=== PATIENT | female | born 1940 | race Caucasian/White ===

== ENCOUNTER → 2017-04-28 14:58 | Outpatient (CLI) | payer MEDICARE, BC, SELFPAY ==
[2017-04-28 16:25] LABS: Absolute Lymphocyte Count 2.05 X10^3/ul (0.83-4.51); Absolute Neutrophil Count 6.3 X10^3/uL (2.0-7.7); Basophil# 0.02 X10^3/uL; Basophil% 0.2 % (0-1); Eosinophil# 0.11 X10^3/uL; Eosinophils% 1.2 % (0-5); Hematocrit 40.2 % (37-47); Hemoglobin 12.9 g/dl (12.0-15.0); Lymphocyte # 2.05 X10^3/ul (4.0); Lymphocyte % 22.9 % (19-41); Mean Corp Hgb Conc 32.1 g/gl (32-36); Mean Corpuscular Hgb 29.9 pg (27.0-32.0); Mean Corpuscular Volume 93.3 fL (81-99); Mean Platelet Vol. 10.6 fl (6.2-12.0); Monocyte# 0.52 X10^3/uL; Monocyte% 5.8 % (0-10); Neutrophil # 6.25 X10^3/uL (2.7-7.7); Neutrophil % 69.8 % (47-70); Platelet Count 230 K/mm3 (150-450); RBC Distribution Width CV 14.7 % (11.6-14.6); RBC Distribution Width SD 48.3 fl (35.1-43.9); Red Blood Count 4.31 M/mm3 (4.2-5.4)
[2017-04-28 16:28] LABS: POSITIVE COUNT NO; POSITIVE DIFFERENTIAL NO; POSITIVE MORPHOLOGY NO
[2017-04-28 16:50] LABS: ALB/GLOB Ratio 0.7 RATIO (0.9-2.4); AST(SGOT) 27 U/L (15-37); Alanine Aminotransfer ALT/SGPT 31 U/L (13-56); Albumin, Serum 3.1 g/dL (3.2-5.0); Alkaline Phosphatase 78 U/L (45-117); Anion Gap 7 (5-15); BUN 12 mg/dL (7-18); BUN/Creat Ratio 12.9 RATIO (10-20); Calcium,Total 8.7 mg/dL (8.5-10.1); Chloride 102 mmol/L (98-107); Creatinine, Serum 0.93 mg/dL (0.55-1.02); EST Glomerular Filtration Rate 63 mL/min (>60); Est Glom Filt Rate - Afr Amer 76 mL/min (>60); Globulin 4.5 g/dL (2.2-4.2); Glucose 114 mg/dL (74-106); Potassium 3.7 mmol/L (3.5-5.1); Protein, Total 7.6 g/dL (6.4-8.2); Sodium Level 139 mmol/L (136-145); Thyroid Stim Hormone (TSH) 1.63 uIU/mL (0.358-3.74)
== END ==
PROVIDERS: Family Provider Family Medicine Geriatric Medicine; PCP Family Medicine Geriatric Medicine; Visit Provider Family Medicine Geriatric Medicine
DX: E11.9 Type 2 diabetes mellitus without complications (principal); I10 Essential (primary) hypertension; E55.9 Vitamin D deficiency, unspecified
CPT/HCPCS: 36415; 80053; 82306; 84443; 85025

== ENCOUNTER 2017-05-14 23:53 | Emergency (ER) | payer MEDICARE, BC, SELFPAY ==
[2017-05-14 23:54] VITALS: BP 152/117; PULSE 120; RESP 20; TEMP 36.6; O2SAT 98; BMI 26.5
--- NOTE | 2017-05-15 00:50 | ED.DEP ---
ED Disposition - Plan for ED Patient: Chief Complaint: Wound Check Instructions: ED Avulsion Dermal Referrals: Robert New Chi, MD [Primary Care Provider] -
[2017-05-15 00:52] VITALS: BP 127/72; PULSE 99; RESP 18; O2SAT 97
[2017-05-15 01:07] VITALS: BP 127/79; PULSE 94; RESP 16; O2SAT 97
--- NOTE | 2017-05-15 01:14 | ED.VISSUMM ---
- ER Visit Summary Date of Service: 05/15/17 Chief Complaint: Right arm injury History of Present Illness: The patient is a 76 F presenting with right arm injury. Patient states that she scraped her right arm on a wood cabinet on Friday. She states it has intermittently been bleeding. She is not on blood thinners. Denies pain with movement. Denies other complaints. Physical Examination: Vitals are stable. Patient is afebrile. Alert no acute distress. HEENT exam is unremarkable. Lungs are clear and equal bilaterally. Heart is regular rate and rhythm. Extremities right upper extremity skin avulsion, no active bleeding. No bony tenderness. Active full range of motion. Neurovascularly intact distally. Skin is warm and dry. Remainder of exam is unremarkable. Emergency Department Course and Treatment: Wound was cleaned and dressed. Advised wound care instructions. Advised to follow-up with her primary care physician. Advised return to ED for worsening complaints. Disposition: Discharge home Impression: Skin tear right upper extremity This note was generated with [employer] dictation software. It may contain incorrect words, spelling, and punctuation that were not noted in review of the chart prior to signing ED Disposition - Plan for ED Patient: Disposition: Home or Assisted Living Chief Complaint: Wound Check Instructions: ED Avulsion Dermal Referrals: Robert New Chi, MD [Primary Care Provider] -
== END 2017-05-15 01:08 | disposition home or self-care (01) ==
LOC: ED 05-15 00:46
PROVIDERS: Emergency Provider Emergency Medicine; Family Provider Family Medicine Geriatric Medicine; PCP Family Medicine Geriatric Medicine
DX: S41.111A Laceration without foreign body of right upper arm, initial encounter (principal); W22.8XXA Striking against or struck by other objects, initial encounter; Y93.9 Activity, unspecified; Y92.9 Unspecified place or not applicable; Y99.9 Unspecified external cause status; Z79.82 Long term (current) use of aspirin; Z79.899 Other long term (current) drug therapy
CPT/HCPCS: 99282

== ENCOUNTER 2017-05-16 20:20 | Emergency (ER) | payer MEDICARE, BC, SELFPAY ==
[2017-05-16 20:21] VITALS: BP 142/100; PULSE 108; RESP 17; TEMP 36.4; O2SAT 97; BMI 23.3
[2017-05-16 22:39] VITALS: BP 154/67; PULSE 96; RESP 16; O2SAT 100
--- NOTE | 2017-05-16 22:40 | ED.VISSUMM ---
- ER Visit Summary Date of Service: 05/16/17 Chief Complaint: [Back pain] History of Present Illness: The patient is a 76 F [presents to the emergency department with back pain that started yesterday. Patient states the pain is gradually worsened. She describes an as in her right buttock/posterior pelvic area. Patient states she has had pain like this multiple times in the past year. Patient is seen Dr. Ludwig for this in the past and has had injections. She does not take anything for pain at home. Patient denies any recent falls or trauma. She denies any pain rating down her legs. She denies weakness in the extremities. She denies change in bowel or bladder function. Patient denies urinary symptoms. Patient has not had this area imaged in the past.] Physical Examination: [HEENT-PERRLA, EOMI. Cranial nerves II through XII grossly intact. TMs clear. Mucous membranes moist. No adenopathy. Cardiovascular-regular rate and rhythm without murmur or ectopy Lungs-clear to auscultation, chest wall stable without crepitus or subcu emphysema Abdomen-normoactive bowel sounds, soft, nontender, no rebound or rigidity, no peritoneal signs. Back exam-patient has tenderness palpation over the right piriformis muscle and the right SI joint. She has negative straight leg raises. Deep tendon reflexes are plus 2 out of 4 bilaterally at the patella and Achilles. Patient has normal L5 extension bilaterally. Patient has normal sensation to light touch. Patient has no tenderness over the thoracic or lumbar spine. Extremities-intact ?4, normal range of motion, normal pulses, atraumatic] Test Results: [Patient refused imaging.] Emergency Department Course and Treatment: [Patient was given a milligram of Dilaudid IM as well as Zofran 4 mg IM.] Treatment Plan: [Patient will be given a prescription for [place].] Disposition: [Discharged to home in stable condition. Patient advised to follow-up with Dr. valente solidly within the next 3-5 days.] Impression: [Acute exacerbation of chronic back pain.] This note was generated with [employer] dictation software. It may contain incorrect words, spelling, and punctuation that were not noted in review of the chart prior to signing ED Disposition - Plan for ED Patient: Chief Complaint: Back Referrals: Robert New Chi, MD [Primary Care Provider] -
--- NOTE | 2017-05-16 22:43 | ED.DCSUM_ITS ---
- ER Visit Summary Date of Service: 05/16/17 Chief Complaint: [Back pain] History of Present Illness: The patient is a 76 F [presents to the emergency department with back pain that started yesterday. Patient states the pain is gradually worsened. She describes an as in her right buttock/posterior pelvic area. Patient states she has had pain like this multiple times in the past year. Patient is seen Dr. Ludwig for this in the past and has had injections. She does not take anything for pain at home. Patient denies any recent falls or trauma. She denies any pain rating down her legs. She denies weakness in the extremities. She denies change in bowel or bladder function. Patient denies urinary symptoms. Patient has not had this area imaged in the past.] Physical Examination: [HEENT-PERRLA, EOMI. Cranial nerves II through XII grossly intact. TMs clear. Mucous membranes moist. No adenopathy. Cardiovascular-regular rate and rhythm without murmur or ectopy Lungs-clear to auscultation, chest wall stable without crepitus or subcu emphysema Abdomen-normoactive bowel sounds, soft, nontender, no rebound or rigidity, no peritoneal signs. Back exam-patient has tenderness palpation over the right piriformis muscle and the right SI joint. She has negative straight leg raises. Deep tendon reflexes are plus 2 out of 4 bilaterally at the patella and Achilles. Patient has normal L5 extension bilaterally. Patient has normal sensation to light touch. Patient has no tenderness over the thoracic or lumbar spine. Extremities-intact ?4, normal range of motion, normal pulses, atraumatic] Test Results: [Patient refused imaging.] Emergency Department Course and Treatment: [Patient was given a milligram of Dilaudid IM as well as Zofran 4 mg IM.] Treatment Plan: [Patient will be given a prescription for [place].] Disposition: [Discharged to home in stable condition. Patient advised to follow -up with Dr. valente solidly within the next 3-5 days.] Impression: [Acute exacerbation of chronic back pain.] This note was generated with [employer] dictation software. It may contain incorrect words, spelling, and punctuation that were not noted in review of the chart prior to signing ED Disposition - Plan for ED Patient: Chief Complaint: Back Referrals: Robert New Chi, MD [Primary Care Provider] -
--- NOTE | 2017-05-16 22:45 | DCINST.ED_ITS ---
ED Disposition - Plan for ED Patient: Chief Complaint: Back Instructions: ED Sciatica Prescriptions: Hydrocodone Bitart/Apap 5-325 [[place] 5/325] 1 - 2 tab PO Q4H PRN PRN 3 Days #12 tab PRN Reason: Pain Referrals: Robert New Chi, MD [Primary Care Provider] - 3-5 Days Syed Ludwig MD [STAFF PHYSICIAN] - 3-5 Days
[2017-05-16] MEDS: HYDROmorphone 1 MG/ML Syringe IM (22:49)
[2017-05-16] MEDS: Ondansetron 4 MG/2 ML Vial IM (22:49)
[2017-05-16] MEDS: HYDROcodone Bitartrate/Apap 5/325 Tablet PO (22:56)
== END 2017-05-16 23:09 | disposition home or self-care (01) ==
LOC: ED 23:04
PROVIDERS: Emergency Provider Emergency Medicine; Family Provider Family Medicine Geriatric Medicine; PCP Family Medicine Geriatric Medicine
DX: M54.9 Dorsalgia, unspecified (principal); G89.29 Other chronic pain; E03.9 Hypothyroidism, unspecified; Z79.82 Long term (current) use of aspirin; Z79.899 Other long term (current) drug therapy
CPT/HCPCS: 96372; 99282; J2405

== ENCOUNTER 2017-05-18 15:58 | Inpatient (IN) | payer MEDICARE, BC, SELFPAY ==
[2017-05-18] VITALS (8 sets, daily range): BP systolic 158–192; BP diastolic 58–113; PULSE 90–99; RESP 16–18; TEMP 36.6–36.8; O2SAT 95–99; BMI 26.5; BMI 26.1
--- NOTE | 2017-05-18 16:15 | RAD_ITS ---
STUDY: X-RAY - PELVIS AND RIGHT HIP REASON FOR EXAM: Female, 76 years old. Patient fell today. Pain in right hip. TECHNIQUE: Radiological exam, hip, unilateral, with pelvis when performed; 2 or 3 views. COMPARISON: None. FINDINGS: There is a non-specific bowel gas pattern. Normal visualized soft tissue structures. There is narrowing with cortical sclerosis and osteophyte formation of the sacroiliac joint consistent with degenerative osteoarthritic changes. Normal bilateral superior and inferior pubic rami. There are degenerative changes of the pubic symphysis with articular narrowing and sclerosis. Normal bilateral ischial tuberosities. There are mild degenerative changes of the right hip. RAD/Hip 2-3 Views with Pelvis IMPRESSION: Degenerative changes. Electronically Signed: Tatiana Oh MD at 16:51 EDT Tel , Service support ,
--- NOTE | 2017-05-18 16:15 | RAD_ITS ---
STUDY: X-RAY - UNILATERAL RIBS ( RIGHT ) WITH CHEST REASON FOR EXAM: Female, 76 years old. Fell. Pain in right ribs anteriorly. TECHNIQUE - RIBS: 3 view(s) of the ribs. TECHNIQUE - CHEST: AP COMPARISON: November 19, 2016 FINDINGS - RIBS: Normal visualized ribs without a demonstrated fracture. FINDINGS - CHEST: The lungs are clear and expanded. There is no demonstrated pleural abnormality. Normal size heart. Normal mediastinum and elaine. Normal visualized pulmonary arteries. There is atherosclerotic calcification of the aortic arch . There is demineralization of the osseous structures. There is a stable superior endplate deformity of T8. Normal visualized ribs, clavicles, and shoulders. There is no demonstrated abnormality of the visualized soft tissue structures of the upper abdomen. RAD/Ribs Uni Min 3V w/PA Chest IMPRESSION: RIBS: Normal x-ray examination of the ribs. CHEST: No acute cardiopulmonary process. Electronically Signed: Tatiana Oh MD at 16:55 EDT Tel , Service support ,
--- NOTE | 2017-05-18 16:18 | ED.VISSUMM ---
- ER Visit Summary Date of Service: 05/18/17 Chief Complaint: Fall History of Present Illness: The patient is a 76 F presenting after fall. Patient states she fell in the parking lot of her [employer]. States she tripped over a speed bump. She did not hit her head or lose consciousness. She complains of right chest wall pain and right hip pain, she has been able to ambulate with pain. She was seen in the ED 3 days ago for a skin tear to her right arm. This resulted from scraping it on a dresser. She has only changed the dressing one time since being seen. She is not on anticoagulants. Physical Examination: Vitals are stable. Patient is afebrile. Alert no acute distress. HEENT exam is unremarkable. Neck is nontender Lungs are clear and equal bilaterally. Right lower chest wall tenderness with no crepitus Heart is regular rate and rhythm. Abdomen is soft nontender nondistended. No rebound or guarding Extremities mild anterior right hip tenderness, right forearm skin tear healing with mild surrounding erythema, no drainage. Skin is warm and dry. No focal neurologic deficit. Remainder of exam is unremarkable. Emergency Department Course and Treatment: Right rib x-ray and right hip x-rays show no acute process. She is given [place] ?1. She is given an incentive spirometer. Her right arm was dressed. She is given Keflex. She is unable to ambulate in the emergency department secondary to right hip pain. Discussed with the hospitalist for admission. Disposition: Observation Impression: Right rib contusion, right hip injury, right forearm skin tear, s/p fall This note was generated with [employer] dictation software. It may contain incorrect words, spelling, and punctuation that were not noted in review of the chart prior to signing ED Disposition - Plan for ED Patient: Chief Complaint: Fall Referrals: Robert New Chi, MD [Primary Care Provider] -
[2017-05-18] MEDS: Cephalexin 250 MG Capsule 500 MG PO (18:04)
[2017-05-18] MEDS: HYDROcodone Bitartrate/Apap 5/325 Tablet PO (18:04)
[2017-05-18 18:44] LABS: Absolute Lymphocyte Count 1.85 X10^3/ul (0.83-4.51); Absolute Neutrophil Count 9.9 X10^3/uL (2.0-7.7); Basophil# 0.01 X10^3/uL; Basophil% 0.1 % (0-1); Eosinophil# 0.02 X10^3/uL; Eosinophils% 0.2 % (0-5); Hematocrit 38.1 % (37-47); Hemoglobin 12.1 g/dl (12.0-15.0); Lymphocyte # 1.85 X10^3/ul (4.0); Lymphocyte % 14.8 % (19-41); Mean Corp Hgb Conc 31.8 g/gl (32-36); Mean Corpuscular Hgb 29.2 pg (27.0-32.0); Mean Platelet Vol. 10.2 fl (6.2-12.0); Monocyte# 0.68 X10^3/uL; Monocyte% 5.4 % (0-10); Neutrophil # 9.94 X10^3/uL (2.7-7.7); Neutrophil % 79.2 % (47-70); POSITIVE COUNT NO; POSITIVE DIFFERENTIAL NO; POSITIVE MORPHOLOGY NO; Platelet Count 220 K/mm3 (150-450); RBC Distribution Width CV 14.6 % (11.6-14.6); RBC Distribution Width SD 49.1 fl (35.1-43.9); Red Blood Count 4.14 M/mm3 (4.2-5.4); White Blood Count 12.5 K/mm3 (4.4-11.0)
--- NOTE | 2017-05-18 19:01 | PCM.HP.STD ---
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 The patient is a 76 y/o F w/ PMHx: Hypothyroidism, HTN, HLD, GERD, History of GBS Dx 2003 following URI, Frequent Falls, Chronic back pain, Former Tobacco use who presents to the [facility] ED on 05/18/17 with history of 3 repeat ED visits over the last 3 days, (1) ? Fall/instability w/ laceration to the RUE forearm, dressed with patient failure to even change her dressing since ED discharge to home, (2) acute on chronic back pain w/ sciatic complaint and return this evening (3) secondary to fall while in her [employer] parking lot onto her right side with following debility, pain to the right hip and right chest region. Per discussion with family patient was dx August this past year with Shingles and had markedly prolonged course secondary to inability to stop itching the region w/ dermatology follow-up, now healed. In the ED work-up included T 97.8, HR 90s, BP 192/72, RR 16, 99% on RA, CBC w/ WBC 12.5, Hgb 12.1, Plts 220 with L shift, BMP unremarkable, plain film hip/ribs/chest without acute findings. In the ED patient administered keflex and norco but no marked improvement and upon attempts to ambulate patient nearly fell and was noted to be severely debilitated. RUE dressing changed in the ED. 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 Hyperlipidemia (Chronic) Allergies morphine Allergy (Verified 05/16/17 20:20) Other FLU SHOT Allergy (Uncoded 05/18/17 16:02) Other Home Medications: Ambulatory Orders Medication Instructions Recorded Aspirin [Aspirin, Baby] 81 mg PO DAILY 05/28/14 Calcium (Elemental) [Os-Maximino 500] 2 tab PO DAILY 05/28/14 Lisinopril 5 mg PO DAILY 05/28/14 Levothyroxine [Synthroid] 75 mcg PO DAILY 11/19/16 Hydrocodone Bitart/Apap 5-325 1 - 2 tab PO Q4H PRN PRN 3 Days 05/16/17 [[place] 5/325] #12 tab Psychiatric History: No pertinent psych hx SAFETY SITTER History: No pertinent SAFETY SITTER history, - - T+A, BLTL, Cataract surgery. Lives: Spouse/ Significant Other Smoking Status: Former smoker Tobacco Use: Non-smoker Alcohol: None Drugs: None - *Family History Maternal History Items: No pertinent history Paternal History Items: No pertinent history Review of Systems Constitutional: Reports: Malaise, Weakness, Fatigue. Denies: Chills, Fever, Weight Change HEENT: Denies: Head Aches, Sinus Congestion, Sinus Drainage Cardiovascular: Reports: Chest Pain. Denies: Palpitations Respiratory: Denies: Cough, Shortness of breath at rest, Sputum production Gastrointestinal: Denies: Abdominal Pain, Nausea, Vomiting Genitourinary: Denies: Dysuria Musculoskeletal: Reports: Arm Pain, Joint Pain, Joint Tenderness, Leg Pain, Muscle pain Skin: Reports: Skin Changes, Wounds. Denies: Rash Neurological: Denies: Numbness, Tingling, Focal weakness Psychiatric: Denies: Anxiety, Depression, Homicidal Ideations, Suicidal Ideations Hematologic/ Lymphatic: Denies: Easy Bruising, Easy Bleeding VTE Information - Inpt Only VTE Present on Admission: No VTE Mechan Device Prophylaxis: SCD's VTE Pharm Prophylaxis ordered?: Yes Subjective: Seated upright in the ED bed, notable discomfort w/ attempts to move, primarily to the Right medial chest region beneath breast laterally. Objective: Physical Examination: General: awake, alert, oriented x 3 and cooperative, seated upright in the ED bed, pain with movement attempts. Skin: normal color, turgor, no icterus, cyanosis, healed right upper back, right lateral upper chest and RUE shingles, scarring noted from scratching, RUE w/ forearm skin tear healing with mild-moderate surrounding erythema, no drainage. HEENT: AT/NC, EOMI, PERRLA, mildly dry MM, no carotid bruits or JVD noted. Lungs: CTA bilaterally, decreased effort secondary to R rib chest discomfort elicited, mild decrease BL bases, no rales, ronchi or wheezing. Heart: Regular rate and rhythm; no gallop, rub audible. Abdomen: soft, NTTP, ND, normal BS, no HSM. Extremities: no cyanosis, clubbing, see skin. Hip region without marked TTP, rock, some discomfort to palpation of upper proximal thigh. Neurological: patient awake, alert, oriented x 3; cognitive function intact; pupils equally reactive to light and accomodation; cranial nerves II-XII grossly normal, moving all 4 extremities but limited secondary to recent fall and acute pain elicited primarily R upper chest, no focal deficits, strength moderately to severely globally decreased. Psychiatric: affect appears normal, no acute evidence of depressive or anxiety feelings. - Physical Exam Vital Signs Temp Pulse Resp BP Pulse Ox 97.8 F 90 16 187/68 H 99 05/18/17 15:59 05/18/17 18:18 05/18/17 18:18 05/18/17 18:18 05/18/17 18:18 Oxygen Delivery Method Room Air Weight: 150 lb Body Mass Index (BMI) 26.5 Finger Stick Blood Glucose 150 Laboratory Tests Past 24 Hrs 05/18/17 05/18/17 18:30 18:30 WBC 12.5 H RBC 4.14 L Hgb 12.1 Hct 38.1 MCV 92.0 MCH 29.2 MCHC 31.8 L RDW 14.6 RDW Differential 49.1 H Plt Count 220 MPV 10.2 Immature Gran % (Auto) 0.300 Neut % (Auto) 79.2 H Lymph % (Auto) 14.8 L [place] % (Auto) 5.4 Eos % (Auto) 0.2 Baso % (Auto) 0.1 Absolute Neuts (auto) 9.9 H Absolute Lymphs (auto) 1.85 Total Counted Not Reportable Sodium Pending Potassium Pending Chloride Pending Carbon Dioxide Pending Anion Gap Pending BUN Pending Creatinine Pending Est GFR (MDRD) Af Amer Pending Est GFR (MDRD) Non-Af Pending BUN/Creatinine Ratio Pending Glucose Pending Calcium Pending Assessment/Plan The patient is a 76 y/o F w/ PMHx: Hypothyroidism, HTN, HLD, GERD, History of GBS Dx 2003 following URI, Frequent Falls, Chronic back pain, Former Tobacco use who presents to the [facility] ED on 05/18/17 with history of 3 repeat ED visits over the last 3 days, (1) ? Fall/instability w/ laceration to the RUE forearm, dressed with patient failure to even change her dressing since ED discharge to home, (2) acute on chronic back pain w/ sciatic complaint and return this evening (3) secondary to fall while in her [employer] parking lot onto her right side with following debility, pain to the right hip and right chest region. (1) RUE Extremity Cellulitis: Admission CBC w/ 12.5 with L shift, no caring for her laceration, dressing was left in place since ED evaluation 3 days prior. Will admit to [facility], maintain on IV ancef, if discharge will obtain Wound Cx and Wound MRSA PCR, plan repeat CBC in AM, continue affected extremity elevation above heart when seated and in bed, monitor erythema outline with VS checks. Fall precautions. (2) Debility, Frequent Falls, Acute on Chronic Back Pain, R Rib Pain s/p Fall with history of Prior GBS Chronic Syndrome, Dx 2003 following URI: Plain films chest/rib and pelvis/hip unremarkable, maintain on fall precautions, position changes, PRN pain regimen, mag, TSH, T4 and UA/UCx requested. PT, OT, given frequency of falls and injuries occurring unsafe for return to home, likely will need SNF otherwise injury/fall risk HIGH. Orthostatic VS requested upon admission, gentle IVFs. (3) Hypertension: Continue home lisinopril, PRN hydralazine. Orthostatic VS pending. (4) Hypothyroidism: Continue home synthroid regimen, TSH and FT4 pending. (5) HLD: Not on agent, defer. (6) GERD: Famotidine. (7) DVT Prophylaxis: SCDs, heparin given pending BMP upon admission. Code Visit Inpatient E&M: [id number] Init Hosp L3
[2017-05-18 19:05] LABS: Anion Gap 11 (5-15); BUN 16 mg/dL (7-18); BUN/Creat Ratio 18.9 RATIO (10-20); Calcium,Total 9.1 mg/dL (8.5-10.1); Chloride 104 mmol/L (98-107); Creatinine, Serum 0.85 mg/dL (0.55-1.02); EST Glomerular Filtration Rate 70 mL/min (>60); Est Glom Filt Rate - Afr Amer 84 mL/min (>60); Estimated Creatinine Clearance 47.31 ml/min; Glucose 88 mg/dL (74-106); Potassium 3.9 mmol/L (3.5-5.1); Sodium Level 140 mmol/L (136-145)
--- NOTE | 2017-05-18 19:15 | HP.PCM_ITS ---
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 The patient is a 76 y/o F w/ PMHx: Hypothyroidism, HTN, HLD, GERD, History of GBS Dx 2003 following URI, Frequent Falls, Chronic back pain, Former Tobacco use who presents to the [facility] ED on 05/18/17 with history of 3 repeat ED visits over the last 3 days, (1) ? Fall/instability w/ laceration to the RUE forearm, dressed with patient failure to even change her dressing since ED discharge to home, (2) acute on chronic back pain w/ sciatic complaint and return this evening (3) secondary to fall while in her [employer] parking lot onto her right side with following debility, pain to the right hip and right chest region. Per discussion with family patient was dx August this past year with Shingles and had markedly prolonged course secondary to inability to stop itching the region w/ dermatology follow-up, now healed. In the ED work-up included T 97.8, HR 90s, BP 192/72, RR 16, 99% on RA, CBC w/ WBC 12.5, Hgb 12.1, Plts 220 with L shift, BMP unremarkable, plain film hip/ribs/chest without acute findings. In the ED patient administered keflex and norco but no marked improvement and upon attempts to ambulate patient nearly fell and was noted to be severely debilitated. RUE dressing changed in the ED. 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 Lives: Spouse/ Significant Other Smoking Status: Former smoker Tobacco Use: Non-smoker Alcohol: None Drugs: None - *Family History Maternal History Items: No pertinent history Paternal History Items: No pertinent history Review of Systems Constitutional: Reports: Malaise, Weakness, Fatigue. Denies: Chills, Fever, Weight Change HEENT: Denies: Head Aches, Sinus Congestion, Sinus Drainage Cardiovascular: Reports: Chest Pain. Denies: Palpitations Respiratory: Denies: Cough, Shortness of breath at rest, Sputum production Gastrointestinal: Denies: Abdominal Pain, Nausea, Vomiting Genitourinary: Denies: Dysuria Musculoskeletal: Reports: Arm Pain, Joint Pain, Joint Tenderness, Leg Pain, Muscle pain Skin: Reports: Skin Changes, Wounds. Denies: Rash Neurological: Denies: Numbness, Tingling, Focal weakness Psychiatric: Denies: Anxiety, Depression, Homicidal Ideations, Suicidal Ideations Hematologic/ Lymphatic: Denies: Easy Bruising, Easy Bleeding VTE Information - Inpt Only VTE Present on Admission: No VTE Mechan Device Prophylaxis: SCD's VTE Pharm Prophylaxis ordered?: Yes Subjective: Seated upright in the ED bed, notable discomfort w/ attempts to move, primarily to the Right medial chest region beneath breast laterally. Objective: Physical Examination: General: awake, alert, oriented x 3 and cooperative, seated upright in the ED bed, pain with movement attempts. Skin: normal color, turgor, no icterus, cyanosis, healed right upper back, right lateral upper chest and RUE shingles, scarring noted from scratching, RUE w/ forearm skin tear healing with mild-moderate surrounding erythema, no drainage. HEENT: AT/NC, EOMI, PERRLA, mildly dry MM, no carotid bruits or JVD noted. Lungs: CTA bilaterally, decreased effort secondary to R rib chest discomfort elicited, mild decrease BL bases, no rales, ronchi or wheezing. Heart: Regular rate and rhythm; no gallop, rub audible. Abdomen: soft, NTTP, ND, normal BS, no HSM. Extremities: no cyanosis, clubbing, see skin. Hip region without marked TTP, rock, some discomfort to palpation of upper proximal thigh. Neurological: patient awake, alert, oriented x 3; cognitive function intact; pupils equally reactive to light and accomodation; cranial nerves II-XII grossly normal, moving all 4 extremities but limited secondary to recent fall and acute pain elicited primarily R upper chest, no focal deficits, strength moderately to severely globally decreased. Psychiatric: affect appears normal, no acute evidence of depressive or anxiety feelings. - Physical Exam Vital Signs Temp Pulse Resp BP Pulse Ox 97.8 F 90 16 187/68 H 99 05/18/17 15:59 05/18/17 18:18 05/18/17 18:18 05/18/17 18:18 05/18/17 18:18 Oxygen Delivery Method Room Air Weight: 150 lb Body Mass Index (BMI) 26.5 Finger Stick Blood Glucose 150 Laboratory Tests Past 24 Hrs 05/18/17 05/18/17 18:30 18:30 WBC 12.5 H RBC 4.14 L Hgb 12.1 Hct 38.1 MCV 92.0 MCH 29.2 MCHC 31.8 L RDW 14.6 RDW Differential 49.1 H Plt Count 220 MPV 10.2 Immature Gran % (Auto) 0.300 Neut % (Auto) 79.2 H Lymph % (Auto) 14.8 L [place] % (Auto) 5.4 Eos % (Auto) 0.2 Baso % (Auto) 0.1 Absolute Neuts (auto) 9.9 H Absolute Lymphs (auto) 1.85 Total Counted Not Reportable Sodium Pending Potassium Pending Chloride Pending Carbon Dioxide Pending Anion Gap Pending BUN Pending Creatinine Pending Est GFR (MDRD) Af Amer Pending Est GFR (MDRD) Non-Af Pending BUN/Creatinine Ratio Pending Glucose Pending Calcium Pending Assessment/Plan The patient is a 76 y/o F w/ PMHx: Hypothyroidism, HTN, HLD, GERD, History of GBS Dx 2003 following URI, Frequent Falls, Chronic back pain, Former Tobacco use who presents to the [facility] ED on 05/18/17 with history of 3 repeat ED visits over the last 3 days, (1) ? Fall/instability w/ laceration to the RUE forearm, dressed with patient failure to even change her dressing since ED discharge to home, (2) acute on chronic back pain w/ sciatic complaint and return this evening (3) secondary to fall while in her [employer] parking lot onto her right side with following debility, pain to the right hip and right chest region. (1) RUE Extremity Cellulitis: Admission CBC w/ 12.5 with L shift, no caring for her laceration, dressing was left in place since ED evaluation 3 days prior. Will admit to [facility], maintain on IV ancef, if discharge will obtain Wound Cx and Wound MRSA PCR, plan repeat CBC in AM, continue affected extremity elevation above heart when seated and in bed, monitor erythema outline with VS checks. Fall precautions. (2) Debility, Frequent Falls, Acute on Chronic Back Pain, R Rib Pain s/p Fall with history of Prior GBS Chronic Syndrome, Dx 2003 following URI: Plain films chest/rib and pelvis/hip unremarkable, maintain on fall precautions, position changes, PRN pain regimen, mag, TSH, T4 and UA/UCx requested. PT, OT, given frequency of falls and injuries occurring unsafe for return to home, likely will need SNF otherwise injury/fall risk HIGH. Orthostatic VS requested upon admission, gentle IVFs. (3) Hypertension: Continue home lisinopril, PRN hydralazine. Orthostatic VS pending. (4) Hypothyroidism: Continue home synthroid regimen, TSH and FT4 pending. (5) HLD: Not on agent, defer. (6) GERD: Famotidine. (7) DVT Prophylaxis: SCDs, heparin given pending BMP upon admission. Code Visit Inpatient E&M: 45208 Init Hosp L3
[2017-05-18 20:56] LABS: Bacteria 0 SEEN /hpf (None Seen); Mucous, Urine 0 SEEN /hpf (<or=2+); Red Blood Cells-Urine 0 SEEN /hpf (0-5)
[2017-05-18 20:58] LABS: Color, Urine Straw (Yellow); Glucose, Dipstick Normal (Normal); Ketone-Dipstick Negative (Negative); Leukocyte Esterase-Dipstick 25 /ul (Negative); Nitrite-Dipstick Negative (Negative); Occult Blood-Urine Negative /ul (Negative); Protein-Dipstick Negative (Negative); Specific Gravity, Urine 1.005 (1.002-1.030); Urine Bilirubin Dipstick Negative (Negative); Urine Clarity Clear (Clear); Urine Urobilinogen Normal (Normal)
[2017-05-18 21:00] LABS: Magnesium 2.1 mg/dL (1.6-2.6); T4 Free Direct 1.53 ng/dL (0.76-1.46); Thyroid Stim Hormone (TSH) 1.08 uIU/mL (0.358-3.74)
[2017-05-18 21:03] LABS: Squamous Epithelial Cells - UA 0-5 SEEN /hpf (5-10)
[2017-05-18 21:04] LABS: White Blood Cells 0-5 SEEN /hpf (0-5)
[2017-05-18] MEDS: Cefazolin 1 GM/50 ML BAG IV (21:18)
[2017-05-18] MEDS: 0.9% Normal Saline 1,000 ML 100 ML IV (21:18)
[2017-05-18] MEDS: Ketorolac 15 MG/ML Vial IV (21:18)
[2017-05-19] VITALS (7 sets, daily range): BP systolic 154–168; BP diastolic 68–76; PULSE 79–95; RESP 16–18; TEMP 36.4–36.7; O2SAT 93–98
[2017-05-19] MEDS: Ketorolac 15 MG/ML Vial IV ×2 (05:27→14:25)
[2017-05-19] MEDS: Levothyroxine 75 MCG Tablet PO (05:27)
[2017-05-19] MEDS: Cefazolin 1 GM/50 ML BAG IV ×3 (05:27→21:51)
[2017-05-19 06:19] LABS: Absolute Lymphocyte Count 1.94 X10^3/ul (0.83-4.51); Absolute Neutrophil Count 4.9 X10^3/uL (2.0-7.7); Basophil# 0.01 X10^3/uL; Basophil% 0.1 % (0-1); Eosinophil# 0.04 X10^3/uL; Eosinophils% 0.5 % (0-5); Hematocrit 35.6 % (37-47); Hemoglobin 11.2 g/dl (12.0-15.0); Lymphocyte # 1.94 X10^3/ul (4.0); Lymphocyte % 26.3 % (19-41); Mean Corp Hgb Conc 31.5 g/gl (32-36); Mean Corpuscular Hgb 29.2 pg (27.0-32.0); Mean Platelet Vol. 10.1 fl (6.2-12.0); Monocyte# 0.54 X10^3/uL; Monocyte% 7.3 % (0-10); Neutrophil # 4.85 X10^3/uL (2.7-7.7); Neutrophil % 65.7 % (47-70); Platelet Count 205 K/mm3 (150-450); RBC Distribution Width CV 14.7 % (11.6-14.6); RBC Distribution Width SD 49.5 fl (35.1-43.9); Red Blood Count 3.83 M/mm3 (4.2-5.4); White Blood Count 7.4 K/mm3 (4.4-11.0)
[2017-05-19 06:32] LABS: Anion Gap 8 (5-15); BUN 16 mg/dL (7-18); BUN/Creat Ratio 23.6 RATIO (10-20); Calcium,Total 8.2 mg/dL (8.5-10.1); Chloride 108 mmol/L (98-107); Creatinine, Serum 0.68 mg/dL (0.55-1.02); EST Glomerular Filtration Rate 90 mL/min (>60); Est Glom Filt Rate - Afr Amer 108 mL/min (>60); Estimated Creatinine Clearance 40.21 ml/min; Glucose 107 mg/dL (74-106); Potassium 3.7 mmol/L (3.5-5.1); Sodium Level 142 mmol/L (136-145)
[2017-05-19 06:39] LABS: POSITIVE COUNT NO; POSITIVE DIFFERENTIAL NO; POSITIVE MORPHOLOGY NO
[2017-05-19] MEDS: 0.9% NaCl Peripheral Flush Adult/Peds IV ×2 (08:02→14:25)
[2017-05-19] MEDS: Calcium (Elemental) 500 MG Tablet 1000 MG PO (08:34)
[2017-05-19] MEDS: Aspirin 81 MG TAB.CHEW PO (08:35)
--- NOTE | 2017-05-19 08:59 | NURSING ---
wound photo: right elbow
--- NOTE | 2017-05-19 09:16 | PN_ITS ---
<Jewell Gilliland - Last Filed: 05/19/17 09:17> Subjective: Patient seen and examined. Complains of right rib pain, worse with movement. She denies shortness of breath. Denies pain with deep breathing. Denies fever , chills. Denies other complaints. - Physical Exam General: Alert, Oriented x3, Cooperative HEENT: Atraumatic, PERRLA, EOMI, Normocephalic Neck: Supple, No JVD, Negative Carotid Bruits Lungs: Clear to auscultation, Diminished Cardiovascular: Regular rate, Regular Rhythm, Normal S1, Normal S2, No murmurs Abdomen: Bowel Sounds Present, Soft, Non Tender, Non-Distended Extremities: No clubbing, No cyanosis, No edema, Capillary Refill Less than 3 Seconds Skin: No rashes, No breakdown Musculoskeletal: No Tenderness to Palpation of Joints or Extremities Neurological: Cranial nerves II-XII grossly intact, Neuro grossly intact Psych/Mental Status: Normal Affect, Appropriate Vital Signs Temp Pulse Resp BP Pulse Ox 97.7 F L 79 18 162/76 H 97 05/19/17 08:27 05/19/17 08:27 05/19/17 08:27 05/19/17 08:27 05/19/17 08:27 Oxygen Delivery Method Room Air Weight: 66.8 kg Body Mass Index (BMI) 26.1 Intake and Output for Last 24 Hours 05/17/17 05/18/17 05/19/17 23:59 23:59 23:59 Intake Total 828 / 828 Balance 828 / 828 Laboratory Tests Past 24 Hrs 05/18/17 05/19/17 05/19/17 20:47 05:35 05:35 WBC 7.4 RBC 3.83 L Hgb 11.2 L Hct 35.6 L MCV 93.0 MCH 29.2 MCHC 31.5 L RDW 14.7 H RDW Differential 49.5 H Plt Count 205 MPV 10.1 Immature Gran % (Auto) 0.100 Neut % (Auto) 65.7 Lymph % (Auto) 26.3 [place] % (Auto) 7.3 Eos % (Auto) 0.5 Baso % (Auto) 0.1 Absolute Neuts (auto) 4.9 Absolute Lymphs (auto) 1.94 Total Counted Not Reportable Sodium 142 Potassium 3.7 Chloride 108 H Carbon Dioxide 26.0 Anion Gap 8 BUN 16 Creatinine 0.68 Estim Creat Clear Calc 40.21 Est GFR (MDRD) Af Amer 108 Est GFR (MDRD) Non-Af 90 BUN/Creatinine Ratio 23.6 H Glucose 107 H Calcium 8.2 L Urine Color Straw Urine Clarity Clear Urine pH 7.0 Ur Specific [place] 1.005 Urine Protein Negative Urine Glucose (UA) Normal Urine Ketones Negative Urine Occult Blood Negative Urine Nitrite Negative Urine Bilirubin Negative Urine Urobilinogen Normal Ur Leukocyte Esterase 25 H Urine RBC 0 SEEN Urine WBC 0-5 SEEN Ur Squamous Epith Cells 0-5 SEEN Urine Bacteria 0 SEEN Urine Mucus 0 SEEN Medical Necessity - Tobacco Use Smoking Status: Former smoker Tobacco Use: Non-smoker Assessment/Plan Patient is a 76-year-old female admitted 05/18/2017 due to mechanical fall with right rib, hip and leg pain, right upper extremity pain, redness. She has a past medical history of hypothyroidism, hypertension, hyperlipidemia, GERD, history of [place] Reynolds? syndrome, frequent falls, chronic back pain, former tobacco use. 1. Right upper extremity cellulitis-patient states she hit her right arm on dresser which caused a skin tear. Patient initially presented to ED 05/16/2017 where she was given instructions to do dressing changes. She did not complete these. Wound nurse consulted. Dressing changed prior to assessment. Nursing reports no drainage from wound. There is marked erythema surrounding skin tear as noted in documented photo of wound from wound nurse. Continue IV Ancef. Culture if wound begins to have drainage. Continue daily dressing changes. 2. Debility, frequent falls, chronic back pain-patient complains of right rib pain status post mechanical fall. X-rays of ribs, hip and pelvis all unremarkable. Continue as needed pain regimen. Fall precaution. PT/OT. UA unremarkable. TSH, mg within normal limits. Physical therapy evaluation pending. Patient may possibly require SNF due to frequent falls. 3. Hypertension-blood pressure mildly elevated. Continue home lisinopril regimen. Continue to monitor, will add additional agent if necessary. Continue hydralazine as needed for systolic greater than 160. 4. Hyperlipidemia-not on statin. 5. Hypothyroidism-continue home Synthroid regimen. TSH within normal limits. 6. GERD-continue famotidine. 7. History of [place] Reynolds? syndrome DVT prophylaxis-SCDs, heparin This patient was seen by MICHAEL Fuentes under the supervision of Dr. Everett. <Everardo Everett E - Last Filed: 05/19/17 12:26> - Physical Exam Vital Signs Temp Pulse Resp BP Pulse Ox 97.7 F L 88 18 162/76 H 97 05/19/17 08:27 05/19/17 09:40 05/19/17 08:27 05/19/17 08:27 05/19/17 08:27 Oxygen Delivery Method Room Air Weight: 147 lb 4.301 oz Body Mass Index (BMI) 26.1 Intake and Output for Last 24 Hours 05/17/17 05/18/17 05/19/17 23:59 23:59 23:59 Intake Total 828 / 828 Balance 828 / 828 Laboratory Tests Past 24 Hrs 05/18/17 05/19/17 05/19/17 20:47 05:35 05:35 WBC 7.4 RBC 3.83 L Hgb 11.2 L Hct 35.6 L MCV 93.0 MCH 29.2 MCHC 31.5 L RDW 14.7 H RDW Differential 49.5 H Plt Count 205 MPV 10.1 Immature Gran % (Auto) 0.100 Neut % (Auto) 65.7 Lymph % (Auto) 26.3 [place] % (Auto) 7.3 Eos % (Auto) 0.5 Baso % (Auto) 0.1 Absolute Neuts (auto) 4.9 Absolute Lymphs (auto) 1.94 Total Counted Not Reportable Sodium 142 Potassium 3.7 Chloride 108 H Carbon Dioxide 26.0 Anion Gap 8 BUN 16 Creatinine 0.68 Estim Creat Clear Calc 40.21 Est GFR (MDRD) Af Amer 108 Est GFR (MDRD) Non-Af 90 BUN/Creatinine Ratio 23.6 H Glucose 107 H Calcium 8.2 L Urine Color Straw Urine Clarity Clear Urine pH 7.0 Ur Specific [place] 1.005 Urine Protein Negative Urine Glucose (UA) Normal Urine Ketones Negative Urine Occult Blood Negative Urine Nitrite Negative Urine Bilirubin Negative Urine Urobilinogen Normal Ur Leukocyte Esterase 25 H Urine RBC 0 SEEN Urine WBC 0-5 SEEN Ur Squamous Epith Cells 0-5 SEEN Urine Bacteria 0 SEEN Urine Mucus 0 SEEN Assessment/Plan Hospitalist note: I am seeing this patient in conjunction with Jewell Gilliland. I independently seen and examined the patient. Progress note above, laboratory data and imaging studies reviewed. I agree with the above treatment plan. Patient was admitted because of mechanical fall with right rib pain, hip pain and leg pain as well as right upper arm pain and redness. She still complaining of right rib pain, worsened with movement or taking the respiration. Vital signs are stable, afebrile. - Physical Exam General: Alert, Oriented x3, Cooperative, No apparent distress. HEENT: Atraumatic, PERRLA, EOMI. Neck: Supple, No JVD, Negative Carotid Bruits, Trachea Midline, Thyroid Normal. Lungs: Diminished breath sounds bilateral, otherwise clear, No rhonchi, No wheeze, No rales. Cardiovascular: Regular rate, Regular Rhythm, Normal S1, Normal S2, PMI Normal. Abdomen: Bowel Sounds Present, Soft, Non Tender, Non-Distended, No Hepato- splenomegaly. Extremities: No clubbing, No cyanosis, No edema Skin: No rashes, No breakdown Neurological: Neuro grossly intact Vital Signs are stable. Assessment and plan: #1 right upper extremity cellulitis: On IV cefazolin. Vital signs are stable, afebrile. White blood cell count is back to normal. Wound care nurse on the case for dressing. #2 mechanical fall/right rib pain/right leg pain: Without evidence of fractures. X-ray of the pelvis and right hip as well as rib x-ray showed no acute fractures. Plan for pain control. She is on IV morphine and [place] as needed. #3 other chronic medical problems: Hypertension, hypothyroidism, GERD, history of Guillain-Reynolds? syndrome: Plan to continue current treatment as above. This note was generated with [employer] dictation software. It may contain incorrect words, spelling, and punctuation that were not noted in checking the note before signing. Code Visit Inpatient E&M: 00912 Subs Hosp L2
[2017-05-19] MEDS: Lisinopril 5 MG Tablet PO (10:17)
[2017-05-19] MEDS: Docusate Sodium 100 MG Capsule PO ×2 (10:17→21:51)
--- NOTE | 2017-05-19 11:00 | CASEMGMT ---
GAY SINCLAIR Face to Face with patient for initial transition planning/care coordination assessment. GAY SINCLAIR introduced self and role at [facility]. Patient sitting in chair, alert and oriented. Patient willing to participate in assessment and is able to answer all questions appropriately. Care providers, pharmacy, and demographics verified. See link attached. Patient wishes to discharge home, denies need for home health at this time. Therapy requestion FWW for patient. Patient agreeable for [employer] for DME setup for FWW. GAY SINCLAIR will obtain script for FWW and assist with setup. Patient states she has no further needs or concerns at this time. CM to follow for discharge planning needs that may arise. Disposition Plan: Patient to discharge home with family support and follow-up plans in place.
[2017-05-19] MEDS: Atorvastatin Calcium 40 MG Tablet PO (21:52)
[2017-05-20 02:30] VITALS: BP 129/104; PULSE 97; RESP 16; TEMP 36.8; O2SAT 97
[2017-05-20] MEDS: Cefazolin 1 GM/50 ML BAG IV (06:39)
[2017-05-20] MEDS: Levothyroxine 75 MCG Tablet PO (06:41)
--- NOTE | 2017-05-20 08:54 | PCM.DC ---
- Discharge Diagnoses Current Active Problems: Current Active and Chronic Problems Hypothyroidism (Chronic) You will use the following diet at home:: No restrictions Discharge Activity: Return to Normal Activity Call your doctor if you observe: Dizziness, Fainting spells, Chest pain Allergies/Adverse Reactions: Allergies morphine Allergy (Verified 05/16/17 20:20) Other FLU SHOT Allergy (Uncoded 05/18/17 16:02) Other Medications to take at Discharge Aspirin [Aspirin, Baby] 81 mg PO DAILY 05/28/14 Calcium (Elemental) [Os-Maximino 500] 2 tab PO DINNER 05/28/14 Lisinopril 5 mg PO DAILY 05/28/14 Levothyroxine [Synthroid] 75 mcg PO DAILY 11/19/16 Atorvastatin Calcium 40 mg PO QHS 05/19/17 Paroxetine [Paxil] 40 mg PO QHS 05/19/17 Cephalexin [Keflex] 500 mg PO Q12 #10 cap 05/20/17 The following prescriptions were given: Cephalexin [Keflex] 500 mg PO Q12 #10 cap Primary Care Physician: Robert New Chi, MD [Primary Care Provider] - Please follow up with your Primary Care Physician in: 1 Week Proposed Discharge Date: 05/20/17
--- NOTE | 2017-05-20 08:55 | PCM.DC.SUM ---
<Jewell Gilliland - Last Filed: 05/20/17 09:02> Discharge Date and Diagnosis Date of Admission: 05/18/17 Date of Discharge: 05/20/17 - Primary Discharge Diagnosis 1. Right upper extremity cellulitis 2. 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 Electronically Signed: Tatiana Oh MD at 16:51 EDT Tel , Service support , Ribs w/Chest X-Ray 05/18/17 16:15 IMPRESSION: RIBS: Normal x-ray examination of the ribs. CHEST: No acute cardiopulmonary process. Electronically Signed: Tatiana Oh MD at 16:55 EDT Tel , Service support , Operations: None Procedures: None Summary of Care Provided: Patient is a 76-year-old female admitted 05/18/2017 due to mechanical fall with right rib, hip and leg pain, right upper extremity pain, redness. She has a past medical history of hypothyroidism, hypertension, hyperlipidemia, GERD, history of [place] Reynolds? syndrome, frequent falls, chronic back pain, former tobacco use. 1. Right upper extremity cellulitis-patient states she hit her right arm on dresser which caused a skin tear. Patient initially presented to ED 05/16/2017 where she was given instructions to do dressing changes. She did not complete these. Wound nurse consulted. Skin tear with mild surrounding erythema. No drainage noted. Patient will continue daily dressing changes with dry sterile dressing. She received IV Ancef during admission. Leukocytosis resolved. She will be discharged on Keflex 500 mg twice daily for 5 days. 2. Debility, frequent falls, chronic back pain-patient complains of right rib pain status post mechanical fall. X-rays of ribs, hip and pelvis all unremarkable. Right rib pain improved. Patient denies need for pain medication. SNF recommended to patient's, she declined. 3. Hypertension-continue home lisinopril regimen. Blood pressure elevated intermittently. Patient will need further follow-up with primary care physician. 4. Hyperlipidemia-not on statin. 5. Hypothyroidism-continue home Synthroid regimen. TSH within normal limits. 6. GERD-continue famotidine. 7. History of [place] Reynolds? syndrome General: Alert, Oriented x3, Cooperative HEENT: Atraumatic, PERRLA, EOMI, Normocephalic Neck: Supple, No JVD, Negative Carotid Bruits Lungs: Clear to auscultation, Diminished Cardiovascular: Regular rate, Regular Rhythm, Normal S1, Normal S2, No murmurs Abdomen: Bowel Sounds Present, Soft, Non Tender, Non-Distended Extremities: No clubbing, No cyanosis, No edema, Capillary Refill Less than 3 Seconds Skin: No rashes, No breakdown Musculoskeletal: No Tenderness to Palpation of Joints or Extremities Neurological: Cranial nerves II-XII grossly intact, Neuro grossly intact Psych/Mental Status: Normal Affect, Appropriate Patient seen and examined prior to discharge. Physical assessment as noted above. Right rib pain improved. She declined SNF placement and states she has support from family. Stable for discharge home. This patient was seen by MICHAEL Fuentes under the supervision of Dr. Everett. Discharge Diet: No Restrictions Discharge Activity: Return to Normal Activity Call your doctor if you observe: Dizziness, Fainting spells, Chest pain Home Medications: Medications to take at Discharge Aspirin [Aspirin, Baby] 81 mg PO DAILY 05/28/14 Calcium (Elemental) [Os-Maximino 500] 2 tab PO DINNER 05/28/14 Lisinopril 5 mg PO DAILY 05/28/14 Levothyroxine [Synthroid] 75 mcg PO DAILY 11/19/16 Atorvastatin Calcium 40 mg PO QHS 05/19/17 Paroxetine [Paxil] 40 mg PO QHS 05/19/17 Cephalexin [Keflex] 500 mg PO Q12 #10 cap 05/20/17 Following Prescrptions Were Given to Patient: Cephalexin [Keflex] 500 mg PO Q12 #10 cap Primary Care Physician: Robert New Chi, MD [Primary Care Provider] - Please follow up with your Primary Care Physician in: 1 Week Disposition: Home Minutes spent on discharge:: 35 Patient Condition:: Stable Medical Necessity - Tobacco Use Smoking Status: Former smoker Tobacco Use: Non-smoker Meaningful Use Info Meaningful Use Diagnoses (Choose all that apply): None applicable <Everardo Everett E - Last Filed: 05/20/17 15:34> Discharge Date and Diagnosis - Secondary Discharge Diagnosis Chronic Problems Hypothyroidism (Chronic) 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 Patient was admitted because of right upper extremity cellulitis that developed after she had mechanical fall with laceration of the right upper extremity. Also, she complained of multiple pains including her right upper extremity, right ribs and right leg. Her imaging studies revealed no evidence of acute fractures or dislocations. She was treated with IV cefazolin for right upper extremity cellulitis. Her vital signs remained stable throughout admission and she remained afebrile. Routine blood work revealed mild leukocytosis and her white blood cell count returned back to normal on repeat CBC. Seen and evaluated by PT OT because of frequent falls and she refused residential facility placement. Patient discharged home in a stable medical condition, discharged on Keflex 500 mg p.o. twice daily, continued on her chronic home medication without any changes, recommended follow-up with PCP in 1 week. . Minutes spent on discharge:: 26 Code Visit Inpatient E&M: 51809 Disch Hosp
--- NOTE | 2017-05-20 09:01 | DS.PCM_ITS ---
<Jewell Gilliland - Last Filed: 05/20/17 09:02> Discharge Date and Diagnosis Date of Admission: 05/18/17 Date of Discharge: 05/20/17 - Primary Discharge Diagnosis 1. Right upper extremity cellulitis 2. 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 Electronically Signed: Tatiana Oh MD at 16:51 EDT Tel , Service support , Ribs w/Chest X-Ray 05/18/17 16:15 IMPRESSION: RIBS: Normal x-ray examination of the ribs. CHEST: No acute cardiopulmonary process. Electronically Signed: Tatiana Oh MD at 16:55 EDT Tel , Service support , Operations: None Procedures: None Summary of Care Provided: Patient is a 76-year-old female admitted 05/18/2017 due to mechanical fall with right rib, hip and leg pain, right upper extremity pain, redness. She has a past medical history of hypothyroidism, hypertension, hyperlipidemia, GERD, history of [place] Reynolds? syndrome, frequent falls, chronic back pain, former tobacco use. 1. Right upper extremity cellulitis-patient states she hit her right arm on dresser which caused a skin tear. Patient initially presented to ED 05/16/2017 where she was given instructions to do dressing changes. She did not complete these. Wound nurse consulted. Skin tear with mild surrounding erythema. No drainage noted. Patient will continue daily dressing changes with dry sterile dressing. She received IV Ancef during admission. Leukocytosis resolved. She will be discharged on Keflex 500 mg twice daily for 5 days. 2. Debility, frequent falls, chronic back pain-patient complains of right rib pain status post mechanical fall. X-rays of ribs, hip and pelvis all unremarkable. Right rib pain improved. Patient denies need for pain medication. SNF recommended to patient's, she declined. 3. Hypertension-continue home lisinopril regimen. Blood pressure elevated intermittently. Patient will need further follow-up with primary care physician. 4. Hyperlipidemia-not on statin. 5. Hypothyroidism-continue home Synthroid regimen. TSH within normal limits. 6. GERD-continue famotidine. 7. History of [place] Reynolds? syndrome General: Alert, Oriented x3, Cooperative HEENT: Atraumatic, PERRLA, EOMI, Normocephalic Neck: Supple, No JVD, Negative Carotid Bruits Lungs: Clear to auscultation, Diminished Cardiovascular: Regular rate, Regular Rhythm, Normal S1, Normal S2, No murmurs Abdomen: Bowel Sounds Present, Soft, Non Tender, Non-Distended Extremities: No clubbing, No cyanosis, No edema, Capillary Refill Less than 3 Seconds Skin: No rashes, No breakdown Musculoskeletal: No Tenderness to Palpation of Joints or Extremities Neurological: Cranial nerves II-XII grossly intact, Neuro grossly intact Psych/Mental Status: Normal Affect, Appropriate Patient seen and examined prior to discharge. Physical assessment as noted above. Right rib pain improved. She declined SNF placement and states she has support from family. Stable for discharge home. This patient was seen by MICHAEL Fuentes under the supervision of Dr. Everett. Discharge Diet: No Restrictions Discharge Activity: Return to Normal Activity Call your doctor if you observe: Dizziness, Fainting spells, Chest pain Home Medications: Medications to take at Discharge Aspirin [Aspirin, Baby] 81 mg PO DAILY 05/28/14 Calcium (Elemental) [Os-Maximino 500] 2 tab PO DINNER 05/28/14 Lisinopril 5 mg PO DAILY 05/28/14 Levothyroxine [Synthroid] 75 mcg PO DAILY 11/19/16 Atorvastatin Calcium 40 mg PO QHS 05/19/17 Paroxetine [Paxil] 40 mg PO QHS 05/19/17 Cephalexin [Keflex] 500 mg PO Q12 #10 cap 05/20/17 Following Prescrptions Were Given to Patient: Cephalexin [Keflex] 500 mg PO Q12 #10 cap Primary Care Physician: Robert New Chi, MD [Primary Care Provider] - Please follow up with your Primary Care Physician in: 1 Week Disposition: Home Minutes spent on discharge:: 35 Patient Condition:: Stable Medical Necessity - Tobacco Use Smoking Status: Former smoker Tobacco Use: Non-smoker Meaningful Use Info Meaningful Use Diagnoses (Choose all that apply): None applicable <Everardo Everett E - Last Filed: 05/20/17 15:34> Discharge Date and Diagnosis - Secondary Discharge Diagnosis Chronic Problems Hypothyroidism (Chronic) 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 Patient was admitted because of right upper extremity cellulitis that developed after she had mechanical fall with laceration of the right upper extremity. Also, she complained of multiple pains including her right upper extremity, right ribs and right leg. Her imaging studies revealed no evidence of acute fractures or dislocations. She was treated with IV cefazolin for right upper extremity cellulitis. Her vital signs remained stable throughout admission and she remained afebrile. Routine blood work revealed mild leukocytosis and her white blood cell count returned back to normal on repeat CBC. Seen and evaluated by PT OT because of frequent falls and she refused [facility] facility placement. Patient discharged home in a stable medical condition, discharged on Keflex 500 mg p.o. twice daily , continued on her chronic home medication without any changes, recommended follow-up with PCP in 1 week. . Minutes spent on discharge:: 26 Code Visit Inpatient E&M: 26703 Disch Hosp
[2017-05-20 10:30] VITALS: BP 147/62; PULSE 82; RESP 16; TEMP 36.4; O2SAT 100
[2017-05-20] MEDS: Docusate Sodium 100 MG Capsule PO (10:35)
[2017-05-20] MEDS: Aspirin 81 MG TAB.CHEW PO (10:35)
[2017-05-20] MEDS: Calcium (Elemental) 500 MG Tablet 1000 MG PO (10:35)
[2017-05-20] MEDS: Lisinopril 5 MG Tablet PO (10:35)
[2017-05-20] MEDS: Acetaminophen 325 MG Tablet 650 MG PO (10:37)
[2017-05-20 12:40] VITALS: BP 165/56; PULSE 78; RESP 16; TEMP 36.4; O2SAT 100
[2017-05-20 12:48] VITALS: O2SAT 100
== END 2017-05-20 13:00 | disposition home or self-care (01) | DRG 603 ==
LOC: ED 19:18 → MS3 19:21
PROVIDERS: Admitting Provider Family Medicine; Emergency Provider Emergency Medicine; Family Provider Family Medicine Geriatric Medicine; PCP Family Medicine Geriatric Medicine; Visit Provider Hospitalist
DX: L03.113 Cellulitis of right upper limb (principal); G65.0 Sequelae of Guillain-Barre syndrome; W01.0XXA Fall on same level from slipping, tripping and stumbling without subsequent striking against object, initial encounter; E03.9 Hypothyroidism, unspecified; G89.29 Other chronic pain; M54.9 Dorsalgia, unspecified; I10 Essential (primary) hypertension; S20.211A Contusion of right front wall of thorax, initial encounter; Y92.481 Parking lot as the place of occurrence of the external cause; Z87.891 Personal history of nicotine dependence; R53.81 Other malaise; R29.6 Repeated falls; Z91.81 History of falling; K21.9 Gastro-esophageal reflux disease without esophagitis; E78.5 Hyperlipidemia, unspecified; S51.811A Laceration without foreign body of right forearm, initial encounter; W22.03XA Walked into furniture, initial encounter; Z79.82 Long term (current) use of aspirin; Z79.899 Other long term (current) drug therapy
CPT/HCPCS: 36415; 71101; 73502; 80048; 81001; 83735; 84439; 84443; 85025; 87086; 96372; 97162; 97165; 97530; 99282; J7030; A4216; J2405

== ENCOUNTER → 2017-06-03 13:40 | Outpatient (CLI) | payer MEDICARE, BC, SELFPAY ==
--- NOTE | 2017-06-03 13:45 | BI_ITS ---
MAMMOGRAPHY - BILATERAL SCREENING REASON FOR EXAM: Female, 77 years old. Routine annual screening examination. PERTINENT HISTORY: Non-contributory. TECHNIQUE: Digital bilateral breast evangelist (3D mammographic acquisition) in the CC and MLO projections. 2-D mediolateral oblique (MLO) and craniocaudad (CC) views of both breasts were obtained. CAD: Full Field Digital Mammography with Computer Added Detection was performed. COMPARISON: Comparison is made with prior study dated April 28, 2014 and April 27, 2013. FINDINGS: Breast Composition: The breasts are heterogeneously dense, which may obscure small masses. There are no dominant masses or suspicious calcifications. There is a 7.6 mm x 7.9 mm well-defined nodule in the inferior retroareolar region of the right breast. Correlation with ultrasound is recommended. No other significant abnormalities are identified. BI/SCREENING MAMM (CAD), BILAT IMPRESSION: Subcentimeters nodule is seen in the right breast as described. Correlation with ultrasound is recommended. ASSESSMENT CATEGORY: BIRADS Category 0: Incomplete. Need additional imaging evaluation. A letter regarding these results will be sent to the patient by the facility within 30 days. Approximately 10% of breast cancers are not detected by mammography. A normal mammogram should not delay biopsy of a clinically suspicious abnormality. [id number] Electronically Signed: Rayray Graves MD at 15:06 EDT Tel [phone], Service support ,
== END ==
PROVIDERS: Family Provider Family Medicine Geriatric Medicine; PCP Family Medicine Geriatric Medicine; Visit Provider Family Medicine Geriatric Medicine
DX: Z12.31 Encounter for screening mammogram for malignant neoplasm of breast (principal); Z78.0 Asymptomatic menopausal state
CPT/HCPCS: 77063; 77067

== ENCOUNTER → 2017-06-10 13:36 | Outpatient (CLI) | payer MEDICARE, BC, SELFPAY ==
--- NOTE | 2017-06-10 13:37 | BD_ITS ---
STUDY: DUAL ENERGY X-RAY ABSORPTIOMETRY / DXA REASON FOR EXAM: Female, 77 years old. The patient is postmenopausal. Loss of height of 1.5 inches. TECHNIQUE: Bone Mineral Density (BMD) measurements of lumbar spine and bilateral hips were obtained. COMPARISON: Comparison is made with prior study dated April 09, 2011. FINDINGS: Lumbar Spine (L1-L4): g/cm2 (1.046) / T-score (-1.1) / Z-score (0.7) Findings are suggestive of osteopenia with a moderate fracture risk. 50% loss of height of a mid dorsal vertebrae. Left Femur Total: g/cm2 (0.861) / T-score (-1.2) / Z-score (0.6) Left Femoral Neck: g/cm2 (0.809) / T-score (-1.6) / Z-score (0.3) Right Femur Total: g/cm2 (0.890) / T-score (-0.9) / Z-score (0.8) Right Femoral Neck: g/cm2 (0.776) / T-score (-1.9) / Z-score (0.1) The T-Scores on the most recent prior examination were: Lumbar Spine (L1-L4): There has been worsening of bone density since the previous examination. Left Femur Total: which represents a worsening of 9.8%. Right Femur Total: which represents a worsening of 4.8%. BD/Dexa Bone Density Study IMPRESSION: The patient is considered osteopenic as outlined below according to World [place] Organization (WHO) criteria with a moderate fracture risk. There has been worsening of bone density since the previous examination. Reference Information: The T-score is the number of standard deviations above or below the standard which is normal for young adults at their peak bone mineral density. The World Health Organization (WHO) interprets the T-scores as follows: Above -1 Normal bone density Between -1 and -2.5 Osteopenia Equal to / or below -2.5 Osteoporosis As a practical clinical guideline, osteopenia may be graded as follows: Mild -1 through -1.5 Moderate -1.6 through -2.0 Severe -2.1 through -2.4 The Z-score is the number of standard deviations above or below age-matched controls. A Z-score of less than -1.5 would be considered abnormal. References: 1. NIH Osteoporosis and Related Bone Diseases http://www.osteo.org 2. International Society for Clinical Densitometry http://www.iscd.org 3. National Osteoporosis Foundation http://www.nof.org Electronically Signed: Rayray Graves MD at 15:12 EDT Tel [phone], Service support ,
== END ==
PROVIDERS: Family Provider Family Medicine Geriatric Medicine; PCP Family Medicine Geriatric Medicine; Visit Provider Family Medicine Geriatric Medicine
DX: Z78.0 Asymptomatic menopausal state (principal); M85.80 Other specified disorders of bone density and structure, unspecified site
CPT/HCPCS: 77080

== ENCOUNTER → 2017-06-25 12:23 | Outpatient (CLI) | payer MEDICARE, BC, SELFPAY ==
--- NOTE | 2017-06-25 12:28 | US_ITS ---
STUDY: ULTRASOUND BREAST - RIGHT REASON FOR EXAM: Female, 77 years old. Abnormal mammography. 7.9 mm nodule in the inferior retroareolar region of the right breast identified on screening mammography performed June 03, 2017. TECHNIQUE: Axial and longitudinal images of the RIGHT breast were performed with a high resolution ultrasound transducer. COMPARISON: None. FINDINGS: RIGHT Breast: There is a 0.8 x 0.6 x 0.5 cm, ovoid, anechoic focus with sharp, smooth and echogenic margins as well as enhanced through transmission in the inferior retroareolar region of the right breast corresponding to the mammographic finding. There is no posterior shadowing. US/Breast Limited Unilateral IMPRESSION: 8 mm simple cyst. ASSESSMENT CATEGORY: BIRADS Category 2: Benign. A letter regarding these results will be sent to the patient by the facility within 30 days. Electronically Signed: Don Dow MD at 13:21 EDT , Service support ,
== END ==
LOC: OPUS 12:25
PROVIDERS: Family Provider Family Medicine Geriatric Medicine; PCP Family Medicine Geriatric Medicine; Visit Provider Family Medicine Geriatric Medicine
DX: R92.0 Mammographic microcalcification found on diagnostic imaging of breast (principal); N64.89 Other specified disorders of breast
CPT/HCPCS: 76642

== ENCOUNTER → 2017-07-02 09:33 | Outpatient (CLI) | payer MEDICARE, BC, SELFPAY ==
--- NOTE | 2017-07-02 09:40 | RAD_ITS ---
STUDY: X-RAY - LUMBAR SPINE REASON FOR EXAM: Female, 77 years old. Low back pain TECHNIQUE: 3 view(s) of the lumbar spine were obtained. Lumbar spine and thoracic spine September 30, 2016 COMPARISON: March 24, 2016 FINDINGS: Normal lumbar lordosis. There is a dextroscoliosis of the lumbar spine. There is a normal alignment of the vertebrae. Normal vertebral bodies and endplates except for a compression fracture at T8.. Normal disc space heights. The soft tissue structures are unremarkable. RAD/Lumbar Spine 2 or 3 Views IMPRESSION: Compression fracture T8 probably old. Otherwise no acute disease. Electronically Signed: Benitez Hull MD at 23:56 EDT , Service support ,
== END ==
LOC: RAD 09:36
PROVIDERS: Family Provider Family Medicine Geriatric Medicine; PCP Family Medicine Geriatric Medicine; Visit Provider Family Medicine Geriatric Medicine
DX: M54.5 Low back pain (principal)
CPT/HCPCS: 72100

== ENCOUNTER 2017-08-13 13:00 | Outpatient (RCR) | payer MEDICARE, BC, SELFPAY ==
--- NOTE | 2017-07-16 15:26 | HP.PTEVAL_ITS ---
Patient's Visit Information MICHELE SOUZA is a 77 year old F referred to Physical Therapy by Robert New with a diagnosis of LOW BACK PAIN. Date of Evaluation: 07/16/17 Physical Therapist: Glory Syed Visit Plan Frequency: 2-3x /Week Duration: 4-6 Weeks Plan: AQUATIC THERAPY FOR PAIN RELEIF, POSTURE CORRECTION/STRENGTHENING, INSTRUCTION IN APPROPRIATE BODY MECHANICS AND ACTIVITY MODIFICATIONS. DLS STARTING WITH A NEUTRAL SPINE PROGRESSING ROM TOLERATED. CHRISTINA LE ROM, STRETCHING AND STRENGTHENING. GAIT TRAINING. HEP INSTRUCTION. RECOMMEND THERAPIST GET IN WITH PATIENT AT LEAST THE FIRST TIME. PATIENT REPORTS SHE LOVES THE WATER BUT PATIENT IS IN A LOT OF PAIN AND MOVING SLOWLY RIGHT NOW. - Subjective Subjective: Diagnosis: LOW BACK PAIN. Work/Leisure: RETIRED. Disability: NO. Present symptoms: CHRISTINA LOW BACK PAIN RIGHT > LEFT. PATIENT DENIES CHRISTINA LE SX'S. Present since: ABOUT 2 MONTHS. Pain Scale: Worst - 5/10 Least - 2/ 10. Currently: 10. Commenced as a result of: FELL IN [place] [employer] WHEN SHE TRIPPED OVER SPEED BUMP. Symptoms at onset: RIGHT BACK AND RIBS. Worse: RISING FROM SITTING, CAR TRANSFER, BED TRANSFERS, STANDING, WALKING, SITTING, BENDING, LIFTING. Better: WALKER HELPS. LYING DOWN IS BETTER. Disturbed sleep: YES. Previous history/Previous treatment: HISTORY OF SCIATICA LAST YEAR. PAIN MGMT BRITTNEY'S. SHOTS FROM DR. NEW TOO. NO BACK SURGERY. NO CHIRO TREATMENTS. DOES NOT RECALL HAVING PT FOR BACK. Coughing/ sneezing/straining: POSITIVE. Gait: UNABLE TO WALK WITHOUT WALKER NOW BUT WAS WALKING WITHOUT ANY ASSISITVE DEVICES BEFORE THE FALL. Difficulty initiating urinatin: NO. Accidents: NO. Unexplained weight loss: NO. Imaging: STUDY: X-RAY - LUMBAR SPINE REASON FOR EXAM: Female, 77 years old. Low back pain. TECHNIQUE: 3 view(s) of the lumbar spine were obtained. Lumbar spine and thoracic spine September 30, 2016. COMPARISON: March 24, 2016. FINDINGS: Normal lumbar lordosis. There is a dextroscoliosis of the lumbar spine. There is a normal alignment of the vertebrae. Normal vertebral bodies and endplates except for a compression fracture at T8.. Normal disc space heights. The soft tissue structures are unremarkable. RAD/ Lumbar Spine 2 or 3 Views. IMPRESSION: Compression fracture T8 probably old. Otherwise no acute disease. PMH/Recent major surgery: RECENT EPISODE OF SHINGLES ABOUT A YEAR AGO. - Objective Sitting/Standing Posture: POOR. SCOLIOSIS. Active Correction of posture: WORSE. PASSIVE SUPPORT IN LOW BACK - WORSE. Other Observations: INDEP SLOW ANTALGIC GAIT INTO PT WITH FWW LIMPING ON RIGHT LE AND WITH INCREASED TRUNK FLEXION. VERY GUARDED AND ANTALGIC TRANSFERS SIT TO STAND AND REVERSE. SHE IS HEAVILY DEPENDENT ON HER UE'S TO TRANSFER. Motor deficit: CHRISTINA HIP WEAKNESS GRADED 3+/5 RIGHT AND 4-/5 LIFT. TESTING IS PAIN LIMITED. CHRISTINA KNEE EXT 4/5, KNEE FLEX 4/5 AND ANKLE DORSIFLEX 5/5. Sensory deficit: CHRISTINA LE LIGHT TOUCH SENSATION IS INTACT AND SYMMETRICAL. ROM deficit: CHRISTINA HIP TIGHTNESS INTO ABD, IR AND EXTENSION. Dural Signs: POSITIVE CHRISTINA LE'S RIGHT > LEFT. Lumbar mvmt loss: flex - MIN. NEEDS TO HOLD TO WALKER DURING TESTING. ext - JAVED. R SG - JAVED. L SG - JAVED. Core strength: POOR. Palpation: TENDERNESS WITH LIGHT PALPATION OF THE ENTIRE LUMBAR SPINE, SACRUM, CHRISTINA SI REGIONS, RIGHT BUTTOCK AND RIGHT GREATER TROCH REGIONS. - Goals Goal 1:: DECREASE C/O BACK AND CHRISTINA HIP PAIN Goal Time Frame: 4-6 Weeks Goal 2:: IMPROVE SITTING, STANDING, WALKING, BENDING, LIFTING AND ADL FUNCTION Goal Time Frame: 4-6 Weeks Goal 3:: INSTRUCT IN PROPHYLAXIS Goal Time Frame: 4-6 Weeks - Rehabilitation Potential Rehabilitation Potential: Fair - Anticipated Interventions Patient/Client Instruction: Educate patient on: Condition, Plan of Care, Risk Factors, Benefits of Fitness Program For the Purpose of:: To improve self management Therapeutic Exercise to Include: Strength training, Body mechanics, Postural training, Flexibilty training, Gait and locomotor training, In an aquatic setting, Active ROM, Dynamic Lumbar Stabilization For the Purpose of:: To decrease pain, To decrease swelling/inflammation, To increase ROM, To improve ability of physical actions for home/community/work/ leisure, To improve gait and locomotor functions Thank you for the opportunity to evaluate your patient. For Medicare and Medicare HMO plans, please review the plan of care and approve it. It will need to be FAXED BACK to us at [phone] for Medicare purposes. Please let me know if there are questions or concerns regarding this plan of care. Physician Signature: Date:
--- NOTE | 2017-08-13 14:00 | HP.PTDCSUM_ITS ---
HP - PT D/C Summary It has been my pleasure to treat MICHELE SOUZA under orders from Robert New, for the diagnosis of LOW BACK PAIN for a total of 10 visit(s). Discharge Date: 08/13/17 Please see the following information for a summary of their discharge status. - Subjective Subjective: PATIENT STATES I HAVE BEEN WALKING TODAY BY MYSELF. REPORTS SHE IS TRYING TO WALK WTHOUT THE WALKER AND THE CANE DOESN'T HELP. PATIENT REPORTS SHE HAS A LITTLE BIT OF PAIN TODAY IN THE SAME SPOT. FOLLOW UP PLANNED WITH DR. NEW IN OCTOBER. PATIENT REPORTS SHE REALLY DOESN'T HURT MUCH NOW AND SHE CAN DO MORE NOW LIKE SWEEP THE FLOOR AND OTHER HOUSEWORK. SHE REPORTS SHE IS ALMOST BACK TO HOW SHE WAS BEFORE THE FALL. SHE STATES SHE WOULD LIKE TO CONTINUE WORKING ON HER POSTURE AND EX ON HER OWN NOW. STATES SHE CAN DO THE EX 'S SHE WAS DOING IN[place] NOW. - Pain R hip/LB Pain Intensity (Out of 10): 2 - Overall Improvement % Improvement: 90 - Objective Objective/Function: INDEP SLOW ANTALGIC GAIT INTO PT WITHOUT ANY AD'S. MUCH LESS GUARDED TRANSFERS SIT TO STAND AND REVERSE BUT IT IS DIFFICULT FOR PATIENT TO INITIATE GAIT ON HER RIGHT LE THE FIRST COUPLE OF STEPS THEN GAIT SMOOTHS OUT MORE BUT SHE STILL KEEPS A MILD LIMP ON THE RIGHT LE. Motor deficit: CHRISTINA LE STRENGTH IS NOW 5/5 WITH MMT'ING EXCEPT HIPS GRADED 4/5. PATIENT DENIES ANY INCREASED PAIN WITH LE MMT'ING CHRISTINA. Sensory deficit: CHRISTINA LE LIGHT TOUCH SENSATION IS INTACT AND SYMMETRICAL. ROM deficit: CHRISTINA HIP TIGHTNESS. PATIENT REPORTS MILD PAIN WITH HIP FLEXION ROM TESTING. Dural Signs: NEGATIVE CHRISTINA LE DURAL SIGNS. Lumbar mvmt loss: flex - NIL. ext - JAVED. R SG - JAVED. L SG - JAVED. PATIENT DENIES PAIN WITH LUMBAR ROM TESTING ALL PLANES TODAY AND IS ABLE TO TEST WITHOUT UE ASSIST. SLS TESTING: PATIENT IS NOW ABLE TO SLS X APPROX 5 SEC ON EACH LEG WITHOUT UE ASSIST BUT IT IS DIFFICULT. THIS PT RECOMMENDS WALKER FOR SAFETY. PATIENT VERBALIZES AGREEMENT. Core strength: POOR. Palpation: PATIENT NOW HAS MILD TENDERNESS LOCALIZED TO THE RIGHT LUMBOSACRAL REGION. LUMBAR OSWESTRY HAS IMPROVED FROM 26 TO 8. - Goals Goal 1:: DECREASE C/O BACK AND CHRISTINA HIP PAIN Goal Progress: Goal Met Goal 2:: IMPROVE SITTING, STANDING, WALKING, BENDING, LIFTING AND ADL FUNCTION Goal Progress: Goal Met Goal 3:: INSTRUCT IN PROPHYLAXIS Goal Progress: Progressing - Plan Plan: D/C AT PATIENTS REQUEST. WE WOULD BE HAPPY TO RESUME PT IN THE FUTURE NEEDED/INDICATED. ENCOURAGED PATIENT TO FOLLOW UP WITH DR. NEW NEEDED AND TO USE WALKER FOR SAFETY. - D/C Information If there are questions or concerns regarding this patient's physical therapy, please feel free to call me at [phone]. Thank you for the referral of this patient. Sincerely, Glory Aguilar
== END 2017-08-13 19:00 | disposition home or self-care (01) ==
LOC: PT 13:00
PROVIDERS: Family Provider Family Medicine Geriatric Medicine; PCP Family Medicine Geriatric Medicine; Visit Provider Family Medicine Geriatric Medicine
DX: M54.5 Low back pain (principal)
CPT/HCPCS: 97113; 97162; 97164; 97530

== ENCOUNTER → 2017-11-04 11:43 | Outpatient (CLI) | payer MEDICARE, BC, SELFPAY ==
[2017-11-04 12:33] LABS: Absolute Lymphocyte Count 2.05 X10^3/ul (0.83-4.51); Absolute Neutrophil Count 3.8 X10^3/uL (2.0-7.7); Basophil# 0.02 X10^3/uL; Basophil% 0.3 % (0-1); Eosinophil# 0.09 X10^3/uL; Eosinophils% 1.4 % (0-5); Hemoglobin 12.1 g/dl (12.0-15.0); Lymphocyte # 2.05 X10^3/ul (4.0); Lymphocyte % 31.7 % (19-41); Mean Corp Hgb Conc 31.8 g/gl (32-36); Mean Corpuscular Hgb 29.3 pg (27.0-32.0); Mean Platelet Vol. 10.4 fl (6.2-12.0); Monocyte# 0.46 X10^3/uL; Monocyte% 7.1 % (0-10); Neutrophil # 3.84 X10^3/uL (2.7-7.7); Neutrophil % 59.3 % (47-70); Platelet Count 207 K/mm3 (150-450); RBC Distribution Width CV 13.7 % (11.6-14.6); RBC Distribution Width SD 45.5 fl (35.1-43.9); Red Blood Count 4.13 M/mm3 (4.2-5.4); White Blood Count 6.5 K/mm3 (4.4-11.0)
[2017-11-04 12:44] LABS: POSITIVE COUNT NO; POSITIVE DIFFERENTIAL NO; POSITIVE MORPHOLOGY NO
[2017-11-04 13:09] LABS: ALB/GLOB Ratio 0.7 RATIO (0.9-2.4); AST(SGOT) 19 U/L (15-37); Alanine Aminotransfer ALT/SGPT 24 U/L (13-56); Albumin, Serum 2.9 g/dL (3.2-5.0); Alkaline Phosphatase 81 U/L (45-117); Anion Gap 10 (5-15); BUN 13 mg/dL (7-18); Calcium,Total 8.5 mg/dL (8.5-10.1); Chloride 108 mmol/L (98-107); Creatinine, Serum 0.72 mg/dL (0.55-1.02); EST Glomerular Filtration Rate 83 mL/min (>60); Est Glom Filt Rate - Afr Amer 101 mL/min (>60); Globulin 4.1 g/dL (2.2-4.2); Glucose 110 mg/dL (74-106); Potassium 3.7 mmol/L (3.5-5.1); Sodium Level 145 mmol/L (136-145); Thyroid Stim Hormone (TSH) 0.15 uIU/mL (0.358-3.74)
== END ==
PROVIDERS: Family Provider Family Medicine Geriatric Medicine; PCP Family Medicine Geriatric Medicine; Visit Provider Family Medicine Geriatric Medicine
DX: E11.9 Type 2 diabetes mellitus without complications (principal); I10 Essential (primary) hypertension; E55.9 Vitamin D deficiency, unspecified
CPT/HCPCS: 36415; 80053; 82306; 84443; 85025

== ENCOUNTER → 2018-01-23 13:38 | Outpatient (CLI) | payer MEDICARE, BC, SELFPAY ==
--- NOTE | 2018-01-23 13:43 | US_ITS ---
STUDY: THYROID ULTRASOUND REASON FOR EXAM: Female, 77 years old. Follow-up nodules. Patient on thyroid medication. TECHNIQUE: Ultrasound evaluation of the thyroid was performed with real-time and static nobles-scale imaging. COMPARISON: January 29, 2017. FINDINGS: RIGHT LOBE: The right lobe of the thyroid gland measures 2.6 x 1.1 x 1 point cm. There is a homogeneous echotexture. There is a 0.8 x 0.5 x 0.4 cm anechoic structure with through transmission in the mid thyroid thought to be a cyst. There is also a 3 mm anechoic structure with through-transmission lower pole. The represent a cyst. There is normal vascularity on Doppler imaging. LEFT LOBE: The left lobe of the thyroid gland measures 3.5 x 1.1 x 0.7 cm. There is a homogeneous echotexture. There are no demonstrated solid, cystic or complex lesions. There is normal vascularity on Doppler imaging. ISTHMUS: The isthmus measures 0.2 cm. The regional lymph nodes are normal. US/Thyroid IMPRESSION: Stable right thyroid cysts. Electronically Signed: Stefan Li DO at 16:07 EST Tel [phone], Service support ,
== END ==
PROVIDERS: Family Provider Family Medicine Geriatric Medicine; PCP Family Medicine Geriatric Medicine; Referring Provider Family Medicine Geriatric Medicine; Visit Provider Family Medicine Geriatric Medicine
DX: E04.1 Nontoxic single thyroid nodule (principal)
CPT/HCPCS: 76536

== ENCOUNTER → 2018-03-10 10:46 | Outpatient (CLI) | payer MEDICARE, BC, SELFPAY ==
--- NOTE | 2018-03-10 11:35 | RAD_ITS ---
STUDY: X-RAY - ABDOMEN/PELVIS REASON FOR EXAM: Female, 77 years old. Constipation one month TECHNIQUE: KUB COMPARISON: None. FINDINGS: Scoliosis, multilevel lumbar spondylosis. Lung bases clear with no cardiomegaly. Moderately large distributed stool burden from the cecum to the rectum, consistent with constipation. Small bowel pattern unremarkable. Grossly normal size and position of the solid organs of the abdomen. Prominent aortoiliac atherosclerotic calcifications. RAD/Abd Inc Decub and/or Erect IMPRESSION: Constipation. Electronically Signed: Aden Leblanc MD at 12:06 EST Tel , Service support ,
[2018-03-10 13:00] LABS: Thyroid Stim Hormone (TSH) 2.98 uIU/mL (0.358-3.74)
== END ==
LOC: POLAB3 10:47 → RAD 11:05
PROVIDERS: Family Provider Family Medicine Geriatric Medicine; PCP Family Medicine Geriatric Medicine; Referring Provider Family Medicine Geriatric Medicine; Visit Provider Family Medicine Geriatric Medicine
DX: N39.0 Urinary tract infection, site not specified (principal); E03.9 Hypothyroidism, unspecified; K59.00 Constipation, unspecified
CPT/HCPCS: 36415; 74019; 84443; 87086; 87088

== ENCOUNTER → 2018-04-29 13:47 | Outpatient (CLI) | payer MEDICARE, BC, SELFPAY ==
[2018-04-29 17:06] LABS: Absolute Lymphocyte Count 2.38 X10^3/ul (0.83-4.51); Absolute Neutrophil Count 5.1 X10^3/uL (2.0-7.7); Basophil# 0.02 X10^3/uL; Basophil% 0.2 % (0-1); Eosinophil# 0.13 X10^3/uL; Eosinophils% 1.6 % (0-5); Hematocrit 40.2 % (37-47); Hemoglobin 12.9 g/dl (12.0-15.0); Lymphocyte # 2.38 X10^3/ul (4.0); Lymphocyte % 28.8 % (19-41); Mean Corp Hgb Conc 32.1 g/gl (32-36); Mean Corpuscular Volume 90.3 fL (81-99); Mean Platelet Vol. 10.8 fl (6.2-12.0); Monocyte# 0.61 X10^3/uL; Monocyte% 7.4 % (0-10); Neutrophil % 61.8 % (47-70); Platelet Count 238 K/mm3 (150-450); RBC Distribution Width SD 49.4 fl (35.1-43.9); Red Blood Count 4.45 M/mm3 (4.2-5.4); White Blood Count 8.3 K/mm3 (4.4-11.0)
[2018-04-29 17:08] LABS: POSITIVE COUNT NO; POSITIVE DIFFERENTIAL NO; POSITIVE MORPHOLOGY NO
[2018-04-29 17:46] LABS: Vitamin D,25 Hydroxy 35.2 ng/mL (29.95-100.01)
[2018-04-29 17:49] LABS: ALB/GLOB Ratio 0.7 RATIO (0.9-2.4); AST(SGOT) 22 U/L (15-37); Alanine Aminotransfer ALT/SGPT 28 U/L (13-56); Albumin, Serum 3.3 g/dL (3.2-5.0); Alkaline Phosphatase 83 U/L (45-117); Anion Gap 9 (5-15); BUN 23 mg/dL (7-18); BUN/Creat Ratio 22.8 RATIO (10-20); Calcium,Total 9.1 mg/dL (8.5-10.1); Chloride 103 mmol/L (98-107); Creatinine, Serum 1.01 mg/dL (0.55-1.02); EST Glomerular Filtration Rate 57 mL/min (>60); Est Glom Filt Rate - Afr Amer 68 mL/min (>60); Globulin 4.7 g/dL (2.2-4.2); Glucose 122 mg/dL (74-106); Potassium 3.7 mmol/L (3.5-5.1); Sodium Level 138 mmol/L (136-145); Thyroid Stim Hormone (TSH) 5.92 uIU/mL (0.358-3.74)
== END ==
PROVIDERS: Family Provider Family Medicine Geriatric Medicine; PCP Family Medicine Geriatric Medicine; Visit Provider Family Medicine Geriatric Medicine
DX: E11.9 Type 2 diabetes mellitus without complications (principal); I10 Essential (primary) hypertension; E55.9 Vitamin D deficiency, unspecified
CPT/HCPCS: 36415; 80053; 82306; 84443; 85025

== ENCOUNTER 2018-07-18 18:36 | Emergency (ER) | payer MEDICARE, BC, SELFPAY ==
[2018-07-18 18:37] VITALS: BP 155/86; PULSE 108; RESP 18; TEMP 36.5; O2SAT 95; BMI 27.8
--- NOTE | 2018-07-18 18:45 | ED.VIS.UPPEX ---
History of Present Illness Chief Complaint: Upper Extremity Injury Informant: Patient Occurred: Weeks - 1 week ago Mechanism/Context: Injury - Blunt trauma Current Severity: 03/12 Maximum Severity: 09/09 Worsened by: Pushing on raised area Relieved by: Rest Associated Symptoms: Negative for: Parasthesia, Weakness, Loss of Funtion Narrative: Patient is a elderly [id number] woman who presents with injury to the volar surface of her left wrist. She dropped a phone on her wrist 1 week ago. Pain increased in intensity when sister poked on it the other day. She has no other complaints. She denies paresthesia, anesthesia motors. 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 (2) Hyperlipidemia Status: Chronic (3) Hypothyroidism Status: Chronic Past Medical History - Allergies and Home Meds Allergies/Adverse Reactions: Allergies morphine Allergy (Verified 07/18/18 18:37) Other FLU SHOT Allergy (Uncoded 07/18/18 18:37) Other Primary Care Physician: Robert New Chi, MD [Primary Care Provider] - Prior records reviewed: Yes Surgical History: noncontributory Lives: Spouse/ Significant Other Smoking Status: Former smoker Alcohol: None - Family History Paternal Family History: Reports: No pertinent history Maternal Family History: Reports: No pertinent history Review of Systems General: Denies: Chills, Fever, Malaise Skin: Reports: Wounds. Denies: Rash, Abscess Neurological: Denies: Weakness, Parasthesia, Numbness Hematologic: Denies: Easy bruising, Easy bleeding Physical Exam Vital Signs/Narrative: Vital Signs Temp Pulse Resp BP Pulse Ox 07/18/18 18:37 97.7 F L 108 H 18 155/86 H 95 Left Elbow: Negative for: Abrasion, Contusion, Deformity, Edema, Hematoma, Limited ROM, - Left Forearm: Hematoma - Hematoma distal left forearm/wrist. Negative for: Abrasion, Contusion, Deformity, Edema, Limited ROM, - Left Wrist: Hematoma. Negative for: Abrasion, Contusion, Deformity, Edema, Limited ROM, - - There is no pain the patient with distal radius or ulna. There is no pain the patient over the anatomical snuffbox. There is no pain with axial loading of the left thumb. There is no pain the patient on the dorsal surface. There is pain palpation over the volar surface where she has a hematoma. Left Hand: Negative for: Abrasion, Contusion, Deformity, Edema, Hematoma, Limited ROM, - Left Finger: Negative for: Abrasion, Contusion, Deformity, Edema, Hematoma, Limited ROM, - General: Well nourished, Well developed Head: Normocephalic, Atraumatic Eyes: Perrl, EOMI. Negative for: Pale conjunctiva, Scleral icterus, - Cardiovascular: Regular rate, Regular rhythm Respiratory: No distress Neurological: Alert, Oriented x3, Cranial nerves II-XII grossly intact, Normal Strength, Normal Sensation, - - Median, radial and ulnar nerve function are intact Psychological: Normal affect Diagnostic/Tx/Re-eval - Medical Decision Making Patient has a hematoma noted on exam. Since there is no point bone tenderness and there is only pain on the volar surface findings are consistent with a hematoma. No concern for fracture. Therefore imaging was not obtained. ED Disposition - Plan for ED Patient: Disposition: Home or Assisted Living Diagnosis: Traumatic hematoma of left wrist Instructions: ED Hematoma Referrals: Robert New Chi, MD [Primary Care Provider] - 1 Week if not improving
== END 2018-07-18 19:19 | disposition home or self-care (01) ==
LOC: ED 18:59
PROVIDERS: Emergency Provider Emergency Medicine; Family Provider Family Medicine Geriatric Medicine; PCP Family Medicine Geriatric Medicine
DX: S60.212A Contusion of left wrist, initial encounter (principal); W20.8XXA Other cause of strike by thrown, projected or falling object, initial encounter; Y93.9 Activity, unspecified; Y92.9 Unspecified place or not applicable; Y99.9 Unspecified external cause status; G61.0 Guillain-Barre syndrome; E03.9 Hypothyroidism, unspecified; E78.5 Hyperlipidemia, unspecified; Z79.82 Long term (current) use of aspirin; Z79.899 Other long term (current) drug therapy; Z88.5 Allergy status to narcotic agent; Z87.891 Personal history of nicotine dependence
CPT/HCPCS: 99282

== ENCOUNTER → 2018-10-12 13:50 | Outpatient (CLI) | payer MEDICARE, BC, SELFPAY ==
[2018-10-12 17:46] LABS: Thyroid Stim Hormone (TSH) 0.17 uIU/mL (0.358-3.74)
== END ==
PROVIDERS: Family Provider Family Medicine Geriatric Medicine; PCP Family Medicine Geriatric Medicine; Visit Provider Family Medicine Geriatric Medicine
DX: E03.9 Hypothyroidism, unspecified (principal)
CPT/HCPCS: 36415; 84443

== ENCOUNTER → 2018-10-28 14:00 | Outpatient (CLI) | payer MEDICARE, BC, SELFPAY ==
[2018-10-28 16:59] LABS: Absolute Lymphocyte Count 1.76 X10^3/uL (0.83-4.51); Basophil# 0.03 X10^3/uL; Basophil% 0.4 % (0-1); Eosinophil# 0.08 X10^3/uL; Eosinophils% 1.1 % (0-5); Hematocrit 38.9 % (37-47); Hemoglobin 12.4 g/dL (12.0-15.0); Lymphocyte # 1.76 X10^3/ul (4.0); Lymphocyte % 24.4 % (19-41); Mean Corp Hgb Conc 31.9 g/dL (32-36); Mean Corpuscular Hgb 28.3 pg (27.0-32.0); Mean Corpuscular Volume 88.8 fL (81-99); Mean Platelet Vol. 10.3 fl (6.2-12.0); Monocyte# 0.28 X10^3/uL; Monocyte% 3.9 % (0-10); NRBC Flagged by Analyzer 0 % (0-5); Neutrophil # 5.03 X10^3/uL (2.7-7.7); Neutrophil % 69.9 % (47-70); Platelet Count 208 K/mm3 (150-450); RBC Distribution Width CV 14.3 % (11.6-14.6); RBC Distribution Width SD 46.5 fl (35.1-43.9); Red Blood Count 4.38 M/mm3 (4.2-5.4); White Blood Count 7.2 K/mm3 (4.4-11.0)
[2018-10-28 17:13] LABS: Vitamin D,25 Hydroxy 28.8 ng/mL (29.95-100.01)
[2018-10-28 17:14] LABS: ALB/GLOB Ratio 0.7 RATIO (0.9-2.4); AST(SGOT) 21 U/L (15-37); Alanine Aminotransfer ALT/SGPT 30 U/L (13-56); Alkaline Phosphatase 86 U/L (45-117); Anion Gap 6 (5-15); BUN 16 mg/dL (7-18); BUN/Creat Ratio 16.2 RATIO (10-20); Calcium,Total 8.9 mg/dL (8.5-10.1); Chloride 107 mmol/L (98-107); Creatinine, Serum 0.99 mg/dL (0.55-1.02); EST Glomerular Filtration Rate 58 mL/min (>60); Est Glom Filt Rate - Afr Amer 70 mL/min (>60); Globulin 4.6 g/dL (2.2-4.2); Glucose 236 mg/dL (74-106); Potassium 3.9 mmol/L (3.5-5.1); Protein, Total 7.6 g/dL (6.4-8.2); Sodium Level 139 mmol/L (136-145); Thyroid Stim Hormone (TSH) 0.16 uIU/mL (0.358-3.74)
== END ==
PROVIDERS: Family Provider Family Medicine Geriatric Medicine; PCP Family Medicine Geriatric Medicine; Visit Provider Family Medicine Geriatric Medicine
DX: E11.9 Type 2 diabetes mellitus without complications (principal); I10 Essential (primary) hypertension; E55.9 Vitamin D deficiency, unspecified
CPT/HCPCS: 36415; 80053; 82306; 84443; 85025

== ENCOUNTER → 2018-12-30 13:27 | Outpatient (CLI) | payer MEDICARE, BC, SELFPAY ==
[2018-12-30 17:52] LABS: Thyroid Stim Hormone (TSH) 1.64 uIU/mL (0.358-3.74)
== END ==
PROVIDERS: Family Provider Family Medicine Geriatric Medicine; PCP Family Medicine Geriatric Medicine; Visit Provider Family Medicine Geriatric Medicine
DX: E03.9 Hypothyroidism, unspecified (principal)
CPT/HCPCS: 36415; 84443

== ENCOUNTER → 2019-01-14 11:17 | Outpatient (CLI) | payer MEDICARE, BC, SELFPAY ==
--- NOTE | 2019-01-14 11:22 | RAD_ITS ---
STUDY: X-RAY CHEST REASON FOR EXAM: Female, 78 years old. Hemoptysis. TECHNIQUE: PA and lateral views of the chest. COMPARISON: 11/19/2016. FINDINGS: Redemonstrated is left mid upper lung field cavitary lesion currently measuring 4.2 x 2.9 cm with questionable air-fluid level. Remainder of the lungs are normally expanded and clear. There is no demonstrated pleural abnormality. Normal size heart. Normal mediastinum and elaine. Normal visualized pulmonary arteries. There is atherosclerotic calcification of the aortic arch with tortuosity. There is demineralization of the osseous structures. There is severe compression fracture approximately T8 vertebral body, described on MRI 10/10/2016. There is scoliosis of the thoracolumbar spine, convexity to the left. There is no demonstrated abnormality of the visualized soft tissue structures of the upper abdomen. RAD/Chest PA and Lateral IMPRESSION: Cavitary lesion involving the left mid upper lung field with questionable air-fluid level. This is nonspecific and may represent sequela previous infectious process such as fungal infection, trauma or infectious process. Abscess or TB is less likely given morphology. Further characterization with CT chest recommended. Electronically Signed: Praveena Ruiz MD at 2:50 EST , Service support ,
== END ==
LOC: RAD 11:18
PROVIDERS: Family Provider Family Medicine Geriatric Medicine; PCP Family Medicine Geriatric Medicine; Referring Provider Family Medicine Geriatric Medicine; Visit Provider Family Medicine Geriatric Medicine
DX: R04.2 Hemoptysis (principal)
CPT/HCPCS: 71046

== ENCOUNTER → 2019-01-18 08:19 | Outpatient (CLI) | payer MEDICARE, BC, SELFPAY ==
--- NOTE | 2019-01-18 08:21 | RAD_ITS ---
STUDY: X-RAY - ESOPHAGUS (BARIUM SWALLOW) WITH FLUOROSCOPY REASON FOR EXAM: Female, 78 years old. Dysphagia for several months. TECHNIQUE: 24 view(s) of the esophagus were obtained following swallowing of barium. FLUOROSCOPY TIME (if supplied): (0:48) minutes/seconds COMPARISON: None. FINDINGS: There is no demonstrated esophageal foreign body. There is no demonstrated stricture or mucosal abnormality. There is a small hiatal hernia of the fundus of the stomach. The patient ingested a 12 mm tablet of barium without any difficulty. There is atherosclerotic calcification of the aortic arch with tortuosity of the descending aorta. Normal visualized pulmonary parenchyma. Normal visualized osseous structures of the thorax. RAD/Esophagus Only IMPRESSION: Small sliding hiatal hernia without gastroesophageal reflux. Electronically Signed: Rayray Graves, at 10:44 EST , Service support ,
== END ==
LOC: RAD 08:20
PROVIDERS: Family Provider Family Medicine Geriatric Medicine; PCP Family Medicine Geriatric Medicine; Referring Provider Family Medicine Geriatric Medicine; Visit Provider Family Medicine Geriatric Medicine
DX: R13.10 Dysphagia, unspecified (principal)
CPT/HCPCS: 74220

== ENCOUNTER → 2019-01-21 16:36 | Outpatient (CLI) | payer MEDICARE, BC, SELFPAY | PROVIDERS: Family Provider Family Medicine Geriatric Medicine; PCP Family Medicine Geriatric Medicine; Visit Provider Family Medicine Geriatric Medicine | DX: N39.0 Urinary tract infection, site not specified (principal) | CPT/HCPCS: 87086; 87088 ==

== ENCOUNTER → 2019-01-26 15:44 | Outpatient (CLI) | payer MEDICARE, BC, SELFPAY ==
--- NOTE | 2019-01-26 15:46 | CT_ITS ---
STUDY: CT CHEST WITH CONTRAST REASON FOR EXAM: Female 78 years old. Lung nodule, chronic cough, difficulty swallowing. Stopped smoking 33 years ago. Cavitary lesion left upper lobe on recent chest x-ray. RADIATION DOSAGE (If Supplied By Facility): CTDIvol = ( 9.78 ) mGy, DLP = ( 352.49 ) mGycm TECHNIQUE: Transaxial imaging was performed following intravenous administration of IV Isovue 370 100cc. Individualized dose optimization techniques were used for this CT. COMPARISON: Chest x-ray January 14, 2019 and November 19, 2016. MRI thoracic spine October 10, 2016. CT neck May 28, 2014. FINDINGS: Emphysematous changes. No focal infiltrates or effusions. No lung nodules. Well-defined thin-walled air-filled cystic space, compatible with a pneumatocele, lateral aspect left upper lobe measuring 3.7 x 2.5 x 2.3 cm, recently noted on the chest x-ray from January 2019. This probably represents the sequela of old infection. The pneumatocele is empty and does not contain fluid or soft tissue projections. It has remained stable since the CT of the neck May 28, 2014. The heart is not enlarged. Coronary artery calcifications. No pericardial effusion. Normal mediastinum. Normal hilar regions. Normal enhanced pulmonary arteries. Mild atherosclerotic calcification of the thoracic aorta. Old mild compression fracture T8 unchanged. There is no demonstrated abnormality of the visualized upper abdomen. CT/Chest WITH Contrast IMPRESSION: No acute findings in the chest. Emphysematous changes. 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 Coronary artery calcifications. Stable compression fracture T8. Electronically Signed: Jhon Garvey MD at 4:16 EST , Service support ,
[2019-01-26 15:56] LABS: CREATININE FINGERSTICK 1.1 mg/dL (0.55-1.02)
== END ==
LOC: CT 15:45
PROVIDERS: Family Provider Family Medicine Geriatric Medicine; PCP Family Medicine Geriatric Medicine; Referring Provider Family Medicine Geriatric Medicine; Visit Provider Family Medicine Geriatric Medicine
DX: R91.1 Solitary pulmonary nodule (principal)
CPT/HCPCS: 71260; Q9967

== ENCOUNTER 2019-05-25 15:43 | Emergency (ER) | payer MEDICARE, BC, SELFPAY ==
[2019-05-25 15:43] VITALS: BP 158/89; PULSE 97; RESP 16; TEMP 36.8; O2SAT 97; BMI 28.8
--- NOTE | 2019-05-25 16:02 | ED.VIS.GEN ---
History of Present Illness Chief Complaint: Complaint Detail of Chief Complaint: Dysuria, right-sided abdominal and flank pain Onset: Month(s) - Approximately for 1 month Context: Gradual Onset Timing: Intermittent Quality: Burning and pain Location: Urethra and right side of abdomen/flank Current Severity: - - Minimal Maximum Severity: Moderate Worsened by: Nothing Relieved by: Nothing Associated Symptoms: No constitutional symptoms or GI symptoms Narrative: Patient is a 78-year-old woman who presents with dysuria, right-sided pain flank pain that started 1 month ago. The pain is essentially been constant. She denies intolerance to greasy or fried foods. She denies anorexia. She denies pain with walking or car ride to the hospital. She denies history of renal or ureterolithiasis. She denies history of diverticulosis. She denies history of diverticulitis. She states she had biopsy soft bowel movements. Stool was not black or maroon. There is no history of inflammatory bowel disorder. She has not noted a rash or skin lesion. She did have shingles and her scars have healed over right scapular region. 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 (2) Hyperlipidemia Status: Chronic (3) Hypothyroidism Status: Chronic Past Medical History - Allergies and Home Meds Allergies/Adverse Reactions: Allergies morphine Allergy (Verified 05/25/19 15:45) Other FLU SHOT Allergy (Uncoded 05/25/19 15:45) Other Primary Care Physician: Robert New Chi, MD [Primary Care Provider] - Prior records reviewed: Yes Surgical History: noncontributory Lives: Alone Smoking Status: Former smoker Alcohol: None Drugs: None - Family History Paternal Family History: Reports: No pertinent history Maternal Family History: Reports: No pertinent history Review of Systems General: Denies: Chills, Fever, Malaise, Subjective, Sweats ENT: Denies: Bilateral ear pain, Rhinorrhea, Sore throat Cardiovascular: Denies: Chest pain, Palpitations Respiratory: Denies: Dyspnea, Cough, Dyspnea on exertion Gastrointestinal: Reports: Abdominal pain. Denies: Nausea, Vomiting, Diarrhea, Constipation, Melena, Hematochezia, -, - Genitourinary: Reports: Dysuria. Denies: Hematuria, Frequency Musculoskeletal: Reports: Back pain. Denies: Myalgias, Arthralgias, Neck pain, Swelling, Extremity Pain, -, - Skin: Denies: Rash, Wounds Neurological: Denies: Headache, Weakness, Numbness Endocrine: Denies: Polyuria, Polydipsia Physical Exam Vital Signs/Narrative: Vital Signs Temp Pulse Resp BP Pulse Ox 05/25/19 15:43 98.2 F 97 16 158/89 H 97 Inital Vital Signs reviewed: Yes General: Well nourished, Well developed, No Acute Distress Head: Normocephalic, Atraumatic Eyes: Perrl, EOMI. Negative for: Pale conjunctiva, Scleral icterus ENT: Moist mucous membranes, No rhinorrhea Neck: Supple, Nontender, No lymphadenopathy, No JVD Cardiovascular: Regular rate, Regular rhythm, No murmurs, Normal S1, Normal S2 Respiratory: No distress, CTA bilaterally, Chest nontender Abdomen: Soft, Nontender, Nondistended, Normal bowel sounds, No masses Rectal: Deferred Back: Nontender, Normal Inspection. Negative for: CVA tenderness Extremities: Nontender, No edema Skin: Normal color, No rash, No Trauma. Negative for: Cyanosis, Diaphoresis, Jaundice Neurological: Alert, Oriented x3, Cranial nerves II-XII grossly intact, Normal Strength, Normal Sensation, Normal Gait Psychological: Normal affect, Normal Mood Diagnostic/Tx/Re-eval Impressions Abdomen/Pelvis CT 05/25/19 17:00 IMPRESSION: Obstructing calculus of the distal right ureter at the level of the UVJ measuring 2 mm, with mild right hydronephrosis. Several additional nonobstructing right renal calculi in the 1 to 2 mm range are noted. Colonic diverticulosis with no evidence of associated diverticulitis. Densely calcified plaques of the abdominal aorta and common iliac arteries. Small fat-containing umbilical hernia. Electronically Signed: Kevin Benjamin MD at 17:24 EDT , Service support , 05/25/19 17:00 Abdomen/Pelvis without Cont [CT] Stat Laboratory Results 05/25/19 05/25/19 05/25/19 16:15 16:25 16:25 WBC 9.5 RBC 4.69 Hgb 13.5 Hct 41.7 MCV 88.9 MCH 28.8 MCHC 32.4 RDW Std Deviation 46.5 H RDW Coeff of Francisco 14.4 Plt Count 247 MPV 9.8 Immature Gran % (Auto) 0.300 Neut % (Auto) 74.0 H Lymph % (Auto) 18.5 L [place] % (Auto) 5.8 Eos % (Auto) 1.0 Baso % (Auto) 0.4 Absolute Neuts (auto) 7.0 Absolute Lymphs (auto) 1.75 Nucleated RBC % 0 Sodium 139 Potassium 3.7 Chloride 106 Carbon Dioxide 28.0 Anion Gap 5 BUN 13 Creatinine 0.94 Estim Creat Clear Calc 41.46 Est GFR (MDRD) Af Amer 74 Est GFR (MDRD) Non-Af 61 BUN/Creatinine Ratio 13.8 Glucose 149 H Calcium 9.5 Urine Color Yellow Urine Clarity Clear Urine pH 6.0 Ur Specific [place] 1.010 Urine Protein Negative Urine Glucose (UA) Normal Urine Ketones Negative Urine Occult Blood 250 H Urine Nitrite Negative Urine Bilirubin Negative Urine Urobilinogen Normal Ur Leukocyte Esterase 100 H Urine RBC 10-25 SEEN Urine WBC 0-5 SEEN Ur Squamous Epith Cells 0-5 SEEN Urine Bacteria 0 SEEN Urine Mucus 0 SEEN - Medical Decision Making With history of urinary tract symptoms for 1 month need to rule out possibility of diverticular disease. Also possibility of renal stone/ureteral stone. This may represent interstitial cystitis as well. Doubt atypical presentation for appendicitis. There is no history of patient passing gas when she urinates. Because patient has hematuria a CT was obtained to evaluate for obstructing stone. There is a obstructing 2 mm distal right UVJ stone as well as multiple renal calculi. In light of patient's past medical history allergies and renal disease she was treated with opiate analgesia and referred to urology. ED Disposition - Plan for ED Patient: Disposition: Home or Assisted Living Diagnosis: Hydronephrosis concurrent with and due to calculi of kidney and ureter Instructions: KIDNEY STONE w/ Colic Prescriptions: Hydrocodone Bitart/Apap 5-325 [Bolivar 5MG-325MG] 1 tablet PO Q6H PRN PRN 3 Days #10 tablet PRN Reason: Pain Transmission Status: Sent to [facility] Referrals: Robert New Chi, MD [Primary Care Provider] - Phuc Santos MD [STAFF PHYSICIAN] - 3-5 Days
[2019-05-25 16:37] LABS: Bacteria 0 SEEN /hpf (None Seen); Mucous, Urine 0 SEEN /hpf (<or=2+)
[2019-05-25 16:38] LABS: Color, Urine Yellow (Yellow); Glucose, Dipstick Normal (Normal); Ketone-Dipstick Negative (Negative); Leukocyte Esterase-Dipstick 100 /ul (Negative); Nitrite-Dipstick Negative (Negative); Occult Blood-Urine 250 /ul (Negative); Protein-Dipstick Negative (Negative); Urine Bilirubin Dipstick Negative (Negative); Urine Clarity Clear (Clear); Urine Urobilinogen Normal (Normal)
[2019-05-25 16:40] LABS: Absolute Lymphocyte Count 1.75 X10^3/uL (0.83-4.51); Basophil# 0.04 X10^3/uL; Basophil% 0.4 % (0-1); Eosinophil# 0.09 X10^3/uL; Hematocrit 41.7 % (37-47); Hemoglobin 13.5 g/dL (12.0-15.0); Lymphocyte # 1.75 X10^3/ul (4.0); Lymphocyte % 18.5 % (19-41); Mean Corp Hgb Conc 32.4 g/dL (32-36); Mean Corpuscular Hgb 28.8 pg (27.0-32.0); Mean Corpuscular Volume 88.9 fL (81-99); Mean Platelet Vol. 9.8 fl (6.2-12.0); Monocyte# 0.55 X10^3/uL; Monocyte% 5.8 % (0-10); NRBC Flagged by Analyzer 0 % (0-5); Platelet Count 247 K/mm3 (150-450); RBC Distribution Width CV 14.4 % (11.6-14.6); RBC Distribution Width SD 46.5 fl (35.1-43.9); Red Blood Count 4.69 M/mm3 (4.2-5.4); White Blood Count 9.5 K/mm3 (4.4-11.0)
[2019-05-25 16:50] LABS: Anion Gap 5 (5-15); BUN 13 mg/dL (7-18); BUN/Creat Ratio 13.8 RATIO (10-20); Calcium,Total 9.5 mg/dL (8.5-10.1); Chloride 106 mmol/L (98-107); Creatinine, Serum 0.94 mg/dL (0.55-1.02); EST Glomerular Filtration Rate 61 mL/min (>60); Est Glom Filt Rate - Afr Amer 74 mL/min (>60); Estimated Creatinine Clearance 41.46 ml/min; Glucose 149 mg/dL (74-106); Potassium 3.7 mmol/L (3.5-5.1); Sodium Level 139 mmol/L (136-145)
[2019-05-25 16:57] LABS: Red Blood Cells-Urine 10-25 SEEN /hpf (0-5); Squamous Epithelial Cells - UA 0-5 SEEN /hpf (5-10); White Blood Cells 0-5 SEEN /hpf (0-5)
--- NOTE | 2019-05-25 17:00 | CT_ITS ---
STUDY: CT ABDOMEN AND PELVIS WITHOUT CONTRAST REASON FOR EXAM: Female, 78 years old. RT FLANK PAIN RADIATION DOSAGE (If Supplied By Facility): CTDIvol = ( 11.6 ) mGy, DLP = ( 511.85 ) mGycm TECHNIQUE: Transaxial images were obtained from the dome of the diaphragm to the symphysis pubis without oral contrast, and without intravenous contrast. Sagittal and coronal images were reconstructed. Individualized dose optimization techniques were used for this CT. COMPARISON: None. FINDINGS: The visualized lung bases are unremarkable. The visualized portions of the heart are within normal limits. Normal liver. Normal gallbladder and extrahepatic biliary system. Normal spleen. Normal pancreas. Normal bilateral adrenal glands. There are several nonobstructing right renal calculi in the 1 to 2 mm range. There is a mild right hydronephrosis. There is an obstructing calculus in the distal right ureter at the level of the UVJ measuring 2 mm. Normal left kidney. Normal visualized stomach. Normal small intestine. There is colonic diverticulosis with no evidence of associated diverticulitis. The appendix is visualized and appears normal. There are densely calcified plaques of the abdominal aorta and common iliac arteries. Normal inferior vena cava. Normal retroperitoneum. Normal urinary bladder. Uterus and adnexal structures are unremarkable. There is a small umbilical hernia containing fat. Subcutaneous calcifications are seen in the gluteal regions bilaterally most likely associated with injection sites. There are degenerative changes of the lumbar spine. CT/Abdomen/Pelvis without Cont IMPRESSION: Obstructing calculus of the distal right ureter at the level of the UVJ measuring 2 mm, with mild right hydronephrosis. Several additional nonobstructing right renal calculi in the 1 to 2 mm range are noted. Colonic diverticulosis with no evidence of associated diverticulitis. Densely calcified plaques of the abdominal aorta and common iliac arteries. Small fat-containing umbilical hernia. Electronically Signed: Kevin Benjamin MD at 17:24 EDT , Service support ,
[2019-05-25 17:20] VITALS: PULSE 79; RESP 16; TEMP 36.9; O2SAT 98
== END 2019-05-25 17:43 | disposition home or self-care (01) ==
PROVIDERS: Emergency Provider Emergency Medicine; PCP Family Medicine Geriatric Medicine
DX: N13.2 Hydronephrosis with renal and ureteral calculous obstruction (principal); R31.9 Hematuria, unspecified; K57.30 Diverticulosis of large intestine without perforation or abscess without bleeding; K42.9 Umbilical hernia without obstruction or gangrene; E78.5 Hyperlipidemia, unspecified; E03.9 Hypothyroidism, unspecified; Z88.5 Allergy status to narcotic agent; Z87.891 Personal history of nicotine dependence
CPT/HCPCS: 74176; 80048; 81001; 85025; 99283; A4216

== ENCOUNTER → 2020-07-19 09:42 | Outpatient (CLI) | payer MEDICARE, BC, SELFPAY ==
[2020-07-19 08:50] VITALS: BMI 30.2
[2020-07-19 12:18] LABS: Absolute Lymphocyte Count 2.24 X10^3/uL (0.83-4.51); Absolute Neutrophil Count 4.1 X10^3/uL (2.0-7.7); Basophil# 0.04 X10^3/uL; Basophil% 0.6 % (0-1); Eosinophil# 0.13 X10^3/uL; Eosinophils% 1.8 % (0-5); Hematocrit 41.4 % (37-47); Hemoglobin 13.1 g/dL (12.0-15.0); Lymphocyte # 2.24 X10^3/ul (0.83-4.51); Lymphocyte % 31.5 % (19-41); Mean Corp Hgb Conc 31.6 g/dL (32-36); Mean Corpuscular Hgb 28.6 pg (27.0-32.0); Mean Corpuscular Volume 90.4 fL (81-99); Mean Platelet Vol. 10.8 fl (6.2-12.0); Monocyte# 0.52 X10^3/uL; Monocyte% 7.3 % (0-10); NRBC Flagged by Analyzer 0 % (0-5); Neutrophil # 4.14 X10^3/uL (2.7-7.7); Neutrophil % 58.4 % (47-70); Platelet Count 251 K/mm3 (150-450); RBC Distribution Width CV 14.1 % (11.6-14.6); RBC Distribution Width SD 46.5 fl (35.1-43.9); Red Blood Count 4.58 M/mm3 (4.2-5.4); White Blood Count 7.1 K/mm3 (4.4-11.0)
[2020-07-19 12:38] LABS: ALB/GLOB Ratio 0.7 RATIO (0.9-2.4); AST(SGOT) 17 U/L (15-37); Alanine Aminotransfer ALT/SGPT 28 U/L (13-56); Albumin, Serum 3.4 g/dL (3.2-5.0); Alkaline Phosphatase 81 U/L (45-117); Anion Gap 6 (5-15); BUN 18 mg/dL (7-18); BUN/Creat Ratio 18.9 RATIO (10-20); Calcium,Total 9.5 mg/dL (8.5-10.1); Chloride 107 mmol/L (98-107); Cholesterol 175 mg/dL (200); Creatinine, Serum 0.95 mg/dL (0.55-1.02); EST Glomerular Filtration Rate 60 mL/min (>60); Est Glom Filt Rate - Afr Amer 73 mL/min (>60); Free T3 2.4 pg/mL (2.18-3.98); Globulin 4.8 g/dL (2.2-4.2); Glucose 127 mg/dL (74-106); High Density Lipoprotein 40 mg/dL; Potassium 4.1 mmol/L (3.5-5.1); Protein, Total 8.2 g/dL (6.4-8.2); Sodium Level 140 mmol/L (136-145); Triglycerides 85 mg/dL; Very Low Density Lipoprotein 17 mg/dL (5-40)
[2020-07-19 14:08] LABS: Vitamin D,25 Hydroxy 34.1 ng/mL
== END ==
PROVIDERS: PCP Internal Medicine; Referring Provider Internal Medicine; Visit Provider Internal Medicine
DX: E03.9 Hypothyroidism, unspecified (principal); N81.9 Female genital prolapse, unspecified; R32 Unspecified urinary incontinence; E55.9 Vitamin D deficiency, unspecified
CPT/HCPCS: 36415; 80053; 80061; 82306; 84439; 84443; 84481; 85025

== ENCOUNTER → 2021-01-16 | Outpatient (CLI) | payer MEDICARE, BC, SELFPAY | END | disposition home or self-care (01) | LOC: LABSPEC 08:33 | PROVIDERS: PCP Internal Medicine; Referring Provider Internal Medicine; Visit Provider Internal Medicine | DX: U07.1 COVID-19 (principal) | CPT/HCPCS: 87635; U0005; U0003 ==

== ENCOUNTER 2021-01-22 19:35 | Emergency (ER) | payer MEDICARE, BC, SELFPAY ==
[2021-01-22] VITALS (8 sets, daily range): BP systolic 156–176; BP diastolic 62–78; PULSE 85–91; RESP 13–19; TEMP 37.1–37.3; O2SAT 95–98; BMI 28.9
--- NOTE | 2021-01-22 20:30 | EX.ED.DYSGE1 ---
HPI History of Present Illness Chief Complaint: General Illness Informant: patient and family Narrative Narrative: Patient comes in with decreased appetite and p.o. intake and Covid. Patient states she has had Covid for about 10 days. She was tested positive about a week ago but she is not certain of the date. She had a cough a little bit but that is gotten better. She had some mild diarrhea but that is gotten better. She also had myalgias and that has gotten better. However, the last 2 or 3 days she has had increasing nausea. She has not actually vomited. However she states her appetite is down so she is not eating or drinking anything. Her was also admitted a couple days ago. However she evidently was doing well without him until the nausea started. She does have a history of dementia but is actually pretty good informant for details. Almost all the history is obtained through her and her son supports it. Patient also did not get Covid vaccine but it was recommended she did not do this because of her history of Guillain-Reynolds?. [facility] Medical History Alzheimer disease Cataract COVID-19 Headache, chronic migraine without aura History of gallstones History of shingles Urinary incontinence concurrent with and due to female genital prolapse Vision problem Home Medications aspirin 81 mg PO DAILY 05/28/14 [History Last Taken 05/25/19] calcium carbonate 500 mg calcium (1,250 mg) tablet 500 mg PO DAILY 07/19/20 [History Last Taken Unknown] cholecalciferol (vitamin D3) 10 mcg (400 unit) capsule 10 mcg PO DAILY 07/19/20 [History Last Taken Unknown] levothyroxine 75 mcg tablet 75 mcg PO DAILY #90 tab 07/19/20 [Rx Last Taken Unknown] lisinopril 5 mg tablet 5 mg PO DAILY #90 tab 07/19/20 [Rx Last Taken Unknown] paroxetine HCl 40 mg tablet 40 mg PO QHS #90 tab 07/19/20 [Rx Last Taken Unknown] ondansetron 4 mg PO Q8H PRN #10 tab 01/22/21 [Rx Last Taken Unknown] Allergy/AdvReac Type Severity Reaction Status Date / Time morphine Allergy Other Verified 01/22/21 19:43 FLU SHOT Allergy Other Uncoded 01/22/21 19:43 Family History Daughter Anxiety Depression Lupus Sister Colon cancer Surgical History History of cataract removal with insertion of prosthetic lens Social History Smoking Status: Former smoker alcohol intake: never substance use type: does not use what type of physical activity do you participate in: none ROS ROS ED Constitutional Constitutional ED: Reports subjective Eyes Eyes: Denies blurry vision ENT ENT ED: Reports rhinorrhea; Denies sore throat Cardiovascular Cardiovascular: Denies chest pain or palpitations Respiratory/Chest Respiratory/Chest: Reports cough; Denies dyspnea or sputum Gastrointestinal Gastrointestinal: Reports nausea; Denies abdominal pain, diarrhea, melena or vomiting Genitourinary Genitourinary ED: Denies dysuria Musculoskeletal Musculoskeletal: Reports other Details: Myalgias are gone now. ; Denies myalgias Integumentary Denies rash Neurologic Neurologic: Denies headache(s) Endocrine Endocrinology: Denies polyuria Allergic/Immunologic Allergic/Immunologic ED: Denies urticaria EXAM Physical Exam Const Vital Signs: 01/22/21 19:36 01/22/21 19:40 01/22/21 19:41 Temperature 98.8 F 98.8 F 98.8 F Temperature Source Oral Oral Oral Pulse Rate 86 85 85 Respiratory Rate 19 H 14 14 Respiratory Effort Respiratory Pattern Blood Pressure 171/66 H 171/66 H 171/66 H Blood Pressure Mean 101 101 101 Pulse Ox 96 97 97 Oxygen Delivery Method Room Air Room Air Room Air 01/22/21 19:45 01/22/21 20:54 01/22/21 21:10 Temperature 99.1 F 99.0 F Temperature Source Temporal Temporal Pulse Rate 88 91 Respiratory Rate 17 13 Respiratory Effort Normal Respiratory Pattern Normal Blood Pressure 165/78 H 156/65 H Blood Pressure Mean 107 95 Pulse Ox 97 95 Oxygen Delivery Method Room Air Room Air 01/22/21 21:27 Temperature Temperature Source Pulse Rate 85 Respiratory Rate 16 Respiratory Effort Respiratory Pattern Blood Pressure 166/62 H Blood Pressure Mean 96 Pulse Ox 96 Oxygen Delivery Method Room Air Positive well nourished and well developed General Appearance ED: well developed and NAD HEENT Reports dry mucous membranes Mouth ED: Yes dry mucous membranes Mouth: dry mucous membranes Eyes General Eye ED: Negative for pale conjunctiva or scleral icterus Neck No no JVD Resp normal respiratory effort Resp Narrative: Very mild rhonchi. Effort and Inspection: Negative for pain with movement Auscultation: rhonchi; Negative for rales or wheezes Cardio regular rate, regular rhythm and no murmurs GI normal to inspection, nondistended, normoactive bowel sounds, non-tender and non-distended Auscultation: normoactive bowel sounds Palpation: soft Back/Spine no CVA tenderness Extremity normal to inspection General Extremety ED: Negative for edema or tenderness General Extremity: Negative for edema Neuro oriented x3 Sensorium / Orientation: alert Psych mental status grossly normal Skin no rashes or lesions noted and no wounds MDM MDM MDM Narrative Medical decision making narrative: Patient's blood work shows minimal anemia. White count is normal. Electrolytes show no marked abnormalities. There is minimal decrease of sodium and minimal elevation of glucose. Urine shows no sign of infection. Chest x-ray does show some very subtle changes consistent with her positive Covid status. Patient's recheck. She looks better. She feels better. She states the nausea is almost completely gone. She has just a tiny bit left. She has reported tolerated some fluids. I will still get her some Phenergan orally here. She and her son would like to try to go home. I think this is a reasonable option. She does have some mild dementia but is actually a good informant seems to be able to care for herself normally. This actually could worsen in the hospital than at home. I will write for some Zofran. If she is having continued nausea, weakness, trouble breathing or any other concerns she should return. If family has concerns of her being able to care for herself they should also bring her back. However it sounds like she has been doing generally well. Lab Data Attestation: I reviewed the patient's lab results. Labs: Laboratory Results - last 24 hr 01/22/21 01/22/21 01/22/21 19:52 19:52 21:13 WBC 5.2 RBC 4.12 L Hgb 11.8 L Hct 36.5 L MCV 88.6 MCH 28.6 MCHC 32.3 RDW Std Deviation 47.4 H RDW Coeff of Francisco 14.4 Plt Count 161 MPV 10.5 Immature Gran % (Auto) 0.400 Neut % (Auto) 76.3 H Lymph % (Auto) 18.6 L [place] % (Auto) 4.5 Eos % (Auto) 0.0 Baso % (Auto) 0.2 Absolute Neuts (auto) 3.9 Absolute Lymphs (auto) 0.96 Nucleated RBC % 0 Sodium 134 L Potassium 3.6 Chloride 102 Carbon Dioxide 25.0 Anion Gap 7 BUN 14 Creatinine 0.98 Estim Creat Clear Calc 38.51 Est GFR (MDRD) Af Amer 70 Est GFR (MDRD) Non-Af 58 L BUN/Creatinine Ratio 14.3 Glucose 123 H Calcium 8.1 L Total Bilirubin 0.40 AST 48 H ALT 38 Alkaline Phosphatase 44 L Total Protein 7.4 Albumin 2.6 L Globulin 4.8 H Albumin/Globulin Ratio 0.5 L Lipase 152 Urine Color Yellow Urine Clarity Clear Urine pH 6.0 Ur Specific [place] 1.015 Urine Protein 30 H Urine Glucose (UA) Normal Urine Ketones 15 H Urine Occult Blood 50 H Urine Nitrite Negative Urine Bilirubin Negative Urine Urobilinogen Normal Ur Leukocyte Esterase 100 H Urine RBC 0-5 SEEN Urine WBC 0-5 SEEN Ur Squamous Epith Cells 0-5 SEEN Urine Bacteria 0 SEEN Urine Mucus 0 SEEN Radiography Diagnostic Testing: Clinical Impression(s) from Imaging Studies Chest X-Ray 01/22/21 20:34 IMPRESSION: Mild right patchy infiltrates. Electronically Signed: Justin Garcia DO at 22:26 EST Tel [phone], Service support , Discharge Plan Triage Chief Complaint: General Illness ED Provider: Harley Cohen Dx/Rx/DC Orders Clinical Impression: COVID-19, Nausea Instructions: Nausea Vomit Control, Caring for Someone Who Has COVID-19 Prescriptions: New ondansetron 4 mg tablet,disintegrating 4 mg PO Q8H PRN (Reason: nausea and vomiting) Qty: 10 RF: 0 No Action cholecalciferol (vitamin D3) 10 mcg (400 unit) capsule 10 mcg PO DAILY RF: 0 calcium carbonate [Calcium 500] 500 mg calcium (1,250 mg) tablet 500 mg PO DAILY RF: 0 paroxetine HCl 40 mg tablet 40 mg PO QHS Qty: 90 RF: 1 lisinopril 5 mg tablet 5 mg PO DAILY Qty: 90 RF: 1 levothyroxine 75 mcg tablet 75 mcg PO DAILY Qty: 90 RF: 1 aspirin 81 MG tablet,chewable 81 mg PO DAILY RF: 0 Primary Care Provider: Susan Singer Referrals: Susan Singer MD [Primary Care Provider] - 3-5 Days if not improving Disposition Disposition: Home, Self Care
--- NOTE | 2021-01-22 20:34 | RAD_ITS ---
STUDY: X-RAY CHEST REASON FOR EXAM: Female, 80 years old. covid TECHNIQUE: Frontal view COMPARISON: 01/14/2019 FINDINGS: The lungs are expanded. Mild patchy right pulmonary infiltrates. Normal size heart. Normal mediastinum and elaine. Normal visualized pulmonary arteries. Calcified aortic arch and descending thoracic aorta. Normal visualized thoracic spine. Normal visualized ribs, clavicles, and shoulders. There is no demonstrated abnormality of the visualized soft tissue structures of the upper abdomen. RAD/Chest 1 View (Portable) IMPRESSION: Mild right patchy infiltrates. Electronically Signed: Justin Garcia DO at 22:26 EST Tel [phone], Service support ,
[2021-01-22] MEDS: Ondansetron 4 MG/2 ML Vial IV (20:59)
[2021-01-22 21:07] LABS: Absolute Lymphocyte Count 0.96 X10^3/uL (0.83-4.51); Absolute Neutrophil Count 3.9 X10^3/uL (2.0-7.7); Basophil# 0.01 X10^3/uL; Basophil% 0.2 % (0-1); Hematocrit 36.5 % (37-47); Hemoglobin 11.8 g/dL (12.0-15.0); Lymphocyte # 0.96 X10^3/ul (0.83-4.51); Lymphocyte % 18.6 % (19-41); Mean Corp Hgb Conc 32.3 g/dL (32-36); Mean Corpuscular Hgb 28.6 pg (27.0-32.0); Mean Corpuscular Volume 88.6 fL (81-99); Mean Platelet Vol. 10.5 fl (6.2-12.0); Monocyte# 0.23 X10^3/uL; Monocyte% 4.5 % (0-10); NRBC Flagged by Analyzer 0 % (0-5); Neutrophil # 3.94 X10^3/uL (2.7-7.7); Neutrophil % 76.3 % (47-70); Platelet Count 161 K/mm3 (150-450); RBC Distribution Width CV 14.4 % (11.6-14.6); RBC Distribution Width SD 47.4 fl (35.1-43.9); Red Blood Count 4.12 M/mm3 (4.2-5.4); White Blood Count 5.2 K/mm3 (4.4-11.0)
[2021-01-22 21:09] LABS: ALB/GLOB Ratio 0.5 RATIO (0.9-2.4); AST(SGOT) 48 U/L (15-37); Alanine Aminotransfer ALT/SGPT 38 U/L (13-56); Albumin, Serum 2.6 g/dL (3.2-5.0); Alkaline Phosphatase 44 U/L (45-117); Anion Gap 7 (5-15); BUN 14 mg/dL (7-18); BUN/Creat Ratio 14.3 RATIO (10-20); Calcium,Total 8.1 mg/dL (8.5-10.1); Chloride 102 mmol/L (98-107); Creatinine, Serum 0.98 mg/dL (0.55-1.02); EST Glomerular Filtration Rate 58 mL/min (>60); Est Glom Filt Rate - Afr Amer 70 mL/min (>60); Estimated Creatinine Clearance 38.51 ml/min; Globulin 4.8 g/dL (2.2-4.2); Glucose 123 mg/dL (74-106); Lipase 152 U/L (73-393); Potassium 3.6 mmol/L (3.5-5.1); Protein, Total 7.4 g/dL (6.4-8.2); Sodium Level 134 mmol/L (136-145)
[2021-01-22 21:18] LABS: Bacteria 0 SEEN /hpf (None Seen); Mucous, Urine 0 SEEN /hpf (<or=2+)
[2021-01-22 21:19] LABS: Color, Urine Yellow (Yellow); Glucose, Dipstick Normal (Normal); Ketone-Dipstick 15 mg/dl (Negative); Leukocyte Esterase-Dipstick 100 /ul (Negative); Nitrite-Dipstick Negative (Negative); Occult Blood-Urine 50 /ul (Negative); Protein-Dipstick 30 mg/dl (Negative); Specific Gravity, Urine 1.015 (1.002-1.030); Urine Bilirubin Dipstick Negative (Negative); Urine Clarity Clear (Clear); Urine Urobilinogen Normal (Normal)
[2021-01-22 21:38] LABS: Red Blood Cells-Urine 0-5 SEEN /hpf (0-5); Squamous Epithelial Cells - UA 0-5 SEEN /hpf (5-10)
[2021-01-22 21:39] LABS: White Blood Cells 0-5 SEEN /hpf (0-5)
[2021-01-22] MEDS: proMETHazine 25 MG Tablet 12.5 MG PO (23:07)
== END 2021-01-22 23:08 | disposition home or self-care (01) ==
PROVIDERS: Emergency Provider Emergency Medicine; PCP Internal Medicine
DX: U07.1 COVID-19 (principal); R11.0 Nausea; G30.9 Alzheimer's disease, unspecified; F02.80 Dementia in other diseases classified elsewhere, unspecified severity, without behavioral disturbance, psychotic disturbance, mood disturbance, and anxiety; Z79.82 Long term (current) use of aspirin; Z87.891 Personal history of nicotine dependence; Z79.899 Other long term (current) drug therapy
CPT/HCPCS: 71045; 80053; 81001; 83690; 85025; 96361; 96374; 99285; A4216; J2405

== ENCOUNTER → 2021-02-15 14:35 | Outpatient (CLI) | payer MEDICARE, BC, SELFPAY ==
[2021-02-15 15:08] LABS: Absolute Lymphocyte Count 2.86 X10^3/uL (0.83-4.51); Absolute Neutrophil Count 4.3 X10^3/uL (2.0-7.7); Basophil# 0.03 X10^3/uL; Basophil% 0.4 % (0-1); Eosinophil# 0.16 X10^3/uL; Hematocrit 33.4 % (37-47); Hemoglobin 10.8 g/dL (12.0-15.0); Lymphocyte # 2.86 X10^3/ul (0.83-4.51); Lymphocyte % 35.5 % (19-41); Mean Corp Hgb Conc 32.3 g/dL (32-36); Mean Corpuscular Hgb 29.2 pg (27.0-32.0); Mean Corpuscular Volume 90.3 fL (81-99); Mean Platelet Vol. 9.8 fl (6.2-12.0); Monocyte# 0.73 X10^3/uL; Monocyte% 9.1 % (0-10); NRBC Flagged by Analyzer 0 % (0-5); Neutrophil # 4.25 X10^3/uL (2.7-7.7); Neutrophil % 52.8 % (47-70); Platelet Count 276 K/mm3 (150-450); RBC Distribution Width CV 14.9 % (11.6-14.6); RBC Distribution Width SD 49.2 fl (35.1-43.9); White Blood Count 8.1 K/mm3 (4.4-11.0)
[2021-02-15 15:43] LABS: Vitamin D,25 Hydroxy 55.7 ng/mL
[2021-02-15 15:47] LABS: ALB/GLOB Ratio 0.5 RATIO (0.9-2.4); AST(SGOT) 20 U/L (15-37); Alanine Aminotransfer ALT/SGPT 32 U/L (13-56); Albumin, Serum 2.7 g/dL (3.2-5.0); Alkaline Phosphatase 67 U/L (45-117); Anion Gap 6 (5-15); BUN 26 mg/dL (7-18); BUN/Creat Ratio 28.8 RATIO (10-20); Calcium,Total 9.3 mg/dL (8.5-10.1); Chloride 110 mmol/L (98-107); Cholesterol 163 mg/dL (200); EST Glomerular Filtration Rate 64 mL/min (>60); Est Glom Filt Rate - Afr Amer 77 mL/min (>60); Globulin 5.3 g/dL (2.2-4.2); Glucose 125 mg/dL (74-106); High Density Lipoprotein 29 mg/dL; Potassium 3.8 mmol/L (3.5-5.1); Sodium Level 139 mmol/L (136-145); Thyroid Stim Hormone (TSH) 0.72 uIU/mL (0.358-3.74); Triglycerides 153 mg/dL; Very Low Density Lipoprotein 31 mg/dL (5-40)
== END ==
PROVIDERS: PCP Internal Medicine; Visit Provider Internal Medicine
DX: G61.0 Guillain-Barre syndrome (principal); E03.9 Hypothyroidism, unspecified; E55.9 Vitamin D deficiency, unspecified
CPT/HCPCS: 36415; 80053; 80061; 82306; 84439; 84443; 85025

== ENCOUNTER 2021-05-23 13:29 | Outpatient (CLI) | payer MEDICARE, BC, SELFPAY ==
[2021-05-23 15:11] LABS: Absolute Lymphocyte Count 2.34 X10^3/uL (0.83-4.51); Absolute Neutrophil Count 4.4 X10^3/uL (2.0-7.7); Basophil# 0.04 X10^3/uL; Basophil% 0.5 % (0-1); Eosinophil# 0.18 X10^3/uL; Eosinophils% 2.4 % (0-5); Hematocrit 39.6 % (37-47); Hemoglobin 12.7 g/dL (12.0-15.0); Lymphocyte # 2.34 X10^3/ul (0.83-4.51); Lymphocyte % 31.2 % (19-41); Mean Corp Hgb Conc 32.1 g/dL (32-36); Mean Corpuscular Hgb 29.1 pg (27.0-32.0); Mean Corpuscular Volume 90.6 fL (81-99); Mean Platelet Vol. 10.3 fl (6.2-12.0); Monocyte# 0.56 X10^3/uL; Monocyte% 7.5 % (0-10); NRBC Flagged by Analyzer 0 % (0-5); Neutrophil # 4.36 X10^3/uL (2.7-7.7); Platelet Count 239 K/mm3 (150-450); RBC Distribution Width CV 14.2 % (11.6-14.6); RBC Distribution Width SD 47.4 fl (35.1-43.9); Red Blood Count 4.37 M/mm3 (4.2-5.4); White Blood Count 7.5 K/mm3 (4.4-11.0)
[2021-05-23 15:37] LABS: ALB/GLOB Ratio 0.6 RATIO (0.9-2.4); AST(SGOT) 26 U/L (15-37); Alanine Aminotransfer ALT/SGPT 37 U/L (13-56); Albumin, Serum 3.2 g/dL (3.2-5.0); Alkaline Phosphatase 77 U/L (45-117); Anion Gap 7 (5-15); BUN 21 mg/dL (7-18); BUN/Creat Ratio 18.9 RATIO (10-20); Calcium,Total 9.3 mg/dL (8.5-10.1); Chloride 102 mmol/L (98-107); Creatinine, Serum 1.11 mg/dL (0.55-1.02); EST Glomerular Filtration Rate 50 mL/min (>60); Est Glom Filt Rate - Afr Amer 61 mL/min (>60); Free T3 2.3 pg/mL (2.18-3.98); Globulin 5.1 g/dL (2.2-4.2); Glucose 144 mg/dL (74-106); Potassium 4.5 mmol/L (3.5-5.1); Protein, Total 8.3 g/dL (6.4-8.2); Sodium Level 136 mmol/L (136-145); T4 Free Direct 1.31 ng/dL (0.76-1.46); Thyroid Stim Hormone (TSH) 4.49 uIU/mL (0.358-3.74)
== END 2021-05-23 23:59 | disposition home or self-care (01) ==
LOC: BIMLAB 13:30
PROVIDERS: PCP Internal Medicine; Referring Provider Internal Medicine; Visit Provider Internal Medicine
DX: G61.0 Guillain-Barre syndrome (principal); I10 Essential (primary) hypertension; E03.9 Hypothyroidism, unspecified; E78.5 Hyperlipidemia, unspecified
CPT/HCPCS: 36415; 80053; 84439; 84443; 84481; 85025

== ENCOUNTER → 2021-11-28 | Outpatient (CLI) | payer MEDICARE, BC, SELFPAY ==
[2021-11-28 16:15] LABS: Absolute Lymphocyte Count 2.16 X10^3/uL (0.83-4.51); Absolute Neutrophil Count 6.3 X10^3/uL (2.0-7.7); Basophil# 0.04 X10^3/uL; Basophil% 0.4 % (0-1); Eosinophil# 0.13 X10^3/uL; Eosinophils% 1.4 % (0-5); Hematocrit 39.5 % (37-47); Hemoglobin 12.7 g/dL (12.0-15.0); Lymphocyte # 2.16 X10^3/ul (0.83-4.51); Lymphocyte % 23.5 % (19-41); Mean Corp Hgb Conc 32.2 g/dL (32-36); Mean Corpuscular Hgb 29.3 pg (27.0-32.0); Mean Corpuscular Volume 91.2 fL (81-99); Mean Platelet Vol. 10.2 fl (6.2-12.0); Monocyte# 0.55 X10^3/uL; NRBC Flagged by Analyzer 0 % (0-5); Neutrophil # 6.27 X10^3/uL (2.7-7.7); Neutrophil % 68.4 % (47-70); Platelet Count 239 K/mm3 (150-450); RBC Distribution Width CV 14.6 % (11.6-14.6); RBC Distribution Width SD 49.2 fl (35.1-43.9); Red Blood Count 4.33 M/mm3 (4.2-5.4); White Blood Count 9.2 K/mm3 (4.4-11.0)
[2021-11-28 16:42] LABS: ALB/GLOB Ratio 0.7 RATIO (0.9-2.4); AST(SGOT) 20 U/L (15-37); Alanine Aminotransfer ALT/SGPT 28 U/L (13-56); Albumin, Serum 3.5 g/dL (3.2-5.0); Alkaline Phosphatase 77 U/L (45-117); Anion Gap 5 (5-15); BUN 19 mg/dL (7-18); BUN/Creat Ratio 16.1 RATIO (10-20); Calcium,Total 9.1 mg/dL (8.5-10.1); Chloride 105 mmol/L (98-107); Cholesterol 194 mg/dL (200); Creatinine, Serum 1.18 mg/dL (0.55-1.02); EST Glomerular Filtration Rate 47 mL/min (>60); Est Glom Filt Rate - Afr Amer 57 mL/min (>60); Globulin 5.1 g/dL (2.2-4.2); Glucose 138 mg/dL (74-106); High Density Lipoprotein 37 mg/dL; Protein, Total 8.6 g/dL (6.4-8.2); Sodium Level 139 mmol/L (136-145); T4 Free Direct 1.31 ng/dL (0.76-1.46); Thyroid Stim Hormone (TSH) 2.32 uIU/mL (0.358-3.74); Triglycerides 145 mg/dL; Very Low Density Lipoprotein 29 mg/dL (5-40)
== END | disposition home or self-care (01) ==
LOC: LAB 15:51
PROVIDERS: PCP Internal Medicine; Visit Provider Internal Medicine
DX: I10 Essential (primary) hypertension (principal); E03.9 Hypothyroidism, unspecified; R50.9 Fever, unspecified
CPT/HCPCS: 36415; 80053; 80061; 84439; 84443; 84481; 85025

== ENCOUNTER → 2022-03-01 | Outpatient (CLI) | payer MEDICARE, BC, SELFPAY ==
[2022-03-05 11:07] LABS: Albumin 3.3 g/dL (2.9-4.4); Alpha-1-Globulins 0.2 g/dL (0.0-0.4); Gamma Globulin 1.3 g/dL (0.4-1.8); Immunoglobulin G 1371 mg/dL (586-1602); Immunoglobulin M 100 mg/dL (26-217); PROEL- TOTAL PROTEIN 7.5 g/dL (6.0-8.5)
[2022-03-05 16:34] LABS: Immunoglobulin A 963 mg/dL (64-422)
== END | disposition home or self-care (01) ==
LOC: LAB 12:40
PROVIDERS: PCP Internal Medicine; Referring Provider Internal Medicine; Visit Provider Internal Medicine
DX: R77.1 Abnormality of globulin (principal)
CPT/HCPCS: 36415; 82784; 84165; 86334

== ENCOUNTER 2022-09-06 08:56 | Day surgery (SDC) | payer MEDICARE, BC, SELFPAY ==
[2022-08-09] MEDS: Lactated Ringers 1,000 ML 15 ML IV (10:15)
[2022-08-09 10:16] VITALS: BP 161/73; PULSE 99; RESP 18; TEMP 36.8; O2SAT 99; BMI 29.4
--- NOTE | 2022-08-09 10:53 | SUR.PREOP ---
Precedure cancelled, Dr Ibarra spoke with pt and Director spoke with pt and family in detail. Plan is to reschedule procedure as able. Pt agrees to plan.
[2022-09-06] VITALS (7 sets, daily range): BP systolic 108–160; BP diastolic 59–70; PULSE 72–96; RESP 16–18; TEMP 36.1–36.8; O2SAT 92–96; BMI 29.1
[2022-09-06] MEDS: Lactated Ringers 1,000 ML 15 ML IV (09:25)
--- NOTE | 2022-09-06 09:45 | HP.PCM_ITS ---
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 Is patient in pain?: No Allergies Influenza Virus Vaccines Allergy (Verified 07/16/22 15:17) Othermorphine Allergy (Verified 07/16/22 15:17) Other Medications aspirin 81 mg chewable tablet 81 mg PO DAILY heart health 05/28/14 [History Confirmed 07/16/22] calcium carbonate 500 mg calcium (1,250 mg) tablet (Calcium 500) 500 mg PO DAILY 07/19/20 [History Confirmed 07/16/22] cholecalciferol (vitamin D3) 10 mcg (400 unit) capsule 10 mcg PO DAILY 07/19/20 [History Confirmed 07/16/22] ascorbic acid (vitamin C) 500 mg capsule mg PO 02/15/21 [History Confirmed 07/16/22] zinc 50 mg tablet 50 mg PO DAILY 02/15/21 [History Confirmed 07/16/22] paroxetine HCl 40 mg tablet 40 mg PO QHS DEPRESSION #90 tabs 09/19/21 [Rx Confirmed 07/16/22] lisinopril 10 mg-hydrochlorothiazide 12.5 mg tablet 1 tab PO DAILY #90 tabs 04/17/22 [Rx Confirmed 07/16/22] levothyroxine 88 mcg tablet 88 mcg PO DAILY thyroid #90 tabs 07/01/22 [Rx Confirmed 07/16/22] PFSH Medical History Alzheimer disease Cataract COVID-19 Headache, chronic migraine without aura History of gallstones History of shingles Urinary incontinence concurrent with and due to female genital prolapse Vision problem Surgical History History of cataract removal with insertion of prosthetic lens Family History Daughter Anxiety Depression LupusSister Colon cancer Social History Smoking Status: Former smoker alcohol intake: never substance use type: does not use what type of physical activity do you participate in: none HPI HPI HPI: 82-year-old female with Alzheimer's disease and ongoing memory impairment. She has been having some difficulties with swallowing. This has been present in the past as well. By report she had a swallow study done in 2019 which apparently was okay. She describes food sticking in her throat and her needing to wash it down. 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 Is not painful. Consideration has been made for visualization with a esophagogastroduodenoscopy. 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 The patient presents with her son Jayme today. She claims that she has intermittent troubles feeling something is getting stuck in the back of her throat and that she has to wash it down with fluid. She has not lost any weight in fact she is gaining some weight. She used to be a cigarette smoker for 20 years but she claims she quit 25 years ago. Denies any abdominal pain. No bright red blood per rectum or melena. 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 She is able to eat those on a daily basis. ROS General General: No weight change, appetite, fatigue, colon cancer, breast cancer or weakness HEENT HEENT: Yes difficulty swallowing; No eye injury, eye surgery, swollen glands or hoarseness Endo Endocrine: Yes thyroid disease; No diabetes mellitus, thyroid cancer, Hair loss, heat intolerance or cold intolerance Skin Skin: No rash or changing moles Breast Breast: No left breast lump, right breast lump, nipple discharge, breast pain, abnormal mammogram, abnormal US or breast enlargement Musc Musculoskeletal: No back problems, arthritis, rheumatoid arthritis, gout or joint pain Cardio Cardiovascular: Yes high blood pressure; No murmur, pacemaker, heart disease, atrial fibrillation, heart attack, heart stent, palpitations, shortness of breat with exertion or chest pain Psych Psychiatric: Yes depression; No anxiety or hearing voices Resp Respiratory: No shortness of breath, No sleep apnea, No cough, No COPD, No asthma, No emphysema and No wheezing Gastro Gastrointestinal: No abdominal pain, No nausea or vomiting, No diarrhea, No constipation, No blood in stool, Yes acid reflux, No hemorrhoids, No ulcers, No gallbladder problem and No black,tarry stools Samuel Hematologic: Yes blood thinners, No blood disorders, No bleeding, No anemia and No blood clots Neuro Neurologic: No system reviewed and no additional complaints, except as d ocumented, No as per HPI, No abnormal gait, No abnormal hearing, No abnormal movements, No abnormal speech, No behavioral changes, No burning sensations, No confusion, No convulsions, No disequilibrium, No dizziness, No localized weakness, No frequent falls, No headache(s), No lack of coordination, No loss of vision, No memory loss, No numbness, No other visual disturbances, No radicular pain, No restless legs, No sensory deficit, No syncope, No tingling, No tremor(s), No weakness and No other Exam Const General: cooperative, comfortable and no acute distress Nutritional Appearance: overweight HENMT Head: normal to inspection Neck Neck: normal visual inspection Resp Effort & Inspection: normal respiratory effort Auscultation: clear to auscultation bilaterally Cardio Rate: regular rate Rhythm: regular rhythm GI Palpation: soft and no hepatosplenomegaly Musc Cervical Spine: normal cervical lordosis Skin General: no rashes or lesions noted Neuro General: patient alert Extrem General: no calf tenderness Psych Appearance: grossly normal Assessment and Plan Assessment and Plan (1) Dysphagia: Status: Acute Plan: I recommend to the patient esophagogastroduodenoscopy with possible biopsy or polypectomy or dilatation if indicated and I have described this technique, benefit, risk, alternatives. Careful inspection for possible esophageal diverticulum or areas of inflammation or stricturing will be pursued. Based upon the patient's discussion in particular because she is able to eat potato chips I am estimating at this point that I will not be finding a tight strictured area. She and her son Jayme have had an opportunity ask questions answered. We will schedule and proceed at her discretion. I appreciate the opportunity of assisting with her surgical care. Copy: Dr. Susan Ibarra M.D., F.A.C.S. I have examined the patient and the H&P has been reviewed. There are no clinical changes since date of exam. Chau Ibarra M.D., F.A.C.S.
--- NOTE | 2022-09-06 10:15 | IMM_PTH ---
PATIENT: MICHELE SOUZA LOC: EN U#:[id number] AGE/SX: 82/F ROOM: RE09/06/[address]: Dr. Chau Ibarra MD : 1940 BED: DIS: 09/06/2022 SPEC #: [id number] RECD: 09/06/22 14:15 STATUS: QUETA RERachel #: [id number] VINCE: 09/06/22 10:[address]: Chau Ibarra DEPT: IMMUNOHISTOCHEMISTRY RECD BY: Lucy Harry ENTERED: 09/06/22 14:16 SP TYPE: IMMUNO OTHR DR: Dr. Susan Singer MD Tissues: B - Stomach, NOS C - Esophagus, NOS Procedures: H Pylori (initial) CD138 (add) CD45 (add) CK8 (add) Pankeratin (add) PHYSICIAN & INSTITUTION [place] [phone] SPECIMEN INFORMATION: Tissue Source: B - Antrum C. Distal esophagus Clinical Info: Dysphagia Specimen Number: [id number] B, C CPT code: 54967s7, 71253h 3 METHODOLOGY: Deparaffinized sections of prefer/formalin-fixed tissue or PAP/DQ stained slides are incubated with monoclonal/polyclonal antibodies/oligonucleotide probes. Localization is made via biotin free immunoperoxidase method. Appropriate controls are performed and reacted as expected. Results on target cell population are indicated in the following table: RESULTS: ANTIBODY / CLONE RESULT Block B H Pylori (polyclonal) negative Block C AE1-3 (AE1/AE3/PCK26) positive in epithelial cells CK8 (30yrhzT3) positive in epithelial cells CD45 (RP2/18) positive in lymphocytes CD138 (B-A38) positive in plasma cells These tests were developed and their performance characteristics determined by [facility]. They may not have been cleared or approved by the U.S. Food and Drug Administration. The FDA has determined that such clearance or approval is not necessary. The above immunohistochemical/dualISH markers are ordered and reviewed by the Pathologist. INTERPRETATION: B. Antrum, biopsy: Negative for H. pylori organisms. C. Distal esophagus: Negative for malignancy. Case has been reviewed in consultation with Dr. Welch who concurs with the above diagnosis. IDC:[id number]
--- NOTE | 2022-09-06 10:15 | EGD_PTH ---
PATIENT: MICHELE SOUZA LOC: EN U#:[id number] AGE/SX: 82/F ROOM: RE09/06/[address]: Dr. Chau Ibarra MD : 1940 BED: DIS: 09/06/2022 SPEC #: [id number] RECD: 09/06/22 11:42 STATUS: QUETA KELLIE #: [id number] VINCE: 09/06/22 10:[address]: Chau Ibarra DEPT: SURGICAL PATHOLOGY RECD BY: Cayetano Bee ENTERED: 09/06/22 12:26 SP TYPE: EGD BIOPSY OT DR: Dr. Susan Singer MD Tissues: A - Duodenum, NOS B - Gastric mucous membrane C - Esophagus, NOS Procedures: Special Stain Group I Surgery Specimen Level IV GMS Stain (control) HEADER OPERATION: [place] [place] biopsies PRE-OP DIAGNOSIS: Dysphagia TISSUE SUBMITTED: A - Duodenum biopsy, B - Antrum biopsy for H. pylori and path, C - Distal esophagus biopsy MICROSCOPIC DIAGNOSIS A. Duodenum, biopsy: A fragment of duodenal mucosa, no pathologic diagnosis. B. Antrum, biopsy: Mild gastritis. See microscopic description and comment. C. Distal esophagus, biopsy: Fragments of squamous mucosa with moderate chronic inflammation and mild acute inflammation. See comment. COMMENT B. The results of immunohistochemistry for Helicobacter pylori will be reported separately ([id number]). C. Special stains for fungi is negative for organisms; matched control is appropriate. Immunohistochemistry ([id number]) supports the above diagnosis. Case has been reviewed in consultation with Dr. Welch who concurs with the above diagnosis. IDC:AM MICROSCOPIC DESCRIPTION Slides are reviewed. The specimen shows fragments of gastric mucosa with chronic inflammatory cell infiltrates in the lamina propria consisting of lymphocytes and plasma cells, consistent with mild chronic gastritis. GROSS DESCRIPTION A. Received in fixative is one container labeled with the patient's name and designated duodenum biopsy. The specimen consists of one irregular fragment of light huber soft tissue that measures 0.4 x 0.3 x 0.1 cm. The specimen is totally submitted in one cassette. B - Received in fixative is one container labeled with the patient's name and designated antrum biopsy. The specimen consists of one irregular fragment of light huber soft tissue that measures 0.3 x 0.3 x 0.1 cm. The specimen is totally submitted in one cassette. C - Received in fixative is one container labeled with the patient's name and designated distal esophagus biopsy. The specimen consists of two irregular fragments of light huber soft tissue that in aggregate measure 0.8 x 0.2 x 0.1 cm. The specimen is totally submitted in one cassette. / SJ:rg 09/06/2022 TC:3 CPT: 06390 x3 , 66068
--- NOTE | 2022-09-06 10:38 | OP.EGD_ITS ---
Patient Name: Magaly Pederson Procedure Date: 09/06/2022 10:19 AM Date of : 1940 Age: 82 Procedure: Upper GI endoscopy Indications: Dysphagia Providers: Chau Ibarra MD Referring MD: Susan Singer Medicines: See the Anesthesia note for documentation of the administered medications Complications: No immediate complications. Procedure: Pre-Anesthesia Assessment: - Prior to the procedure, a History and Physical was performed, and patient medications and allergies were reviewed. The patient's tolerance of previous anesthesia was also reviewed. The risks and benefits of the procedure and the sedation options and risks were discussed with the patient. All questions were answered, and informed consent was obtained. Prior Anticoagulants: The patient has taken no previous anticoagulant or antiplatelet agents. ASA Grade Assessment: II - A patient with mild systemic disease. After reviewing the risks and benefits, the patient was deemed in satisfactory condition to undergo the procedure. After obtaining informed consent, the endoscope was passed under direct vision. Throughout the procedure, the patient's blood pressure, pulse, and oxygen saturations were monitored continuously. The gastroscope was introduced through the mouth, and advanced to the second part of duodenum. The upper GI endoscopy was accomplished without difficulty. The patient tolerated the procedure well. Scope In: 10:26:14 AM Scope Out: 10:32:23 AM Total Procedure Duration Time 0 hours 6 minutes 9 seconds Findings: LA Grade B (one or more mucosal breaks greater than 5 mm, not extending between the tops of two mucosal folds) esophagitis with no bleeding was found 39 cm from the incisors. Biopsies were taken with a cold forceps for histology. The lower third of the esophagus was moderately tortuous. A 3 cm hiatal hernia was present. Diffuse moderately erythematous mucosa without bleeding was found in the gastric antrum. Biopsies were taken with a cold forceps for histology. Diffuse moderately erythematous mucosa without active bleeding and with no stigmata of bleeding was found in the duodenal bulb. Biopsies were taken with a cold forceps for histology. Impression: - LA Grade B reflux esophagitis. Biopsied. - Tortuous esophagus. - 3 cm hiatal hernia. - Erythematous mucosa in the antrum. Biopsied. - Erythematous duodenopathy. Biopsied. Recommendation: - Discharge patient to home. - Resume previous diet. - Continue present medications. - Use Prilosec (omeprazole) 20 mg PO daily. Tortuous distal esophagus with hiatal hernia likely causing some of the swallowing difficulties complicated by clinical findings of acute reflux esophagitis and antral gastritis and likely duodenitis. Patient will be notified of pathology results as they become available. We will initiate her as noted on proton pump inhibitor therapy and have her contact us with a progress report. Procedure Code(s): --- Professional --- 96413, Esophagogastroduodenoscopy, flexible, transoral; with biopsy, single or multiple Diagnosis Code(s): --- Professional --- K21.0, Gastro-esophageal reflux disease with esophagitis Q39.9, Congenital malformation of esophagus, unspecified K44.9, Diaphragmatic hernia without obstruction or gangrene K31.89, Other diseases of stomach and duodenum R13.10, Dysphagia, unspecified CPT copyright 2017 [employer]. All rights reserved. The codes documented in this report are preliminary and upon pediatric neurologist review may be revised to meet current compliance requirements. Chau Ibarra MD 09/06/2022 10:38:17 AM This report has been signed electronically. Number of Addenda: 0 Note Initiated On: 09/06/2022 10:19 AM
--- NOTE | 2022-09-06 10:39 | OP.CCLET_ITS ---
09/06/2022 Susan Singer [facility] [address] [place] [address] Re : Upper GI endoscopy procedure for Magaly Pederson Dear Dr. Singer This procedure was performed on Tuesday, September 06, 2022. My impressions and recommendations are as follows: Impressions : - LA Grade B reflux esophagitis. Biopsied. - Tortuous esophagus. - 3 cm hiatal hernia. - Erythematous mucosa in the antrum. Biopsied. - Erythematous duodenopathy. Biopsied. Recommendations : - Discharge patient to home. - Resume previous diet. - Continue present medications. - Use Prilosec (omeprazole) 20 mg PO daily. Tortuous distal esophagus with hiatal hernia likely causing some of the swallowing difficulties complicated by clinical findings of acute reflux esophagitis and antral gastritis and likely duodenitis. Patient will be notified of pathology results as they become available. We will initiate her as noted on proton pump inhibitor therapy and have her contact us with a progress report. My findings are described in the full procedure note, which is enclosed. If I can be of further assistance, please feel free to contact me at Doctor phone number(s): Work: . Sincerely, Chau Ibarra MD 09/06/2022 10:38:17 AM This report has been signed electronically.
== END 2022-09-06 11:30 | disposition home or self-care (01) ==
LOC: EN 08:57 → AC 08:59
PROVIDERS: PCP Internal Medicine; Referring Provider Internal Medicine; Visit Provider Surgery
PROC: 0DJ08ZZ Inspection of Upper Intestinal Tract, Via Natural or Artificial Opening Endoscopic (ICD-10-PCS; CPT 43235; principal; 2022-09-06 10:10)
DX: K21.00 Gastro-esophageal reflux disease with esophagitis, without bleeding (principal); G30.9 Alzheimer's disease, unspecified; Z87.891 Personal history of nicotine dependence; Z80.0 Family history of malignant neoplasm of digestive organs; K44.9 Diaphragmatic hernia without obstruction or gangrene; Z79.01 Long term (current) use of anticoagulants; Q39.9 Congenital malformation of esophagus, unspecified; Z79.899 Other long term (current) drug therapy; K29.70 Gastritis, unspecified, without bleeding; Z79.82 Long term (current) use of aspirin; Z79.890 Hormone replacement therapy; I10 Essential (primary) hypertension; E03.9 Hypothyroidism, unspecified; Z87.19 Personal history of other diseases of the digestive system
CPT/HCPCS: 43239; 88305; 88312; 88341; 88342; J7120; J2405

== ENCOUNTER → 2022-12-04 | Outpatient (CLI) | payer MEDICARE, BC, SELFPAY | END | disposition home or self-care (01) | LOC: LABSPEC 16:27 | PROVIDERS: PCP Internal Medicine; Referring Provider Internal Medicine; Visit Provider Internal Medicine | DX: R50.9 Fever, unspecified (principal); N39.0 Urinary tract infection, site not specified | CPT/HCPCS: 87086 ==

== ENCOUNTER → 2022-12-07 | Outpatient (CLI) | payer MEDICARE, BC, SELFPAY ==
[2022-12-07 11:09] LABS: Absolute Lymphocyte Count 2.03 X10^3/uL (0.83-4.51); Absolute Neutrophil Count 5.9 X10^3/uL (2.0-7.7); Basophil# 0.05 X10^3/uL; Basophil% 0.6 % (0-1); Eosinophil# 0.36 X10^3/uL; Hematocrit 41.4 % (37-47); Hemoglobin 13.1 g/dL (12.0-15.0); Lymphocyte # 2.03 X10^3/ul (0.83-4.51); Lymphocyte % 22.8 % (19-41); Mean Corp Hgb Conc 31.6 g/dL (32-36); Mean Corpuscular Volume 91.6 fL (81-99); Mean Platelet Vol. 10.6 fl (6.2-12.0); Monocyte# 0.54 X10^3/uL; Monocyte% 6.1 % (0-10); NRBC Flagged by Analyzer 0 % (0-5); Neutrophil # 5.88 X10^3/uL (2.7-7.7); Neutrophil % 66.1 % (47-70); Platelet Count 251 K/mm3 (150-450); RBC Distribution Width SD 47.7 fl (35.1-43.9); Red Blood Count 4.52 M/mm3 (4.2-5.4); White Blood Count 8.9 K/mm3 (4.4-11.0)
[2022-12-07 11:51] LABS: ALB/GLOB Ratio 0.6 RATIO (0.9-2.4); AST(SGOT) 23 U/L (15-37); Alanine Aminotransfer ALT/SGPT 38 U/L (13-56); Albumin, Serum 3.3 g/dL (3.2-5.0); Alkaline Phosphatase 78 U/L (45-117); Anion Gap 6 (5-15); BUN 22 mg/dL (7-18); BUN/Creat Ratio 15.9 RATIO (10-20); Calcium,Total 9.3 mg/dL (8.5-10.1); Chloride 104 mmol/L (98-107); Cholesterol 203 mg/dL (200); Creatinine, Serum 1.38 mg/dL (0.55-1.02); EST Glomerular Filtration Rate 39 mL/min (>60); Est Glom Filt Rate - Afr Amer 47 mL/min (>60); Free T3 2.2 pg/mL (2.18-3.98); Globulin 5.2 g/dL (2.2-4.2); Glucose 176 mg/dL (74-106); High Density Lipoprotein 33 mg/dL; Protein, Total 8.5 g/dL (6.4-8.2); Sodium Level 137 mmol/L (136-145); T4 Free Direct 1.23 ng/dL (0.76-1.46); Thyroid Stim Hormone (TSH) 0.91 uIU/mL (0.358-3.74); Triglycerides 140 mg/dL; Very Low Density Lipoprotein 28 mg/dL (5-40)
[2022-12-09 11:15] LABS: Vitamin D,25 Hydroxy 59.3 ng/mL
== END | disposition home or self-care (01) ==
LOC: LAB 10:20
PROVIDERS: PCP Internal Medicine; Visit Provider Internal Medicine
DX: Z01.818 Encounter for other preprocedural examination (principal); G61.0 Guillain-Barre syndrome; R50.9 Fever, unspecified; R41.3 Other amnesia; E03.9 Hypothyroidism, unspecified; I10 Essential (primary) hypertension; E55.9 Vitamin D deficiency, unspecified
CPT/HCPCS: 36415; 80053; 80061; 82306; 83735; 84439; 84443; 84481; 85025

== ENCOUNTER → 2023-01-18 | Outpatient (CLI) | payer MEDICARE, BC, SELFPAY ==
[2023-01-18 12:22] LABS: Anion Gap 5 (5-15); BUN 25 mg/dL (7-18); BUN/Creat Ratio 16.3 RATIO (10-20); Calcium,Total 9.1 mg/dL (8.5-10.1); Chloride 105 mmol/L (98-107); Creatinine, Serum 1.53 mg/dL (0.55-1.02); EST Glomerular Filtration Rate 35 mL/min (>60); Est Glom Filt Rate - Afr Amer 42 mL/min (>60); Glucose 223 mg/dL (74-106); Magnesium 2.1 mg/dL (1.6-2.6); Potassium 4.1 mmol/L (3.5-5.1); Sodium Level 137 mmol/L (136-145)
== END | disposition home or self-care (01) ==
LOC: LAB 11:25
PROVIDERS: PCP Internal Medicine; Visit Provider Internal Medicine
DX: R79.89 Other specified abnormal findings of blood chemistry (principal)
CPT/HCPCS: 36415; 80048; 83735

== ENCOUNTER → 2023-02-15 | Outpatient (CLI) | payer MEDICARE, BC, SELFPAY ==
[2023-02-15 12:05] LABS: Anion Gap 8 (5-15); BUN 20 mg/dL (7-18); Calcium,Total 8.7 mg/dL (8.5-10.1); Chloride 107 mmol/L (98-107); Creatinine, Serum 1.25 mg/dL (0.55-1.02); EST Glomerular Filtration Rate 44 mL/min (>60); Est Glom Filt Rate - Afr Amer 53 mL/min (>60); Glucose 252 mg/dL (74-106); Potassium 3.7 mmol/L (3.5-5.1); Sodium Level 139 mmol/L (136-145)
== END | disposition home or self-care (01) ==
LOC: LAB 11:06
PROVIDERS: PCP Internal Medicine; Referring Provider Internal Medicine; Visit Provider Internal Medicine
DX: R79.89 Other specified abnormal findings of blood chemistry (principal)
CPT/HCPCS: 36415; 80048

== ENCOUNTER → 2023-05-10 | Outpatient (CLI) | payer MEDICARE, BC, SELFPAY ==
--- OUTSIDE RECORDS SUMMARY | 2023-05-10 09:59 | XMS RPT_ITS | CCD ---
Author Name Unknown Address [facility] [address] [place] [id number] Organization [facility] Clinical Note 10-26-2020 Note Date & Type Note Facility 10-26-2020 Note Patient Outreach (NE TNAV) MICHELE SOUZA ([id number]) 1940 F Date Time Provider Department 10/26/20 SILVIA ALAMO During your visit today, we recorded the following information about you: Silvia Alamo Population Health Navigator 10/26/2020 10:54 AM Signed POPULATION HEALTH NAVIGATION OUTREACH Action/FYI I tried to call the patient re: pcp line is busy I called several times line busy No care everywhere Sending letter Contact made with patient or family member? NO Pt identified by name and : NO Outreach Outcome/Action Unable to reach patient: Phone number not valid / voicemail full Letter mailed Reason for Outreach Attribution: Provider Off-boarding Payer: Payor: MEDICARE / Plan: MEDICARE A AND B / Product Type: Medicare / Care Gap Reviewed:: Reminder: Reminder note to check Health Maintenance for items below Health Maintenance items due: DEPRESSION SCREENING Never done COVID-19 VACCINE(1) Never done DTAP,TDAP,TD(1 - Tdap) Never done DIABETES SCREEN Never done SHINGRIX VACCINE(1 of 2) Never done BONE DENSITY Never done ADVANCE DIRECTIVE DISCUSSION Never done PNEUMOVAX AGE 65 AND OVER WITH 5YR LOOKBACK(1) Never done COLORECTAL CANCER SCREENING due on 03/31/2007 Advanced Directives Completed: Have you ever planned for future healthcare decisions with a power of deputy county attorney, living will, or advance directives? No. Please bring a copy to your next appointment or email to [email or web address] Referrals: N/A Message Sent to Practice: NO Navigation Signature: Silvia Alamo Population Health Navigator October 26, 2020 10:53 AM Allergies As of Date: 10/26/2020 (No Known Allergies) Date Reviewed: 04/29/2016 Reviewed by: Jocelyn Samuels Ma - Fully Assessed Reason for Visit: Population Health Navigation Outreach [3910] Cmt: offboarding Prescriptions as of 10/26/2020 - atorvastatin (LIPITOR) 40 mg tablet Take 40 mg by mouth once daily. - levothyroxine (SYNTHROID) 75 mcg tablet Take 75 mcg by mouth once daily. - lisinopril (ZESTRIL, PRINIVIL) 5 mg tablet Take 5 mg by mouth once daily. - oxyCODONE-acetaminophen (PERCOCET) 5-325 mg tablet Take 1 tablet by mouth every 4 hours as needed for Pain (low back pain). - metFORMIN (GLUCOPHAGE) 500 mg tablet Take 1 tablet by mouth daily with breakfast. - FERROUS SULFATE 325 MG (65 MG IRON) TAB takes two tabs once daily - omeprazole(PRILOSEC 20 MG CAP) Take one(1) capsule twice daily. - MECLIZINE 25 MG TAB Take one(1) tablet three times daily.prn dizzy - tramadol hcl(ULTRAM 50 MG TAB) Take one(1) tablet every four(4) to six(6) hours as needed for pain. - CITALOPRAM 40 MG TAB Take one(1) tablet daily. 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 Author Type: ? Type: Progress Notes Filed: 10/26/2020 10:54 AM Note Text: POPULATION HEALTH NAVIGATION OUTREACH Action/FYI I tried to call the patient re: pcp line is busy I called several times line busy No care everywhere Sending letter Contact made with patient or family member? NO Pt identified by name and : NO Outreach Outcome/Action Unable to reach patient: Phone number not valid / voicemail full Letter mailed Reason for Outreach Attribution: Provider Off-boarding Payer: Payor: MEDICARE / Plan: MEDICARE A AND B / Product Type: Medicare / Care Gap Reviewed:: Reminder: Reminder note to check Health Maintenance for items below Health Maintenance items due: DEPRESSION SCREENING Never done COVID-19 VACCINE(1) Never done DTAP,TDAP,TD(1 - Tdap) Never done DIABETES SCREEN Never done SHINGRIX VACCINE(1 of 2) Never done BONE DENSITY Never done ADVANCE DIRECTIVE DISCUSSION Never done PNEUMOVAX AGE 65 AND OVER WITH 5YR LOOKBACK(1) Never done COLORECTAL CANCER SCREENING due on 03/31/2007 Advanced Directives Completed: Have you ever planned for future healthcare decisions with a power of deputy county attorney, living will, or advance directives? No. Please bring a copy to your next appointment or email to Referrals: N/A Message Sent to Practice: NO Navigation Signature: Silvia Alamo Population Health Navigator October 26, 2020 10:53 AM [facility] Summary Purpose Family History No Family History Records Found Advance Directives No Advanced Directives Records Found Additional Source Comments INFORMATION SOURCE (unrecogn ized section and content) FOR RECORDS PERTAINING TO PATIENTS WHO ARE OR HAVE BEEN ENROLLED IN A CHEMICAL DEPENDENCY/SUBSTANCEABUSE PROGRAM, SOME INFORMATION MAY BE OMITTED. This clinical summary was aggregated from multiple sources. Caution should be exercised in using it in the provision of clinical care. This summary normalizes information from multiple sources, and as a consequence, information in this document may materially change the coding, format and clinical context of patient data. In addition, data may be omitted in some cases. CLINICAL DECISIONS SHOULD BE BASED ON THE PRIMARY CLINICAL RECORDS. [employer] provides no warranty or guarantee of the accuracy or completeness of information in this document.
[2023-05-10 10:31] LABS: Anion Gap 7 (5-15); BUN 28 mg/dL (7-18); BUN/Creat Ratio 20.9 RATIO (10-20); Calcium,Total 9.1 mg/dL (8.5-10.1); Chloride 105 mmol/L (98-107); Creatinine, Serum 1.34 mg/dL (0.55-1.02); EST Glomerular Filtration Rate 40 mL/min (>60); Est Glom Filt Rate - Afr Amer 49 mL/min (>60); Glucose 162 mg/dL (74-106); Potassium 3.4 mmol/L (3.5-5.1); Sodium Level 137 mmol/L (136-145)
== END | disposition home or self-care (01) ==
LOC: LAB 09:57
PROVIDERS: PCP Internal Medicine; Referring Provider Internal Medicine; Visit Provider Internal Medicine
DX: I10 Essential (primary) hypertension (principal); R79.89 Other specified abnormal findings of blood chemistry
CPT/HCPCS: 36415; 80048; 83735

== ENCOUNTER 2023-12-21 18:45 | Emergency (ER) | payer MEDICARE, BC, SELFPAY ==
[2023-12-21] VITALS (7 sets, daily range): BP systolic 116–165; BP diastolic 49–93; PULSE 78–98; RESP 16–19; TEMP 36.6–37.1; O2SAT 97–99; BMI 31.6
--- NOTE | 2023-12-21 18:58 | RAD_ITS ---
STUDY: X-RAY CHEST REASON FOR EXAM: Female, 83 years old. Stroke TECHNIQUE: Single frontal view of the chest. COMPARISON: Chest x-ray January 22, 2021 FINDINGS: Mild residual scarring right upper lobe. Increasing opacity left upper lobe. There is no demonstrated pleural abnormality. Cardiomegaly. Normal mediastinum and elaine. Normal visualized pulmonary arteries. Normal visualized aortic arch and descending thoracic aorta. Normal visualized thoracic spine. Normal visualized ribs, clavicles, and shoulders. There is no demonstrated abnormality of the visualized soft tissue structures of the upper abdomen. RAD/Chest 1 View (Portable) IMPRESSION: Increasing opacity left upper lung. Recommend follow-up CT chest with IV contrast. Electronically Signed: Benitez Hull MD at 20:43 EDT ,
[2023-12-21 19:19] LABS: Absolute Lymphocyte Count 2.71 X10^3/uL (0.83-4.51); Absolute Neutrophil Count 11.1 X10^3/uL (2.0-7.7); Basophil# 0.03 X10^3/uL; Basophil% 0.2 % (0-1); Eosinophil# 0.01 X10^3/uL; Eosinophils% 0.1 % (0-5); Hematocrit 42.5 % (37-47); Hemoglobin 14.4 g/dL (12.0-15.0); Lymphocyte # 2.71 X10^3/ul (0.83-4.51); Lymphocyte % 18.4 % (19-41); Mean Corp Hgb Conc 33.9 g/dL (32-36); Mean Corpuscular Hgb 30.4 pg (27.0-32.0); Mean Corpuscular Volume 89.7 fL (81-99); Mean Platelet Vol. 11.5 fl (6.2-12.0); Monocyte% 5.4 % (0-10); NRBC Flagged by Analyzer 0 % (0-5); Neutrophil # 11.08 X10^3/uL (2.7-7.7); Neutrophil % 75.3 % (47-70); Platelet Count 239 K/mm3 (150-450); RBC Distribution Width CV 13.9 % (11.6-14.6); RBC Distribution Width SD 45.5 fl (35.1-43.9); Red Blood Count 4.74 M/mm3 (4.2-5.4); White Blood Count 14.7 K/mm3 (4.4-11.0)
[2023-12-21 19:22] LABS: POSITIVE COUNT NO; POSITIVE DIFFERENTIAL NO; POSITIVE MORPHOLOGY NO
[2023-12-21 19:26] LABS: Anion Gap 7 (5-15); BUN 16 mg/dL (7-18); BUN/Creat Ratio 14.4 RATIO (10-20); Calcium,Total 9.2 mg/dL (8.5-10.1); Chloride 105 mmol/L (98-107); Creatinine, Serum 1.11 mg/dL (0.55-1.02); EST Glomerular Filtration Rate 50 mL/min (>60); Est Glom Filt Rate - Afr Amer 60 mL/min (>60); Estimated Creatinine Clearance 39.36 ml/min; Glucose 138 mg/dL (74-106); Potassium 3.7 mmol/L (3.5-5.1); Sodium Level 136 mmol/L (136-145)
[2023-12-21 19:52] LABS: Bedside Glucose 127 mg/dL (74-106)
--- NOTE | 2023-12-21 20:24 | CT_ITS ---
STUDY: CT BRAIN WITHOUT CONTRAST REASON FOR EXAM: Female, 83 years old. confusion, mental status change RADIATION DOSAGE (If Supplied By Facility): CTDIvol = ( 44.99 ) mGy, DLP = ( 745.49 ) mGycm TECHNIQUE: Transaxial CT imaging of the brain was performed without administration of intravenous contrast material. Individualized dose optimization techniques were used for this CT. The protocol utilizes one or more of the following dose reduction techniques: automated exposure control, adjustment of mA and/or kV according to patient size,and/or use of iterative reconstruction technique. COMPARISON: No relevant priors. FINDINGS: Normal soft tissue structures. Normal calvarium. Normal size ventricles and extra-axial spaces for the patient''s age. Normal white matter tracts of the cerebral hemispheres. Normal basal ganglia and thalami. Normal brainstem. Normal cerebellum. There is no intracranial hemorrhage. There are no findings of an acute ischemic infarction. Normal visualized paranasal sinuses. CT/Brain/Head without Contrast IMPRESSION: Normal unenhanced CT scan of the brain. Electronically Signed: Benitez Hull MD at 22:21 EDT ,
--- NOTE | 2023-12-21 20:26 | EDS_ITS ---
HPI History of Present Illness Chief Complaint: Headache Narrative Narrative: History and physical mildly limited secondary to dementia. According to her family, she seems more confused today. This morning, she complained to her daughter that she had a headache. It is in the back of her head. She denies any recent trauma. No neck pain. No recent fevers or chills, no nausea or vomiting. Her 1 daughter states that she is more confused, calling them her sisters instead of daughters. Additionally, they state that she was diagnosed with a urinary tract infection at home, and her primary care provider called in antibiotics for her but they are unsure if she had taken them. She has not on any medications for her dementia because she declined taking them. When her 1 daughter went to check on her this evening at 6 PM, 2-1/2 hours ago to see if she was feeling better, that is when she thought she was more confused than normal. Her short-term memory is lacking as well. [facility] Medical History Ectopic heartbeats Wears glasses Thyroid disease Heartburn Gastric reflux Former smoker COVID-19 Alzheimer disease Urinary incontinence concurrent with and due to female genital prolapse History of shingles Vision problem Headache, chronic migraine without aura History of gallstones Cataract Home Medications ?Medication ?Instructions ?Recorded ?Last Taken ?Type aspirin 81 mg chewable tablet 81 mg PO DAILY [facility] 05/28/14 09/05/22 History calcium carbonate (Calcium 500) 1,000 mg PO DAILY 07/19/20 Unknown History ascorbic acid (vitamin C) 500 mg 500 mg PO DAILY 02/15/21 Unknown History capsule zinc 50 mg tablet 50 mg PO DAILY 02/15/21 Unknown History omeprazole 20 mg capsule,delayed 20 mg PO DAILY #90 caps 09/06/22 Unknown Rx release paroxetine HCl 40 mg tablet 40 mg PO QHS DEPRESSION #90 tabs 10/21/22 Unknown Rx cholecalciferol (vitamin D3) 25 25 mcg PO DAILY 06/05/23 Unknown History mcg (1,000 unit) tablet levothyroxine 88 mcg tablet 88 mcg PO DAILY thyroid #90 tabs 07/29/23 Unknown Rx lisinopril 10 mg tablet 10 mg PO DAILY #90 tabs 08/29/23 Unknown Rx Allergy/AdvReac Type Severity Reaction Status Date / Time Influenza Virus Vaccines Allergy Other Verified 12/15/23 11:18 morphine Allergy Other Verified 12/15/23 11:18 Family History Daughter Anxiety Depression Lupus Sister Colon cancer Surgical History History of colonoscopy History of esophagogastroduodenoscopy (EGD) History of cataract removal with insertion of prosthetic lens Social History Smoking Status: Former smoker alcohol intake: never substance use type: does not use what type of physical activity do you participate in: none ROS ROS ED ROS Narrative History and physical/review of systems limited secondary to dementia. Per daughter, more confused. Patient states that she has an occipital headache, described as dull and achy. Denies neck pain. No chest pain or shortness of breath, no fevers or chills, no nausea or vomiting. No exacerbating or alleviating factors to her reported headache. Review of Systems ROS Unobtainable: due to mental condition EXAM Physical Exam Narrative Exam Narrative: Afebrile. Vital signs noted. Nontoxic-appearing. Cardiovascular examination reveals a regular rate and rhythm. Lungs are clear to auscultation bilaterally. Abdomen is soft and nontender with normoactive bowel sounds. Neurological examination shows her to be awake, alert, and moving all extremities. She is oriented to person and states that her name is Magaly with a C. Const Vital Signs: 12/21/23 18:46 12/21/23 18:49 12/21/23 18:59 Temperature 98.8 F 98 F Temperature Source Oral Oral Pulse Rate 92 98 Respiratory Rate 18 16 Blood Pressure 143/77 H 116/93 H Blood Pressure Mean 99 100 Pulse Ox 97 98 98 Oxygen Delivery Method Room Air Room Air 12/21/23 19:49 12/21/23 20:00 12/21/23 22:00 Temperature 98 F 98.6 F Temperature Source Oral Oral Pulse Rate 93 98 Respiratory Rate 18 19 H Blood Pressure 165/89 H 162/49 H 162/89 H Blood Pressure Mean 114 86 113 Pulse Ox 98 98 Oxygen Delivery Method Room Air Room Air MDM MDM MDM Narrative Medical decision making narrative: Differential diagnosis includes but not limited to worsening Alzheimer's dementia regarding her confusion versus dehydration or other electrolyte imbalance versus UTI versus pneumonia. Regarding her headache. As she does not usually complain of a headache and she has had it all day, CT of the brain will be obtained to rule out mass or hemorrhage. EKG was obtained and interpreted by myself independently as normal sinus rhythm with frequent PVCs at [address] changes. No STEMI. I reviewed her laboratory work and she has a leukocytosis of 14.7 which I think is nonspecific, hemoglobin normal at 14.4 with hematocrit 42.5. Platelet count normal at 239. Review of her electrolyte panel shows BUN of 16 with creatinine 1.11, no profound dehydration, glucose appropriately elevated at 138 with a normal anion gap of 7, sodium normal at 136 with potassium 3.7. Urinalysis shows leukocyte esterase at 500 but only 5-10 WBCs and rare bacteria. I do not feel antibiotics are indicated. Through shared decision making, I will send the urine for culture and patient will be called with results and any need for antibiotics. Chest x-ray in 1 view interpreted by myself independently shows no evidence of pneumothorax or pneumonia, but there is an opacity in the left upper lobe. I reviewed the radiology report which states that the left upper lobe opacity is increasing, and recommend CT with IV contrast. I feel this can be done as an outpatient. I do not feel that this is a pneumonia and although she has a leukocytosis, she does not have a fever or productive cough. I do not feel she requires antibiotics for this either. I reviewed the radiology report of the CT of the brain and there is no acute process. I think her confusion may be more from her Alzheimer's type dementia. At this point in time, upon repeat examination after Tylenol she states that her headache is gone and improved. I informed her family of the need for outpatient follow-up and of the abnormal chest x-ray. Return instructions to the emergency department were reviewed. Disposition is discharged home in stable condition. History & Record Review Discussion w/independent historian: Patient and Family Lab Data Attestation: I reviewed the patient's lab results. Labs: Laboratory Results - last 24 hr 12/21/23 12/21/23 12/21/23 18:55 19:34 21:00 WBC 14.7 H RBC 4.74 Hgb 14.4 Hct 42.5 MCV 89.7 MCH 30.4 MCHC 33.9 RDW Std Deviation 45.5 H RDW Coeff of Francisco 13.9 Plt Count 239 MPV 11.5 Immature Gran % (Auto) 0.600 Neut % (Auto) 75.3 H Lymph % (Auto) 18.4 L [place] % (Auto) 5.4 Eos % (Auto) 0.1 Baso % (Auto) 0.2 Absolute Neuts (auto) 11.1 H Absolute Lymphs (auto) 2.71 Nucleated RBC % 0 Sodium 136 Potassium 3.7 Chloride 105 Carbon Dioxide 24.0 Anion Gap 7 BUN 16 Creatinine 1.11 H Estim Creat Clear Calc 39.36 Est GFR (MDRD) Af Amer 60 Est GFR (MDRD) Non-Af 50 L BUN/Creatinine Ratio 14.4 Glucose 138 H Calcium 9.2 Urine Color Yellow Urine Clarity Clear Urine pH 7.0 Ur Specific [place] 1.010 Urine Protein 30 H Urine Glucose (UA) Normal Urine Ketones Negative Urine Occult Blood 50 H Urine Nitrite Negative Urine Bilirubin Negative Urine Urobilinogen Normal Ur Leukocyte Esterase 500 H Urine RBC 0-5 SEEN Urine WBC 5-10 SEEN Ur Squamous Epith Cells 0-5 SEEN Urine Bacteria RARE Urine Mucus 0 SEEN POC Glucose 127 H Radiography Diagnostic Testing: Clinical Impression(s) from Imaging Studies Chest X-Ray 12/21/23 18:58 IMPRESSION: Increasing opacity left upper lung. Recommend follow-up CT chest with IV contrast. Electronically Signed: Benitez Hull MD at 20:43 EDT Reading Location ID and State: [address] [place] [address] Tel , Service support , Brain CT 12/21/23 20:24 IMPRESSION: Normal unenhanced CT scan of the brain. Electronically Signed: Benitez Hull MD at 22:21 EDT , Discharge Plan Triage Chief Complaint: Headache Other Complaint: Confusion ED Provider: Rolan Partida Dx/Rx/DC Orders Clinical Impression: Headache, Confusion, Abnormal chest x-ray, Alzheimer disease Instructions: ED DEMENTIA Alzheimer's, ED Confusion Prescriptions: No Action calcium carbonate [Calcium 500] 500 mg calcium (1,250 mg) tablet 1,000 mg PO DAILY ascorbic acid (vitamin C) 500 mg capsule 500 mg PO DAILY zinc 50 mg tablet 50 mg PO DAILY cholecalciferol (vitamin D3) 25 mcg (1,000 unit) tablet 25 mcg PO DAILY aspirin 81 MG tablet,chewable 81 mg PO DAILY Patient Comments: [facility] omeprazole 20 mg capsule,delayed release(DR/EC) 20 mg PO DAILY Qty: 90 2RF paroxetine HCl 40 mg tablet 40 mg PO QHS Qty: 90 3RF levothyroxine 88 mcg tablet 88 mcg PO DAILY Qty: 90 3RF lisinopril 10 mg tablet 10 mg PO DAILY Qty: 90 3RF Primary Care Provider: Susan Singer Referrals: Susan Singer MD [Primary Care Provider] - 3-5 Days Activity Restrictions/Additional Instructions: You had an abnormal chest x-ray. There was an opacity in the left upper lobe. Radiology is recommending CT of the chest with IV contrast as an outpatient. Return with fever, new or worsening symptoms. Print Language: Croatian Disposition Disposition: Home, Self Care
[2023-12-21] MEDS: Acetaminophen 325 MG Tablet 650 MG PO (20:43)
[2023-12-21 21:06] LABS: Mucous, Urine 0 SEEN /hpf (<or=2+)
[2023-12-21 21:10] LABS: Color, Urine Yellow (Yellow); Glucose, Dipstick Normal (Normal); Ketone-Dipstick Negative (Negative); Leukocyte Esterase-Dipstick 500 /ul (Negative); Nitrite-Dipstick Negative (Negative); Occult Blood-Urine 50 /ul (Negative); Protein-Dipstick 30 mg/dl (Negative); Urine Bilirubin Dipstick Negative (Negative); Urine Clarity Clear (Clear); Urine Urobilinogen Normal (Normal)
[2023-12-21 21:15] LABS: Squamous Epithelial Cells - UA 0-5 SEEN /hpf (5-10)
[2023-12-21 21:16] LABS: Red Blood Cells-Urine 0-5 SEEN /hpf (0-5); White Blood Cells 5-10 SEEN /hpf (0-5)
[2023-12-21 21:17] LABS: Bacteria RARE /hpf (None Seen)
== END 2023-12-21 23:46 | disposition home or self-care (01) ==
PROVIDERS: Emergency Provider Emergency Medicine; PCP Internal Medicine; Visit Provider Emergency Medicine
DX: R51.9 Headache, unspecified (principal); G30.9 Alzheimer's disease, unspecified; F02.80 Dementia in other diseases classified elsewhere, unspecified severity, without behavioral disturbance, psychotic disturbance, mood disturbance, and anxiety; R41.0 Disorientation, unspecified; R91.8 Other nonspecific abnormal finding of lung field; Z79.82 Long term (current) use of aspirin; Z79.899 Other long term (current) drug therapy; Z86.16 Personal history of COVID-19; Z87.891 Personal history of nicotine dependence
CPT/HCPCS: 70450; 71045; 80048; 81001; 82962; 85025; 87086; 87088; 93005; 99285

== ENCOUNTER → 2024-01-14 | Outpatient (CLI) | payer MEDICARE, BC, SELFPAY ==
--- NOTE | 2024-01-14 09:22 | CT_ITS ---
STUDY: CT CHEST WITHOUT CONTRAST REASON FOR EXAM: Female, 83 years old. Lung nodule left -- Compare recent x-ray chest RADIATION DOSAGE (If Supplied By Facility): CTDIvol = ( 15.62 ) mGy, DLP = ( 569.98 ) mGycm TECHNIQUE: Transaxial imaging was performed without the administration of intravenous contrast material. Multiplanar coronal and sagittal images were reformatted. Individualized dose optimization techniques were used for this CT. COMPARISON: Comparison is made with prior chest radiograph dated December 21, [address] scan of the chest dated January 26, 2019. FINDINGS: CHEST There is a 3.1 cm x 1.6 cm irregular nodular density in the peripheral aspect of the left upper lobe posteriorly with posterior calcification. On prior study, a cystic density was seen at that site. A neoplastic process should be ruled out. Correlation with the PET scan is recommended. There is no demonstrated pleural abnormality. There are calcifications of the coronary arteries. Normal mediastinum. Normal hilar regions. Normal unenhanced pulmonary arteries. There is atherosclerotic calcification of the aortic arch with tortuosity and elongation of the aortic arch and descending thoracic aorta. There are multi-level degenerative changes of the thoracic spine. There is no demonstrated abnormality of the visualized upper abdomen. CT/Chest without Contrast IMPRESSION: The radiographic opacity corresponds with 3.1 cm x 1.6 cm irregular nodular density in the peripheral aspect of the left upper lobe posteriorly with posterior calcification. Correlation with a PET scan is recommended. Electronically Signed: Rayray Graves MD at 10:50 EST ,
[2024-01-14 10:21] LABS: Absolute Lymphocyte Count 2.62 X10^3/uL (0.83-4.51); Absolute Neutrophil Count 4.7 X10^3/uL (2.0-7.7); Basophil# 0.05 X10^3/uL; Basophil% 0.6 % (0-1); Eosinophil# 0.14 X10^3/uL; Eosinophils% 1.7 % (0-5); Hematocrit 43.1 % (37-47); Hemoglobin 13.9 g/dL (12.0-15.0); Lymphocyte # 2.62 X10^3/ul (0.83-4.51); Lymphocyte % 32.2 % (19-41); Mean Corp Hgb Conc 32.3 g/dL (32-36); Mean Corpuscular Hgb 30.2 pg (27.0-32.0); Mean Corpuscular Volume 93.7 fL (81-99); Mean Platelet Vol. 11.5 fl (6.2-12.0); Monocyte# 0.64 X10^3/uL; Monocyte% 7.9 % (0-10); NRBC Flagged by Analyzer 0 % (0-5); Neutrophil # 4.67 X10^3/uL (2.7-7.7); Neutrophil % 57.4 % (47-70); Platelet Count 224 K/mm3 (150-450); RBC Distribution Width CV 14.2 % (11.6-14.6); RBC Distribution Width SD 48.4 fl (35.1-43.9); White Blood Count 8.1 K/mm3 (4.4-11.0)
[2024-01-14 10:42] LABS: Vitamin B12 402 pg/mL (211-911); Vitamin D,25 Hydroxy 38.9 ng/mL
[2024-01-14 10:49] LABS: ALB/GLOB Ratio 0.6 RATIO (0.9-2.4); AST(SGOT) 34 U/L (15-37); Alanine Aminotransfer ALT/SGPT 35 U/L (13-56); Albumin, Serum 3.2 g/dL (3.2-5.0); Alkaline Phosphatase 78 U/L (45-117); Anion Gap 5 (5-15); BUN 18 mg/dL (7-18); BUN/Creat Ratio 15.3 RATIO (10-20); Calcium,Total 9.4 mg/dL (8.5-10.1); Chloride 105 mmol/L (98-107); Creatinine, Serum 1.18 mg/dL (0.55-1.02); EST Glomerular Filtration Rate 47 mL/min (>60); Est Glom Filt Rate - Afr Amer 56 mL/min (>60); Free T3 1.9 pg/mL (2.18-3.98); Globulin 5.1 g/dL (2.2-4.2); Glucose 142 mg/dL (74-106); Magnesium 2.3 mg/dL (1.6-2.6); Potassium 3.5 mmol/L (3.5-5.1); Protein, Total 8.3 g/dL (6.4-8.2); Sodium Level 139 mmol/L (136-145); T4 Free Direct 0.98 ng/dL (0.76-1.46)
== END | disposition home or self-care (01) ==
LOC: CT 08:32
PROVIDERS: PCP Internal Medicine; Referring Provider Internal Medicine; Visit Provider Internal Medicine
DX: E03.9 Hypothyroidism, unspecified (principal); I10 Essential (primary) hypertension; R41.3 Other amnesia; R79.89 Other specified abnormal findings of blood chemistry; R93.89 Abnormal findings on diagnostic imaging of other specified body structures; R50.9 Fever, unspecified; E55.9 Vitamin D deficiency, unspecified; E53.8 Deficiency of other specified B group vitamins; R91.1 Solitary pulmonary nodule
CPT/HCPCS: 36415; 71250; 80053; 82306; 82607; 83735; 84439; 84443; 84481; 85025

== ENCOUNTER → 2024-03-31 | Outpatient (CLI) | payer MEDICARE, BC, SELFPAY ==
--- NOTE | 2024-03-31 15:00 | RAD_ITS ---
PROCEDURE: RIBS UNI MIN 3V W/PA CHEST REASON FOR EXAM: Fell, with left posterior rib pain. TECHNIQUE: Five view left rib series to include a PA chest. COMPARISON: Chest x-ray of 12/21/2019. RAD/Ribs Uni Min 3V w/PA Chest IMPRESSION: Stable left upper lobe nodule. Probable chronic lung changes, but no acute pneumonic process is appreciated. No pleural effusion or pneumothorax is noted. Generalized osteopenia is seen. [id number] degenerative changes of the spine seen, along with thoracic le voscoliosis. Evaluation for fractures is diminished due to the underlying osteopenia. Of the posterior left 6th rib, and probably of the adjacent posterior left 4th and 5th ribs, as well, a Fracture is seen. Reading Location: [id number]
== END | disposition home or self-care (01) ==
LOC: MTRAD 14:56
PROVIDERS: PCP Internal Medicine; Referring Provider Internal Medicine; Visit Provider Internal Medicine
DX: S20.212A Contusion of left front wall of thorax, initial encounter (principal); W19.XXXA Unspecified fall, initial encounter
CPT/HCPCS: 71101

== ENCOUNTER 2024-04-21 09:07 | Inpatient (IN) | payer MEDICARE, BC, SELFPAY ==
[2024-04-21] VITALS (12 sets, daily range): BP systolic 144–189; BP diastolic 50–105; PULSE 74–105; RESP 14–19; TEMP 36.3–36.8; O2SAT 94–98; BMI 31.2; BMI 29.8
--- NOTE | 2024-04-21 09:55 | EX.ED.DYSGE1 ---
HPI History of Present Illness Chief Complaint: Complaint Informant: patient and family Narrative Narrative: Patient is an 83-year-old female presenting with daughters (she lives with one of them) for multiple complaints. Patient was not able to walk or weight-bear today because of pain in her right foot. Family notes that the foot looks swollen. No trauma was reported. Patient does have a history of dementia. She had a fall a month ago with a rib fracture which has been using incentive spirometer 4. Family notes that she gets intermittent swelling of her legs but that was thought to be from one of her blood pressure medications and usually her left leg is worse than the right. Patient denies any falls or injuries. In addition for the past week patient has been having increased vaginal bleeding (does have a history of this associated with uterine prolapse) and has also gone on to develop urinary and stool incontinence. They were worried she had a urinary tract infection. She was supposed to have outpatient urinalysis but because of the foot pain they would not able to make the appointment. In addition family also voices concerned about her POA. Patient's son is her POA but he is limited in his involvement per the daughters and does not live in town. They are not able to make doctors appointments for her and the 2 daughters at the bedside are voiced frustration with the current situation. They would like to see what they could do about becoming her POA. At this time patient awake, answering questions appropriately and agreeable with workup. She states she took Tylenol for pain at 8 AM. [facility] Medical History Contusion of left chest wall Left upper lobe pulmonary nodule Ectopic heartbeats Wears glasses Thyroid disease Heartburn Gastric reflux Former smoker COVID-19 Alzheimer disease Urinary incontinence concurrent with and due to female genital prolapse History of shingles Vision problem Headache, chronic migraine without aura History of gallstones Cataract Home Medications ?Medication ?Instructions ?Recorded ?Last Taken ?Type aspirin 81 mg chewable tablet 81 mg PO DAILY [facility] 05/28/14 04/21/24 History calcium carbonate (Calcium 500) 1,000 mg PO DAILY 07/19/20 04/20/24 History ascorbic acid (vitamin C) 500 mg 500 mg PO DAILY 02/15/21 04/20/24 History capsule zinc 50 mg tablet 50 mg PO DAILY 02/15/21 04/20/24 History omeprazole 20 mg capsule,delayed 20 mg PO DAILY #90 caps 09/06/22 04/20/24 Rx release cholecalciferol (vitamin D3) 25 25 mcg PO DAILY 06/05/23 04/21/24 History mcg (1,000 unit) tablet levothyroxine 100 mcg tablet 100 mcg PO DAILY thyroid #90 tabs 01/14/24 04/21/24 Rx lisinopril 20 mg tablet 20 mg PO DAILY #90 tabs 01/21/24 04/21/24 Rx paroxetine HCl 40 mg tablet 40 mg PO QHS DEPRESSION #90 tabs 01/26/24 04/20/24 Rx spirometers and accessories #1 ea 04/01/24 Unknown Rx ciprofloxacin HCl 250 mg tablet 250 mg PO BID 5 days #10 tabs 04/19/24 04/20/24 Rx Allergy/AdvReac Type Severity Reaction Status Date / Time Influenza Virus Vaccines Allergy Other Verified 04/21/24 09:14 morphine Allergy Other Verified 04/21/24 09:14 Family History Daughter Anxiety Depression Lupus Sister Colon cancer Surgical History History of colonoscopy History of esophagogastroduodenoscopy (EGD) History of cataract removal with insertion of prosthetic lens Social History Smoking Status: Former smoker alcohol intake: never substance use type: does not use what type of physical activity do you participate in: none ROS ROS ED Constitutional Constitutional ED: Denies chills or fever(s) Cardiovascular Cardiovascular: Denies chest pain Respiratory/Chest Respiratory/Chest: Denies cough or dyspnea Gastrointestinal Gastrointestinal: Reports abdominal pain; Denies nausea or vomiting Genitourinary Genitourinary ED: Reports other Details: Vaginal bleeding, history of uterine prolapse, urinary incontinence Musculoskeletal Musculoskeletal: Reports other Details: Right foot and ankle pain. ; Denies myalgias Integumentary Denies rash Neurologic Neurologic: Reports weakness; Denies headache(s) Hematologic/Lymphatic Hematologic/Lymphatic: Denies easy bleeding or easy bruising EXAM Physical Exam Const Vital Signs: 04/21/24 09:08 04/21/24 09:11 04/21/24 11:24 Temperature 98.2 F 98.2 F 97.9 F Temperature Source Oral Oral Oral Pulse Rate 103 H 102 H 103 H Respiratory Rate 18 18 14 Blood Pressure 189/77 H 189/77 H 168/71 H Blood Pressure Mean 114 114 103 Pulse Ox 95 96 96 Oxygen Delivery Method Room Air Room Air Room Air 04/21/24 12:07 04/21/24 13:00 04/21/24 14:00 Temperature 97.7 F L 97.4 F L 97.6 F L Temperature Source Oral Oral Temporal Pulse Rate 98 98 93 Respiratory Rate 16 16 16 Blood Pressure 163/68 H 162/74 H 154/73 H Blood Pressure Mean 99 103 100 Pulse Ox 98 96 96 Oxygen Delivery Method Room Air Room Air Room Air 04/21/24 15:03 Temperature 97.4 F L Temperature Source Temporal Pulse Rate 74 Respiratory Rate 19 H Blood Pressure 154/71 H Blood Pressure Mean 98 Pulse Ox 94 Oxygen Delivery Method Positive well nourished and well developed General Appearance ED: well developed, NAD and pallor HEENT Reports moist mucous membranes Eyes PERRL General Eye ED: Negative for pale conjunctiva Neck supple and no JVD Chest Wall inspection of chest normal and palpation of chest normal Resp normal respiratory effort and clear to auscultation bilaterally Cardio regular rate, regular rhythm and no murmurs GI normal to inspection, nondistended, normoactive bowel sounds, non-tender and non-distended Narrative: Chaperoned exam performed with nurse. Patient does have approximately 4 inches of uterine prolapse present. Is reducible but comes right out. It is nontender. There is no active bleeding present. Extremity Extremity Narrative: Patient has nonpitting edema and warmth to the right foot. She has tenderness to palpation over the proximal fourth and fifth metatarsals. No pinpoint tenderness on the medial or lateral malleoli. No tenderness over the fibular head. Patient does have a slight bump/deformity of the distal right fibula however she does not have pain at this area. Family is not aware of this bump or prior injury being there. Normal Plata test. Neuro Neuro Narrative: Oriented at baseline. Sensorium / Orientation: alert Psych mental status grossly normal Skin no wounds Skin Narrative: Mild bilateral petechia to the bilateral feet. There is warmth to the right foot but no overlying erythema or cellulitic changes. No wounds appreciated. No ecchymosis appreciated General Skin Exam: pallor MDM MDM MDM Narrative Medical decision making narrative: Patient's evaluated for right foot pain has been hard to ambulate. In addition she has been having worsening urinary and stool incontinence and family is concerned about urinary tract infection. She has a history of prolapsed uterus that has been chronic over the past 5 years. In addition family notes that she has had vaginal bleeding over the past week. This happens intermittently. Patient is coming from home. Differential includes symptomatic anemia, urinary tract infection, encephalopathy, cellulitis, DVT, foot/ankle fracture, ankle sprain, pneumonia. Patient mildly hypertensive and tachycardic upon arrival. Blood pressure and heart rate do start to normalize while in the emergency room. X-rays of the right tibia, ankle and foot obtained. Did not show any acute fracture. This reviewed by myself as well as radiology. Venous duplex does not show any acute PE. Workup largely normal including CBC and CMP as well as urinalysis. Lab work at her baseline. Urinalysis not consistent with UTI. Attempted to ambulate patient and she had a very difficult time with this because of her foot pain. I do not think safe for her to go home. On repeat evaluation after ambulation she does have some increased erythema/plethora concerning for developing cellulitis. Patient given a dose of Unasyn in the emergency room. Social work consult obtained in the emergency room as well as family voiced a lot of concerns about who her medical POA should be. Lab Data Attestation: I reviewed the patient's lab results. Labs: Laboratory Results - last 24 hr 04/21/24 04/21/24 09:55 10:52 WBC 10.4 RBC 4.11 L Hgb 12.1 Hct 37.8 MCV 92.0 MCH 29.4 MCHC 32.0 RDW Std Deviation 47.2 H RDW Coeff of Francisco 14.0 Plt Count 258 MPV 10.5 Immature Gran % (Auto) 0.400 Neut % (Auto) 79.4 H Lymph % (Auto) 12.9 L [place] % (Auto) 6.4 Eos % (Auto) 0.5 Baso % (Auto) 0.4 Absolute Neuts (auto) 8.3 H Absolute Lymphs (auto) 1.34 Nucleated RBC % 0 Sodium 136 Potassium 3.4 L Chloride 103 Carbon Dioxide 25.0 Anion Gap 8 BUN 17 Creatinine 1.09 H Estim Creat Clear Calc 39.85 Est GFR (MDRD) Af Amer 62 Est GFR (MDRD) Non-Af 51 L BUN/Creatinine Ratio 15.6 Glucose 161 H Lactic Acid 1.2 Calcium 9.3 Magnesium 2.1 Total Bilirubin 0.60 AST 31 ALT 27 Alkaline Phosphatase 96 Total Protein 8.1 Albumin 2.8 L Globulin 5.3 H Albumin/Globulin Ratio 0.5 L Urine Color Yellow Urine Clarity Clear Urine pH 6.0 Ur Specific [place] 1.015 Urine Protein 30 H Urine Glucose (UA) Normal Urine Ketones Negative Urine Occult Blood 250 H Urine Nitrite Negative Urine Bilirubin Negative Urine Urobilinogen Normal Ur Leukocyte Esterase 25 H Urine RBC 0-5 SEEN Urine WBC 0-5 SEEN Ur Squamous Epith Cells 0-5 SEEN Urine Bacteria 0 SEEN Urine Mucus 0 SEEN Radiography Diagnostic Testing: Clinical Impression(s) from Imaging Studies Ankle X-Ray 04/21/24 10:55 IMPRESSION: Soft tissue swelling. No acute osseous findings. Plantar spur. Reading Location: [facility] Foot X-Ray 04/21/24 11:00 IMPRESSION: No acute abnormality is seen of the right foot. Small plantar spur. Reading Location: [id number] Tibia/Fibula X-Ray 04/21/24 11:03 IMPRESSION: No acute abnormality is seen. Reading Location: [facility] Venous Doppler Study 04/21/24 11:42 Interpretation Summary Deep veins of the right lower extremity are patent and compressible segmentally. There is no evidence of right lower extremity deep vein thrombosis. The right great saphenous vein appears patent and compressible segmentally. Ordering Physician: Stacey Arellano Referring Physician: Susan Singer M.D. Performed By: Marissa Lira RVT Rhythm Strip Rhythm Strip: Sinus Rhythm Rate: 97 Ectopy: None EKG Initial EKG: Attestation: I personally reviewed and interpreted this EKG as follows: Interpretation: Sinus Rhythm Comments: Normal sinus rhythm rate 97 bpm Left axis deviation LVH Nonspecific T wave changes QTc 502 Prior EKG tracings: available for review Prior: Changed (No further PVCs) Management Discussion w/another healthcare provider: Hospitalist and service worker/Case management Discharge Plan Triage Chief Complaint: Complaint ED Provider: Stacey Arellano Dx/Rx/DC Orders Clinical Impression: Cellulitis of right lower extremity, Alzheimer disease, Uterovaginal prolapse, complete, Debility Prescriptions: No Action calcium carbonate [Calcium 500] 500 mg calcium (1,250 mg) tablet 1,000 mg PO DAILY ascorbic acid (vitamin C) 500 mg capsule 500 mg PO DAILY zinc 50 mg tablet 50 mg PO DAILY cholecalciferol (vitamin D3) 25 mcg (1,000 unit) tablet 25 mcg PO DAILY lisinopril 20 mg tablet 20 mg PO DAILY Qty: 90 3RF aspirin 81 MG tablet,chewable 81 mg PO DAILY Patient Comments: [facility] omeprazole 20 mg capsule,delayed release(DR/EC) 20 mg PO DAILY Qty: 90 2RF levothyroxine 100 mcg tablet 100 mcg PO DAILY Qty: 90 3RF paroxetine HCl 40 mg tablet 40 mg PO QHS Qty: 90 3RF (DME) spirometers and accessories Device See Rx Instructions .Route Qty: 1 0RF Rx Instructions: As directed. Incentive spirometer. Use 2-3 times per hour while awake as directed. ciprofloxacin HCl 250 mg tablet 250 mg PO BID 5 Days Qty: 10 0RF Primary Care Provider: Susan Singer Referrals: Susan Singer MD [Primary Care Provider] - Print Language: Spanish Disposition Disposition: Acute Care Hospital [facility]
[2024-04-21 10:14] LABS: Absolute Lymphocyte Count 1.34 X10^3/uL (0.83-4.51); Absolute Neutrophil Count 8.3 X10^3/uL (2.0-7.7); Basophil# 0.04 X10^3/uL; Basophil% 0.4 % (0-1); Eosinophil# 0.05 X10^3/uL; Eosinophils% 0.5 % (0-5); Hematocrit 37.8 % (37-47); Hemoglobin 12.1 g/dL (12.0-15.0); Lymphocyte # 1.34 X10^3/ul (0.83-4.51); Lymphocyte % 12.9 % (19-41); Mean Corpuscular Hgb 29.4 pg (27.0-32.0); Mean Platelet Vol. 10.5 fl (6.2-12.0); Monocyte# 0.67 X10^3/uL; Monocyte% 6.4 % (0-10); NRBC Flagged by Analyzer 0 % (0-5); Neutrophil # 8.26 X10^3/uL (2.7-7.7); Neutrophil % 79.4 % (47-70); Platelet Count 258 K/mm3 (150-450); RBC Distribution Width SD 47.2 fl (35.1-43.9); Red Blood Count 4.11 M/mm3 (4.2-5.4); White Blood Count 10.4 K/mm3 (4.4-11.0)
[2024-04-21 10:30] LABS: ALB/GLOB Ratio 0.5 RATIO (0.9-2.4); AST(SGOT) 31 U/L (15-37); Alanine Aminotransfer ALT/SGPT 27 U/L (13-56); Albumin, Serum 2.8 g/dL (3.2-5.0); Alkaline Phosphatase 96 U/L (45-117); Anion Gap 8 (5-15); BUN 17 mg/dL (7-18); BUN/Creat Ratio 15.6 RATIO (10-20); Calcium,Total 9.3 mg/dL (8.5-10.1); Chloride 103 mmol/L (98-107); Creatinine, Serum 1.09 mg/dL (0.55-1.02); EST Glomerular Filtration Rate 51 mL/min (>60); Est Glom Filt Rate - Afr Amer 62 mL/min (>60); Estimated Creatinine Clearance 39.85 ml/min; Globulin 5.3 g/dL (2.2-4.2); Glucose 161 mg/dL (74-106); Potassium 3.4 mmol/L (3.5-5.1); Protein, Total 8.1 g/dL (6.4-8.2); Sodium Level 136 mmol/L (136-145)
[2024-04-21 10:44] LABS: Lactic Acid 1.2 mmol/L (0.4-1.9)
--- NOTE | 2024-04-21 10:55 | RAD_ITS ---
PROCEDURE: RIGHT ANKLE, THREE VIEWS REASON FOR EXAM: RIGHT FOOT PAIN. SWELLING. TECHNIQUE: 3 views of the RIGHT ankle COMPARISON: None FINDINGS: No visible fracture. No suspicious bone lesion. Normal alignment. Mortise appears intact. No effusion. Plantar calcaneal spur. Soft tissue swelling surrounds the ankle. RAD/Ankle min 3 Views IMPRESSION: Soft tissue swelling. No acute osseous findings. Plantar spur. Reading Location: [facility]
[2024-04-21 10:57] LABS: Bacteria 0 SEEN /hpf (None Seen); Mucous, Urine 0 SEEN /hpf (<or=2+)
--- NOTE | 2024-04-21 11:00 | RAD_ITS ---
PROCEDURE: FOOT MIN 3 VIEWS REASON FOR EXAM: Pain and swelling following recent injury. TECHNIQUE: 3 view(s) of each foot COMPARISON: None. FINDINGS: RIGHT FOOT: No visible fracture. No suspicious bone lesion. Normal alignment. Soft tissues are unremarkable. Small plantar spur. RAD/Foot min 3 Views IMPRESSION: No acute abnormality is seen of the right foot. Small plantar spur. Reading Location: [facility]
[2024-04-21 11:01] LABS: Color, Urine Yellow (Yellow); Glucose, Dipstick Normal (Normal); Ketone-Dipstick Negative (Negative); Leukocyte Esterase-Dipstick 25 /ul (Negative); Nitrite-Dipstick Negative (Negative); Occult Blood-Urine 250 /ul (Negative); Protein-Dipstick 30 mg/dl (Negative); Specific Gravity, Urine 1.015 (1.002-1.030); Urine Bilirubin Dipstick Negative (Negative); Urine Clarity Clear (Clear); Urine Urobilinogen Normal (Normal)
--- NOTE | 2024-04-21 11:03 | RAD_ITS ---
PROCEDURE: TIBIA FIBULA 2 VIEWS REASON FOR EXAM: Pain and swelling following injury. TECHNIQUE: 2 view(s) of the right tibia and fibula. COMPARISON: None. FINDINGS: RIGHT TIBIA / FIBULA: No fracture. No suspicious bone lesion. Normal alignment at the knee and ankle. Soft tissues are unremarkable. RAD/Tibia & Fibula 2 Views IMPRESSION: No acute abnormality is seen. Reading Location: [facility]
[2024-04-21 11:12] LABS: Red Blood Cells-Urine 0-5 SEEN /hpf (0-5); Squamous Epithelial Cells - UA 0-5 SEEN /hpf (5-10); White Blood Cells 0-5 SEEN /hpf (0-5)
--- NOTE | 2024-04-21 11:42 | VDLE_ITS ---
Reason For Study Reason For Study: Right leg swelling RIGHT LEFT GSV is normal. CFV is compressible, spontaneous, competent, and CFV is compressible, spontaneous, competent and demonstrates pulsatile venous flow. demonstrates pulsatile venous flow. FV is compressible, spontaneous, competent and demonstrates pulsatile venous flow. POP V is compressible, spontaneous, competent and demonstrates pulsatile venous flow. T/P Trunk is compressible. PTV is compressible. RT PerV is compressible. Procedure This is a venous duplex using B-mode, color flow and spectral Doppler. Exam performed portable in ED. A preliminary report was called and/or faxed to Leila RASHID. VL/Venous Duplex US, Unilateral Interpretation Summary Deep veins of the right lower extremity are patent and compressible segmentally . There is no evidence of right lower extremity deep vein thrombosis. The right great saphenous vein appears patent a nd compressible segmentally. Ordering Physician: Stacey Arellano Referring Physician: Susan Singer M.D. Performed By: Marissa Lira RVT
[2024-04-21] MEDS: Ampicillin/Sulbactam 3 GM in 0.9% Normal Saline (100mL MB+) 100 ML IV ×2 (13:59→21:21)
--- NOTE | 2024-04-21 14:26 | PCM.HP.STD ---
HPI - General General Date of Service: 04/21/24 Chief Complaint: RLE erythema and swelling [facility] Narrative MICHELE SOUZA, is a 83-year-old female with a history of GERD, hypertension, hypothyroidism, dementia, depression who presented [facility] ED 04/21/2024 because of pain in her right foot. She does get intermittent swelling of her legs and its usually worse on the left than the right but this is slightly different than usual. Additionally patient's been having increased vaginal bleeding for the past week which apparently she has had before in association with her uterine prolapse. There was also concern she may have a UTI because she was having burning on urination. She was supposed to have an outpatient UA but because of the foot pain and they were not able to make the appointment. In the ED heart rate 103, blood pressure 189/77, pulse ox 95% on room air with a temperature of 98.2. UA does not appear infectious, potassium 3.4 and creatinine at her baseline of 1.09, CBC otherwise unremarkable. Patient did have some cellulitic changes in right foot and she was started on Unasyn, given her difficulty with ambulation due to the pain and swelling along with the cellulitis hospitalist contacted for admission. Patient evaluated at bedside with family members present, reports several days of right foot swelling and pain without injury, is able to move her ankle but reports is just been bothering her not improving, denies any other swelling anywhere, no abdominal pain, when asked about any urinary fecal incontinence daughter reports she is unaware of any specifically but that she did urinate in her briefs as she had difficulty getting the bathroom because of the pain in her foot. Does have vaginal bleeding which is not new and is something that happens intermittently with her significant vaginal prolapse. [facility] Medical History Contusion of left chest wall Left upper lobe pulmonary nodule Ectopic heartbeats Wears glasses Thyroid disease Heartburn Gastric reflux Former smoker COVID-19 Alzheimer disease Urinary incontinence concurrent with and due to female genital prolapse History of shingles Vision problem Headache, chronic migraine without aura History of gallstones Cataract Home Medications ?Medication ?Instructions ?Recorded ?Last Taken ?Type aspirin 81 mg chewable tablet 81 mg PO DAILY heart health 05/28/14 04/21/24 History calcium carbonate (Calcium 500) 1,000 mg PO DAILY 07/19/20 04/20/24 History ascorbic acid (vitamin C) 500 mg 500 mg PO DAILY 02/15/21 04/20/24 History capsule zinc 50 mg tablet 50 mg PO DAILY 02/15/21 04/20/24 History omeprazole 20 mg capsule,delayed 20 mg PO DAILY #90 caps 09/06/22 04/20/24 Rx release cholecalciferol (vitamin D3) 25 25 mcg PO DAILY 06/05/23 04/21/24 History mcg (1,000 unit) tablet levothyroxine 100 mcg tablet 100 mcg PO DAILY thyroid #90 tabs 01/14/24 04/21/24 Rx lisinopril 20 mg tablet 20 mg PO DAILY #90 tabs 01/21/24 04/21/24 Rx paroxetine HCl 40 mg tablet 40 mg PO QHS DEPRESSION #90 tabs 01/26/24 04/20/24 Rx spirometers and accessories #1 ea 04/01/24 Unknown Rx ciprofloxacin HCl 250 mg tablet 250 mg PO BID 5 days #10 tabs 04/19/24 04/20/24 Rx Allergy/AdvReac Type Severity Reaction Status Date / Time Influenza Virus Vaccines Allergy Other Verified 04/21/24 09:14 morphine Allergy Other Verified 04/21/24 09:14 Family History Daughter Anxiety Depression Lupus Sister Colon cancer Surgical History History of colonoscopy History of esophagogastroduodenoscopy (EGD) History of cataract removal with insertion of prosthetic lens Social History Smoking Status: Former smoker alcohol intake: never substance use type: does not use what type of physical activity do you participate in: none ROS ROS Narrative General: Was little cold yesterday HENT: Denies headache, denies stuffy nose, denies sore throat EYES: Denies changes in vision Resp: Denies cough, denies shortness of breath Cardiac: Denies chest pain GI: Denies abdominal pain, denies nausea/vomiting : Some burning on urination Extremity: Some right foot and ankle swelling MSK: Some difficulty with ambulation Neuro: Denies any numbness/tingling Heme: Denies any bleeding or bruising Skin: Some erythema on right lower extremity Psychiatric: No complaints voiced Vital Signs Vital Signs Vital Signs: 04/21/24 09:08 04/21/24 09:11 04/21/24 11:24 Temperature 98.2 F 98.2 F 97.9 F Temperature Source Oral Oral Oral Pulse Rate 103 H 102 H 103 H Respiratory Rate 18 18 14 Blood Pressure 189/77 H 189/77 H 168/71 H Blood Pressure Mean 114 114 103 Pulse Ox 95 96 96 Oxygen Delivery Method Room Air Room Air Room Air 04/21/24 12:07 04/21/24 13:00 Temperature 97.7 F L 97.4 F L Temperature Source Oral Oral Pulse Rate 98 98 Respiratory Rate 16 16 Blood Pressure 163/68 H 162/74 H Blood Pressure Mean 99 103 Pulse Ox 98 96 Oxygen Delivery Method Room Air Room Air Weight Weight: 80 kg Body Mass Index (BMI) 31.2 Physical Exam Narrative General: Alert, no apparent distress HEENT: Atraumatic, normocephalic Eyes: Anicteric, normal conjunctiva, extraocular movements grossly intact Neck: Supple Respiratory: , normal respiratory effort Cardiovascular: Regular rate GI: Soft, nontender, nondistended Extremities: Some swelling of right foot and ankle on right side compared to left Musculoskeletal: Moving all extremities Neuro: No overt focal neurological deficits Skin: Some erythema of the right lower extremity Psych: Cooperative Results Lab / Micro Data 04/21/24 09:55 04/21/24 09:55 Labs: Laboratory Results - last 24 hr 04/21/24 09:55: WBC 10.4, RBC 4.11 L, Hgb 12.1, Hct 37.8, MCV 92.0, MCH 29.4, MCHC 32.0, RDW Std Deviation 47.2 H, RDW Coeff of Francisco 14.0, Plt Count 258, MPV 10.5, Immature Gran % (Auto) 0.400, Neut % (Auto) 79.4 H, Lymph % (Auto) 12.9 L, [place] % (Auto) 6.4, Eos % (Auto) 0.5, Baso % (Auto) 0.4, Absolute Neuts (auto) 8.3 H, Absolute Lymphs (auto) 1.34, Nucleated RBC % 0, Sodium 136, Potassium 3.4 L, Chloride 103, Carbon Dioxide 25.0, Anion Gap 8, BUN 17, Creatinine 1.09 H, Estim Creat Clear Calc 39.85, Est GFR (MDRD) Af Amer 62, Est GFR (MDRD) Non-Af 51 L, BUN/Creatinine Ratio 15.6, Glucose 161 H, Lactic Acid 1.2, Calcium 9.3, Total Bilirubin 0.60, AST 31, ALT 27, Alkaline Phosphatase 96, Total Protein 8.1, Albumin 2.8 L, Globulin 5.3 H, Albumin/Globulin Ratio 0.5 L 04/21/24 10:52: Urine Color Yellow, Urine Clarity Clear, Urine pH 6.0, Ur Specific [place] 1.015, Urine Protein 30 H, Urine Glucose (UA) Normal, Urine Ketones Negative, Urine Occult Blood 250 H, Urine Nitrite Negative, Urine Bilirubin Negative, Urine Urobilinogen Normal, Ur Leukocyte Esterase 25 H, Urine RBC 0-5 SEEN, Urine WBC 0-5 SEEN, Ur Squamous Epith Cells 0-5 SEEN, Urine Bacteria 0 SEEN, Urine Mucus 0 SEEN Imaging Radiology Impression Ankle X-Ray 04/21/24 10:55 IMPRESSION: Soft tissue swelling. No acute osseous findings. Plantar spur. Reading Location: [facility] 04/21/24 11:00 IMPRESSION: No acute abnormality is seen of the right foot. Small plantar spur. Reading Location: [facility]--1 Tibia/Fibula X-Ray 04/21/24 11:03 IMPRESSION: No acute abnormality is seen. Reading Location: [facility]-IR-1 Assessment & Plan Assessment/Plan (1) Cellulitis of right lower extremity: PLAN: Plan # Right foot/ankle cellulitis -Ankle x-ray showed soft tissue swelling -Continue Unasyn, does not seem to have pain necessarily in the joint itself and is able to move foot up and down, cellulitic changes mostly on top of right foot and ankle -Elevate extremity -PT/OT # Vaginal bleeding and uterine prolapse -Patient reports this is chronic and has intermittent problems with bleeding, recommend outpatient follow-up #Hypothyroidism -Continue Synthroid #Depression/anxiety -Continue home medications #Hypertension -Continue home medications #DVT ppx: SCDs given vaginal bleeding Virgen Freitas MD Time spent in the patient's overall evaluation, decision-making process, review of diagnostic data, adjustment of management, discussion with other providers, nursing and ancillary staff involved in patient's care documentation, 56 Minutes Charges/Coding Visit Charges Inpatient E&M: 91023 Init Hosp L2
[2024-04-21 16:29] LABS: Magnesium 2.1 mg/dL (1.6-2.6)
--- NOTE | 2024-04-21 19:25 | CASEMGMT ---
Care Management Face to Face with patient for initial transition planning/care coordination assessment in the ED.? This health technical writer introduced self and role at [facility]. Patient alert, daughters at bedside who participated in assessment.? Care providers, pharmacy, and demographics verified. Admitting Diagnosis:? Cellulitis Other diagnosis history: alzheimers disease, left upper lobe nodule, thyroid disease PCP: Lucrecia Specialists: None Preferred Pharmacy: [facility] Insurance: Medicare Prescription Benefit: Has coverage, family uncertain if its Medicare D or through [place] Living Will/HPOA: ?LW and HPOA completed and on file LNOK: daughters Living Arrangements: Daughter lives with mother in trailer, ramp to entrance.?? Patient reports independence with ADLs, daughter states she needs assistance. Transportation: ?Daughters drive patient when needed DME: walker, cane, blood pressure cuff and pulse ox HHC: ?None SNF/Rehab: None Community Resources: ?none Behavioral Health History: ?depression, taking paxil Patient goals: Patient wishes to discharge home. Patient denies any further needs or concerns at this time. Disposition Plan: admission to acute; RN CM/SW to follow for discharge planning needs that may arise. Hayde Dooley, PUBLICATIONS SALES REPRESENTATIVE, MANAGER FAMILY
[2024-04-21] MEDS: 0.9% Normal Saline (1000mL) 1,000 ML 50 ML IV (20:08)
[2024-04-21] MEDS: Acetaminophen 325 MG Tablet 650 MG PO (20:09)
[2024-04-21] MEDS: Paroxetine 20 MG Tablet 40 MG PO (22:06)
[2024-04-22] MEDS: Acetaminophen 325 MG Tablet 650 MG PO ×2 (03:29→20:05)
[2024-04-22 03:31] VITALS: BP 159/60; PULSE 99; RESP 16; TEMP 36.6; O2SAT 95
[2024-04-22 06:14] LABS: Absolute Lymphocyte Count 0.98 X10^3/uL (0.83-4.51); Absolute Neutrophil Count 5.6 X10^3/uL (2.0-7.7); Basophil# 0.04 X10^3/uL; Basophil% 0.5 % (0-1); Eosinophil# 0.15 X10^3/uL; Eosinophils% 2.1 % (0-5); Hematocrit 34.2 % (37-47); Hemoglobin 10.9 g/dL (12.0-15.0); Lymphocyte # 0.98 X10^3/ul (0.83-4.51); Lymphocyte % 13.4 % (19-41); Mean Corp Hgb Conc 31.9 g/dL (32-36); Mean Corpuscular Hgb 29.3 pg (27.0-32.0); Mean Corpuscular Volume 91.9 fL (81-99); Mean Platelet Vol. 10.3 fl (6.2-12.0); Monocyte# 0.55 X10^3/uL; Monocyte% 7.5 % (0-10); NRBC Flagged by Analyzer 0 % (0-5); Neutrophil # 5.57 X10^3/uL (2.7-7.7); Neutrophil % 76.2 % (47-70); Platelet Count 221 K/mm3 (150-450); RBC Distribution Width SD 47.2 fl (35.1-43.9); Red Blood Count 3.72 M/mm3 (4.2-5.4); White Blood Count 7.3 K/mm3 (4.4-11.0)
[2024-04-22] MEDS: Ampicillin/Sulbactam 3 GM in 0.9% Normal Saline (100mL MB+) 100 ML IV ×4 (06:16→23:19)
[2024-04-22] MEDS: Levothyroxine 100 MCG Tablet PO (06:16)
[2024-04-22 06:51] LABS: Anion Gap 6 (5-15); BUN 14 mg/dL (7-18); BUN/Creat Ratio 14.6 RATIO (10-20); Calcium,Total 8.8 mg/dL (8.5-10.1); Chloride 109 mmol/L (98-107); Creatinine, Serum 0.96 mg/dL (0.55-1.02); EST Glomerular Filtration Rate 59 mL/min (>60); Est Glom Filt Rate - Afr Amer 72 mL/min (>60); Estimated Creatinine Clearance 44.22 ml/min; Glucose 149 mg/dL (74-106); Potassium 3.3 mmol/L (3.5-5.1); Sodium Level 139 mmol/L (136-145)
[2024-04-22 08:34] VITALS: BP 166/65; PULSE 99; RESP 16; TEMP 36.3; O2SAT 92
[2024-04-22] MEDS: Pantoprazole Sodium 20 MG Tablet PO (08:47)
[2024-04-22] MEDS: Lisinopril 20 MG Tablet PO (08:47)
[2024-04-22] MEDS: Aspirin 81 MG TAB.CHEW PO (08:47)
[2024-04-22] MEDS: Potassium Chloride Oral Tablet 20 MEQ 40 MEQ PO (08:47)
[2024-04-22 11:58] VITALS: BP 174/89; PULSE 109; RESP 16; TEMP 36.5; O2SAT 99
[2024-04-22] MEDS: 0.9% Saline Lock 10 ML Syringe IV ×4 (12:04→23:20)
--- NOTE | 2024-04-22 13:45 | CASEMGMT ---
RN CM into pt room, pt sitting up in chair. Asked pt how her therapy session went. Pt states I couldn't walk. Pt states she is in too much pain when she puts weight on her foot. Asked pt for her goal for after this hospital stay. Pt states she does not know. She states she would like her dtr Ary to be spoken to regarding this. Pt states she has a walker at home. Spoke with PT who saw pt. TC to pt dtr Ary, she is aware of pt therapy session. Discussed options with her. She would like a list of facilities texted to her phone. Updated SW. She is aware that should pt improve tomorrow, the dc plan can be re evaluated. She denies further needs at this time.
[2024-04-22 13:52] VITALS: BP 136/81; PULSE 93
--- NOTE | 2024-04-22 13:56 | CASEMGMT ---
Discharge Planning A list of SNF providers including quality and resource use data and consistent with the patient's preferred geographic region, medical needs, and insurance network was created in [employer] Guide.? This list was provided to the SW. Myla Scales Discharge Planning Asst.
--- NOTE | 2024-04-22 14:07 | CASEMGMT ---
Social Work- SW received notice that therapy is recommending SNF. SW was informed that dtr would like SNF list sent via text. A list of SNF providers including quality and resource use data and consistent with the patient?s preferred geographic region, medical needs, and insurance network were provided via the [facility]Port Guide Link. [facility] remains available to follow. LUANN Ponce
--- NOTE | 2024-04-22 15:11 | PN_ITS ---
Subjective Subjective Patient seen and examined. She had no active complaints. The pain in her right foot had improved. She denied any fever, chills, nausea, vomiting or any other symptoms. Review of systems is otherwise negative. Objective Data Objective Data Vital Signs: Vital Signs Temp Pulse Resp BP Pulse Ox O2 Del Method 97.7 F L 93 16 136/81 H 99 Room Air 04/22/24 11:58 04/22/24 13:52 04/22/24 11:58 04/22/24 13:52 04/22/24 11:58 04/22/24 11:58 Oxygen Delivery Method Room Air Weight: 168 lb 6.931 oz Body Mass Index (BMI) 29.8 Intake & Output: Intake and Output for Last 24 Hours 04/20/24 04/21/24 04/22/24 23:59 23:59 23:59 Intake Total 224 / 524 1297.33 / 1297.33 Balance 224 / 524 1297.33 / 1297.33 Lab / Micro Data 04/22/24 05:57 04/22/24 05:57 Labs: Laboratory Results - last 24 hr 04/21/24 09:55: Magnesium 2.1 04/22/24 05:57: WBC 7.3, RBC 3.72 L, Hgb 10.9 L, Hct 34.2 L, MCV 91.9, MCH 29.3, MCHC 31.9 L, RDW Std Deviation 47.2 H, RDW Coeff of Francisco 14.0, Plt Count 221, MPV 10.3, Immature Gran % (Auto) 0.300, Neut % (Auto) 76.2 H, Lymph % (Auto) 13.4 L, [place] % (Auto) 7.5, Eos % (Auto) 2.1, Baso % (Auto) 0.5, Absolute Neuts (auto) 5.6, Absolute Lymphs (auto) 0.98, Nucleated RBC % 0, Sodium 139, Potassium 3.3 L , Chloride 109 H, Carbon Dioxide 25.0, Anion Gap 6, BUN 14, Creatinine 0.96, Estim Creat Clear Calc 44.22, Est GFR (MDRD) Af Amer 72, Est GFR (MDRD) Non-Af 59 L, BUN/Creatinine Ratio 14.6, Glucose 149 H, Calcium 8.8, TSH 2.380 Rhythm Strip Rhythm Strip: Sinus Rhythm Rate: 97 Ectopy: None Physical Exam Const alert, oriented x3, no apparent distress and well nourished General Appearance: cooperative and well developed HEENT normocephalic, head/scalp atraumatic, moist oral mucous membranes and oropharynx normal Eyes PERRL and EOMs intact bilaterally Neck no lymphadenopathy and supple Lymph Lymphatic: no lymphadenopathy noted and no lymphedema noted Resp normal respiratory effort, normal air movement and clear to auscultation bilaterally Cardio regular rate, regular rhythm, S1 normal heart sound, S2 normal heart sound and no murmurs GI normal to inspection, nondistended, normoactive bowel sounds, soft to palpation, non-tender and non-distended Extremity normal capillary refill, no clubbing, cyanosis or edema and no calf tenderness General Extremity: no tenderness to palpation of joints or extremities Skin Skin Narrative: no erythema or differential warmth on the right foot. Neuro CN's II-XII intact bilaterally, no focal motor deficits and no sensory deficits noted Motor Exam: strength 5/5 throughout and general weakness Psych thought process normal and cooperative Appearance: appropriate Assessment & Plan Assessment/Plan (1) Debility: PLAN: Plan #?Cellulitis of the LLE * Patient be managed for cellulitis of the right lower extremity. However she has very minimal redness with differential warmth of the right lower extremity today. * Currently on IV Unasyn. * Redness of the right foot and ankle have resolved. * PT OT on board. X-ray of the right ankle showed minimal swelling. * Will check uric acid levels also. * #History of vaginal bleeding and uterine prolapse: This is chronic. Stable. Follow-up with wood boatbuilder apprentice on outpatient basis #Hypothyroidism: On Synthroid #Depression and anxiety: On paroxetine #Hypertension: On lisinopril DVT prophylaxis: SCDs due to history of vaginal bleeding Disposition: anticipate dc by tomorrow Charges/Coding Visit Charges Inpatient E&M: 40142 Subs Hosp L2
[2024-04-22 15:48] LABS: Uric Acid 5.6 mg/dL (2.6-6.0)
[2024-04-22 17:46] VITALS: BP 169/74; PULSE 100; RESP 16; TEMP 36.5; O2SAT 94
[2024-04-22] MEDS: Paroxetine 20 MG Tablet 40 MG PO (20:06)
[2024-04-22] MEDS: Menthol/Lanolin/Calamine/Znox 113 GM Tube 1 APPLIC TOPICAL (20:06)
[2024-04-22 20:30] VITALS: BP 159/89; PULSE 98; RESP 18; TEMP 36.6; O2SAT 97
[2024-04-23 02:30] VITALS: BP 151/75; PULSE 88; RESP 18; TEMP 36.7; O2SAT 95
[2024-04-23] MEDS: Levothyroxine 100 MCG Tablet PO (05:05)
[2024-04-23] MEDS: Ampicillin/Sulbactam 3 GM in 0.9% Normal Saline (100mL MB+) 100 ML IV ×4 (05:05→23:55)
[2024-04-23 08:10] VITALS: BP 171/95; PULSE 105; RESP 18; TEMP 36.7; O2SAT 96
[2024-04-23] MEDS: Pantoprazole Sodium 20 MG Tablet PO (08:13)
[2024-04-23] MEDS: Lisinopril 20 MG Tablet PO (08:13)
[2024-04-23] MEDS: Menthol/Lanolin/Calamine/Znox 113 GM Tube 1 APPLIC TOPICAL ×2 (08:13→19:34)
[2024-04-23] MEDS: Aspirin 81 MG TAB.CHEW PO (08:13)
--- NOTE | 2024-04-23 09:01 | CASEMGMT ---
Addendum entered by Myla Scales 04/23/24 10:04: Center has accepted and is foc. [facility] asked to cancel referral. SW updated. Myla Scales DC Planning Original Note: SNF referral sent to [facility], and [facility]. Call placed to [facility] to notify them of referral being sent. Myla Scales DC Planning Asst.
[2024-04-23 09:06] LABS: Absolute Lymphocyte Count 1.32 X10^3/uL (0.83-4.51); Absolute Neutrophil Count 5.7 X10^3/uL (2.0-7.7); Basophil# 0.05 X10^3/uL; Basophil% 0.6 % (0-1); Eosinophil# 0.34 X10^3/uL; Eosinophils% 4.3 % (0-5); Hematocrit 37.4 % (37-47); Hemoglobin 11.6 g/dL (12.0-15.0); Lymphocyte # 1.32 X10^3/ul (0.83-4.51); Lymphocyte % 16.8 % (19-41); Mean Corpuscular Hgb 28.9 pg (27.0-32.0); Mean Platelet Vol. 10.4 fl (6.2-12.0); Monocyte# 0.45 X10^3/uL; Monocyte% 5.7 % (0-10); NRBC Flagged by Analyzer 0 % (0-5); Neutrophil # 5.69 X10^3/uL (2.7-7.7); Neutrophil % 72.2 % (47-70); Platelet Count 225 K/mm3 (150-450); RBC Distribution Width CV 13.8 % (11.6-14.6); RBC Distribution Width SD 47.4 fl (35.1-43.9); Red Blood Count 4.02 M/mm3 (4.2-5.4); White Blood Count 7.9 K/mm3 (4.4-11.0)
[2024-04-23 09:30] VITALS: BP 136/77; PULSE 93; RESP 18; TEMP 36.7; O2SAT 97
[2024-04-23 09:34] LABS: Anion Gap 5 (5-15); BUN 12 mg/dL (7-18); BUN/Creat Ratio 11.5 RATIO (10-20); Chloride 107 mmol/L (98-107); Creatinine, Serum 1.04 mg/dL (0.55-1.02); EST Glomerular Filtration Rate 54 mL/min (>60); Est Glom Filt Rate - Afr Amer 65 mL/min (>60); Estimated Creatinine Clearance 40.82 ml/min; Glucose 135 mg/dL (74-106); Potassium 4.3 mmol/L (3.5-5.1); Sodium Level 139 mmol/L (136-145)
--- NOTE | 2024-04-23 10:05 | CASEMGMT ---
[facility] notified that pt will likely be ready once she's met qualifying stay (04/24). Green sheet and transport form placed in chart. Myla Scales DC Planning Asst.
--- NOTE | 2024-04-23 10:35 | CASEMGMT ---
Social Work- SW received SNF selections from pt dtr. [facility]; no bed availability, [facility]; no bed availability, [facility]- referred and accepted, [facility]- referred. Pt dtr selcted [facility]. Pt will have third midnight and can discharge Friday. Pt dtr updated. Plan: [facility]; skilled level of care LUANN Ponce
--- NOTE | 2024-04-23 12:59 | CASEMGMT ---
Social Work PAS/RR completed in the [facility] system, no further review needed. Copy printed of both the PASRR and results for the chart. CARLITO Orourke
--- NOTE | 2024-04-23 13:05 | PN_ITS ---
Subjective Subjective Patient seen and examined.. She had no complaints. The pain in her foot had improved. Redness are also largely resolved. Review of systems otherwise negative. Regimen hemodynamically stable. Objective Data Objective Data Vital Signs: Vital Signs Temp Pulse Resp BP Pulse Ox O2 Del Method 98.1 F 93 18 136/77 H 97 Room Air 04/23/24 09:30 04/23/24 09:30 04/23/24 09:30 04/23/24 09:30 04/23/24 09:30 04/23/24 09:30 Oxygen Delivery Method Room Air Weight: 168 lb 6.931 oz Body Mass Index (BMI) 29.8 Intake & Output: Intake and Output for Last 24 Hours 04/21/24 04/22/24 04/23/24 23:59 23:59 23:59 Intake Total 224 / 524 1409.33 / 1409.33 336 / 336 Output Total 800 / 800 Balance 224 / 524 1409.33 / 1409.33 -464 / -464 Lab / Micro Data 04/23/24 08:34 04/23/24 08:34 Labs: Laboratory Results - last 24 hr 04/22/24 05:57: Uric Acid 5.6 04/23/24 08:34: WBC 7.9, RBC 4.02 L, Hgb 11.6 L, Hct 37.4, MCV 93.0, MCH 28.9, M CHC 31.0 L, RDW Std Deviation 47.4 H, RDW Coeff of [place] 13.8, Plt Count 225, MPV 10.4, Immature Gran % (Auto) 0.400, Neut % (Auto) 72.2 H, Lymph % (Auto) 16.8 L, [place] % (Auto) 5.7, Eos % (Auto) 4.3, Baso % (Auto) 0.6, Absolute Neuts (auto) 5.7, Absolute Lymphs (auto) 1.32, Nucleated RBC % 0, Sodium 139, Potassium 4.3, Chloride 107, Carbon Dioxide 27.0, Anion Gap 5, BUN 12, Creatinine 1.04 H, Estim Creat Clear Calc 40.82, Est GFR (MDRD) Af Amer 65, Est GFR (MDRD) Non-Af 54 L, BUN/Creatinine Ratio 11.5, Glucose 135 H, Calcium 9.0 Rhythm Strip Rhythm Strip: Sinus Rhythm Rate: 97 Ectopy: None Physical Exam Const alert, oriented x3, no apparent distress and well nourished General Appearance: cooperative and well developed HEENT normocephalic, head/scalp atraumatic, moist oral mucous membranes and oropharynx normal Eyes PERRL and EOMs intact bilaterally Neck no lymphadenopathy and supple Lymph Lymphatic: no lymphadenopathy noted and no lymphedema noted Resp normal respiratory effort, normal air movement and clear to auscultation bilaterally Cardio regular rate, regular rhythm, S1 normal heart sound, S2 normal heart sound and no murmurs GI normal to inspection, nondistended, normoactive bowel sounds, soft to palpation, non-tender and non-distended Extremity normal capillary refill, no clubbing, cyanosis or edema and no calf tenderness General Extremity: no tenderness to palpation of joints or extremities Skin Skin Narrative: no erythema or differential warmth on the right foot. Neuro CN's II-XII intact bilaterally, no focal motor deficits and no sensory deficits noted Motor Exam: strength 5/5 throughout and general weakness Psych thought process normal and cooperative Appearance: appropriate Assessment & Plan Assessment/Plan (1) Debility: PLAN: Plan #?Cellulitis of the LLE * Patient be managed for cellulitis of the right lower extremity. However she has very minimal redness with differential warmth of the right lower extremity today. * Currently on IV Unasyn. * Redness of the right foot and ankle have resolved. * PT OT on board. X-ray of the right ankle showed minimal swelling. * uric acid levels not elevated * DC IV unasyn and place on PO keflex x 5 days * #History of vaginal bleeding and uterine prolapse: This is chronic. Stable. Follow-up with media consultant outside sales on outpatient basis #Hypothyroidism: On Synthroid #Depression and anxiety: On paroxetine #Hypertension: On lisinopril DVT prophylaxis: SCDs due to history of vaginal bleeding Disposition: awaiting placement. Has precert and facility can accept her tomorrow. Charges/Coding Visit Charges Inpatient E&M: 80079 Subs Hosp L2
[2024-04-23] MEDS: Acetaminophen 325 MG Tablet 650 MG PO ×2 (13:20→19:34)
[2024-04-23 14:04] VITALS: BP 166/64; PULSE 107; RESP 18; TEMP 36.7; O2SAT 100
--- NOTE | 2024-04-23 16:37 | CASEMGMT ---
Social Work- Discharge to [facility], under skilled level of care. PASRR completed and on chart.?In case of possible weekend discharge, green sheet and transport form on chart for nursing to follow for final discharge arrangements/notifications to SNF, patient/family.? Plan: [facility]; skilled level of care LUANN Ponce
[2024-04-23] MEDS: Paroxetine 20 MG Tablet 40 MG PO (19:34)
[2024-04-23 21:15] VITALS: BP 165/79; PULSE 116; RESP 16; TEMP 37.1; O2SAT 97
[2024-04-24] VITALS (14 sets, daily range): BP systolic 145–184; BP diastolic 70–88; PULSE 102–139; RESP 16–20; TEMP 36.6–37.6; O2SAT 86–99
--- NOTE | 2024-04-24 03:37 | EKG12_ITS ---
Test Reason : RHYTHM CHANGE Blood Pressure : */* mmHG Vent. Rate : 114 BPM Atrial Rate : 114 BPM P-R Int : 170 ms QRS Dur : 80 ms QT Int : 324 ms P-R-T Axes : 51 -22 94 degrees QTcB Int : 446 ms Sinus tachycardia Possible Left atrial enlargement Left ventricular hypertrophy ( R in aVL , Marco product ) Nonspecific ST and T wave abnormality Abnormal ECG When compared with ECG of 21-Apr-2024 09:54, No significant change was found Confirmed by Renato Gaines ([id number]), assistant production editor ARPAN SANTOS ([id number]) on 04/26/2024 10:40:11 AM Referred By: GARRETT Confirmed By: Renato Gaines
--- NOTE | 2024-04-24 03:51 | PCM.HOSP.N ---
Hospitalist Note Patient tachycardic, rate in the 130s, SBP 160s, will administer lopressor 5 mg IV x 1 and obtain EKG.
[2024-04-24] MEDS: Metoprolol Tartrate 5 MG/5 ML Vial IV (03:59)
[2024-04-24] MEDS: Levothyroxine 100 MCG Tablet PO (05:13)
[2024-04-24] MEDS: 0.9% Normal Saline (500mL Bag) 500 ML 999 ML IV (05:14)
[2024-04-24] MEDS: Ampicillin/Sulbactam 3 GM in 0.9% Normal Saline (100mL MB+) 100 ML IV ×4 (05:49→23:10)
--- NOTE | 2024-04-24 07:43 | CT_ITS ---
PROCEDURE: CTA CHEST W/WO CONTRAST REASON FOR EXAM: Tachycardia TECHNIQUE: CTA imaging of the chest with intravenous contrast. 3D reconstructions. CONTRAST: COMPARISON: None. FINDINGS: Hardware: None. Lymph nodes: No mediastinal hilar or axillary lymphadenopathy. Heart: Cardiomegaly. No pericardial effusion. Coronary artery calcifications RV/LV Diameter Ratio: N/A Thoracic Aorta: Calcifications in the thoracic aorta. No evidence of aneurysm. Pulmonary Vessels: No evidence of acute pulmonary emboli through the major subsegmental branches. Most Proximal Level of Embolus (if embolus present): N/A Lungs and Airways: Diffuse emphysematous changes. Mild bilateral pleural effusions, axsy-wvexhyg-zmqx-right left upper lobe lung mass measuring 2.9 cm. Pleura: Small bilateral pleural effusions, rmlwb-bfnbhyf-[id number]-left Upper Abdomen: Visualized portions of the upper abdominal viscera are unremarkable. Bones: Wedge-shaped compression deformity at T8. Other: Small hiatal hernia CT/CTA Chest W/WO Contrast IMPRESSION: 1. No CT evidence of acute pulmonary embolism. 2. Left upper lobe lung mass suggestive of neoplasm 3. Diffuse emphysematous changes 4. Mild bilateral pleural effusions, cmkrt-kxjruzc-zuik-left 5. Wedge-shaped compression deformity at the T8 level 6. Small hiatal hernia One or more dose reduction techniques were used (e.g., Automated exposure contr ol, adjustment of the mA and/or kV according to patient size, use of iterative reconstruction technique). Reading Location: [facility]
[2024-04-24] MEDS: Pantoprazole Sodium 20 MG Tablet PO (08:09)
[2024-04-24] MEDS: Aspirin 81 MG TAB.CHEW PO (08:09)
[2024-04-24] MEDS: Lisinopril 20 MG Tablet PO (08:09)
[2024-04-24] MEDS: Menthol/Lanolin/Calamine/Znox 113 GM Tube 1 APPLIC TOPICAL ×2 (08:09→22:07)
[2024-04-24] MEDS: 0.9% Saline Lock 10 ML Syringe IV ×2 (12:19→19:31)
[2024-04-24 13:50] LABS: Absolute Lymphocyte Count 0.72 X10^3/uL (0.83-4.51); Absolute Neutrophil Count 4.8 X10^3/uL (2.0-7.7); Basophil# 0.04 X10^3/uL; Basophil% 0.7 % (0-1); Eosinophil# 0.01 X10^3/uL; Eosinophils% 0.2 % (0-5); Hematocrit 35.1 % (37-47); Hemoglobin 11.3 g/dL (12.0-15.0); Lymphocyte # 0.72 X10^3/ul (0.83-4.51); Lymphocyte % 11.9 % (19-41); Mean Corp Hgb Conc 32.2 g/dL (32-36); Mean Corpuscular Hgb 29.2 pg (27.0-32.0); Mean Corpuscular Volume 90.7 fL (81-99); Mean Platelet Vol. 10.3 fl (6.2-12.0); Monocyte# 0.45 X10^3/uL; Monocyte% 7.5 % (0-10); NRBC Flagged by Analyzer 0 % (0-5); Neutrophil # 4.78 X10^3/uL (2.7-7.7); Neutrophil % 79.2 % (47-70); Platelet Count 200 K/mm3 (150-450); RBC Distribution Width CV 14.1 % (11.6-14.6); Red Blood Count 3.87 M/mm3 (4.2-5.4)
[2024-04-24 14:15] LABS: Anion Gap 8 (5-15); BUN 12 mg/dL (7-18); Calcium,Total 8.8 mg/dL (8.5-10.1); Chloride 103 mmol/L (98-107); EST Glomerular Filtration Rate 57 mL/min (>60); Est Glom Filt Rate - Afr Amer 68 mL/min (>60); Estimated Creatinine Clearance 42.45 ml/min; Glucose 129 mg/dL (74-106); Potassium 3.8 mmol/L (3.5-5.1); Sodium Level 135 mmol/L (136-145)
--- NOTE | 2024-04-24 15:14 | PN_ITS ---
Subjective Subjective Patient seen and examined. She had no complaints. Review of systems is otherwise negative. She has been tachycardic today and has also developed a fever. She denies any cough, chest pain, palpitations, nausea, vomiting or any other symptoms. Review of systems is otherwise negative. Objective Data Objective Data Vital Signs: Vital Signs Temp Pulse Resp BP Pulse Ox O2 Del Method 99.3 F H 107 H 18 148/80 H 96 Room Air 04/24/24 12:14 04/24/24 12:14 04/24/24 12:14 04/24/24 12:14 04/24/24 12:14 04/24/24 12:14 Oxygen Delivery Method Room Air Weight: 168 lb 6.931 oz Body Mass Index (BMI) 29.8 Intake & Output: Intake and Output for Last 24 Hours 04/22/24 04/23/24 04/24/24 23:59 23:59 23:59 Intake Total 1409.33 / 1409.33 448 / 448 1286 / 1286 Output Total 800 / 800 Balance 1409.33 / 1409.33 -352 / -352 1286 / 1286 Lab / Micro Data 04/24/24 13:36 04/24/24 13:36 Labs: Laboratory Results - last 24 hr 04/24/24 13:36: WBC 6.0, RBC 3.87 L, Hgb 11.3 L, Hct 35.1 L, MCV 90.7, MCH 29.2, MCHC 32.2, RDW Std Deviation 47.0 H, RDW Coeff of [place] 14.1, Plt Count 200, MPV 10.3, Immature Gran % (Auto) 0.500, Neut % (Auto) 79.2 H, Lymph % (Auto) 11.9 L, [place] % (Auto) 7.5, Eos % (Auto) 0.2, Baso % (Auto) 0.7, Absolute Neuts (auto) 4.8, Absolute Lymphs (auto) 0.72 L, Nucleated RBC % 0, Sodium 135 L, Potassium 3.8, Chloride 103, Carbon Dioxide 24.0, Anion Gap 8, BUN 12, Creatinine 1.00, Estim Creat Clear Calc 42.45, Est GFR (MDRD) Af Amer 68, Est GFR (MDRD) Non-Af 57 L, BUN/Creatinine Ratio 12.0, Glucose 129 H, Calcium 8.8 Radiography Diagnostic Testing: Radiology Impression Chest CTA 04/24/24 07:43 IMPRESSION: 1. No CT evidence of acute pulmonary embolism. 2. Left upper lobe lung mass suggestive of neoplasm 3. Diffuse emphysematous changes 4. Mild bilateral pleural effusions, dddyc-wayezro-fhfo-left 5. Wedge-shaped compression deformity at the T8 level 6. Small hiatal hernia One or more dose reduction techniques were used (e.g., Automated exposure control, adjustment of the mA and/or kV according to patient size, use of iterative reconstruction technique). Reading Location: [facility] Rhythm Strip Rhythm Strip: Sinus Rhythm Rate: 97 Ectopy: None Physical Exam Const alert, oriented x3, no apparent distress and well nourished General Appearance: cooperative and well developed HEENT normocephalic, head/scalp atraumatic, moist oral mucous membranes and oropharynx normal Eyes PERRL and EOMs intact bilaterally Neck no lymphadenopathy and supple Lymph Lymphatic: no lymphadenopathy noted and no lymphedema noted Resp normal respiratory effort, normal air movement and clear to auscultation bilaterally Cardio regular rate, regular rhythm, S1 normal heart sound, S2 normal heart sound and no murmurs GI normal to inspection, nondistended, normoactive bowel sounds, soft to palpation, non-tender and non-distended Extremity normal capillary refill, no clubbing, cyanosis or edema and no calf tenderness General Extremity: no tenderness to palpation of joints or extremities Skin Skin Narrative: erythema and differential warmth had resolved. Neuro CN's II-XII intact bilaterally, no focal motor deficits and no sensory deficits noted Motor Exam: strength 5/5 throughout and general weakness Psych thought process normal and cooperative Appearance: appropriate Assessment & Plan Assessment/Plan (1) Debility: PLAN: Plan #?Cellulitis of the LLE * Patient be managed for cellulitis of the right lower extremity. However she has very minimal redness with differential warmth of the right lower extremity today. * on IV unasyn. He was to be switched to p.o. Keflex. However she has developed a fever of unclear etiology. She was also tachycardic this morning * Redness of the right foot and ankle have resolved. * PT OT on board. X-ray of the right ankle showed minimal swelling. * uric acid levels not elevated * Respiratory panel and blood cultures ordered. Continue IV Unasyn for now. * CTA of the chest was negative for any evidence of PE and showed a left upper lung mass suggestive of neoplasm as well as mild bilateral pleural effusions right greater than left and diffuse emphysematous changes. * get urinalysis also to evaluate for UTI * #History of vaginal bleeding and uterine prolapse: This is chronic. Stable. Follow-up with sew on operator on outpatient basis #Left upper lobe lung mass * This is suggestive of neoplasm. Also present in previous CTs from January 14, 2024 which showed a 3.1 x 1.6 cm irregular nodular density in the peripheral aspect of the left upper lobe posteriorly with posterior calcification. * She did follow-up with a PCP and she was apparently supposed to get a PET scan to further evaluate this mass. However I do not think she has had this done yet as there is no record of her PET scan in the EMR. * To follow-up with pulmonology and oncology on outpatient basis for further workup. * #Hypothyroidism: On Synthroid #Depression and anxiety: On paroxetine #Hypertension: On lisinopril DVT prophylaxis: SCDs due to history of vaginal bleeding Disposition: awaiting placement once fever resolves and patient is medically stable. Charges/Coding Visit Charges Inpatient E&M: 30552 Subs Hosp L3
[2024-04-24] MEDS: Oseltamivir Phosphate 75 MG Capsule PO (18:01)
[2024-04-24] MEDS: Metoprolol Tartrate 25 MG Tablet PO (18:01)
[2024-04-24] MEDS: Ondansetron 4 MG/2 ML Vial IV (19:31)
[2024-04-24] MEDS: Paroxetine 20 MG Tablet 40 MG PO (22:07)
[2024-04-25] VITALS (12 sets, daily range): BP systolic 116–135; BP diastolic 54–78; PULSE 66–78; RESP 16–18; TEMP 36.3–37.6; O2SAT 94–100
[2024-04-25] MEDS: Ampicillin/Sulbactam 3 GM in 0.9% Normal Saline (100mL MB+) 100 ML IV (06:38)
[2024-04-25] MEDS: Levothyroxine 100 MCG Tablet PO (06:40)
[2024-04-25] MEDS: 0.9% Normal Saline (100mL Bag) 100 ML 15 ML IV (06:41)
[2024-04-25 07:18] LABS: Absolute Lymphocyte Count 1.38 X10^3/uL (0.83-4.51); Absolute Neutrophil Count 2.8 X10^3/uL (2.0-7.7); Basophil# 0.02 X10^3/uL; Basophil% 0.4 % (0-1); Hematocrit 35.4 % (37-47); Hemoglobin 10.9 g/dL (12.0-15.0); Lymphocyte # 1.38 X10^3/ul (0.83-4.51); Lymphocyte % 29.9 % (19-41); Mean Corp Hgb Conc 30.8 g/dL (32-36); Mean Corpuscular Hgb 28.7 pg (27.0-32.0); Mean Corpuscular Volume 93.2 fL (81-99); Mean Platelet Vol. 10.5 fl (6.2-12.0); Monocyte# 0.42 X10^3/uL; Monocyte% 9.1 % (0-10); NRBC Flagged by Analyzer 0 % (0-5); Neutrophil # 2.78 X10^3/uL (2.7-7.7); Neutrophil % 60.2 % (47-70); Platelet Count 194 K/mm3 (150-450); RBC Distribution Width CV 14.5 % (11.6-14.6); RBC Distribution Width SD 49.8 fl (35.1-43.9); White Blood Count 4.6 K/mm3 (4.4-11.0)
[2024-04-25 07:42] LABS: Anion Gap 8 (5-15); BUN 17 mg/dL (7-18); Calcium,Total 8.7 mg/dL (8.5-10.1); Chloride 106 mmol/L (98-107); Creatinine, Serum 1.13 mg/dL (0.55-1.02); EST Glomerular Filtration Rate 49 mL/min (>60); Est Glom Filt Rate - Afr Amer 59 mL/min (>60); Estimated Creatinine Clearance 37.57 ml/min; Glucose 92 mg/dL (74-106); Sodium Level 138 mmol/L (136-145)
[2024-04-25 07:51] LABS: Mucous, Urine 0 SEEN /hpf (<or=2+)
[2024-04-25 08:08] LABS: Thyroid Stim Hormone (TSH) 0.788 uIU/mL (0.358-3.740)
[2024-04-25 08:19] LABS: Color, Urine Yellow (Yellow); Glucose, Dipstick Normal (Normal); Ketone-Dipstick Negative (Negative); Leukocyte Esterase-Dipstick Negative /ul (Negative); Nitrite-Dipstick Negative (Negative); Occult Blood-Urine 250 /ul (Negative); Protein-Dipstick 100 mg/dl (Negative); Specific Gravity, Urine 1.025 (1.002-1.030); Urine Bilirubin Dipstick Negative (Negative); Urine Clarity Clear (Clear); Urine Urobilinogen Normal (Normal)
[2024-04-25] MEDS: Aspirin 81 MG TAB.CHEW PO (08:23)
[2024-04-25] MEDS: Menthol/Lanolin/Calamine/Znox 113 GM Tube 1 APPLIC TOPICAL ×2 (08:24→21:47)
[2024-04-25] MEDS: Metoprolol Tartrate 25 MG Tablet PO ×2 (08:24→21:47)
[2024-04-25] MEDS: Oseltamivir Phosphate 30 MG Capsule PO ×2 (08:25→21:48)
[2024-04-25] MEDS: Pantoprazole Sodium 20 MG Tablet PO (08:25)
[2024-04-25] MEDS: Lisinopril 20 MG Tablet PO (08:25)
[2024-04-25] MEDS: Albuterol 2.5 MG/3 ML VIAL.NEB. INHALATION ×2 (09:03→12:34)
[2024-04-25 09:45] LABS: Bacteria RARE /hpf (None Seen); Red Blood Cells-Urine 5-10 SEEN /hpf (0-5); Squamous Epithelial Cells - UA 0-5 SEEN /hpf (5-10); White Blood Cells 0-5 SEEN /hpf (0-5)
[2024-04-25 09:46] LABS: Coarse Granular Cast 0-5 SEEN /lpf (0-5 /lpf); Fine Granular Cast- Urine 0-5 SEEN /lpf (0-5); Hyaline Cast 0-5 SEEN /lpf (0-5)
--- NOTE | 2024-04-25 11:09 | PN_ITS ---
Subjective Subjective Patient seen and examined. She was quite lethargic today though she was able to answer questions. She is on 2L oxygen. She developed a fever yesterday and respiratory panel was positive for influenza and so she was started on tamiflu. Unable to do comprehensive review of systems. Objective Data Objective Data Vital Signs: Vital Signs Temp Pulse Resp BP Pulse Ox O2 Del Method O2 Flow Rate 97.5 F L 78 18 135/54 H 94 Nasal Cannula 2 04/25/24 08:11 04/25/24 09:04 04/25/24 09:04 04/25/24 08:24 04/25/24 09:04 04/25/24 09:04 04/25/24 09:04 Oxygen Flow Rate (L/min) 2 Oxygen Delivery Method Nasal Cannula Weight: 168 lb 6.931 oz Body Mass Index (BMI) 29.8 Intake & Output: Intake and Output for Last 24 Hours 04/23/24 04/24/24 04/25/24 23:59 23:59 23:59 Intake Total 448 / 448 1398 / 1398 224.25 / 224.25 Output Total 800 / 800 Balance -352 / -352 1398 / 1398 224. / 224.25 Lab / Micro Data 04/25/24 06:15 04/25/24 06:15 Labs: Laboratory Results - last 24 hr 04/24/24 13:36: WBC 6.0, RBC 3.87 L, Hgb 11.3 L, Hct 35.1 L, MCV 90.7, MCH 29.2, MCHC 32.2, RDW Std Deviation 47.0 H, RDW Coeff of [place] 14.1, Plt Count 200, MPV 10.3, Immature Gran % (Auto) 0.500, Neut % (Auto) 79.2 H, Lymph % (Auto) 11.9 L, [place] % (Auto) 7.5, Eos % (Auto) 0.2, Baso % (Auto) 0.7, Absolute Neuts (auto) 4.8, Absolute Lymphs (auto) 0.72 L, Nucleated RBC % 0, Sodium 135 L, Potassium 3.8, Chloride 103, Carbon Dioxide 24.0, Anion Gap 8, BUN 12, Creatinine 1.00, Estim Creat Clear Calc 42.45, Est GFR (MDRD) Af Amer 68, Est GFR (MDRD) Non-Af 57 L, BUN/Creatinine Ratio 12.0, Glucose 129 H, Calcium 8.8 04/25/24 06:15: WBC 4.6, RBC 3.80 L, Hgb 10.9 L, Hct 35.4 L, MCV 93.2, MCH 28.7, MCHC 30.8 L, RDW Std Deviation 49.8 H, RDW Coeff of [place] 14.5, Plt Count 194, MPV 10.5, Immature Gran % (Auto) 0.400, Neut % (Auto) 60.2, Lymph % (Auto) 29.9, [place] % (Auto) 9.1, Eos % (Auto) 0.0, Baso % (Auto) 0.4, Absolute Neuts (auto) 2.8, Absolute Lymphs (auto) 1.38, Nucleated RBC % 0, Sodium 138, Potassium 4.0, Chloride 106, Carbon Dioxide 24.0, Anion Gap 8, BUN 17, Creatinine 1.13 H, Estim Creat Clear Calc 37.57, Est GFR (MDRD) Af Amer 59 L, Est GFR (MDRD) Non-Af 49 L, BUN/Creatinine Ratio 15.0, Glucose 92, Calcium 8.7, TSH 0.788 04/25/24 07:35: Urine Color Yellow, Urine Clarity Clear, Urine pH 5.0, Ur Specific [place] 1.025, Urine Protein 100 H, Urine Glucose (UA) Normal, Urine Ketones Negative, Urine Occult Blood 250 H, Urine Nitrite Negative, Urine Bilirubin Negative, Urine Urobilinogen Normal, Ur Leukocyte Esterase Negative, Urine RBC 5-10 SEEN, Urine WBC 0-5 SEEN, Ur Squamous Epith Cells 0-5 SEEN, Urine Bacteria RARE, Hyaline Casts 0-5 SEEN, Fine Granular Casts 0-5 SEEN, Coarse Granular Casts 0-5 SEEN, Urine Mucus 0 SEEN Micro: Microbiology 04/24/24 14:05 Mucosa - Nasopharyngeal Respiratory Panel (PCR) - Final Influenza A (Subtype H1) Rhythm Strip Rhythm Strip: Sinus Rhythm Rate: 97 Ectopy: None Physical Exam Const Constitutional Narrative: lethargic today General Appearance: cooperative and well developed HEENT normocephalic, head/scalp atraumatic, moist oral mucous membranes and oropharynx normal Eyes PERRL and EOMs intact bilaterally Neck no lymphadenopathy and supple Lymph Lymphatic: no lymphadenopathy noted and no lymphedema noted Resp Resp Narrative: mildly diminished breath sounds bibasally, no wheezes or crackles. On 2L of oxygen by nasal canula Cardio regular rate, regular rhythm, S1 normal heart sound, S2 normal heart sound and no murmurs GI normal to inspection, nondistended, normoactive bowel sounds, soft to palpation, non-tender and non-distended Extremity normal capillary refill, no clubbing, cyanosis or edema and no calf tenderness General Extremity: no tenderness to palpation of joints or extremities Skin Skin Narrative: erythema and differential warmth had resolved. Neuro CN's II-XII intact bilaterally, no focal motor deficits and no sensory deficits noted Motor Exam: strength 5/5 throughout and general weakness Psych thought process normal and cooperative Appearance: appropriate Assessment & Plan Assessment/Plan (1) Debility: PLAN: Plan #?Cellulitis of the LLE * Patient be managed for cellulitis of the right lower extremity. However she has very minimal redness with differential warmth of the right lower extremity today. * on IV unasyn. He was to be switched to p.o. Keflex. However she has developed a fever of unclear etiology. She was also tachycardic this morning * Redness of the right foot and ankle have resolved. * PT OT on board. X-ray of the right ankle showed minimal swelling. * uric acid levels not elevated * will dc iV unasyn today * #Hypoxia due to acute influenza infection * developed a fever yesterday. NOw on 2L of oxygen * CTA of the chest was negative for any evidence of PE and showed a left upper lung mass suggestive of neoplasm as well as mild bilateral pleural effusions right greater than left and diffuse emphysematous changes. * respiratory panel positive for influenza A. * now on PO tamiflu * #History of vaginal bleeding and uterine prolapse: This is chronic. Stable. Follow-up with loom tuner on outpatient basis #Left upper lobe lung mass * This is suggestive of neoplasm. Also present in previous CTs from January 14, 2024 which showed a 3.1 x 1.6 cm irregular nodular density in the peripheral aspect of the left upper lobe posteriorly with posterior calcification. * She did follow-up with a PCP and she was apparently supposed to get a PET scan to further evaluate this mass. However I do not think she has had this done yet as there is no record of her PET scan in the EMR. * To follow-up with pulmonology and oncology on outpatient basis for further workup. * #Hypothyroidism: On Synthroid #Depression and anxiety: On paroxetine #Hypertension: On lisinopril DVT prophylaxis: SCDs due to history of vaginal bleeding Disposition: awaiting placement once fever she is more alert and hypoxia has resolved. Charges/Coding Visit Charges Inpatient E&M: 64090 Subs Hosp L2
[2024-04-25] MEDS: Pantoprazole Sodium 40 MG in 0.9% Normal Saline (100mL MB+) 100 ML 330 MG IV (21:46)
[2024-04-25] MEDS: Paroxetine 20 MG Tablet 40 MG PO (21:47)
[2024-04-26] VITALS (8 sets, daily range): BP systolic 128–156; BP diastolic 40–58; PULSE 62–73; RESP 16–20; TEMP 36.4–37.1; O2SAT 98–100
[2024-04-26] MEDS: Levothyroxine 100 MCG Tablet PO (06:45)
[2024-04-26 08:02] LABS: Absolute Lymphocyte Count 1.89 X10^3/uL (0.83-4.51); Absolute Neutrophil Count 1.8 X10^3/uL (2.0-7.7); Basophil# 0.03 X10^3/uL; Basophil% 0.7 % (0-1); Eosinophil# 0.01 X10^3/uL; Eosinophils% 0.2 % (0-5); Hematocrit 34.9 % (37-47); Hemoglobin 10.6 g/dL (12.0-15.0); Lymphocyte # 1.89 X10^3/ul (0.83-4.51); Lymphocyte % 46.1 % (19-41); Mean Corp Hgb Conc 30.4 g/dL (32-36); Mean Corpuscular Hgb 28.6 pg (27.0-32.0); Mean Corpuscular Volume 94.3 fL (81-99); Mean Platelet Vol. 10.9 fl (6.2-12.0); Monocyte# 0.32 X10^3/uL; Monocyte% 7.8 % (0-10); NRBC Flagged by Analyzer 0 % (0-5); Neutrophil # 1.84 X10^3/uL (2.7-7.7); Platelet Count 178 K/mm3 (150-450); RBC Distribution Width CV 14.5 % (11.6-14.6); RBC Distribution Width SD 50.2 fl (35.1-43.9); White Blood Count 4.1 K/mm3 (4.4-11.0)
[2024-04-26 08:41] LABS: Anion Gap 9 (5-15); BUN 30 mg/dL (7-18); BUN/Creat Ratio 22.6 RATIO (10-20); Calcium,Total 8.9 mg/dL (8.5-10.1); Chloride 105 mmol/L (98-107); Creatinine, Serum 1.33 mg/dL (0.55-1.02); EST Glomerular Filtration Rate 41 mL/min (>60); Est Glom Filt Rate - Afr Amer 49 mL/min (>60); Estimated Creatinine Clearance 31.92 ml/min; Glucose 102 mg/dL (74-106); Sodium Level 139 mmol/L (136-145)
[2024-04-26] MEDS: Metoprolol Tartrate 25 MG Tablet PO ×2 (09:20→22:49)
[2024-04-26] MEDS: Aspirin 81 MG TAB.CHEW PO (09:20)
[2024-04-26] MEDS: Menthol/Lanolin/Calamine/Znox 113 GM Tube 1 APPLIC TOPICAL ×2 (09:21→22:44)
[2024-04-26] MEDS: Lisinopril 20 MG Tablet PO (09:21)
[2024-04-26] MEDS: Pantoprazole Sodium 40 MG in 0.9% Normal Saline (100mL MB+) 100 ML 330 MG IV ×2 (09:21→22:44)
--- NOTE | 2024-04-26 09:33 | PN.HOSP_ITS ---
Reason for Visit Reason for Visit: Diagnoses Cellulitis of right lower limb (04/21/24) Other malaise (04/21/24) Subjective Subjective Patient initially tired on exam earlier in the day however on repeat exam later in the day patient sitting up in chair, resting comfortably and wakes up and answers questions appropriately, reports breathing is better than it was denies any other complaints at the time of exam Objective Data Objective Data Vital Signs: Vital Signs Temp Pulse Resp BP Pulse Ox O2 Del Method O2 Flow Rate 98.7 F 66 16 129/58 H 98 Nasal Cannula 2 04/26/24 07:55 04/26/24 07:55 04/26/24 07:55 04/26/24 07:55 04/26/24 07:55 04/26/24 07:56 04/26/24 07:56 Oxygen Flow Rate (L/min) 2 Oxygen Delivery Method Nasal Cannula Weight: 76.4 kg Body Mass Index (BMI) 29.8 Intake & Output: Intake and Output for Last 24 Hours 04/24/24 04/25/24 04/26/24 23:59 23:59 23:59 Intake Total 1398 / 1398 334.25 / 634.25 500 / 500 Balance 1398 / 1398 334.25 / 634.25 500 / 500 Lab / Micro Data 04/26/24 07:17 04/26/24 07:17 Labs: Laboratory Results - last 24 hr 04/25/24 07:35: Urine RBC 5-10 SEEN, Urine WBC 0-5 SEEN, Ur Squamous Epith Cells 0-5 SEEN, Urine Bacteria RARE, Hyaline Casts 0-5 SEEN, Fine Granular Casts 0-5 SEEN, Coarse Granular Casts 0-5 SEEN, Urine Mucus 0 SEEN 04/26/24 07:17: WBC 4.1 L, RBC 3.70 L, Hgb 10.6 L, Hct 34.9 L, MCV 94.3, MCH 28.6, MCHC 30.4 L, RDW Std Deviation 50.2 H, RDW Coeff of Francisco 14.5, Plt Count 178, MPV 10.9, Immature Gran % (Auto) 0.200, Neut % (Auto) 45.0 L, Lymph % (Auto) 46.1 H, [place] % (Auto) 7.8, Eos % (Auto) 0.2, Baso % (Auto) 0.7, Absolute Neuts (auto) 1.8 L, Absolute Lymphs (auto) 1.89, Nucleated RBC % 0, Sodium 139, Potassium 4.0, Chloride 105, Carbon Dioxide 26.0, Anion Gap 9, BUN 30 H, C reatinine 1.33 H, Estim Creat Clear Calc 31.92, Est GFR (MDRD) Af Amer 49 L, Est GFR (MDRD) Non-Af 41 L, BUN/Creatinine Ratio 22.6 H, Glucose 102, Calcium 8.9 Micro: Microbiology 04/25/24 15:45 Stool Stool Occult Blood (ALYSHA) - Final Occult Blood Positive 04/24/24 14:05 Mucosa - Nasopharyngeal Respiratory Panel (PCR) - Final Influenza A (Subtype H1) Rhythm Strip Rhythm Strip: Sinus Rhythm Rate: 97 Ectopy: None Physical Exam Narrative General: Resting comfortably in chair but wakes up and answers questions appropriately HEENT: Atraumatic, normocephalic Eyes: Patient with some subconjunctival hemorrhage on right eye after coughing, extraocular movements grossly intact Neck: Supple Respiratory: Normal respiratory effort, no significant wheezes or rhonchi Cardiovascular: Regular rate GI: Soft, nontender, nondistended Extremities: No significant pitting edema Musculoskeletal: Moving all extremities Neuro: No overt focal neurological deficits Skin: No rashes appreciated Psych: Cooperative Assessment & Plan Assessment/Plan (1) Debility: PLAN: Plan # Hypoxia secondary to acute influenza A infection -CTA chest without evidence for PE but did show left upper lung mass suggestive of neoplasm and mild bilateral effusions -Patient on p.o. Tamiflu -Presently 100% on 2 L O2 # Intermittent tachycardia -With rates up into 140s 150s -Patient started on metoprolol and presently heart rate is stable on that #FOBT + -Unclear why this was obtained -Hemoglobin 10.9 on presentation, 10.6 today -Will need GI evaluation but if this is stable could follow-up closely on an outpatient basis, patient not ideal candidate for endoscopy at this time given acute infection with influenza A requiring oxygen and would likely be better suited for evaluation in a stable outpatient environment if tolerating # Question of right lower extremity cellulitis -Patient now off IV Unasyn #Hx vaginal bleeding 2/2 utering prolapse -Chronic and stable -Follow-up with ARTS ADMINISTRATOR OR MANAGER outpatient basis # Left upper lobe mass -CTA of the chest was negative for any evidence of PE and showed a left upper lung mass suggestive of neoplasm -Also present in previous CTs from January 14, 2024 which showed a 3.1 x 1.6 cm irregular nodular density in the peripheral aspect of the left upper lobe posteriorly with posterior calcification -Patient follow with PCP and is supposed to get a PET scan for further evaluation but does not seem this has been done -Will need to follow-up outpatient #Hypothyroidism: On Synthroid #Depression and anxiety: On paroxetine #Hypertension: On lisinopril DVT prophylaxis: SCDs due to history of vaginal bleeding Charges/Coding Visit Charges Inpatient E&M: 44379 Subs Hosp L2
[2024-04-26] MEDS: 0.9% Saline Lock 10 ML Syringe IV ×2 (09:34→22:44)
[2024-04-26] MEDS: 0.9% Normal Saline (1000mL) 1,000 ML 50 ML IV (10:38)
[2024-04-26] MEDS: Oseltamivir Phosphate 30 MG Capsule PO ×2 (10:41→22:49)
[2024-04-26] MEDS: Acetaminophen 325 MG Tablet 650 MG PO (14:02)
[2024-04-26] MEDS: Paroxetine 20 MG Tablet 40 MG PO (22:49)
[2024-04-27 03:10] VITALS: BP 157/75; PULSE 76; RESP 18; TEMP 36.3; O2SAT 100
[2024-04-27 03:56] VITALS: PULSE 70
[2024-04-27] MEDS: Levothyroxine 100 MCG Tablet PO (05:04)
[2024-04-27 05:17] LABS: Absolute Lymphocyte Count 1.88 X10^3/uL (0.83-4.51); Absolute Neutrophil Count 2.6 X10^3/uL (2.0-7.7); Basophil# 0.02 X10^3/uL; Basophil% 0.4 % (0-1); Eosinophil# 0.03 X10^3/uL; Eosinophils% 0.6 % (0-5); Hematocrit 33.8 % (37-47); Hemoglobin 10.3 g/dL (12.0-15.0); Lymphocyte # 1.88 X10^3/ul (0.83-4.51); Lymphocyte % 38.7 % (19-41); Mean Corp Hgb Conc 30.5 g/dL (32-36); Mean Corpuscular Volume 95.2 fL (81-99); Mean Platelet Vol. 10.7 fl (6.2-12.0); Monocyte# 0.31 X10^3/uL; Monocyte% 6.4 % (0-10); NRBC Flagged by Analyzer 0 % (0-5); Neutrophil # 2.61 X10^3/uL (2.7-7.7); Neutrophil % 53.7 % (47-70); Platelet Count 167 K/mm3 (150-450); RBC Distribution Width CV 14.3 % (11.6-14.6); RBC Distribution Width SD 50.3 fl (35.1-43.9); Red Blood Count 3.55 M/mm3 (4.2-5.4); White Blood Count 4.9 K/mm3 (4.4-11.0)
[2024-04-27 05:34] LABS: Anion Gap 6 (5-15); BUN 29 mg/dL (7-18); BUN/Creat Ratio 27.1 RATIO (10-20); Calcium,Total 8.9 mg/dL (8.5-10.1); Chloride 108 mmol/L (98-107); Creatinine, Serum 1.07 mg/dL (0.55-1.02); EST Glomerular Filtration Rate 52 mL/min (>60); Est Glom Filt Rate - Afr Amer 63 mL/min (>60); Estimated Creatinine Clearance 39.68 ml/min; Glucose 138 mg/dL (74-106); Potassium 4.1 mmol/L (3.5-5.1); Sodium Level 138 mmol/L (136-145)
[2024-04-27 06:33] VITALS: PULSE 69; O2SAT 95
[2024-04-27 07:32] VITALS: BP 129/57; PULSE 68; RESP 16; TEMP 36.5; O2SAT 92
[2024-04-27] MEDS: Aspirin 81 MG TAB.CHEW PO (07:42)
[2024-04-27] MEDS: Menthol/Lanolin/Calamine/Znox 113 GM Tube 1 APPLIC TOPICAL (10:37)
[2024-04-27] MEDS: Pantoprazole Sodium 40 MG in 0.9% Normal Saline (100mL MB+) 100 ML 330 MG IV (10:37)
[2024-04-27 10:38] VITALS: PULSE 68
[2024-04-27] MEDS: Oseltamivir Phosphate 30 MG Capsule PO (10:38)
[2024-04-27] MEDS: Metoprolol Tartrate 25 MG Tablet PO (10:38)
[2024-04-27] MEDS: Lisinopril 20 MG Tablet PO (10:38)
--- NOTE | 2024-04-27 12:34 | PCM.TXEXTCAR ---
Diet Diet Order/Speech Therapy: 04/21/24 19:33 Diet: Regular - General Food consistency:: Regular Liquid Consistency:: Regular/Thin Type of Dietary Supplement:: Ensure Plus High Protein Diet Comments: soft foods .....120mL Chocolate Ensure w/meals please Routine Orders/Code Status Suppository Type: Dulcolax 10mg Suppository Frequency: Daily PRN Routine Lab Work: CBC (1 week) DC O2, CPAP, BIPAP needs Home O2 Discharge instructions: No Wound(s) Prolapsed Uterus: Wound Type: Pressure Injury Right ankle: Wound Type: scratch Therapies Physical Therapy: Eval and Treat Occupational Therapy: Eval and Treat Problem/Diagnosis (1) Debility: Status: Acute Code(s): R53.81 - Other malaise Plan # Hypoxia secondary to acute influenza A infection # Intermittent tachycardia- resolved #FOBT +, no overt bleeding #RLE cellulitis resolved #Hx vaginal bleeding 2/2 utering prolapse # Left upper lobe mass #Hypothyroidism #Depression and anxiety #Hypertension MICHELE SOUZA, is a 83-year-old female with a history of GERD, hypertension, hypothyroidism, dementia, depression who presented [facility] ED 04/21/2024 because of pain in her right foot and some erythema and swelling. She was started on Unasyn and this resolved. Additionally patient developed hypoxia and CTA showed no PE but a left upper lung mass, which appears to be getting worked up on outpatient basis, and mild bilateral effusions but was found to have influenza A and placed on Tamiflu and hypoxia resolved. During her hospitalization additionally she had several episodes of tachycardia and was started on metoprolol and heart rate stabilized. Patient had hemoglobin that was stable, it was 10.9 on presentation and on day of discharge was 10.6 however for unclear reason she had an FOBT obtained which was positive. Patient and nursing staff deny any overtly bloody stools and hemoglobin stable and patient vitally stable, would recommend this be worked up on an outpatient basis, that does not need to be emergently done. Also of note patient has intermittent bleeding that they attribute to her uterine close her labs, recommend following up with gynecology on an outpatient basis. In 1 mass was redemonstrated, she was supposed to get a PET scan on an outpatient basis based on documentation, would recommend following up with her primary care physician so this can get scheduled or she can be referred to a subspecialist if desired. On day of discharge patient awake and alert, overall answering questions appropriately, does not have any new or acute complaints. -Recommend CBC in 1 week to verify blood counts not dropping -Please follow-up with gastroenterology upon discharge due to possible microscopic blood in stool. Please call their office to schedule hospital follow-up appointment upon discharge. -Would recommend following up with your mamma logist on an outpatient basis due to your uterine prolapse bleeding -Follow-up with your primary care physician for further imaging and/or workup of the left upper lobe mass and referral to subspecialist if desired -You have been started on metoprolol for fast heart rate and this is significantly improved, you will be discharged on this medication Allergies/Procedures Done in Hospital Allergies Influenza Virus Vaccines Allergy (Verified 04/21/24 09:14) Other GBS morphine Allergy (Verified 04/21/24 09:14) Other Procedures: - (BLE duplex) Type of Care/Length of Stay Estimated LOS: Convalescent Care Less Than 30 days Type of Care Needed: Skilled Rehab Potential: Fair Prognosis: Fair Additional Orders/Day of Discharge Day of Discharge: 04/27/24 Dietary and Speech Recommendations Dietitian Recommendations/Changes: Continue Regular diet - easy to chew to optimize oral intakes. Continue 120mL EPHP TID with meals - chocolate to promote weight maintenance. Discharge Plan Admission Admit Date/Time: 04/21/24 14:26 Primary Reason for Your Visit: Right foot pain Attending Provider: Virgen Freitas Primary Care Provider: Susan Singer Consulting Providers: Virgen Freitas; Diana Little Instructions Patient Instructions: ED Fall Prevention Additional Instructions / Restrictions: DISCHARGE INSTRUCTIONS PLEASE READ *Please take this with you to your next doctors appointment* -Recommend CBC in 1 week to verify blood counts not dropping -Please follow-up with gastroenterology upon discharge due to possible microscopic blood in stool. Please call their office to schedule hospital follow-up appointment upon discharge. -Would recommend following up with your mamma logist on an outpatient basis due to your uterine prolapse bleeding -Follow-up with your primary care physician for further imaging and/or workup of the left upper lobe mass and referral to subspecialist if desired -You have been started on metoprolol for fast heart rate and this is significantly improved, you will be discharged on this medication -Please call your primary care provider's office upon discharge to schedule a hospital follow up within 1 week. -For any concerning signs or symptoms please call 911 or proceed to the nearest emergency department Discharge Orders/Prescriptions Prescriptions: New metoprolol tartrate 25 mg Tablet 25 mg PO BID 30 Days Qty: 0 0RF oseltamivir 30 mg Capsule 30 mg PO BID 2 Days Qty: 4 0RF Continued calcium carbonate [Calcium 500] 500 mg calcium (1,250 mg) tablet 1,000 mg PO DAILY ascorbic acid (vitamin C) 500 mg capsule 500 mg PO DAILY zinc 50 mg tablet 50 mg PO DAILY cholecalciferol (vitamin D3) 25 mcg (1,000 unit) tablet 25 mcg PO DAILY lisinopril 20 mg tablet 20 mg PO DAILY Qty: 90 3RF aspirin 81 MG tablet,chewable 81 mg PO DAILY Patient Comments: [facility] omeprazole 20 mg capsule,delayed release(DR/EC) 20 mg PO DAILY Qty: 90 2RF levothyroxine 100 mcg tablet 100 mcg PO DAILY Qty: 90 3RF paroxetine HCl 40 mg tablet 40 mg PO QHS Qty: 90 3RF (DME) spirometers and accessories Device See Rx Instructions .Route Qty: 1 0RF Rx Instructions: As directed. Incentive spirometer. Use 2-3 times per hour while awake as directed. Discontinued ciprofloxacin HCl 250 mg tablet 250 mg PO BID 5 Days Qty: 10 0RF Referrals / Follow Up: Susan Singer MD [Primary Care Provider] - Within 1 Week Hernandez Peacock DO [Med Staff - Active Staff] - (Recommend calling to establish care with Dr. Peacock on discharge due to microscopic blood seen in stool as you may need further evaluation) Disposition Disposition (needs filled in before D/C Order can be placed): [facility]
--- NOTE | 2024-04-27 12:52 | DS.PCM_ITS ---
Providers Date of Admission: 04/21/24 Date of Discharge: 04/27/24 Primary Care Physician: Dr. Susan Singer MD Reason For Visit: R FOOT pain Diagnosis Discharge Diagnosis (1) Debility: Status: Acute Code(s): R53.81 - Other malaise Plan # Hypoxia secondary to acute influenza A infection # Intermittent tachycardia- resolved #FOBT +, no overt bleeding #RLE cellulitis resolved #Hx vaginal bleeding 2/2 utering prolapse # Left upper lobe mass #Hypothyroidism #Depression and anxiety #Hypertension Medications at Discharge Home Medications aspirin 81 mg chewable tablet 81 mg PO DAILY [facility] 05/28/14 calcium carbonate (Calcium 500) 1,000 mg PO DAILY 07/19/20 ascorbic acid (vitamin C) 500 mg capsule 500 mg PO DAILY 02/15/21 zinc 50 mg tablet 50 mg PO DAILY 02/15/21 omeprazole 20 mg capsule,delayed release 20 mg PO DAILY #90 caps 09/06/22 cholecalciferol (vitamin D3) 25 mcg (1,000 unit) tablet 25 mcg PO DAILY 06/05/23 levothyroxine 100 mcg tablet 100 mcg PO DAILY thyroid #90 tabs 01/14/24 lisinopril 20 mg tablet 20 mg PO DAILY #90 tabs 01/21/24 paroxetine HCl 40 mg tablet 40 mg PO QHS DEPRESSION #90 tabs 01/26/24 spirometers and accessories #1 ea 04/01/24 metoprolol tartrate 25 mg tablet 25 mg PO BID 30 days #0 tabs 04/27/24 oseltamivir 30 mg capsule 30 mg PO BID 2 days #4 caps 04/27/24 Hospital Course Procedures - (BLE venous duplex) Summary of Care Provided Minutes Spent on Discharge: 32 Hospital Course: MICHELE SOUZA, is a 83-year-old female with a history of GERD, hypertension, hypothyroidism, dementia, depression who presented [facility] ED 04/21/2024 because of pain in her right foot and some erythema and swelling. She was started on Unasyn and this resolved. Additionally patient developed hypoxia and CTA showed no PE but a left upper lung mass, which appears to be getting worked up on outpatient basis, and mild bilateral effusions but was found to have influenza A and placed on Tamiflu and hypoxia resolved. During her hospitalization additionally she had several episodes of tachycardia and was started on metoprolol and heart rate stabilized. Patient had hemoglobin that was stable, it was 10.9 on presentation and on day of discharge was 10.6 however for unclear reason she had an FOBT obtained which was positive. Patient and nursing staff deny any overtly bloody stools and hemoglobin stable and patient vitally stable, would recommend this be worked up on an outpatient basis, that does not need to be emergently done. Also of note patient has intermittent bleeding that they attribute to her uterine close her labs, recommend following up with gynecology on an outpatient basis. In 1 mass was redemonstrated, she was supposed to get a PET scan on an outpatient basis based on documentation, would recommend following up with her primary care physician so this can get scheduled or she can be referred to a subspecialist if desired. On day of discharge patient awake and alert, overall answering questions appropriately, does not have any new or acute complaints. -Recommend CBC in 1 week to verify blood counts not dropping -Please follow-up with gastroenterology upon discharge due to possible microscopic blood in stool. Please call their office to schedule hospital follow-up appointment upon discharge. -Would recommend following up with your quality officer on an outpatient basis due to your uterine prolapse bleeding -Follow-up with your primary care physician for further imaging and/or workup of the left upper lobe mass and referral to subspecialist if desired -You have been started on metoprolol for fast heart rate and this is significantly improved, you will be discharged on this medication Physical Exam Narrative General: Resting comfortably, sitting up on potty chair HEENT: Atraumatic, normocephalic Eyes: Patient with some subconjunctival hemorrhage on right eye after coughing, extraocular movements grossly intact, no significant changes Neck: Supple Respiratory: Normal respiratory effort, no significant wheezes or rhonchi Cardiovascular: Regular rate GI: Soft, nontender, nondistended Extremities: No significant pitting edema Musculoskeletal: Moving all extremities Neuro: No overt focal neurological deficits Skin: No rashes appreciated Psych: Cooperative Weight / BMI Weight Weight: 76.4 kg Body Mass Index (BMI) 29.8 ABG / Lab / Microbiology Data 04/27/24 04:53 04/27/24 04:53 Laboratory: Laboratory Results - last 24 hr 04/27/24 04:53: WBC 4.9, RBC 3.55 L, Hgb 10.3 L, Hct 33.8 L, MCV 95.2, MCH 29.0, MCHC 30.5 L, RDW Std Deviation 50.3 H, RDW Coeff of Francisco 14.3, Plt Count 167, MPV 10.7, Immature Gran % (Auto) 0.200, Neut % (Auto) 53.7, Lymph % (Auto) 38.7, [place] % (Auto) 6.4, Eos % (Auto) 0.6, Baso % (Auto) 0.4, Absolute Neuts (auto) 2.6, Absolute Lymphs (auto) 1.88, Nucleated RBC % 0, Sodium 138, Potassium 4.1, Chloride 108 H, Carbon Dioxide 24.0, Anion Gap 6, BUN 29 H, Creatinine 1.07 H, Estim Creat Clear Calc 39.68, Est GFR (MDRD) Af Amer 63, Est GFR (MDRD) Non-Af 52 L, BUN/Creatinine Ratio 27.1 H, Glucose 138 H, Calcium 8.9 Microbiology: Microbiology 04/24/24 16:27 Blood Culture (Wb) - Right Hand Blood Culture - Preliminary No growth in 48 hours. 04/24/24 16:20 Blood Culture (Wb) - Left Hand Blood Culture - Preliminary No growth in 48 hours. 04/25/24 15:45 Stool Stool Occult Blood (ALYSHA) - Final Occult Blood Positive 04/24/24 14:05 Mucosa - Nasopharyngeal Respiratory Panel (PCR) - Final Influenza A (Subtype H1) D/C Instructions DC O2, CPAP, BIPAP Needs Home O2 Discharge instructions: No Meaningful Use Info Meaningful Use Meaningful Use Diagnoses (Choose all that apply): None applicable Ischemic Stroke Statin Dosing Therapy Reference: STATIN DOSE THERAPY REFERENCE: * Patients > 75 years receive moderate or high dose statin therapy. * Patients 75 years or YOUNGER should receive HIGH intensity statin dose unless contraindicated. You will be required to document reason for non-treatment if statin daily dose does not meet guidelines. HIGH DOSE STATIN THERAPY DAILY Atorvastatin > than or = to 40 mg Rosuvastatin > than or = to 20 mg Amlodipine + Atorvastatin > than or = to 2.5/40 mg Ezetimibe + Simvastatin 10/80 mg Simvastatin 80mg Discharge Plan Admission Admit Date/Time: 04/21/24 14:26 Primary Reason for Your Visit: Right foot pain Attending Provider: Virgen Freitas Primary Care Provider: Susan Singer Consulting Providers: Virgen Freitas; Diana Little Instructions Patient Instructions: ED Fall Prevention Additional Instructions / Restrictions: DISCHARGE INSTRUCTIONS PLEASE READ *Please take this with you to your next doctors appointment* -Recommend CBC in 1 week to verify blood counts not dropping -Please follow-up with gastroenterology upon discharge due to possible microscopic blood in stool. Please call their office to schedule hospital follow-up appointment upon discharge. -Would recommend following up with your quality officer on an outpatient basis due to your uterine prolapse bleeding -Follow-up with your primary care physician for further imaging and/or workup of the left upper lobe mass and referral to subspecialist if desired -You have been started on metoprolol for fast heart rate and this is significantly improved, you will be discharged on this medication -Please call your primary care provider's office upon discharge to schedule a hospital follow up within 1 week. -For any concerning signs or symptoms please call 911 or proceed to the nearest emergency department Discharge Orders/Prescriptions Prescriptions: New metoprolol tartrate 25 mg Tablet 25 mg PO BID 30 Days Qty: 0 0RF oseltamivir 30 mg Capsule 30 mg PO BID 2 Days Qty: 4 0RF Continued calcium carbonate [Calcium 500] 500 mg calcium (1,250 mg) tablet 1,000 mg PO DAILY ascorbic acid (vitamin C) 500 mg capsule 500 mg PO DAILY zinc 50 mg tablet 50 mg PO DAILY cholecalciferol (vitamin D3) 25 mcg (1,000 unit) tablet 25 mcg PO DAILY lisinopril 20 mg tablet 20 mg PO DAILY Qty: 90 3RF aspirin 81 MG tablet,chewable 81 mg PO DAILY Patient Comments: [facility] omeprazole 20 mg capsule,delayed release(DR/EC) 20 mg PO DAILY Qty: 90 2RF levothyroxine 100 mcg tablet 100 mcg PO DAILY Qty: 90 3RF paroxetine HCl 40 mg tablet 40 mg PO QHS Qty: 90 3RF (DME) spirometers and accessories Device See Rx Instructions .Route Qty: 1 0RF Rx Instructions: As directed. Incentive spirometer. Use 2-3 times per hour while awake as directed. Discontinued ciprofloxacin HCl 250 mg tablet 250 mg PO BID 5 Days Qty: 10 0RF Referrals / Follow Up: Susan Singer MD [Primary Care Provider] - Within 1 Week Hernandez Peacock DO [Med Staff - Active Staff] - (Recommend calling to establish care with Dr. Peacock on discharge due to microscopic blood seen in stool as you may need further evaluation) Disposition Disposition (needs filled in before D/C Order can be placed): [facility] Facility Charges/Coding Visit Charges Inpatient E&M: 20880 Disch Hosp >30min
--- NOTE | 2024-04-27 13:02 | CASEMGMT ---
Social Work Physician feels that pt is ready for discharge today.? PASRR form completed in [facility]. [facility] notified of discharge. Final discharge arrangements and notification to patient/family as per discharge assistant manager quality management.? Disposition:[facility], skilled level of care under convalescent stay. LUANN Ponce
--- NOTE | 2024-04-27 13:19 | CASEMGMT ---
Discharge orders, signed med list, and transport time sent to [facility]. Physicians will transport patient by wheelchair at 1:45p. Nursing, SW, pt, and her daughter (Ary) updated. Myla Scales DC Planning Asst.
== END 2024-04-27 14:11 | disposition skilled nursing facility (03) | DRG 603 ==
LOC: ED 17:28 → MS3 18:14
PROVIDERS: Student in an Organized Health Care Education/Training Program; Admitting Provider Internal Medicine; Emergency Provider Emergency Medicine; PCP Internal Medicine; Visit Provider Internal Medicine
DX: L03.115 Cellulitis of right lower limb (principal); E03.9 Hypothyroidism, unspecified; G30.9 Alzheimer's disease, unspecified; I10 Essential (primary) hypertension; F32.A Depression, unspecified; J10.1 Influenza due to other identified influenza virus with other respiratory manifestations; K21.9 Gastro-esophageal reflux disease without esophagitis; R19.5 Other fecal abnormalities; F41.9 Anxiety disorder, unspecified; F02.80 Dementia in other diseases classified elsewhere, unspecified severity, without behavioral disturbance, psychotic disturbance, mood disturbance, and anxiety; N93.8 Other specified abnormal uterine and vaginal bleeding; N81.3 Complete uterovaginal prolapse; R91.8 Other nonspecific abnormal finding of lung field; R00.0 Tachycardia, unspecified; R09.02 Hypoxemia; Z79.82 Long term (current) use of aspirin; Z79.890 Hormone replacement therapy; Z79.899 Other long term (current) drug therapy; Z86.16 Personal history of COVID-19; Z87.891 Personal history of nicotine dependence
CPT/HCPCS: 36415; 71275; 73590; 73610; 73630; 80048; 80053; 81001; 82274; 83605; 83735; 84443; 84550; 85025; 87040; 87633; 93005; 93971; 94640; 94668; 97116; 97162; 97166; 97530; 97535; 97802; 97803; 99285; P9612; Q9967; A4216; J0295; J2405

== ENCOUNTER 2024-04-30 20:32 | Emergency (ER) | payer MEDICARE, BC, SELFPAY ==
[2024-04-30 20:33] VITALS: BP 151/73; PULSE 78; RESP 18; TEMP 36.6; O2SAT 96; BMI 30.2
[2024-04-30 20:36] VITALS: BP 151/73; PULSE 78; RESP 18; TEMP 36.6; O2SAT 96
--- NOTE | 2024-04-30 20:42 | EX.ED.DYSGE1 ---
HPI History of Present Illness Chief Complaint: Lower Extremity Injury [facility] Medical History Depression Hypertension Migraines Contusion of left chest wall Left upper lobe pulmonary nodule Ectopic heartbeats Wears glasses Thyroid disease Heartburn Gastric reflux Former smoker COVID-19 Alzheimer disease Urinary incontinence concurrent with and due to female genital prolapse History of shingles Vision problem Headache, chronic migraine without aura History of gallstones Cataract Home Medications ?Medication ?Instructions ?Recorded ?Last Taken ?Type aspirin 81 mg chewable tablet 81 mg PO DAILY [facility] 05/28/14 04/21/24 History calcium carbonate (Calcium 500) 1,000 mg PO DAILY 07/19/20 04/20/24 History ascorbic acid (vitamin C) 500 mg 500 mg PO DAILY 02/15/21 04/20/24 History capsule zinc 50 mg tablet 50 mg PO DAILY 02/15/21 04/20/24 History omeprazole 20 mg capsule,delayed 20 mg PO DAILY #90 caps 09/06/22 04/20/24 Rx release cholecalciferol (vitamin D3) 25 25 mcg PO DAILY 06/05/23 04/21/24 History mcg (1,000 unit) tablet levothyroxine 100 mcg tablet 100 mcg PO DAILY thyroid #90 tabs 01/14/24 04/21/24 Rx lisinopril 20 mg tablet 20 mg PO DAILY #90 tabs 01/21/24 04/21/24 Rx paroxetine HCl 40 mg tablet 40 mg PO QHS DEPRESSION #90 tabs 01/26/24 04/20/24 Rx spirometers and accessories #1 ea 04/01/24 Unknown Rx metoprolol tartrate 25 mg tablet 25 mg PO BID 30 days #0 tabs 04/27/24 Unknown Rx oseltamivir 30 mg capsule 30 mg PO BID 2 days #4 caps 04/27/24 Unknown Rx Allergy/AdvReac Type Severity Reaction Status Date / Time Influenza Virus Vaccines Allergy Other Verified 04/30/24 20:37 morphine Allergy Other Verified 04/30/24 20:37 Family History Daughter Anxiety Depression Lupus Sister Colon cancer Surgical History History of colonoscopy History of esophagogastroduodenoscopy (EGD) History of cataract removal with insertion of prosthetic lens Social History Smoking Status: Former smoker alcohol intake: never substance use type: does not use what type of physical activity do you participate in: none EXAM Physical Exam Const Vital Signs: 04/30/24 20:33 04/30/24 20:36 Temperature 97.9 F 97.9 F Temperature Source Oral Oral Pulse Rate 78 78 Respiratory Rate 18 18 Blood Pressure 151/73 H 151/73 H Blood Pressure Mean 99 99 Pulse Ox 96 96 Oxygen Delivery Method Room Air Room Air MDM MDM MDM Narrative Medical decision making narrative: HISTORY OF PRESENT ILLNESS: 83-year-old female presents with concern for blister on the top of her left foot. She notes he has history of cellulitis. Notes her friend was concerned. The patient further states there has been no trauma. No fever. No vomiting. No pain. There is redness and warmth noted to the left foot REVIEW OF SYSTEMS: Pertinent positives: Left foot blister Pertinent negatives: Fever PHYSICAL EXAM: Nursing triage notes reviewed, Vital signs reviewed Constitutional: please see mdm Extremities: No edema Neuro: Intact sensation L1-S1 dermatomal distributions. Intact 5/5 strength in hip flexion (T12-L3). Knee extension (L2-L4). Ankle dorsiflexion (L4-L5). Ankle plantar flexion (S1). Great toe extension (L5). 2+ patellar and Achilles DTRs. Skin: Confluent erythema noted to the dorsal surface of left foot proximally from the toes to the midfoot. There is a large blister approximately 4 x 4 cm containing clear fluid. There is no crepitus. There is no pain on forced exam. The left foot is slightly more warm than the right. There is no obvious purulent drainage. MEDICAL DECISION MAKING: Chief Complaint: Left foot blister External records reviewed: Reviewed prior ED note. Seen for concern for her right foot on 04/21/2024. Diagnosis cellulitis of right lower extremity. Factors affecting care: Dementia Social determinants of health: elderly History obtained from others: EMS Consults: none CODE STATUS question: DNR CCA MDM Narrative: The patient was initially hemodynamically stable, afebrile and nontoxic-appearing. Exam with concern for left foot cellulitis complicated by blister. There is no definitive clinical evidence of necrotizing fasciitis. Patient's vitals were Within normal limits. She did not appear ill or toxic. She denied pain out of portion exam and there is no crepitus. There is no rapid progression I considered the following differential diagnosis: Cellulitis, necrotizing fasciitis I suspect the patient is suffering from cellulitis. I applied let and obtained a small fluid sample to send for culture. Will start the patient on doxycycline. The patient and/or family, caregivers express understanding. The patient and/or family, caregivers agrees with the plan. Shared decision making: I will have a discussion with the patient and or visitors regarding risk/benefits of further testing or admission. They will be made aware of of the risk/benefits inherent in this decision they will be given the opportunity to voice understanding. Total critical care time today provided was at least 0 minutes. This excludes separately billable procedures. Critical care time (if documented) is secondary to the patient having high probability of clinically significant/life threatening deterioration in the patient's condition which required my urgent intervention. Impression: 1. Left foot cellulitis 2. Left foot blister Dispo: Discharge home This note was generated with [employer] dictation software. It may contain incorrect words, spelling, and punctuation that were not noted in review of the chart prior to signing. Discharge Plan Triage Chief Complaint: Lower Extremity Injury ED Provider: Luiz Davila Dx/Rx/DC Orders Prescriptions: No Action calcium carbonate [Calcium 500] 500 mg calcium (1,250 mg) tablet 1,000 mg PO DAILY ascorbic acid (vitamin C) 500 mg capsule 500 mg PO DAILY zinc 50 mg tablet 50 mg PO DAILY cholecalciferol (vitamin D3) 25 mcg (1,000 unit) tablet 25 mcg PO DAILY lisinopril 20 mg tablet 20 mg PO DAILY Qty: 90 3RF aspirin 81 MG tablet,chewable 81 mg PO DAILY Patient Comments: [facility] omeprazole 20 mg capsule,delayed release(DR/EC) 20 mg PO DAILY Qty: 90 2RF metoprolol tartrate 25 mg Tablet 25 mg PO BID 30 Days Qty: 0 0RF oseltamivir 30 mg Capsule 30 mg PO BID 2 Days Qty: 4 0RF levothyroxine 100 mcg tablet 100 mcg PO DAILY Qty: 90 3RF paroxetine HCl 40 mg tablet 40 mg PO QHS Qty: 90 3RF (DME) spirometers and accessories Device See Rx Instructions .Route Qty: 1 0RF Rx Instructions: As directed. Incentive spirometer. Use 2-3 times per hour while awake as directed. Primary Care Provider: Susan Singer Referrals: Susan Singer MD [Primary Care Provider] - Print Language: Norwegian
[2024-04-30] MEDS: Lidocaine/Epi/Tetracaine 50 ML 1 APPLIC TOPICAL (21:05)
[2024-04-30] MEDS: Doxycycline 100 MG CAPSULE PO (21:57)
--- NOTE | 2024-04-30 22:32 | ED.RN ---
This RN [facility] Updated worker pt is discharged and on the way back to facility with daughter and updated on pt's treatment and care summary. Worker said pt's nurse is unavailable at this time and will forward info to nurse when she becomes available.
== END 2024-04-30 22:29 | disposition home or self-care (01) ==
PROVIDERS: Emergency Provider Emergency Medicine; PCP Internal Medicine; Visit Provider Emergency Medicine
DX: S90.822A Blister (nonthermal), left foot, initial encounter (principal); G30.9 Alzheimer's disease, unspecified; F02.80 Dementia in other diseases classified elsewhere, unspecified severity, without behavioral disturbance, psychotic disturbance, mood disturbance, and anxiety; X58.XXXA Exposure to other specified factors, initial encounter; L03.116 Cellulitis of left lower limb; I10 Essential (primary) hypertension; Z79.899 Other long term (current) drug therapy; Z86.16 Personal history of COVID-19; Z87.891 Personal history of nicotine dependence
CPT/HCPCS: 87070; 87205; 99284

== ENCOUNTER 2024-05-01 20:51 | Emergency (ER) | payer MEDICARE, BC, SELFPAY ==
[2024-05-01 20:52] VITALS: BP 167/72; PULSE 76; RESP 18; TEMP 37; O2SAT 96
[2024-05-01 20:55] VITALS: BP 167/72; PULSE 74; RESP 18; TEMP 37; O2SAT 97
--- NOTE | 2024-05-01 21:06 | EDS_ITS ---
HPI <MICHAEL Jacobs - Last Filed: 05/01/24 21:50> History of Present Illness Chief Complaint: Wound Narrative Narrative: Patient is an 83-year-old female with history of hypothyroidism, Alzheimer's atrial fibrillation who currently lives at the [facility]. Patient was seen here yesterday for blisters to the left foot, patient was placed on doxycycline. Patient today has a another blister to the top of the left foot, as well as some redness to the right foot. The family is concerned because it seems that the infection is moving over to the right foot and getting worse. Patient denies any significant pain, denies any fever chills. PFS <MICHAEL Jacobs - Last Filed: 05/01/24 21:50> [facility] Medical History (Updated 05/01/24 @ 22:[address] Francis Dill, DO) Depression Hypertension Migraines Contusion of left chest wall Left upper lobe pulmonary nodule Ectopic heartbeats Wears glasses Thyroid disease Heartburn Gastric reflux Former smoker COVID-19 Alzheimer disease Urinary incontinence concurrent with and due to female genital prolapse History of shingles Vision problem Headache, chronic migraine without aura History of gallstones Cataract Home Medications ?Medication ?Instructions ?Recorded ?Last Taken ?Type aspirin 81 mg chewable tablet 81 mg PO DAILY heart hea lth 05/28/14 04/21/24 History calcium carbonate (Calcium 500) 1,000 mg PO DAILY 07/0104/20/24 History ascorbic acid (vitamin C) 500 mg 500 mg PO DAILY 02/1504/20/24 History capsule zinc 50 mg tablet 50 mg PO DAILY 02/15/2104/03 History omeprazole 20 mg capsule,delayed 20 mg PO DAILY #90 ca ps 09/06/22 04/20/24 Rx release cholecalciferol (vitamin D3) 25 25 mcg PO DAILY 04/21/24 History mcg (1,000 unit) tablet levothyroxine 100 mcg tablet 100 mcg PO DAILY thyroid #90 tabs 01/14/24 04/21/24 Rx lisinopril 20 mg tablet 20 mg PO DAILY #90 tabs 1104/21/24 Rx paroxetine HCl 40 mg tablet 40 mg PO QHS DEPRESSION #9 0 tabs 01/26/24 04/20/24 Rx spirometers and accessories #1 ea 04/01/24 Unknown Rx metoprolol tartrate 25 mg tablet 25 mg PO BID 30 days #0 tabs 04/27/24 Unknown Rx oseltamivir 30 mg capsule 30 mg PO BID 2 days #4 caps 04/27/24 Unknown Rx doxycycline monohydrate 100 mg 100 mg PO BID #14 CAPSU LES 04/30/24 Unknown Rx capsule Allergy/AdvReac Type Severity Reaction Status Date / Time Influenza Virus Vaccines Allergy Other Verified 05/01/24 20:51 morphine Allergy Other Verified 05/01/24 20:51 Family History Daughter Anxiety Depression Lupus Sister Colon cancer Surgical History History of colonoscopy History of esophagogastroduodenoscopy (EGD) History of cataract removal with insertion of prosthetic lens Social History Smoking Status: Former smoker alcohol intake: never substance use type: does not use what type of physical activity do you participate in: none ROS <MICHAEL Jacobs - Last Filed: 05/01/24 21:50> ROS ED ROS Narrative Constitutional: Negative for fever, chills, weight loss, weakness Eyes: Negative for vision loss, vision change, double vision ENT: Negative for any sore throat, ear pain, congestion Cardiovascular: Negative for any chest pain, tightness, palpitations Respiratory: Negative for any cough, sputum production, hemoptysis, dyspnea, dyspnea on exertion, orthopnea Gastrointestinal: Negative for any abdominal pain, nausea, vomiting, diarrhea, constipation, blood in stool, blood in vomit : Negative for any urinary frequency, dysuria, retention, blood in urine Muscle skeletal: Negative for any neck pain, back pain. Positive for pain to the left foot, redness of the right foot Neurological: Negative for any headache, syncope, dizziness Skin: Negative for any rashes, itching, abrasions, lacerations. Positive blister at the top the left foot Psychiatric: Negative for any depression, anxiety, stress, suicidal ideation, homicidal ideation Hematologic: Negative for any excessive bruising, easy bleeding EXAM <MICHAEL Jacobs - Last Filed: 05/01/24 21:50> Physical Exam Narrative Exam Narrative: Vital signs reviewed. HEET: Head normocephalic atraumatic, TMs clear bilaterally. Posterior pharynx is clear, moist mucous membranes. Nares clear bilaterally. Neck: Supple with no lymphadenopathy or tenderness. No signs of meningismus. Cardiac: Regular rate and rhythm no murmurs gallops or rubs, equal peripheral pulses bilaterally. Respiratory: Lungs clear to auscultation bilaterally. No chest tenderness. Abdomen: Soft, nontender, nondistended. No abdominal bruit or pulsatile masses. No hepatosplenomegaly Extremities: Patient on the dorsal aspect of the left foot shows slight erythema, there is a large fluid-filled blister this goes along all the base of the toes. There is also a another blister on the great toe more towards the midline. Right foot does seem to be more erythematous, more swollen. This is warm to the touch. This considered a cellulitis. Neuro: Cranial nerves II through XII intact, no focal neurological deficits. Skin: Clean dry and intact with no rash, purpura, petechiae, vesicles or pustules. Backs/flank: No CVA tenderness, no midline spinal tenderness, no deformity. Psych: Normal mood and affect. No SI, HI or acute psychosis. Const Vital Signs: 05/01/24 20:52 05/01/24 20:55 Temperature 98.6 F 98.6 F Temperature Source Temporal Temporal Pulse Rate 76 74 Respiratory Rate 18 18 Blood Pressure 167/72 H 167/72 H Blood Pressure Mean 103 103 Pulse Ox 96 97 Oxygen Delivery Method Room Air Room Air <Dr. Francis Dill DO - Last Filed: 05/01/24 22:32> Physical Exam Const Vital Signs: 05/01/24 20:52 05/01/24 20:55 Temperature 98.6 F 98.6 F Temperature Source Temporal Temporal Pulse Rate 76 74 Respiratory Rate 18 18 Blood Pressure 167/72 H 167/72 H Blood Pressure Mean 103 103 Pulse Ox 96 97 Oxygen Delivery Method Room Air Room Air [facility] <PETTY JacobsC - Last Filed: 05/01/24 21:50> [facility] Lab Data Labs: Laboratory Results - last 24 hr 05/01/24 21:24 WBC 7.9 RBC 3.90 L Hgb 11.3 L Hct 36.4 L MCV 93.3 MCH 29.0 MCHC 31.0 L RDW Std Deviation 49.3 H RDW Coeff of Francisco 14.6 Plt Count 229 MPV 11.7 Immature Gran % (Auto) 0.600 Neut % (Auto) 62.3 Lymph % (Auto) 30.3 [place] % (Auto) 5.9 Eos % (Auto) 0.6 Baso % (Auto) 0.3 Absolute Neuts (auto) 4.9 Absolute Lymphs (auto) 2.40 Nucleated RBC % 0 Sodium 140 Potassium 4.2 Chloride Direct 106 Carbon Dioxide 21.2 L Anion Gap 12 BUN 15 Creatinine 0.98 Est GFR (MDRD) Non-Af 58 L BUN/Creatinine Ratio 15.5 Glucose 139 H Lactic Acid 1.9 Calcium 9.0 Treatment and Re-Evaluation :: Differential diagnosis includes however is not limited to: Cellulitis, abscess, septicemia, failed outpatient therapy Patient appears generally well, vital signs are stable, patient is nontoxic- appearing. Presenting to the emergency department for reevaluation for blister to the left foot as well as some worsening redness of the right foot. Patient received some basic laboratory values including CBC CMP lactic acid. Patient will receive IV Unasyn. <Dr. Francis Dill, DO - Last Filed: 05/01/24 22:32> [facility] Narrative Medical decision making narrative: I have personally performed a face to face assessment of the patient and have reviewed the LACIE Note. I performed a substantive portion of the visit including all aspects of the following. My arthur findings include: History: Patient presents with redness and swelling to her right foot that became worse tonight. Patient was seen here last night for cellulitis of her left foot. Patient was started on doxycycline last night. Family is concerned that the cellulitis is now spreading to the right foot. Patient denies any fevers or chills. Family states that the blisters on the dorsum of the left foot have not gotten any better but have not gotten any worse. Patient denies any paresthesias or weakness. Exam: Vital signs are stable except for mildly elevated blood pressure 167/72. Patient is afebrile. Patient is in no acute distress. Skin is warm and dry. There is erythema and warmth over the right forefoot and midfoot. There are no vesicles or pustules noted. There is some mild erythema and warmth over the distal metatarsals of the left foot. There is a large bulla noted on the dorsal surface of the left foot and left great toe. There is no active discharge or drainage. Sensation was intact to light touch in all digits. Capillary refill was less than 2 seconds in all digits. Medical Decision Making: Differential diagnosis includes cellulitis, bullous impetigo, and sepsis. CBC will be obtained to assess for leukocytosis and anemia. Basic metabolic profile will be obtained to assess for electrolyte abnormality and renal function. Serum lactate will be obtained to assess for sepsis. Patient was given a dose of Unasyn here. CBC was reviewed. There is a mild anemia with a hemoglobin of 11.3 hematocrit 36.4. This was unchanged compared to previous results. Basic metabolic profile was reviewed and was essentially within normal limits. Serum lactate was reviewed and was normal at 1.9. Patient and family were advised of the findings. Patient was instructed to keep her legs elevated. Patient was instructed to continue the doxycycline as prescribed. Patient was instructed to follow-up with her primary care physician in 3 to 5 days. Patient and family understood and were agreeable with plan. All questions were answered. Lab Data Labs: Laboratory Results - last 24 hr 05/01/24 21:24 WBC 7.9 RBC 3.90 L Hgb 11.3 L Hct 36.4 L MCV 93.3 MCH 29.0 MCHC 31.0 L RDW Std Deviation 49.3 H RDW Coeff of Francisco 14.6 Plt Count 229 MPV 11.7 Immature Gran % (Auto) 0.600 Neut % (Auto) 62.3 Lymph % (Auto) 30.3 [place] Francis % (Auto) 5.9 Eos % (Auto) 0.6 Baso % (Auto) 0.3 Absolute Neuts (auto) 4.9 Absolute Lymphs (auto) 2.40 Nucleated RBC % 0 Sodium 140 Potassium 4.2 Chloride Direct 106 Carbon Dioxide 21.2 L Anion Gap 12 BUN 15 Creatinine 0.98 Est GFR (MDRD) Non-Af 58 L BUN/Creatinine Ratio 15.5 Glucose 139 H Lactic Acid 1.9 Calcium 9.0 Discharge Plan Triage Chief Complaint: Wound ED Midlevel Provider: Partha Luna ED Provider: Francis Dill Dx/Rx/DC Orders Clinical Impression: Cellulitis, Essential hypertension Instructions: ED Cellulitis Prescriptions: No Action calcium carbonate [Calcium 500] 500 mg calcium (1,250 mg) tablet 1,000 mg PO DAILY ascorbic acid (vitamin C) 500 mg capsule 500 mg PO DAILY zinc 50 mg tablet 50 mg PO DAILY cholecalciferol (vitamin D3) 25 mcg (1,000 unit) tablet 25 mcg PO DAILY lisinopril 20 mg tablet 20 mg PO DAILY Qty: 90 3RF aspirin 81 MG tablet,chewable 81 mg PO DAILY Patient Comments: [facility] omeprazole 20 mg capsule,delayed release(DR/EC) 20 mg PO DAILY Qty: 90 2RF metoprolol tartrate 25 mg Tablet 25 mg PO BID 30 Days Qty: 0 0RF oseltamivir 30 mg Capsule 30 mg PO BID 2 Days Qty: 4 0RF doxycycline monohydrate 100 mg capsule 100 mg PO BID Qty: 14 0RF levothyroxine 100 mcg tablet 100 mcg PO DAILY Qty: 90 3RF paroxetine HCl 40 mg tablet 40 mg PO QHS Qty: 90 3RF (DME) spirometers and accessories Device See Rx Instructions .Route Qty: 1 0RF Rx Instructions: As directed. Incentive spirometer. Use 2-3 times per hour while awake as directed. Primary Care Provider: Partha Coulter Referrals: Susan Singer MD [Med Staff - [employer]] - 3-5 Days Partha Coulter MD [Primary Care Provider] - 3-5 Days Activity Restrictions/Additional Instructions: Keep legs elevated while at rest. Continue the doxycycline until gone. Print Language: Macedonian Disposition Disposition: Group Home Facility Discharge Location: [facility]
[2024-05-01] MEDS: Ampicillin/Sulbactam 3 GM in 0.9% Normal Saline (100mL MB+) 100 ML IV (21:32)
[2024-05-01 21:55] LABS: Absolute Neutrophil Count 4.9 X10^3/uL (2.0-7.7); Basophil# 0.02 X10^3/uL; Basophil% 0.3 % (0-1); Eosinophil# 0.05 X10^3/uL; Eosinophils% 0.6 % (0-5); Hematocrit 36.4 % (37-47); Hemoglobin 11.3 g/dL (12.0-15.0); Lymphocyte % 30.3 % (19-41); Mean Corpuscular Volume 93.3 fL (81-99); Mean Platelet Vol. 11.7 fl (6.2-12.0); Monocyte# 0.47 X10^3/uL; Monocyte% 5.9 % (0-10); NRBC Flagged by Analyzer 0 % (0-5); Neutrophil # 4.92 X10^3/uL (2.7-7.7); Neutrophil % 62.3 % (47-70); Platelet Count 229 K/mm3 (150-450); RBC Distribution Width CV 14.6 % (11.6-14.6); RBC Distribution Width SD 49.3 fl (35.1-43.9); White Blood Count 7.9 K/mm3 (4.4-11.0)
[2024-05-01 22:06] LABS: Anion Gap 12 (5-15); BUN 15 mg/dL (4-19); BUN/Creat Ratio 15.5 RATIO (10-20); Carbon Dioxide 21.2 mmol/L (22.0-29.0); Chloride 106 mmol/L (96-108); Creatinine, Serum 0.98 mg/dL (0.70-1.20); EST Glomerular Filtration Rate 58 (>60); Glucose 139 mg/dL (70-99); Potassium 4.2 mmol/L (3.3-5.1); Sodium Level 140 mmol/L (133-145)
[2024-05-01 22:07] LABS: Lactic Acid 1.9 mmol/L (0.0-2.0)
== END 2024-05-01 22:47 | disposition skilled nursing facility (03) ==
PROVIDERS: Nurse Practitioner; Emergency Provider Emergency Medicine; PCP Family Medicine; Visit Provider Emergency Medicine
DX: S90.822A Blister (nonthermal), left foot, initial encounter (principal); G30.9 Alzheimer's disease, unspecified; F02.80 Dementia in other diseases classified elsewhere, unspecified severity, without behavioral disturbance, psychotic disturbance, mood disturbance, and anxiety; X58.XXXA Exposure to other specified factors, initial encounter; L03.116 Cellulitis of left lower limb; I10 Essential (primary) hypertension; Z79.82 Long term (current) use of aspirin; Z79.899 Other long term (current) drug therapy; Z86.16 Personal history of COVID-19; Z87.891 Personal history of nicotine dependence
CPT/HCPCS: 80048; 83605; 85025; 96365; 99284; A4216; J0295

== ENCOUNTER 2024-06-26 11:37 | Emergency (ER) | payer MEDICARE, BC, SELFPAY ==
[2024-06-26 11:38] VITALS: BP 166/77; PULSE 113; RESP 18; TEMP 36.4; O2SAT 96; BMI 29.7
[2024-06-26 11:43] VITALS: O2SAT 97
--- NOTE | 2024-06-26 11:52 | EDS_ITS ---
<Statement entered by Ankit Fraire DO - 06/26/24 21:20> Patient was seen and examined with nurse practitioner Partha All components of the history and physical confirmed and agreed. History of present illness and physical exam: Patient is a 84-year-old female with past medical history dementia, hypothyroidism, hypercholesteremia who presented to the emergency department the chief complaint shortness of breath. Patient states that last evening she developed some shortness of breath. States that she had not been sleeping for the past few days due to difficulty of lying down without feeling very short of breath and states that when she gets up and moves around she feels very winded. Patient denies any recent travel or history of blood clots. Review of systems: Reviewed above Physical exam: Agree with above MDM: Patient is a 84-year-old female who presents to the emergency department the chief complaint of orthopnea, dyspnea on exertion. Once workup is obtained and reviewed she will be reevaluated. On the differential diagnose includes but not limited to CHF, pneumonia, pneumothorax, upper respiratory faction secondary viral etiology. Patient CBC reviewed and showed no evidence leukocytosis white blood count normal at 7.3, hemoglobin 11.4, platelet count was noted be 207. Patient's sodium was 130, potassium normal at 4.2, creatinine normal at 1.04. Patient troponin elevated at 31, proBNP was 10,346, TSH was 2.21. Patient's D-dimer was elevated to 0.99 and with age adjustment VTE still possible therefore CT angiography of the chest was still added on. Patient chest x-ray was reviewed by myself and by radiology which showed cardiomegaly without overt failure. Patient CTA of the chest was reviewed showed no evidence of pulmonary embolism there was some of the distal pulmonary arteries cannot be evaluated due to suboptimal opacification bilateral pleural effusions right side to greater. Patient's EKG reviewed by myself as well which showed sinus tachycardia with occasional PVCs with a rate of 110 bpm. Patient did get up and ambulate and her oxygen level dropped to 90% and she became tachycardic to 120. At this point time do believe the patient will warrant admission to the hospital therefore case was discussed with hospitalist Dr. Esposito. He came down and evaluated the patient and after discussion with the patient and family bedside is ultimately decided that she does not want to stay despite my conversation with her. It was decided that he will send prescriptions for metoprolol, Lasix and potassium and have close follow-up with her primary care physician and have an outpatient echocardiogram. She was advised to return with worsening symptoms and concerns. With shared decision making and ultimately the patient was discharged home in stable condition with instructions to return with worsening symptoms or concerns. Daughter at bedside was agreeable this plan. Patient presents with Final impression: Dyspnea on exertion Orthopnea Disposition: Patient will be discharged home in stable condition Supervising attending attestation: Ankit NORIEGA History of Present Illness Chief Complaint: Shortness of Breath Narrative Narrative: Patient 84-year-old female with history of some dementia, hypothyroidism, cholesterol who presents to the emergency department for shortness of breath. Patient states last evening, she developed shortness of breath. She states it is worse when she gets up and moving. She states she had trouble sleeping because she was so short of breath. Denies any recent surgery or travel. Denies any fever or chills. Patient has any sick contacts [facility] Medical History Depression Hypertension Migraines Contusion of left chest wall Left upper lobe pulmonary nodule Ectopic heartbeats Wears glasses Thyroid disease Heartburn Gastric reflux Former smoker COVID-19 Alzheimer disease Urinary incontinence concurrent with and due to female genital prolapse History of shingles Vision problem Headache, chronic migraine without aura History of gallstones Cataract Home Medications ?Medication ?Instructions ?Recorded ?Last Taken ?Type calcium carbonate (Calcium 500) 1,000 mg PO DAILY 07/0104/20/24 History ascorbic acid (vitamin C) 500 mg 500 mg PO DAILY 02/1504/20/24 History capsule zinc 50 mg tablet 50 mg PO DAILY 02/15/2104/03 History cholecalciferol (vitamin D3) 25 25 mcg PO DAILY 04/21/24 History mcg (1,000 unit) tablet levothyroxine 100 mcg tablet 100 mcg PO DAILY thyroid #90 tabs 01/14/24 04/21/24 Rx lisinopril 20 mg tablet 20 mg PO DAILY #90 tabs 01/0204/21/24 Rx paroxetine HCl 40 mg tablet 40 mg PO QHS DEPRESSION #9 0 tabs 01/26/24 04/20/24 Rx spirometers and accessories #1 ea 04/01/24 Unknown Rx metoprolol tartrate 25 mg tablet 25 mg PO BID 30 days #0 tabs 04/27/24 Unknown Rx acetaminophen 325 mg tablet 650 mg PO Q4H PRN pain 12/25 Unknown History (Tylenol) Allergy/AdvReac Type Severity Reaction Status Date / Time Influenza Virus Vaccines Allergy Other Verified 05/10/24 11:06 morphine Allergy Other Verified 05/10/24 11:06 Family History Daughter Anxiety Depression Lupus Sister Colon cancer Surgical History History of colonoscopy History of esophagogastroduodenoscopy (EGD) History of cataract removal with insertion of prosthetic lens Social History Smoking Status: Former smoker alcohol intake: never substance use type: does not use what type of physical activity do you participate in: none ROS ROS ED ROS Narrative Constitutional: Negative for fever, chills, weight loss. Positive for weakness Eyes: Negative for vision loss, vision change, double vision ENT: Negative for any sore throat, ear pain, congestion Cardiovascular: Negative for any chest pain, tightness, palpitations Respiratory: Negative for any cough, sputum production, hemoptysis. Positive for dyspnea, dyspnea on exertion, orthopnea Gastrointestinal: Negative for any abdominal pain, nausea, vomiting, diarrhea, constipation, blood in stool, blood in vomit : Negative for any urinary frequency, dysuria, retention, blood in urine Muscle skeletal: Negative for any neck pain, back pain Neurological: Negative for any headache, syncope, dizziness Skin: Negative for any rashes, itching, abrasions, lacerations Psychiatric: Negative for any depression, anxiety, stress, suicidal ideation, homicidal ideation Hematologic: Negative for any excessive bruising, easy bleeding EXAM Physical Exam Narrative Exam Narrative: Vital signs reviewed. Patient is alert and oriented however she is a poor informant, she is giving vague answers. HEET: Head normocephalic atraumatic, TMs clear bilaterally. Posterior pharynx is clear, moist mucous membranes. Nares clear bilaterally. Neck: Supple with no lymphadenopathy or tenderness. No signs of meningismus. Cardiac: Tachycardic rate no murmurs gallops or rubs, equal peripheral pulses bilaterally. Respiratory: Lungs clear to auscultation bilaterally. No chest tenderness. Abdomen: Soft, nontender, nondistended. No abdominal bruit or pulsatile masses. No hepatosplenomegaly Extremities: +1 pain edema to bilateral lower extremities no signs of gross trauma or deformity. Active full range of motion of all extremities. Neuro: Cranial nerves II through XII intact, no focal neurological deficits. Skin: Clean dry and intact with no rash, purpura, petechiae, vesicles or pustules. Backs/flank: No CVA tenderness, no midline spinal tenderness, no deformity. Psych: Normal mood and affect. No SI, HI or acute psychosis. Const Vital Signs: 06/26/24 11:38 06/26/24 11:43 06/26/24 13:23 Temperature 97.5 F L Temperature Source Oral Pulse Rate 113 H 114 H Respiratory Rate 18 17 Respiratory Effort Normal Non-Labored Respiratory Depth Normal Respiratory Pattern Normal Blood Pressure 166/77 H 173/92 H Blood Pressure Mean 106 119 Pulse Ox 96 96 Oxygen Delivery Method Room Air Room Air Room Air Positive well nourished and well developed General Appearance ED: well developed MDM MDM Lab Data Labs: Laboratory Results - last 24 hr 06/26/24 11:54 WBC 7.3 RBC 4.01 L Hgb 11.4 L Hct 37.0 MCV 92.3 MCH 28.4 MCHC 30.8 L RDW Std Deviation 53.7 H RDW Coeff of Francisco 15.9 H Plt Count 207 MPV 10.7 Immature Gran % (Auto) 0.300 Neut % (Auto) 67.5 Lymph % (Auto) 24.3 Barton % (Auto) 6.3 Eos % (Auto) 1.2 Baso % (Auto) 0.4 Absolute Neuts (auto) 4.9 Absolute Lymphs (auto) 1.77 Nucleated RBC % 0 D-Dimer Quant (PE/DVT) 0.99 H* Sodium 138 Potassium 4.2 Chloride 103 Carbon Dioxide 22.6 Anion Gap 12 BUN 16 Creatinine 1.04 Estim Creat Clear Calc 39.20 L Est GFR (MDRD) Non-Af 53 L BUN/Creatinine Ratio 15.6 Glucose 170 H Calcium 9.4 Troponin T [place] 31 [place] [address] H TSH 2.210 Radiography Diagnostic Testing: Clinical Impression(s) from Imaging Studies Chest X-Ray 06/26/24 12:00 IMPRESSION: Cardiomegaly without overt failure. Reading Location: [facility] Chest CTA 06/26/24 12:28 IMPRESSION: 1. No pulmonary embolism is identified. Some of the distal pulmonary arteries cannot be evaluated due to suboptimal opacification. 2. Bilateral pleural effusions, greater on the right. Reading Location: [facility] EKG Sinus tachycardia with occasional PVC: Attestation: I personally reviewed and interpreted this EKG as follows: Comments: Sinus tachycardia with occasional PVCs, rate of 110 bpm, TN interval 170 ms, QRS duration 78 ms, no acute ST elevation, no acute infarct noted. Treatment and Re-Evaluation :: Differential diagnosis includes however is not limited to: ACS, [place], CHF, PE, community-acquired pneumonia, anxiety, fluid overload Patient appears generally well, vital signs are stable, patient is nontoxic- appearing. Patient is slightly tachycardic however is not any distress. Patient able complete all sentences. Patient was given a full cardiac workup including a dimer. 2 troponins. Patient will receive a COVID flu RSV swab as well as a two-view chest x-ray. All radiologic examinations were read, reviewed by the emergency department attending. From these reads, a plan of care will be put in place.\ Patient's chest x-ray showed cardiomegaly without overt failure. Patient's laboratory values showed a stable anemia with a hemoglobin 11.4. Patient's chemistries showed a creatinine of 1.04 which is normal, patient has a troponin of 31 a repeat will be drawn. BNP was 10,346, significantly elevated, TSH withi n normal limits. Patient did receive a CT of the chest secondary to an elevated D-dimer. Patient had no pulmonary embolism. However there was some bilateral pleural effusions, greater on the right. Second of the patient being more short of breath on exertion, difficulty laying flat not sleeping, I do believe the patient would benefit from IV Lasix and admission to the hospital. I will reach out to the hospitalist. Patient agreeable. After speaking with the hospitalist, hospitalist did come down to evaluate the patient. There is a long discussion from the hospitalist and the patient, sh ared decision making, the patient we discharged home with medications of metoprolol, Lasix as well as potassium. Patient will follow-up closely with her PCP and have an outpatient echocardiogram. Patient was able to ambulate around the department did not drop low 90%. At this time, patient stable for discharge Discharge Plan Triage Chief Complaint: Shortness of Breath ED Midlevel Provider: Partha Luna ED Provider: Ankit Fraire Dx/Rx/DC Orders Clinical Impression: Acute dyspnea, Orthopnea, Fluid overload, Pleural effusion Prescriptions: No Action calcium carbonate [Calcium 500] 500 mg calcium (1,250 mg) tablet 1,000 mg PO DAILY ascorbic acid (vitamin C) 500 mg capsule 500 mg PO DAILY zinc 50 mg tablet 50 mg PO DAILY cholecalciferol (vitamin D3) 25 mcg (1,000 unit) tablet 25 mcg PO DAILY lisinopril 20 mg tablet 20 mg PO DAILY Qty: 90 3RF acetaminophen [Tylenol] 325 mg tablet 650 mg PO Q4H PRN (Reason: pain) metoprolol tartrate 25 mg Tablet 25 mg PO BID 30 Days Qty: 0 0RF levothyroxine 100 mcg tablet 100 mcg PO DAILY Qty: 90 3RF paroxetine HCl 40 mg tablet 40 mg PO QHS Qty: 90 3RF (DME) spirometers and accessories Device See Rx Instructions .Route Qty: 1 0RF Rx Instructions: As directed. Incentive spirometer. Use 2-3 times per hour while awake as directed. Primary Care Provider: Partha Coulter Referrals: Partha Coulter MD [Primary Care Provider] - Activity Restrictions/Additional Instructions: Take these medications as prescribed. Follow-up with your PCP Print Language: Korean Disposition Disposition: Home, Self Care
--- NOTE | 2024-06-26 12:00 | RAD_ITS ---
EXAM: XR Chest, 2 Views CLINICAL INDICATION: CHEST PAIN TECHNIQUE: Frontal and lateral views of the chest. COMPARISON: No relevant prior studies available. FINDINGS: LUNGS AND PLEURAL SPACES: Unremarkable. No consolidation. No pneumothorax. HEART: Cardiomegaly without overt failure. MEDIASTINUM: Unremarkable. Normal mediastinal contour. BONES/JOINTS: Unremarkable. No acute fracture. RAD/Chest PA and Lateral IMPRESSION: Cardiomegaly without overt failure. Reading Location: [id number]
[2024-06-26 12:09] LABS: Absolute Lymphocyte Count 1.77 X10^3/uL (0.83-4.51); Absolute Neutrophil Count 4.9 X10^3/uL (2.0-7.7); Basophil# 0.03 X10^3/uL; Basophil% 0.4 % (0-1); Eosinophil# 0.09 X10^3/uL; Eosinophils% 1.2 % (0-5); Hemoglobin 11.4 g/dL (12.0-15.0); Lymphocyte # 1.77 X10^3/ul (0.83-4.51); Lymphocyte % 24.3 % (19-41); Mean Corp Hgb Conc 30.8 g/dL (32-36); Mean Corpuscular Hgb 28.4 pg (27.0-32.0); Mean Corpuscular Volume 92.3 fL (81-99); Mean Platelet Vol. 10.7 fl (6.2-12.0); Monocyte# 0.46 X10^3/uL; Monocyte% 6.3 % (0-10); NRBC Flagged by Analyzer 0 % (0-5); Neutrophil % 67.5 % (47-70); Platelet Count 207 K/mm3 (150-450); RBC Distribution Width CV 15.9 % (11.6-14.6); RBC Distribution Width SD 53.7 fl (35.1-43.9); Red Blood Count 4.01 M/mm3 (4.2-5.4); White Blood Count 7.3 K/mm3 (4.4-11.0)
[2024-06-26 12:17] LABS: D-Dimer Quantitative (DVT/PE) 0.99 FEU/ug/m (0.27-0.49)
--- NOTE | 2024-06-26 12:28 | CT_ITS ---
EXAM: CT Angiography Chest Without and With Intravenous Contrast CLINICAL INDICATION: SHORTNESS OF BREATH TECHNIQUE: Axial computed tomographic angiography images of the chest without and with intravenous contrast. This CT exam was performed using one or more of the following dose reduction techniques: automated exposure control, adjustment of the mA and/or kV according to patient size, and/or use of iterative reconstruction technique. MIP reconstructed images were created and reviewed. COMPARISON: CTA Chest dated 04/24/2024 FINDINGS: LIMITATIONS: Suboptimal opacification of the pulmonary arteries. PULMONARY ARTERIES: No pulmonary embolism is identified. Some of the distal pulmonary arteries cannot be evaluated due to suboptimal opacification. AORTA: No acute findings. No thoracic aortic aneurysm. LUNGS AND PLEURAL SPACES: Lung emphysema/COPD. Bilateral pleural effusions, greater on the right. 2.4 cm nodule in the left upper lobe, unchanged. No consolidation. No pneumothorax. HEART: Cardiomegaly. No significant pericardial effusion. No evidence of RV dysfunction. BONES/JOINTS: Osseous structures stable. No acute fracture. No dislocation. SOFT TISSUES: Unremarkable. LYMPH NODES: Unremarkable. No enlarged lymph nodes. CT/CTA Chest W/WO Contrast IMPRESSION: 1. No pulmonary embolism is identified. Some of the distal pulmonary arteries cannot be evaluated due to suboptimal opacification. 2. Bilateral pleural effusions, greater on the right. Reading Location: [id number]
[2024-06-26 12:39] LABS: Anion Gap 12 (5-15); BUN 16 mg/dL (4-19); BUN/Creat Ratio 15.6 RATIO (10-20); Calcium,Total 9.4 mg/dL (7.6-11.0); Carbon Dioxide 22.6 mmol/L (21.0-32.0); Chloride 103 mmol/L (98-108); Creatinine, Serum 1.04 mg/dL (0.70-1.20); EST Glomerular Filtration Rate 53 (>60); Glucose 170 mg/dL (70-99); Potassium 4.2 mmol/L (3.3-5.1); Pro- Brain NATRIURETIC PEPTIDE 10346 pg/mL (<=1800); Sodium Level 138 mmol/L (133-145); Troponin T High Sensitivity 31 ng/L (<=14)
[2024-06-26 13:23] VITALS: BP 173/92; PULSE 114; RESP 17; O2SAT 96
[2024-06-26] MEDS: Furosemide 40 MG/4 ML Vial IV (13:29)
[2024-06-26 14:00] VITALS: O2SAT 97
--- NOTE | 2024-06-26 14:34 | PN.HOSP_ITS ---
Hospitalist Note Patient was seen and examined at the request of the emergency room physician at [facility] (Dr. Fraire), patient has been complaining of shortness of breath especially when laying flat at night when sleeping over the last 24 hours. Patient denies any chest pains, she lives with her daughter who is present in the room at the time my examination. Patient does have a history of dementia and hypertension, she used to be on a water pill at 1 time but this was stopped by her PCP due to a decline in kidney function according to the daughter. Patient has had trouble with edema in the legs before and in fact came to the ER 1 time with water blisters on a leg and was told that it was due to cellulitis. Workup in the emergency room included labs which showed a highly elevated beta natruretic peptide at 10,346, patient's chest x-ray showed cardiomegaly without evidence of janice congestive heart failure, CT of the chest was performed which excluded pulmonary emboli which showed bilateral pleural effusions worse on the right, there was noted to be COPD but no consolidation and no evidence of pulmonary edema, there was noted to be no evidence of RV dysfunction. Patient's troponin was slightly elevated at 31. EKG showed a sinus tachycardia with no evidence of ischemia. Patient's pulse ox at rest on room air was 96%, she was ambulated and according to the patient's daughter her pulse ox only went down to 90% on room air. I had a lengthy discussion with the patient and the patient's daughter, patient received 40 mg of Lasix IV in the emergency room and she has had 2 episodes of voiding since then. I gave the patient a choice of being admitted overnight for diuresis, I told her that I would be in in the morning and that if she was medically stable she would be discharged in the morning. I also gave her a choice of going home on medication, with close follow-up with her PCP Dr. Montiel. Patient will need an echocardiogram performed to assess her pumping function and valvular status. Patient preferred to be discharged home, daughter also agreed that this was okay. On examination, patient was tachycardic with a pulse rate of approximately 112, there was occasional PVCs noted, no evidence of atrial fib was noted. On examination, there were inspiratory rales at both lung bases more so on the rig ht, no expiratory or inspiratory wheezing was noted and there were no rhonchi noted. Patient was not using accessory muscles and did not seem to be in respiratory distress at rest. Examination of the heart revealed no murmurs, rubs, there was no S3 or S4 noted. Patient's lower extremities had generalized edema in the lower legs but this was not pitting edema. Patient was alert and seemed to understand the conversation, daughter understood that she needs further workup for the heart failure. The following prescriptions were called into [facility] in [place]: Metoprolol 25 mg twice daily-I told the patient's daughter to give her a dose this afternoon and then give her a dose this evening, furosemide 40 mg twice daily-I told the daughter to give her only 1 dose today at around 7:00 tonight, and potassium chloride 10 mEq two twice a day-start tonight and only give 1 dose. Patient is to follow-up with your PCP this Friday, I asked the daughter to let him know that she would need an echocardiogram scheduled. I believe the patient is stable to go home with medication adjustment at this time. I discussed the case with Dr. Fraire and he is okay with the patient going home on medication adjustment.
[2024-06-26 14:47] VITALS: BP 164/78; PULSE 110; RESP 24; TEMP 36.2; O2SAT 94
== END 2024-06-26 14:47 | disposition home or self-care (01) ==
PROVIDERS: Nurse Practitioner; Emergency Provider Emergency Medicine; PCP Family Medicine; Visit Provider Emergency Medicine
DX: J90 Pleural effusion, not elsewhere classified (principal); G30.9 Alzheimer's disease, unspecified; F02.80 Dementia in other diseases classified elsewhere, unspecified severity, without behavioral disturbance, psychotic disturbance, mood disturbance, and anxiety; I10 Essential (primary) hypertension; Z79.899 Other long term (current) drug therapy; Z86.16 Personal history of COVID-19; Z87.891 Personal history of nicotine dependence
CPT/HCPCS: 71046; 71275; 80048; 83880; 84443; 84484; 85025; 85379; 87631; 93005; 96374; 99285; Q9967; A4216; J1940

== ENCOUNTER → 2024-07-07 | Outpatient (CLI) | payer MEDICARE, BC, SELFPAY ==
[2024-07-07 12:40] LABS: Mucous, Urine 0 SEEN /hpf (<or=2+)
[2024-07-07 12:45] LABS: Anion Gap 13 (5-15); BUN 27 mg/dL (4-19); BUN/Creat Ratio 20.5 RATIO (10-20); Calcium,Total 9.7 mg/dL (7.6-11.0); Carbon Dioxide 26.2 mmol/L (21.0-32.0); Chloride 99 mmol/L (98-108); Creatinine, Serum 1.31 mg/dL (0.70-1.20); EST Glomerular Filtration Rate 40 (>60); Free T3 2.7 pg/mL (2.18-3.98); Glucose 122 mg/dL (70-99); Magnesium 2.2 mg/dL (1.5-2.2); Potassium 4.4 mmol/L (3.3-5.1); Pro- Brain NATRIURETIC PEPTIDE 5615 pg/mL (<=1800); Sodium Level 137 mmol/L (133-145)
[2024-07-07 13:16] LABS: Color, Urine Yellow (Yellow); Glucose, Dipstick Normal (Normal); Ketone-Dipstick Negative (Negative); Leukocyte Esterase-Dipstick 500 /ul (Negative); Nitrite-Dipstick Negative (Negative); Occult Blood-Urine 250 /ul (Negative); Protein-Dipstick Negative (Negative); Specific Gravity, Urine 1.015 (1.002-1.030); Urine Bilirubin Dipstick Negative (Negative); Urine Clarity Clear (Clear); Urine Urobilinogen Normal (Normal)
[2024-07-07 14:14] LABS: Squamous Epithelial Cells - UA 0-5 SEEN /hpf (5-10)
[2024-07-07 14:15] LABS: Bacteria 1+ /hpf (None Seen); Red Blood Cells-Urine 0-5 SEEN /hpf (0-5); White Blood Cells 5-10 SEEN /hpf (0-5)
== END | disposition home or self-care (01) ==
LOC: LAB 10:57
PROVIDERS: PCP Internal Medicine; Referring Provider Internal Medicine; Visit Provider Internal Medicine
DX: I50.9 Heart failure, unspecified (principal); E03.9 Hypothyroidism, unspecified; N39.0 Urinary tract infection, site not specified
CPT/HCPCS: 36415; 80048; 81001; 83735; 83880; 84439; 84443; 84481; 87077; 87086; 87088; 87186

== ENCOUNTER → 2024-07-12 | Outpatient (CLI) | payer MEDICARE, BC, SELFPAY ==
[2024-07-12 14:01] LABS: Color, Urine Straw (Yellow); Glucose, Dipstick Normal (Normal); Ketone-Dipstick Negative (Negative); Leukocyte Esterase-Dipstick Negative /ul (Negative); Nitrite-Dipstick Negative (Negative); Occult Blood-Urine 50 /ul (Negative); Protein-Dipstick 30 mg/dl (Negative); Urine Bilirubin Dipstick Negative (Negative); Urine Clarity Clear (Clear); Urine Urobilinogen Normal (Normal)
== END | disposition home or self-care (01) ==
LOC: LABSPEC 12:59
PROVIDERS: PCP Internal Medicine; Referring Provider Internal Medicine; Visit Provider Internal Medicine
DX: R30.0 Dysuria (principal); Z87.440 Personal history of urinary (tract) infections
CPT/HCPCS: 81002; 87086; 87088

== ENCOUNTER → 2024-09-01 | Outpatient (CLI) | payer MEDICARE, BC, SELFPAY ==
--- NOTE | 2024-09-01 13:52 | ECHOD_ITS ---
Reason For Study Reason For Study: CARDIOMYOPATHY Procedure This was a 2D Doppler, Color Flow transthoracic echocardiogram. Exam performed in department. Left Ventricle Normal LV size. Mild concentric left ventricular hypertrophy. The left ventricular ejection fraction is 45 %. Stage 1 diastolic dysfunction. There is mild to moderate global hypokinesis of the left ventricle. Right Ventricle Normal RV size. Normal systolic function. Atria Normal left atrium. Normal right atrium. Mitral Valve Bileaflet diffuse mitral valve thickening. Mild-Moderate (1-2+) eccentric mitral valve insufficiency. Tricuspid Valve Normal tricuspid valve. Mild tricuspid valve insufficiency. Pulmonary artery systolic pressure is 30 mmHg. Aortic Valve Trisinus/trileaflet aortic valve. Mild diffuse aortic valve thickening. Mild (1+) eccentric aortic valve insufficiency. Pulmonic Valve Normal pulmonic valve. Great Vessels Normal aortic root. The pulmonary artery is normal size. Inferior vena cava collapse with respiration. Pericardium/Pleural No pericardial effusion. MMode/2D Measurements & Calculations LVIDd: 4.7 cm IVSd: 1.2 cm LVOT diam: 1.8 cm LVIDs: 3.8 cm LVPWd: 1.2 cm LVOT area: 2.6 cm2 RVDd: 3.0 cm FS: 19.1 % LAV(MOD-bp): 35.0 ml LVAd ap4: 28.3 cm2 LVAd ap2: 28.7 cm2 LAV(MOD-bp) Indexed: 20.2 ml/m2 LVLd ap4: 7.9 cm LVLd ap2: 7.8 cm LAV(MOD-sp2): 35.4 ml EDV(MOD-sp4): 82.7 ml EDV(MOD-sp2): 88.1 ml LAV(MOD-sp4): 32.9 ml EDV(sp4-el): 85.6 ml EDV(sp2-el): 89.5 ml LVAs ap4: 19.7 cm2 LVAs ap2: 20.5 cm2 LVLs ap4: 7.3 cm LVLs ap2: 7.4 cm ESV(MOD-sp4): 44.9 ml ESV(MOD-sp2): 49.6 ml ESV(sp4-el): 45.0 ml ESV(sp2-el): 48.1 ml EF(MOD-sp4): 45.8 % EF(MOD-sp2): 43.7 % EF(sp4-el): 47.5 % SV(MOD-sp4): 37.9 ml SV(MOD-sp2): 38.5 ml SV(sp4-el): 40.6 ml SI(MOD-sp4): 21.8 ml/m2 SI(MOD-sp2): 22.2 ml/m2 Ao sinus diam: 3.[address] Junction: 2.7 cm LA A4 area: 13.5 cm2 LA dimension(2D): 3.9 cm TAPSE: 1.3 cm RA A4 area: 9.2 cm2 Time Measurements MV dec time: 0.22 sec Doppler Measurements & Calculations MV E max martir: 57.7 cm/sec Lat Peak E' Martir: 7.3 cm/sec Med Peak E' Martir: 5.8 cm/sec MV A max martir: 96.2 cm/sec E/E' lat: 7.9 E/E' med: 9.9 MV E/A: 0.60 MV dec slope: 262.4 cm/sec2 Ao V2 max: 100.6 cm/sec AI max martir: 358.2 cm/sec Ao max P.0 mmHg AI max P.4 mmHg Ao V2 mean: 74.4 cm/sec AI dec slope: 148.2 cm/sec2 Ao mean P.4 mmHg AI P1/2t: 707.9 msec Ao V2 VTI: 25.5 cm AV (velocity ratio): 0.68 AZUCENA(I,D): 1.7 cm2 AZUCENA(V,D): 1.8 cm2 LV V1 max: 68.8 cm/sec SV(LVOT): 44.1 ml PA V2 max: 63.4 cm/sec LV V1 max P.9 mmHg LV V1 mean P.2 mmHg LV V1 mean: 52.0 cm/sec LV V1 VTI: 17.2 cm TR max martir: 255.0 cm/sec TR max P.0 mmHg ECHO/Echo Complete Interpretation Summary Normal LV size. There is mild to moderate global hypokinesis of the left ventricle. Mild concentric left ventricular hypertrophy. The left ventricular ejection fraction is 45 %. Stage 1 diastolic dysfunction. Mild (1+) eccentric aortic valve insufficiency. Mild diffuse aortic valve thickening. Ordering Physician: Susan Singer Referring Physician: Susan Singer Performed By: Deana Tran RDCS and Student
== END | disposition home or self-care (01) ==
LOC: CVS 13:47
PROVIDERS: PCP Internal Medicine; Referring Provider Internal Medicine; Visit Provider Internal Medicine
DX: R06.02 Shortness of breath (principal); I50.9 Heart failure, unspecified; I42.9 Cardiomyopathy, unspecified
CPT/HCPCS: 93306

== ENCOUNTER → 2024-09-08 | Outpatient (CLI) | payer MEDICARE, BC, SELFPAY ==
--- NOTE | 2024-09-08 11:20 | RAD_ITS ---
EXAM: XR Chest, 2 Views CLINICAL INDICATION: CHF, EFFUSIONS TECHNIQUE: Frontal and lateral views of the chest. COMPARISON: No relevant prior studies available. FINDINGS: LUNGS AND PLEURAL SPACES: 1.5 cm pulmonary nodule of the left upper lobe. Hyperlucent lungs. Flattening of the diaphragm. No consolidation. No pneumothorax. HEART: Cardiomegaly without overt failure. MEDIASTINUM: Unremarkable. Normal mediastinal contour. BONES/JOINTS: Unremarkable. No acute fracture. RAD/Chest PA and Lateral IMPRESSION: 1. Cardiomegaly without overt failure. 2. 1.5 cm pulmonary nodule of the left upper lobe. 3. Suggestion of COPD. Reading Location: [facility]
[2024-09-08 11:23] LABS: Hematocrit 35.8 % (37-47); Hemoglobin 11.7 g/dL (12.0-15.0); Immature Granulocytes Count 0.030 X10^3/uL (0.0-0.0); Mean Corp Hgb Conc 32.7 g/dL (32-36); Mean Corpuscular Volume 90.2 fL (81-99); Mean Platelet Vol. 10.3 fl (6.2-12.0); NRBC Flagged by Analyzer 0 % (0-5); Platelet Count 218 K/mm3 (150-450); RBC Distribution Width CV 14.9 % (11.6-14.6); RBC Distribution Width SD 49.2 fl (35.1-43.9); Red Blood Count 3.97 M/mm3 (4.2-5.4); White Blood Count 7.6 K/mm3 (4.4-11.0)
[2024-09-08 12:42] LABS: AST(SGOT) 24 U/L (<=31); Alanine Aminotransfer ALT/SGPT 17 U/L (<=34); Albumin, Serum 3.4 g/dL (3.4-4.8); Alkaline Phosphatase 77 U/L (35-104); Anion Gap 11 (5-15); BUN 18 mg/dL (4-19); BUN/Creat Ratio 15.6 RATIO (10-20); Calcium,Total 9.2 mg/dL (7.6-11.0); Carbon Dioxide 24.3 mmol/L (21.0-32.0); Chloride 103 mmol/L (98-108); Globulin 4.7 g/dL (2.2-4.2); Glucose 136 mg/dL (70-99); Magnesium 2.1 mg/dL (1.5-2.2); Potassium 4.0 mmol/L (3.3-5.1); Pro- Brain NATRIURETIC PEPTIDE 2355 pg/mL (<=1800)
--- OUTSIDE RECORDS SUMMARY | 2024-09-09 04:35 | XMS RPT_ITS | CCD ---
Author Organization [facility] Care Team Providers Care Allied Health Professional Name Role Phone Dr. Teo Medley Primary Care Provider Dr. Teo Medley Attending Provider [phone] Dr. Teo Medley Referring Provider [phone] FRANK, MICHAEL Moser Attending Provider [phone] Dr. Xenia Aguilar Attending Provider [phone] Dr. Teo Medley Primary Care Provider Dr. Teo Medley Attending Provider [phone] Dr. Teo Medley Referring Provider [phone] Dr. Teo Medley Primary Care Provider Dr. Teo Medley Attending Provider Dr. Teo Medley Referring Provider Dr. Chau Ibarra Attending Provider [phone] Chau Ibarra Other Provider Dr. Teo Medley Primary Care Provider Dr. Teo Medley Referring Provider Dr. Chau Ibarra Attending Provider [phone] Teo Medley Attending Provider Dr. Teo Medley Primary Care Provider Dr. Teo Medley Attending Provider [phone] Teo Medley MD Primary Care Provider [phone] TEO MEDLEY Primary Care Unavailable MAR MARINELLI Referring Unavailable JOCELYN STREET Attending Unavailable Lucrecia LAMBERT, Dr. Davis Primary Care Provider Lucrecia LAMBERT, Dr. Davis Attending Provider Lucrecia LAMBERT, Dr. Davis Referring Provider Salvador LAMBERT, Dr. Blanco Attending Provider Adan JOLLEY, Dr. Ibarra Referring Provider Adan JOLLEY, Dr. Ibarra Emergency Provider Fortino LAMBERT, Dr. New Admit Provider Fortino LAMBERT, Dr. New Attending Provider Fortino LAMBERT, Dr. New Other Provider Sidney LAMBERT, Dr. Diana Mccormick Other Provider Sidney LAMBERT, Dr. Diana Mccormick Attending Provider Bruce LAMBERT, Dr. Kamala Romero Attending Provider Giovanni JOLLEY, Dr. Dee Attending Provider Giovanni JOLLEY, Dr. Dee Emergency Provider Yfn LAMBERT, Dr. Chavis Other Provider Dr. Francis Dill DO Attending Provider Aniyah JOLLEY, Dr. Blanco Emergency Provider Yfn LAMBERT, Dr. Cahvis Primary Care Provider [phone] Elma Lewis Attending Provider [phone] Peterson FRANK-CShanti Attending Provider Dr. Ankit Fraire DO Attending Provider Dr. Ankit Fraire DO Emergency Provider Dr. Sid Esposito DO Attending Provider Francis Dill Attending Unavailable Partha Coulter Primary Care Unavailable Teo Mdeley Referring Unavailable Partha Coulter Primary Care Unavailable Shanti Winkler NP Attending Unavailable Teo Medley Referring Unavailable Partha Coulter Primary Care Unavailable Elma Andrew Attending Unavailable Rolan Partida Attending Unavailable Lucrecia, Teo Primary Care Unavailable Lucrecia, Teo Attending Unavailable Lucrecia, Teo Primary Care Unavailable Lucrecia, Teo Attending Unavailable Lucrecia, Teo Primary Care Unavailable Rolo Miller Attending Unavailable Lucrecia, Teo Primary Care Unavailable Sid Esposito Attending Unavailable Yfn, Partha Primary Care Unavailable Francis Franco Attending Unavailable Lucrecia, Teo Primary Care Unavailable Stacey Arellano Referring Unavailable Virgen Freitas Attending Unavailable Lucrecia, Teo Primary Care Unavailable Virgen Freitas Admitting Unavailable Virgen Freitas Consulting Unavailable Koram, Diana Anny Consulting Unavailable Koram, Diana Anny Attending Unavailable Kamala Barrera Attending Unavailable LucreciaTeo Attending Unavailable Lucrecia, Teo Primary Care Unavailable LucreciaTeo Attending Unavailable Coulter, Partha Primary Care Unavailable Lucrecia, Teo Referring Unavailable Lucrecia, Teo Attending Unavailable Lucrecia, Teo Primary Care Unavailable Viregn Freitas Attending Unavailable Virgen Freitas Admitting Unavailable Lucrecia, Teo Primary Care Unavailable Virgen Freitas Consulting Unavailable Koram, Diana Anny Consulting Unavailable Lucrecia, Teo Primary Care Unavailable Lucrecia, Teo Attending Unavailable Lucrecia, Teo Referring Unavailable LucreciaTeo Attending Unavailable Lucrecia, Teo Primary Care Unavailable LucreciaTeo Attending Unavailable Lucrecia, Teo Referring Unavailable Lucrecia, Teo Primary Care Unavailable LucreciaJannetteen Attending Unavailable Lucrecia, Teo Referring Unavailable Lucrecia, Teo Primary Care Unavailable Lucrecia, Teo Referring Unavailable LucreciaTeo Attending Unavailable Lucrecia, Teo Primary Care Unavailable Lucrecia, Teo Attending Unavailable Lucrecia, Teo Primary Care Unavailable Lucrecia, Teo Referring Unavailable Lucrecia, Teo Primary Care Unavailable Lucrecia, Teo Attending Unavailable Lucrecia, Teo Referring Unavailable Lucrecia, Teo Primary Care Unavailable Mian Pierce Attending Unavailable Lucrecia, Teo Primary Care Unavailable Coulter, Partha Consulting Unavailable Luiz Davila Attending Unavailable Partha Coulter Primary Care Unavailable Ankit Fraire Attending Unavailable Lucrecia LAMBERT, Dr. Davis Referring Provider Dr. Partha Coulter MD Primary Care Provider [phone] Lucrecia LAMBERT, Dr. Davis Primary Care Provider Lucrecia LAMBERT, Dr. Davis Attending Provider Angela LAMBERT, Dr. Seth Attending Provider [phone] Allergies Allergy Classification Reported Allergen(s) Allergy Type Date of Onset Reaction(s) Facility (10 sources) Morphine Drug Allergy 05-23-2021 Other [facility] (1 source) FLU SHOT Allergy to substance 05-23-2021 Other [facility] Work Phone: (9 sources) Influenza Vaccines Allergy to substance 11-28-2021 Other [facility] Comment on above: GBS (1 source) Morphine Drug Allergy 07-07-2024 [facility] Repository (1 source) Influenza Virus Vaccines Drug allergy (disorder) 07-07-2024 [facility] Repository Medications Current Medications Medication Drug Class(es) Dates Sig (Normalized) Sig (Original) acetaminophen 325 mg oral tablet (3 sources) Start: 05-10-2024 take 2 tablets by mouth every four hours as needed for pain Acetaminophen (Tylenol) 325 mg tablet Active 650 mg PO Q4H as needed for pain May 10, 2024 12:00am acetaminophen 325 mg / oxyCODONE hydrochloride 5 mg oral tablet (1 source) Opioid Agonist take 1 tablet by mouth every four hours as needed oxyCODONE-acetamino phen (PERCOCET) 5-325 mg tablet Take 1 tablet by mouth every 4 hours as needed for Pain (low back pain). Active citalopram 40 mg oral tablet (1 source) Serotonin Reuptake Inhibitor Start: 03-17-2006 CITALOPRAM 40 MG TAB Take one(1) tablet daily. 0 03/17/2006 Active ferrous sulfate 325 mg oral tablet (1 source) Start: 02-10-2008 FERROUS SULFATE 325 MG (65 MG IRON) TAB Indications: Iron deficiency anemia, unspecified takes two tabs once daily 0 02/10/2008 Active furosemide 40 mg oral tablet (6 sources) Loop Diuretic Start: 07-07-2024 take 1 tablet by mouth once daily Furosemide 40 mg tablet Active 40 mg PO daily 90 July 07, 2024 1:30pm Start: 07-07-2024 End: 05-07-2025 take 1 tablet by mouth twice daily Furosemide 40 mg tablet Discontinued 40 mg PO TWICE A DAY July 07, 2024 12:00am July 07, 2024 1:30pm levothyroxine sodium 0.1 mg oral tablet (20 sources) l-Thyroxine Start: 01-14-2024 take 1 tablet by mouth once daily Levothyroxine 100 mcg tablet Active 100 ug PO DAILY 90 January 14, 2024 1:06pm thyroid Start: 05-24-2021 End: 01-14-2024 take 1 tablet by mouth once daily Levothyroxine 88 mcg tablet Discontinued 88 ug PO DAILY 90 July 29, 2023 11:45am January 14, 2024 1:06pm thyroid Start: 07-19-2020 End: 07-19-2020 take 1 tablet by mouth once daily Levothyroxine 88 mcg tablet Discontinued 88 ug PO DAILY 90 July 19, 2020 1:17pm July 19, 2020 2:00pm thyroid Start: 11-19-2016 End: 05-24-2021 take 1 tablet by mouth once daily Levothyroxine 75 mcg tablet Discontinued 75 ug PO DAILY 90 February 15, 2021 3:08pm May 24, 2021 8:05am thyroid lisinopril 20 mg oral tablet (20 sources) Angiotensin Converting Enzyme Inhibitor Start: 01-21-2024 take 1 tablet by mouth once daily Lisinopril 20 mg tablet Active 20 mg PO DAILY 90 January 21, 2024 3:37pm Start: 01-21-2023 End: 01-21-2024 take 1 tablet by mouth once daily Lisinopril 10 mg tablet Discontinued 10 mg PO DAILY 90 August 29, 2023 8:35pm January 21, 2024 3:38pm Start: 05-25-2019 End: 04-17-2022 take 1 tablet by mouth once daily Lisinopril 5 mg tablet Discontinued 5 mg PO DAILY 90 August 17, 2021 4:26pm April 17, 2022 8:54am BP meclizine hydrochloride 25 mg oral tablet (1 source) Antiemetic Start: 02-10-2008 MECLIZINE 25 MG TAB Indications: Iron deficiency anemia, unspecified Take one(1) tablet three times daily.prn dizzy 0 02/10/2008 Active metFORMIN hydrochloride 500 mg oral tablet (1 source) Biguanide Start: 11-08-2013 take 1 tablet by mouth once daily at breakfast metFORMIN (GLUCOPHAGE) 500 mg tablet Take 1 tablet by mouth daily with breakfast. 30 tablet 11 11/08/2013 Active metoprolol tartrate 25 mg oral tablet (6 sources) beta-Adrenergic Nichole Start: 07-07-2024 Metoprolol Tartrate 25 mg tablet Active 12.5 mg PO TWICE A DAY 90 July 07, 2024 1:28pm Start: 04-27-2024 End: 07-07-2024 take 1 tablet by mouth twice daily Metoprolol Tartrate 25 mg Tablet Discontinued 25 mg PO TWICE A DAY 0 30 April 27, 2024 1:00am July 07, 2024 1:30pm potassium chloride 10 meq extended release oral tablet (6 sources) Start: 07-07-2024 take 2 tablets by mouth once daily Potassium Chloride 10 mEq tablet extended release Active 20 meq PO daily 180 July 07, 2024 1:29pm Start: 07-07-2024 End: 07-07-2024 take 2 tablets by mouth twice daily Potassium Chloride 10 mEq tablet extended release Discontinued 20 meq PO TWICE A DAY July 07, 2024 12:00am July 07, 2024 1:30pm Spirometers [employer] Access[employer] device (3 sources) Start: 04-01-2024 Spirometers An d Accessories device Active 0 .Route 1 April 01, 2024 1:00am As directed. Incentive spirometer. Use 2-3 times per hour while awake as directed. Start: 04-01-2024 Spirometers An d Accessories device Active 0 .Route 1 April 01, 2024 1:00am As directed. Incentive spirometer. Use 2-3 times per hour while awake as directed. Zinc (10 sources) Start: 02-15-2021 take 50 mg by mouth once daily Zinc Active 50 MG PO DAILY February 15, 2021 2:30pm Start: 02-15-2021 End: 07-07-2024 take 1 tablet by mouth once daily Zinc 50 mg tablet Discontinued 50 mg PO DAILY February 15, 2021 1:00am July 07, 2024 9:28am Start: 02-15-2021 take 50 mg by mouth once daily Zinc Active 50 MG PO DAILY February 15, 2021 12:00am Start: 12-16-2021 take 50 mg by mouth once daily Zinc Active 50 MG PO DAILY February 15, 2021 1:00am Completed/Discontinued Medications Medication Drug Class(es) Dates Sig (Normalized) Sig (Original) acetaminophen 325 mg / HYDROcodone bitartrate 5 mg oral tablet (10 sources) Opioid Agonist Start: 05-25-2019 End: 05-28-2019 Hydrocodone-Acetamino phen 1 TABLET tablet Discontinued 1 {tbl} PO EVERY 6 HOURS NEEDED as needed for Pain 10 3 0 May 25, 2019 May 27, 2019 12:00am May 28, 2019 12:08am Hydronephrosis with urinary obstruction due to ureteral calculus Hydronephrosis with renal and ureteral calculous obstruction Start: 05-25-2019 End: 05-28-2019 take 1 tablet by mouth every six hours as needed Hydrocodone-Acetaminophen Discontinued 1 TABLET PO EVERY 6 HOURS NEEDED 10 3 May 25, 2019 May 28, 2019 12:08am ascorbic acid 500 mg oral capsule (10 sources) Vitamin C Start: 02-15-2021 End: 07-07-2024 take 1 capsule by mouth once daily Ascorbic Acid (Vitamin C) 500 mg capsule Discontinued 500 mg PO DAILY February 15, 2021 1:00am July 07, 2024 9:28am Start: 02-15-2021 Ascorbic Acid (Vitamin C) Active MG PO February 15, 2021 2:29pm aspirin 81 mg chewable tablet (10 sources) Platelet Aggregation Inhibitor, Nonsteroidal Anti-inflammatory Drug Start: 05-28-2014 End: 05-10-2024 take 1 tablet by mouth once daily Aspirin 81 MG tablet,chewable Discontinued 81 mg PO DAILY May 28, 2014 12:00am May 10, 2024 11:03am heart [facility] atorvastatin 40 mg oral tablet (11 sources) HMG-CoA Reductase Inhibitor Start: 05-25-2019 End: 07-19-2020 take 1 tablet by mouth at bedtime Atorvastatin 40 MG tablet Discontinued 40 mg PO AT BEDTIME May 25, 2019 12:00am July 19, 2020 8:48am CHOLESTEROL bisacodyl 10 mg rectal suppository (3 sources) Stimulant Laxative Start: 05-10-2024 End: 06-26-2024 Bisacodyl 10 mg suppository Discontinued 10 mg RC ONCE May 10, 2024 12:00am June 26, 2024 1:39pm calcium carbonate 1250 mg oral tablet (11 sources) Start: 07-19-2020 End: 07-07-2024 Calcium Carbonate (Calcium 500) 500 mg calcium (1,250 mg) tablet Discontinued 1000 mg PO DAILY July 19, 2020 12:00am July 07, 2024 9:28am Start: 07-19-2020 take 1 tablet by emil th once daily Calcium Carbonate (Calcium 500) 500 mg calcium (1,250 mg) tablet Active 500 MG PO DAILY July 19, 2020 8:47am Start: 03-12-2005 CHANTELLE-600 1,500 MG TAB TAKE 2 DAILY 0 03/12/2005 Active cholecalciferol 0.025 mg oral tablet (13 sources) Vitamin D Start: 06-05-2023 End: 07-07-2024 take 1 tablet by mouth once daily Cholecalciferol (Vitamin D3) 25 mcg (1,000 unit) tablet Discontinued 25 ug PO DAILY June 05, 2023 12:00am July 07, 2024 9:28am Start: 07-19-2020 End: 06-05-2023 take 1 capsule by mouth once daily Cholecalciferol (Vitamin D3) 10 mcg (400 unit) capsule Discontinued 10 ug PO DAILY July 19, 2020 12:00am June 05, 2023 2:27pm ciprofloxacin 250 mg oral tablet (6 sources) Quinolone Antimicrobial Start: 04-19-2024 End: 04-27-2024 take 1 tablet by mouth twice daily Ciprofloxacin Hcl 250 mg tablet Discontinued 250 mg PO TWICE A DAY 10 5 0 April 19, 2024 1:00am April 23, 2024 1:00am April 27, 2024 1:47pm Start: 12-05-2023 End: 12-10-2023 take 1 tablet by mouth twice daily Ciprofloxacin Hcl 250 mg tablet Discontinued 250 mg PO TWICE A DAY 10 5 0 December 05, 2023 12:00am December 09, 2023 12:00am December 10, 2023 12:08am doxycycline monohydrate 100 mg oral capsule (3 sources) Tetracycline-class Drug Start: 04-30-2024 End: 05-10-2024 take 1 capsule by mouth twice daily Doxycycline Monohydrate 100 mg capsule Discontinued 100 mg PO TWICE A DAY 14 0 April 30, 2024 1:00am May 10, 2024 11:04am hydroCHLOROthiazide 12.5 mg / lisinopril 10 mg oral tablet (15 sources) Thiazide Diuretic, Angiotensin Converting Enzyme Inhibitor Start: 04-17-2022 End: 01-21-2023 Lisinopril-Hydr ochlorothiazide 10-12.5 mg tablet Discontinued 1 {tbl} PO DAILY 90 October 21, 2022 10:04am January 21, 2023 5:00pm Start: 04-17-2022 End: 01-21-2023 take 1 tablet by mouth once daily Lisinopril-Hydrochlorothiazide Discontin ued 1 TABLET PO DAILY October 21, 2022 10:04am January 21, 2023 5:00pm Magnesium Hydroxide (3 sources) Start: 05-10-2024 End: 06-26-2024 take 1 mL by mouth once daily as needed Magnesium Hydroxide (Milk Of Magnesia) 400 mg/5 mL suspension Discontinued 5 mL PO daily as needed May 10, 2024 12:00am June 26, 2024 1:40pm omeprazole 20 mg delayed release oral capsule (9 sources) Proton Pump Inhibitor Start: 09-06-2022 End: 06-26-2024 take 1 capsule by mouth once daily Omeprazole 20 mg capsule,delayed release(DR/EC) Discontinued 20 mg PO DAILY September 06, 2022 12:00am June 26, 2024 1:41pm Start: 02-10-2008 omeprazole(KRISTA LOSEC 20 MG CAP) Indications: Iron deficiency anemia, unspecified Take one(1) capsule twice daily. 0 02/10/2008 Active ondansetron 4 mg disintegrating oral tablet (10 sources) Serotonin-3 Receptor Antagonist Start: 01-22-2021 End: 02-15-2021 take 1 tablet by mouth every eight hours as needed for nausea and vomiting Ondansetron 4 mg tablet,disintegrating Discontinued 4 mg PO Q8H as needed for nausea and vomiting 10 January 22, 2021 1:00am February 15, 2021 2:31pm oseltamivir 30 mg oral capsule (3 sources) Neuraminidase Inhibitor Start: 04-27-2024 End: 05-10-2024 take 1 capsule by mouth twice daily Oseltamivir 30 mg Capsule Discontinued 30 mg PO TWICE A DAY 4 2 April 27, 2024 1:00am May 10, 2024 11:04am PARoxetine hydrochloride 40 mg oral tablet (20 sources) Serotonin Reuptake Inhibitor Start: 05-25-2019 End: 01-26-2024 take 1 tablet by mouth at bedtime Paroxetine Hcl 40 mg tablet Discontinued 40 mg PO AT BEDTIME 90 3 October 21, 2022 10:04am January 26, 2024 5:11pm DEPRESSION traMADol hydrochloride 50 mg oral tablet (11 sources) Opioid Agonist Start: 05-28-2014 End: 05-29-2014 take 1 tablet by mouth every four hours as needed for pain Tramadol 50 MG tablet Discontinued 50 mg PO EVERY 4 HOURS NEEDED as needed for Pain May 28, 2014 12:00am May 29, 2014 2:48pm Start: 02-10-2008 tramadol hcl(U LTRAM 50 MG TAB) Indications: Iron deficiency anemia, unspecified Take one(1) tablet every four(4) to six(6) hours as needed for pain. 0 02/10/2008 Active Problems Active Problems Problem Classification Problem Date Documented Da te Episodic/Chronic Cardiac dysrhythmias (15 sources) Atrial fibrillation; Translations: [Unspecified atrial fibrillation] Onset: 4 12-04-2022 Chronic Congestive heart failure; nonhypertensive (7 sources) Congestive heart failure; Translations: [Heart failure, unspecified] Onset: 5 07-07-2024 Chronic Delirium, dementia, and amnestic and other cognitive disorders (8 sources) Alzheimer's disease; Translations: [Alzheimer's disease, unspecified] 06-05-2023 Chronic Disorders of lipid metabolism (18 sources) Hyperlipidemia Chronic Esophageal disorders (6 sources) Gastroesophageal reflux disease; Translations: [Gastro-esophageal reflux disease without esophagitis] Onset: 5 05-03-2024 Chronic Essential hypertension (20 sources) Essential hypertension; Translations: [Essential (primary) hypertension] Onset: Chronic Fever of unknown origin (11 sources) Fever; Translations: [Fever, unspecified] Onset: 4 01-16-2021 Episodic Fluid and electrolyte disorders (3 sources) Hypervolemia; Translations: [Fluid overload, unspecified] 07-04-2024 Episodic Genitourinary symptoms and ill-defined conditions (3 sources) Dysuria; Translations: [Dysuria] Onset: 5 07-13-2024 Episodic Headache; including migraine (3 sources) Headache; Translations: [Headache] 12-29-2023 Episodic Headache; including migraine (1 source) Headache; including migraine; Translations: [Headache, unspecified] Onset: Malaise and fatigue (6 sources) Asthenia; Translations: [Other malaise] Onset: 5 04-21-2024 Episodic Menopausal disorders (9 sources) Postmenopausal bleeding; Translations: [Postmenopausal bleeding] Onset: 5 03-20-2022 Chronic Comment on above: related to uterine p rolapse Nausea and vomiting (10 sources) Nausea; Translations: [Nausea] 01-30-2021 Episodic Nutritional deficiencies (1 source) Vitamin D deficiency, unspecified; Translations: [Vitamin D deficiency, unspecified] Onset: Chronic Other diseases of kidney and ureters (10 sources) Hydronephrosis co-occurrent and due to calculus of kidney and ureter; Translations: [Hydronephrosis with renal and ureteral calculous obstruction] 05-26-2019 Episodic Other gastrointestinal disorders (8 sources) Dysphagia; Translations: [Dysphagia, unspecified] 2022 Episodic Other gastrointestinal disorders (2 sources) Dysphagia, unspecified; Translations: [Dysphagia, unspecified] 2022 Episodic Other gastrointestinal disorders (8 sources) Occult blood in stools; Translations: [Other fecal abnormalities] 05-03-2024 Episodic Other hematologic conditions (9 sources) Increased serum protein level; Translations: [Abnormality of plasma protein, unspecified] 11-29-2021 Episodic Other hematologic conditions (9 sources) Increased globulin; Translations: [Abnormality of globulin] 11-29-2021 Episodic Other injuries and conditions due to external causes (5 sources) History of fall; Translations: [History of falling] 06-05-2023 Episodic Other lower respiratory disease (7 sources) Dyspnea on exertion; Translations: [Other forms of dyspnea] 12-04-2022 Episodic Other lower respiratory disease (3 sources) Other forms of dyspnea; Translations: [Other respiratory abnormalities] 12-04-2022 Episodic Other lower respiratory disease (6 sources) Nodule of lung; Translations: [Solitary pulmonary nodule] 12-22-2023 Episodic Other lower respiratory disease (3 sources) Orthopnea; Translations: [Orthopnea] 07-04-2024 Episodic Other lower respiratory disease (3 sources) Dyspnea; Translations: [Dyspnea, unspecified] 07-04-2024 Episodic Other lower respiratory disease (2 sources) Shortness of breath; Translations: [Shortness of breath] Onset: Episodic Other nervous system disorders (10 sources) Guillain-Flora syndrome; 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 Comment on above: In 2004, after respi ratory tract infection Other nervous system disorders (2 sources) Guillain-Flora syndrome; 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 Other screening for suspected conditions (not mental disorders or infectious disease) (3 sources) Abnormal findings on diagnostic imaging of other specified body structures; Translations: [Abnormal chest x-ray] 12-29-2023 Chronic Other screening for suspected conditions (not mental disorders or infectious disease) (8 sources) Serum creatinine raised; Translations: [Other specified abnormal findings of blood chemistry] Onset: 4 12-11-2022 Episodic Katja-; endo-; and myocarditis; cardiomyopathy (except that caused by tuberculosis or sexually transmitted disease) (1 source) Cardiomyopathy, unspecified; Translations: [Cardiomyopathy, unspecified] Onset: Chronic Peripheral and visceral atherosclerosis (8 sources) Peripheral vascular disease; Translations: [Peripheral vascular disease, unspecified] Onset: 5 07-07-2024 Chronic Pleurisy; pneumothorax; pulmonary collapse (3 sources) Pleural effusion; Translations: [Pleural effusion, not elsewhere classified] 07-04-2024 Episodic Prolapse of female genital organs (20 sources) Third degree uterine prolapse; Translations: [Complete uterovaginal prolapse] Onset: 5 Chronic Comment on above: AEH compounded cream bid Residual codes; unclassified (8 sources) Memory impairment; Translations: [Other amnesia] 03-21-2022 Episodic Residual codes; unclassified (3 sources) Confusional state; Translations: [Disorientation, unspecified] 12-29-2023 Episodic Skin and subcutaneous tissue infections (13 sources) Cellulitis of right lower limb; Translations: [Cellulitis of right lower limb] Onset: 5 05-05-2024 Episodic Spondylosis; intervertebral disc disorders; other back problems (10 sources) Thoracic back pain; Translations: [Pain in thoracic spine] 07-18-2018 Episodic Superficial injury; contusion (17 sources) Contusion of wrist; Translations: [Contusion of left wrist, initial encounter] Onset: 5 07-19-2018 Episodic Thyroid disorders (20 sources) Hypothyroidism; Translations: [Hypothyroidism, unspecified] Onset: 4 Chronic Unclassified (2 sources) Recommend calling to establish care with Dr. Peacock on discharge due to microscopic blood seen in stool as you may need further evaluation Urinary tract infections (7 sources) Urinary tract infectious disease; Translations: [Urinary tract infection, site not specified] 12-04-2022 Episodic Viral infection (11 sources) Disease caused by 2019-nCoV; Translations: [COVID-19] Episodic Past or Other Problems Problem Classification Problem Date Documented Da te Episodic/Chronic Deficiency and other anemia (1 source) Iron deficiency anemia; Translations: [Iron deficiency anemia, unspecified] Onset: 02-10-2008 02-10-2008 Episodic Fracture of upper limb (1 source) Closed fracture of middle phalanx of middle finger; Translations: [Nondisplaced fracture of middle phalanx of right middle finger, initial encounter for closed fracture] Onset: 03-26-2016 03-26-2016 Episodic Other gastrointestinal disorders (1 source) Other fecal abnormalities; Translations: [Other fecal abnormalities] Onset: 05-03-2024 Episodic Other injuries and conditions due to external causes (1 source) History of falling; Translations: [History of falling] Onset: 03-31-2024 Episodic Other lower respiratory disease (1 source) Solitary pulmonary nodule; Translations: [Solitary pulmonary nodule] Onset: 01-21-2024 Episodic Residual codes; unclassified (2 sources) Other amnesia; Translations: [Memory loss] Onset: 12-02-2023 2022 Episodic Results Test Name Value Interpretation Reference Range Facility Echo Completeon 09-01-2024 Echo Complete Normal [facility] Echocardiogram study reportO rdered By: Rolo Miller on 09-01-2024 Study report [facility] [place] [address] Echo Complete 09/01/24 1054 MR#: [id number] Acct: [id number] Name: MAGALY SOUZA Rep #:[id number] : [id number] From: Rolo Vargas Attending Dr: Dr. Teo Medley MD Status: REG CLI Ordering Dr: Teo Medley MD Date: 09/01/24 Location: [facility] Sex: F C Admitted: Reason For Study Reason For Study: CARDIOMYOPATHY Procedure This was a 2D Doppler, Color Flow transthoracic echocardiogram. Exam performed in department. Left Ventricle Normal LV size. Mild concentric left ventricular hypertrophy. The left ventricular ejection fraction is 45 %. Stage 1 diastolic dysfunction. There is mild to moderate global hypokinesis of the left ventricle. Right Ventricle Normal RV size. Normal systolic function. Atria Normal left atrium. Normal right atrium. Mitral Valve Bileaflet diffuse mitral valve thickening. Mild-Moderate (1-2+) eccentric mitralvalve insufficiency. Tricuspid Valve Normal tricuspid valve. Mild tricuspid valve insufficiency. Pulmonary artery systolic pressure is 30 mmHg. Aortic Valve Trisinus/trileaflet aortic valve. Mild diffuse aortic valve thickening. Mild (1+) eccentric aortic valve insufficiency. Pulmonic Valve Normal pulmonic valve. Great Vessels Normal aortic root. The pulmonary artery is normal size. Inferior vena cava collapse with respiration. Pericardium/Pleural No pericardial effusion. MMode/2D Measurements & Calculations LVIDd: 4.7 cm IVSd: 1.2 cm LVOT diam: 1.8 cm LVIDs: 3.8 cm LVPWd: 1.2 cm LVOT area: 2.6 cm2 RVDd: 3.0 cm FS: 19.1 % LAV(MOD-bp): 35.0 ml LVAd ap4: 28.3 cm2 LVAd ap2: 28.7 cm2 LAV(MOD-bp) Indexed: 20.2 ml/m2 LVLd ap4: 7.9 cm LVLd ap2: 7.8 cm LAV(MOD-sp2): 35.4 ml EDV(MOD-sp4): 82.7 ml EDV(MOD-sp2): 88.1 ml LAV(MOD-sp4): 32.9 ml EDV(sp4-el): 85.6 ml EDV(sp2-el): 89.5 ml LVAs ap4: 19.7 cm2 LVAs ap2: 20.5 cm2 LVLs ap4: 7.3 cm LVLs ap2: 7.4 cm ESV(MOD-sp4): 44.9 ml ESV(MOD-sp2): 49.6 ml ESV(sp4-el): 45.0 ml ESV(sp2-el): 48.1 ml EF(MOD-sp4): 45.8 % EF(MOD-sp2): 43.7 % EF(sp4-el): 47.5 % SV(MOD-sp4): 37.9 ml SV(MOD-sp2): 38.5 ml SV(sp4-el): 40.6 ml SI(MOD-sp4): 21.8 ml/m2 SI(MOD-sp2): 22.2 ml/m2 Ao sinus diam: 3.[address] Junction: 2.7 cm LA A4 area: 13.5 cm2 LA dimension(2D): 3.9 cm TAPSE: 1.3 cm RA A4 area: 9.2 cm2 Time Measurements MV dec time: 0.22 sec Doppler Measurements & Calculations MV E max adin: 57.7 cm/sec Lat Peak E' Adin: 7.3 cm/sec Med Peak E' Adin: 5.8 cm/sec MV A max adin: 96.2 cm/sec E/E' lat: 7.9 E/E' med: 9.9 MV E/A: 0.60 MV dec slope: 262.4 cm/sec2 Ao V2 max: 100.6 cm/sec AI max adin: 358.2 cm/sec Ao max P.0 mmHg AI max P.4 mmHg Ao V2 mean: 74.4 cm/sec AI dec slope: 148.2 cm/sec2 Ao mean P.4 mmHg AI P1/2t: 707.9 msec Ao V2 VTI: 25.5 cm AV (velocity ratio): 0.68 AZUCENA(I,D): 1.7 cm2 AZUCENA(V,D): 1.8 cm2 LV V1 max: 68.8 cm/sec SV(LVOT): 44.1 ml PA V2 max: 63.4 cm/sec LV V1 max P.9 mmHg LV V1 mean P.2 mmHg LV V1 mean: 52.0 cm/sec LV V1 VTI: 17.2 cm ____ TR max adin: 255.0 cm/sec TR max P.0 mmHg ECHO/Echo Complete Interpretation Summary Normal LV size. There is mild to moderate global hypokinesis of the left ventricle. Mild concentric left ventricular hypertrophy. The left ventricular ejection fraction is 45 %. Stage 1 diastolic dysfunction. Mild (1+) eccentric aortic valve insufficiency. Mild diffuse aortic valve thickening. Ordering Physician: Teo Medley Referring Physician: Teo Medley Performed By: Deana Tran RDCS and Student 09/01/241653 Date _ Rolo Miller MD CC: Dr. Teo Medley MD ~ Date Dictated: 09/01/241053 Date Transcribed: 09/01/241653 Media Associate: Signed [facility] Work Phone: Urine Cultureon 07-14-2024 URC Mixed Gram Positive Organisms [place] Count 11,000-25,000 MIXC Mixed contaminants. Submit a new specimen if indicated. Normal [facility] Comment on above: Performed By: #### L 400.2010, ####[facility] [address] [place], [place], [phone] Bilirubin Test strip Ql (U)O rdered By: Teo Medley on 07-12-2024 Bilirubin Ql (U) Negative Negative [facility] Ketones Test strip Ql (U)Ord ered By: Teo Medley on 07-12-2024 Ketones Ql (U) Negative Negative [facility] Nitrite Test strip Ql (U)Ord ered By: Teo Medley on 07-12-2024 Nitrite Ql (U) Negative Negative [facility] Protein Test strip Ql (U)Ord ered By: Teo Medley on 07-12-2024 Protein Ql (U) 30 mg/dl High Negative [facility] Urinalysis, Routine (Dipstic k)on 07-12-2024 BILIRUBIN URINE Negative Normal Negative [facility] Comment on above: Order Comment: CLEAN CATCH Performed By: #### L 400.2010, ####[facility] [address] [place], [address] Clarity (U) Clear Normal Clear [facility] Comment on above: Order Comment: CLEAN CATCH Performed By: #### L 400.2010, ####[facility] [address] [place], [address] Color (U) Straw Normal Yellow [facility] Comment on above: Order Comment: CLEAN CATCH Performed By: #### L 400. ####[facility] [address] [place], [address] GLUCOSE, UR Normal Normal Normal [facility] Comment on above: Order Comment: CLEAN CATCH Performed By: #### L 400. ####[facility] [address] [place], [address] KETONE UR Negative Normal Negative [facility] Comment on above: Order Comment: CLEAN CATCH Performed By: #### L 400.2010, ####[facility] [address] [place], [address] LEUK ESTERASE Negative Normal Negative [facility] Comment on above: Order Comment: CLEAN CATCH Performed By: #### L 400.2010, ####[facility] [address] [place], [address] Nitrite Ql (U) Negative Normal Negative [facility] Comment on above: Order Comment: CLEAN CATCH Performed By: #### L 400.2010, ####[facility] [address] [place], [address] OCCULT BLOOD-UR 50 /ul Abnormal Negative [facility] Comment on above: Order Comment: CLEAN CATCH Performed By: #### L 400.2010, ####[facility] [address] [place], [address] pH UR 6.0 Normal 5.0 - 8.0 [facility] Comment on above: Order Comment: CLEAN CATCH Performed By: #### L 400.2010, ####[facility] [address] [place], [address] PROT DIPSTX 30 mg/dl Abnormal Negative [facility] Comment on above: Order Comment: CLEAN CATCH Performed By: #### L 400.2010, ####[facility] [address] [place], [address] SP.GR. DIPSTX 1.010 Normal 1.002-1.030 [facility] Comment on above: Order Comment: CLEAN CATCH Performed By: #### L 400.2010, ####[facility] [address] [place], [address] UROBILI Normal Normal Normal [facility] Comment on above: Order Comment: CLEAN CATCH Performed By: #### L 400.2010, M100.2200 ####[facility] [address] [place], [address] Urine clarityOrdered By: Jannette Medley on 07-12-2024 Clarity (U) Clear Clear [facility] Urine color determinationOrd ered By: Teo Medley on 07-12-2024 Color (U) Straw Yellow [facility] Urine cultureOrdered By: Jannette Medley on 07-12-2024 Bacteria identified Cx Nom (U) Positive Abnormal [facility] Urine glucose detectionOrder ed By: Teo Medley on 07-12-2024 Glucose Ql (U) Normal mg/dl Normal [facility] Urine leukocyte esterase det ection by dipstickOrdered By: Teo Medley on 07-12-2024 Leukocyte esterase Test strip Ql (U) Negative Negative [facility] Urine pHOrdered By: Teo cornelius on 07-12-2024 pH (U) 6.0 [pH] 5.0 - 8.0 [facility] Urine specific gravity measu rementOrdered By: Teo Medley on 07-12-2024 Specific gravity (U) [Rel density] 1.010 1.002-1.030 [facility] Urine urobilinogen measureme ntOrdered By: Teo Medley on 07-12-2024 Urobilinogen Ql (U) Normal mg/dl Normal [facility] Urine Cultureon 07-10-2024 URC Normal [facility] Comment on above: Performed By: #### L 501.5200, L506.0400, L501.9520, M100.2200, L500.2500, L400.0001, L501.74500, L503.7505 ####[facility] [address] [place], [address] Anion gap in Serum or Plasma Ordered By: Teo Medley on 07-07-2024 Anion gap [Moles/Vol] 13 mmol/L 5-15 [facility] BUN/creatinine ratioOrdered By: Teo Medley on 07-07-2024 Urea nitrogen/Creatinine [Mass ratio] 20.5 mg/mg High 10-20 [facility] Basic Metabolic Profile (BMP )on 07-07-2024 BUN/CRE 20.5 RATIO High 10- [facility] Comment on above: Performed By: #### L 501.5200, L506.0400, L501.9520, M100.2200, L500.2500, L400.0001, L501.79414, L503.7505 ####[facility] [address] [place], [address] Calcium [Mass/Vol] 9.7 mg/dL Normal 7.6-11.0 [facility] Comment on above: Performed By: #### L 501.5200, L506.0400, L501.9520, M100.2200, L500.2500, L400.0001, L501.53839, L503.7505 ####[facility] [address] [place], [address] Chloride [Moles/Vol] 99 mmol/L Normal 98-108 [facility] Comment on above: Performed By: #### L 501.5200, L506.0400, L501.9520, M100.2200, L500.2500, L400.0001, L501.84759, L503.7505 ####[facility] [address] [place], [address] CO2 [Moles/Vol] 26.2 mmol/L Normal 21.0-32.0 [facility] Comment on above: Performed By: #### L 501.5200, L506.0400, L501.9520, M100.2200, L500.2500, L400.0001, L501.13968, L503.7505 ####[facility] [address] [place], [address] Creatinine [Mass/Vol] 1.31 mg/dL High 0.70-1.20 [facility] Comment on above: Performed By: #### L 501.5200, L506.0400, L501.9520, M100.2200, L500.2500, L400.0001, L501.23376, L503.7505 ####[facility] [address] [place], [address] GAP 13 Normal 5-15 [facility] Comment on above: Performed By: #### L 501.5200, L506.0400, L501.9520, M100.2200, L500.2500, L400.0001, L501.99720, L503.7505 ####[facility] [address] [place], [address] GFR/1.73 sq M.predicted among non-blacks MDRD (S/P/Bld) [Vol rate/Area] 40 mL/min/{1.73_m2} Low >60 [facility] Comment on above: Result Comment: mL/m in/1.73m2 CKD-EPI Creatinine Equation (2020) Performed By: #### L 501.5200, L506.0400, L501.9520, M100.2200, L500.2500, L400.0001, L501.77575, L503.7505 ####[facility] [address] [place], [address] Glucose [Mass/Vol] 122 mg/dL High 70-99 [facility] Comment on above: Performed By: #### L 501.5200, L506.0400, L501.9520, M100.2200, L500.2500, L400.0001, L501.89576, L503.7505 ####[facility] [address] [place], [address] Potassium [Moles/Vol] 4.4 mmol/L Normal 3.3-5.1 [facility] Comment on above: Performed By: #### L 501.5200, L506.0400, L501.9520, M100.2200, L500.2500, L400.0001, L501.15351, L503.7505 ####[facility] [address] [place], [place], [phone] Sodium [Moles/Vol] 137 mmol/L Normal 133-145 [facility] Comment on above: Performed By: #### L 501.5200, L506.0400, L501.9520, M100.2200, L500.2500, L400.0001, L501.01641, L503.7505 ####[facility] [address] [place], [address] Urea nitrogen [Mass/Vol] 27 mg/dL High 4-19 [facility] Comment on above: Performed By: #### L 501.5200, L506.0400, L501.9520, M100.2200, L500.2500, L400.0001, L501.45497, L503.7505 ####[facility] [address] [place], [place], [address] Bilirubin Test strip Ql (U)O rdered By: Teo Medley on 07-07-2024 Bilirubin Ql (U) Negative Negative [facility] Carbon dioxide, total [Moles /volume] in Central venous bloodOrdered By: Teo Medley on 07-07-2024 CO2 [Moles/Vol] 26.2 mmol/L 21.0-32.0 [facility] Chloride assayOrdered By: Deandra Medley on 07-07-2024 Chloride [Moles/Vol] 99 mmol/L 98-108 [facility] Free T3on 07-07-2024 Free T3 [Mass/Vol] 2.7 pg/mL Normal 2.18-3.98 [facility] Comment on above: Performed By: #### L 501.5200, L506.0400, L501.9520, M100.2200, L500.2500, L400.0001, L501.33712, L503.7505 ####[facility] [address] [place], [place], [id number] Free I1Tnantoy By: Teo borrero on 07-07-2024 Free T3 [Mass/Vol] 2.7 pg/mL 2.18-3.98 [facility] Glomerular filtration rate ( GFR) estimation/1.73 sq m using serum, plasma, or whole bOrdered By: Teo Medley on 07-07-2024 GFR/1.73 sq M.predicted among non-blacks MDRD (S/P/Bld) [Vol rate/Area] 40 mL/min/{1.73_m2} Low >60 [facility] Comment on above: mL/min/1.73m2 CKD-EP I Creatinine Equation (2020) Ketones Test strip Ql (U)Ord ered By: Teo Medley on 07-07-2024 Ketones Ql (U) Negative Negative [facility] L503.7505on 07-07-2024 Natriuretic peptide B (Bld) [Mass/Vol] 5615 pg/mL High <=1800 [facility] Comment on above: Result Comment: Hear t Failure Unlikely: < 300 pg/mLHeart Failure Likely< 50 Years: > 450 pg/mL50-75 Years: > 900 pg/mL>75 Years: > 1800 pg/mL Performed By: #### L 501.5200, L506.0400, L501.9520, M100.2200, L500.2500, L400.0001, L501.73528, L503.7505 ####[facility] [address] [place], [place], [id number] MR/BMS.IMBon 07-07-2024 MR/BMS.IMB Normal [facility] Magnesiumon 07-07-2024 Magnesium [Mass/Vol] 2.2 mg/dL Normal 1.5-2.2 [facility] Comment on above: Performed By: #### L 501.5200, L506.0400, L501.9520, M100.2200, L500.2500, L400.0001, L501.93733, L503.7505 ####[facility] [address] [place], [address] Magnesium measurement (mass/ volume)Ordered By: Teo Medley on 07-07-2024 Magnesium (Unsp spec) [Mass/Vol] 2.2 mg/dL 1.5-2.2 [facility] Microscopic analysis of urin e for red blood cells (RBC)Ordered By: Teo Medley on 07-07-2024 Microscopic analysis of urine for red blood cells (RBC) 0-5 SEEN /hpf 0-5 [facility] Mucus LM Ql (Urine sed)Order ed By: Teo Medley on 07-07-2024 Mucus Ql (Urine sed) 0 SEEN /hpf [facility] Natriuretic peptide.B prohor андрей N-Terminal [Mass/volume] in Serum or PlasmaOrdered By: Teo Medley on 07-07-2024 Natriuretic peptide.B prohormone N-Terminal [Mass/Vol] 5615 pg/mL High <1800 [facility] Comment on above: Heart Failure Unlike ly: < 300 pg/mLHeart Failure Likely< 50 Years: > 450 pg/mL50-75 Years: > 900 pg/mL>75 Years: > 1800 pg/mL Nitrite Test strip Ql (U)Ord ered By: Teo Medley on 07-07-2024 Nitrite Ql (U) Negative Negative [facility] Potassium measurement (mass/ volume)Ordered By: Teo Medley on 07-07-2024 Potassium (Unsp spec) [Mass/Vol] 4.4 mmol/L 3.3-5.1 [facility] Protein Test strip Ql (U)Ord ered By: Teo Medley on 07-07-2024 Protein Ql (U) Negative Negative [facility] Serum creatinine measurement (mass/volume)Ordered By: Teo Medley on 07-07-2024 Creatinine [Mass/Vol] 1.31 mg/dL High 0.70-1.20 [facility] Serum glucose measurement (m ass/volume)Ordered By: Teo Medley on 07-07-2024 Glucose [Mass/Vol] 122 mg/dL High 70-99 [facility] Serum or plasma calcium mario alberto urement (mass/volume)Ordered By: Teo Medley on 07-07-2024 Calcium [Mass/Vol] 9.7 mg/dL 7.6-11.0 [facility] Serum or plasma urea nitroge n measurement (mass/volume)Ordered By: Teo Medley on 07-07-2024 Urea nitrogen [Mass/Vol] 27 mg/dL High 4-19 [facility] Sodium levelOrdered By: Marivel Medley on 07-07-2024 Sodium [Moles/Vol] 137 mmol/L 133-145 [facility] Squamous epithelial cells de tection in urine sediment by light microscopyOrdered By: Teo Medley on 07-07-2024 Epithelial cells.squamous LM Ql (Urine sed) 0-5 SEEN /hpf 5-10 [facility] T4 Free Directon 07-07-2024 T4 FREE DIRECT 1.40 ng/dL Normal 0.76-1.46 [facility] Comment on above: Performed By: #### L 501.5200, L506.0400, L501.9520, M100.2200, L500.2500, L400.0001, L501.75983, L503.7505 ####[facility] [address] [place], [address] T4 freeOrdered By: Teo borrero on 07-07-2024 Free T4 [Mass/Vol] 1.40 ng/dL 0.76-1.46 [facility] TSH DL <= 0.005 mIU/L QnOrde red By: Teo Medley on 07-07-2024 TSH Qn 1.860 uIU/mL 0.300-4.200 [facility] Thyroid Stim Hormone (TSH)on 07-07-2024 TSH 1.860 uIU/mL Normal 0.300-4.200 [facility] Comment on above: Performed By: #### L 501.5200, L506.0400, L501.9520, M100.2200, L500.2500, L400.0001, L501.69468, L503.7505 ####[facility] [address] [place], [address] Urinalysis, Completeon 07-07 BACTERIA 1+ /hpf Normal None Seen [facility] Comment on above: Order Comment: COLLE CTOR TO SPECIFY Performed By: #### L 501.5200, L506.0400, L501.9520, M100.2200, L500.2500, L400.0001, L501.40763, L503.7505 ####[facility] [address] [place], [address] RBC 0-5 SEEN Normal 0-5 [facility] Comment on above: Order Comment: SHAISTA CTOR TO SPECIFY Performed By: #### L 501.5200, L506.0400, L501.9520, M100.2200, L500.2500, L400.0001, L501.86485, L503.7505 ####[facility] [address] [place], [place], [id number] WBC 5-10 SEEN Normal 0-5 [facility] Comment on above: Order Comment: COLLE CTOR TO SPECIFY Performed By: #### L 501.5200, L506.0400, L501.9520, M100.2200, L500.2500, L400.0001, L501.08790, L503.7505 ####[facility] [address] [place], [address] EPI,SQUAMOUS 0-5 SEEN Normal 5-10 [facility] Comment on above: Order Comment: COLLE CTOR TO SPECIFY Performed By: #### L 501.5200, L506.0400, L501.9520, M100.2200, L500.2500, L400.0001, L501.83270, L503.7505 ####[facility] [address] [place], [place], [id number] Mucus Ql (Urine sed) 0 SEEN Normal [facility] Comment on above: Order Comment: COLLE CTOR TO SPECIFY Performed By: #### L 501.5200, L506.0400, L501.9520, M100.2200, L500.2500, L400.0001, L501.63807, L503.7505 ####[facility] [address] [place], [place], [id number] Urine clarityOrdered By: Jannette Medley on 07-07-2024 Clarity (U) Clear Clear [facility] Urine color determinationOrd ered By: Teo Medley on 07-07-2024 Color (U) Yellow Yellow [facility] Urine cultureOrdered By: Jannette Medley on 07-07-2024 Bacteria identified Cx Nom (U) Staphylococcus aureus Abnormal [facility] Bacteria identified Cx Nom (U) Positive Abnormal [facility] Urine glucose detectionOrder ed By: Teo Medley on 07-07-2024 Glucose Ql (U) Normal mg/dl Normal [facility] Urine leukocyte esterase det ection by dipstickOrdered By: Teo Medley on 07-07-2024 Leukocyte esterase Test strip Ql (U) 500 /ul High Negative [facility] Urine pHOrdered By: Teo cornelius on 07-07-2024 pH (U) 6.0 [pH] 5.0 - 8.0 [facility] Urine sediment bacteria coun t by microscopy (number/high power field)Ordered By: Teo Medley on 07-07-2024 Bacteria LM.HPF (Urine sed) [#/Area] 1 /[HPF] None Seen [facility] Urine specific gravity measu rementOrdered By: Teo Medley on 07-07-2024 Specific gravity (U) [Rel density] 1.015 1.002-1.030 [facility] Urine urobilinogen measureme ntOrdered By: Teo Medley on 07-07-2024 Urobilinogen Ql (U) Normal mg/dl Normal [facility] White blood cell countOrdere d By: Teo Medley on 05-07-2025 White blood cell count 5-10 SEEN /hpf 0-5 [facility] Absolute lymphocyte countOrd ered By: Partha Luna on 06-26-2024 Lymphocytes Auto (Unsp spec) [#/Vol] 1.77 10*3/uL 0.83-4.51 [facility] Absolute neutrophil countOrd ered By: Partha Luna on 06-26-2024 Neutrophils (Bld) [#/Vol] 4.9 10*3/uL 2.0-7.7 [facility] Anion gap in Serum or Plasma Ordered By: Partha Luna on 06-26-2024 Anion gap [Moles/Vol] 12 mmol/L 5-15 [facility] Automated lymphocyte count a s percentage of total leukocytesOrdered By: Partha Luna on 06-26-2024 Lymphocytes/100 WBC Auto (Unsp spec) 24.3 % - [facility] BUN/creatinine ratioOrdered By: Partha Luna on 06-26-2024 Urea nitrogen/Creatinine [Mass ratio] 15.6 mg/mg 10- [facility] Basic Metabolic Profile (BMP )on 06-26-2024 BUN/CRE 15.6 RATIO Normal - [facility] Comment on above: Performed By: #### L 501.9520, L100.0100, L501.4021, L503.7505, L500.2500 ####[facility] [address] [place], [address] Calcium [Mass/Vol] 9.4 mg/dL Normal 7.6-11.0 [facility] Comment on above: Performed By: #### L 501.9520, L100.0100, L501.4021, L503.7505, L500.2500 ####[facility] [address] [place], [address] Chloride [Moles/Vol] 103 mmol/L Normal 98-108 [facility] Comment on above: Performed By: #### L 501.9520, L100.0100, L501.4021, L503.7505, L500.2500 ####[facility] [address] [place], [address] CO2 [Moles/Vol] 22.6 mmol/L Normal 21.0-32.0 [facility] Comment on above: Performed By: #### L 501.9520, L100.0100, L501.4021, L503.7505, L500.2500 ####[facility] [address] [place], [address] Creatinine [Mass/Vol] 1.04 mg/dL Normal 0.70-1.20 [facility] Comment on above: Performed By: #### L 501.9520, L100.0100, L501.4021, L503.7505, L500.2500 ####[facility] [address] [place], [address] ECRCL 39.20 ml/min Low 50-250 [facility] Comment on above: Performed By: #### L 501.9520, L100.0100, L501.4021, L503.7505, L500.2500 ####[facility] [address] [place], [address] GAP 12 Normal 5-15 [facility] Comment on above: Performed By: #### L 501.9520, L100.0100, L501.4021, L503.7505, L500.2500 ####[facility] [address] [place], [address] GFR/1.73 sq M.predicted among non-blacks MDRD (S/P/Bld) [Vol rate/Area] 53 mL/min/{1.73_m2} Low >60 [facility] Comment on above: Result Comment: mL/m in/1.73m2 CKD-EPI Creatinine Equation (2020) Performed By: #### L 501.9520, L100.0100, L501.4021, L503.7505, L500.2500 ####[facility] [address] [place], [address] Glucose [Mass/Vol] 170 mg/dL High 70-99 [facility] Comment on above: Performed By: #### L 501.9520, L100.0100, L501.4021, L503.7505, L500.2500 ####[facility] [address] [place], [address] Potassium [Moles/Vol] 4.2 mmol/L Normal 3.3-5.1 [facility] Comment on above: Performed By: #### L 501.9520, L100.0100, L501.4021, L503.7505, L500.2500 ####[facility] [address] [place], [address] Sodium [Moles/Vol] 138 mmol/L Normal 133-145 [facility] Comment on above: Performed By: #### L 501.9520, L100.0100, L501.4021, L503.7505, L500.2500 ####[facility] [address] [place], [address] Urea nitrogen [Mass/Vol] 16 mg/dL Normal 4-19 [facility] Comment on above: Performed By: #### L 501.9520, L100.0100, L501.4021, L503.7505, L500.2500 ####[facility] [address] [place], [address] Basophil percentageOrdered B y: Partha Luna on 06-26-2024 Basophils/100 WBC (Bld) 0.4 % 0-1 [facility] CBC W/Diff, Automatedon - Absolute Lymph 1.77 X10 3/uL Normal 0.83-4.51 [facility] Comment on above: Performed By: #### L 501.9520, L100.0100, L501.4021, L503.7505, L500.2500 ####[facility] [address] [place], [address] Absolute Neut 4.9 X10 3/uL Normal 2.0-7.7 [facility] Comment on above: Performed By: #### L 501.9520, L100.0100, L501.4021, L503.7505, L500.2500 ####[facility] [address] [place], [address] Basophils/100 WBC (Bld) 0.4 % Normal 0-1 [facility] Comment on above: Performed By: #### L 501.9520, L100.0100, L501.4021, L503.7505, L500.2500 ####[facility] [address] [place], [address] Eosinophils/100 WBC (Bld) 1.2 % Normal 0-5 [facility] Comment on above: Performed By: #### L 501.9520, L100.0100, L501.4021, L503.7505, L500.2500 ####[facility] [address] [place], [address] Erythrocyte distribution width (RBC) [Ratio] 15.9 % High 11.6-14.6 [facility] Comment on above: Performed By: #### L 501.9520, L100.0100, L501.4021, L503.7505, L500.2500 ####[facility] [address] [place], [address] Hematocrit (Bld) [Volume fraction] 37.0 % Normal 37-47 [facility] Comment on above: Performed By: #### L 501.9520, L100.0100, L501.4021, L503.7505, L500.2500 ####[facility] [address] [place], [address] Hemoglobin (Bld) [Mass/Vol] 11.4 g/dL Low 12.0-15.0 [facility] Comment on above: Performed By: #### L 501.9520, L100.0100, L501.4021, L503.7505, L500.2500 ####[facility] [address] [place], [address] IG% 0.300 Normal 0.0-0.9 [facility] Comment on above: Result Comment: IG% - Immature Granulocytes (promyelocytes, myelocytes andmetamyelocytes) > 1% indicates that a LEFT SHIFT is Present. Performed By: #### L 501.9520, L100.0100, L501.4021, L503.7505, L500.2500 ####[facility] [address] [place], [address] Lymphocytes/100 WBC (Bld) 24.3 % Normal 19-41 [facility] Comment on above: Performed By: #### L 501.9520, L100.0100, L501.4021, L503.7505, L500.2500 ####[facility] [address] [place], [address] MCH (RBC) [Entitic mass] 28.4 pg Normal 27.0-32.0 [facility] Comment on above: Performed By: #### L 501.9520, L100.0100, L501.4021, L503.7505, L500.2500 ####[facility] [address] [place], [address] MCHC (RBC) [Mass/Vol] 30.8 g/dL Low 32-36 [facility] Comment on above: Performed By: #### L 501.9520, L100.0100, L501.4021, L503.7505, L500.2500 ####[facility] [address] [place], [address] MCV (RBC) [Entitic vol] 92.3 fL Normal 81-99 [facility] Comment on above: Performed By: #### L 501.9520, L100.0100, L501.4021, L503.7505, L500.2500 ####[facility] [address] [place], [address] Monocytes/100 WBC (Bld) 6.3 % Normal 0-10 [facility] Comment on above: Performed By: #### L 501.9520, L100.0100, L501.4021, L503.7505, L500.2500 ####[facility] [address] [place], [address] Neutrophils/100 WBC (Bld) 67.5 % Normal 47-70 [facility] Comment on above: Performed By: #### L 501.9520, L100.0100, L501.4021, L503.7505, L500.2500 ####[facility] [address] [place], [address] Nucleated RBC (Bld) [#/Vol] 0 10*3/uL Normal 0-5 [facility] Comment on above: Performed By: #### L 501.9520, L100.0100, L501.4021, L503.7505, L500.2500 ####[facility] [address] [place], [address] Platelet mean volume (Bld) [Entitic vol] 10.7 fL Normal 6.2-12.0 [facility] Comment on above: Performed By: #### L 501.9520, L100.0100, L501.4021, L503.7505, L500.2500 ####[facility] [address] [place], [address] Platelets (Bld) [#/Vol] 207 10*3/uL Normal 150-450 [facility] Comment on above: Performed By: #### L 501.9520, L100.0100, L501.4021, L503.7505, L500.2500 ####[facility] [address] [place], [address] RBC (Bld) [#/Vol] 4.01 10*6/uL Low 4.2-5.4 [facility] Comment on above: Performed By: #### L 501.9520, L100.0100, L501.4021, L503.7505, L500.2500 ####[facility] [address] [place], [address] RDW SD 53.7 fl High 35.1-43.9 [facility] Comment on above: Performed By: #### L 501.9520, L100.0100, L501.4021, L503.7505, L500.2500 ####[facility] [address] [place], [address] WBC (Bld) [#/Vol] 7.3 10*3/uL Normal 4.4-11.0 [facility] Comment on above: Performed By: #### L 501.9520, L100.0100, L501.4021, L503.7505, L500.2500 ####[facility] [address] [place], [address] CTA Chest W/WO Contraston CTA Chest W/WO Contrast Normal [facility] Carbon dioxide, total [Moles /volume] in Central venous bloodOrdered By: Partha Luna on 06-26-2024 CO2 [Moles/Vol] 22.6 mmol/L 21.0-32.0 [facility] Chest PA and Lateralon 06-26 Chest PA and Lateral Normal [facility] Chloride assayOrdered By: Kun Luna on 06-26-2024 Chloride [Moles/Vol] 103 mmol/L 98-108 [facility] D-Dimer Quantitative (DVT/PE )on 06-26-2024 D-DIMER QUANT 0.99 FEU/ug/m Invalid Interpretation Code 0.27-0.49 [facility] Comment on above: Result Comment: D-Di racquel ELEVATED (>0.49): Additional studies and clinicalassessments are indicated to conclude diagnosis of:Deep Vein Thrombosis (DVT) or Pulmonary Embolism (PE)CRITICAL VALUE CALLED TO Nate VASQUEZ06/26/24 1217 Caren Kingston.RESULTS READ BACK BY SAME. Performed By: #### L 300.8000 ####[facility] [address] [place], [address] Emergency Department Summary on 06-26-2024 Emergency Department Summary Normal [facility] Eosinophil percentageOrdered By: Partha Luna on 06-26-2024 Eosinophils/100 WBC (Bld) 1.2 % 0-5 [facility] Erythrocyte distribution wid th ratioOrdered By: Partha Luna on 06-26-2024 Erythrocyte distribution width (RBC) [Ratio] 15.9 % High 11.6-14.6 [facility] Erythrocyte distribution wid th standard deviationOrdered By: Partha Luna on 06-26-2024 Erythrocyte distribution width (RBC) [Ratio] 53.7 fl High 35.1-43.9 [facility] Glomerular filtration rate ( GFR) estimation/1.73 sq m using serum, plasma, or whole bOrdered By: Partha Luna on 06-26-2024 GFR/1.73 sq M.predicted among non-blacks MDRD (S/P/Bld) [Vol rate/Area] 53 mL/min/{1.73_m2} Low >60 [facility] Comment on above: mL/min/1.73m2 CKD-EP I Creatinine Equation (2020) Hematocrit Auto (Bld) [Volum e fraction]Ordered By: Partha Luna on 06-26-2024 Hematocrit (Bld) [Volume fraction] 37.0 % 37-47 [facility] Hemoglobin measurementOrdere d By: Partha Luna on 06-26-2024 Hemoglobin (Bld) [Mass/Vol] 11.4 g/dL Low 12.0-15.0 [facility] Immature granulocytes/100 WB C Auto (Bld)Ordered By: Partha Luna on 06-26-2024 Immature granulocytes/100 WBC (Bld) 0.300 % 0.0-0.9 [facility] Comment on above: IG% - Immature Granu locytes (promyelocytes, myelocytes and metamyelocytes) > 1% indicates that a LEFT SHIFT is Present. Influenza virus A and B and SARS-CoV-2 (COVID-19) and Respiratory syncytial virus RNAOrdered By: Partha Luna on 06-26-2024 SARS-CoV-2 (COVID-19) RNA JITENDRA+probe Ql (Unsp spec) [facility] L499.0042on 06-26-2024 Trop T High Sen Normal <=14 [facility] Comment on above: Result Comment: PT D EPARTED ER, OK TO CANCEL BY MMARTIAN Performed By: #### L 499.0042 ####[facility] [address] [place], [address] L501.4021on 06-26-2024 Trop T High Sen 31 ng/L High <=14 [facility] Comment on above: Performed By: #### L 501.9520, L100.0100, L501.4021, L503.7505, L500.2500 ####[facility] [address] [place], [address] L503.7505on 06-26-2024 Natriuretic peptide B (Bld) [Mass/Vol] 05118 pg/mL High <=1800 [facility] Comment on above: Result Comment: Hear t Failure Unlikely: < 300 pg/mLHeart Failure Likely< 50 Years: > 450 pg/mL50-75 Years: > 900 pg/mL>75 Years: > 1800 pg/mL Performed By: #### L 501.9520, L100.0100, L501.4021, L503.7505, L500.2500 ####[facility] [address] [place], [address] M100.678on 06-26-2024 M100.678 Pending SARS-CoV-2 (COVID 19) Negative INFLUENZA A Negative INFLUENZA B Negative RSV PCR Negative Normal [facility] Comment on above: Performed By: #### M 100.678 ####[facility] [address] [place], [place], [id number] MCV (mean corpuscular volume ) determinationOrdered By: Partha Luna on 06-26-2024 MCV (RBC) [Entitic vol] 92.3 fL 81-99 [facility] Mean corpuscular hemoglobin (MCH) determinationOrdered By: Partha Luna on 06-26-2024 MCH (RBC) [Entitic mass] 28.4 pg 27.0-32.0 [facility] Mean corpuscular hemoglobin concentration (MCHC) determinationOrdered By: Partha Luna on 06-26-2024 MCHC (RBC) [Mass/Vol] 30.8 g/dL Low 32-36 [facility] Mean platelet volume determi nationOrdered By: Partha Luna on 06-26-2024 Platelet mean volume (Bld) [Entitic vol] 10.7 fL 6.2-12.0 [facility] Monocyte percentageOrdered B y: Partha Luna on 06-26-2024 Monocytes/100 WBC (Bld) 6.3 % 0-10 [facility] Natriuretic peptide.B prohor андрей N-Terminal [Mass/volume] in Serum or PlasmaOrdered By: Partha Luna on 06-26-2024 Natriuretic peptide.B prohormone N-Terminal [Mass/Vol] 59539 pg/mL High <1800 [facility] Comment on above: Heart Failure Unlike ly: < 300 pg/mLHeart Failure Likely< 50 Years: > 450 pg/mL50-75 Years: > 900 pg/mL>75 Years: > 1800 pg/mL Neutrophil percentageOrdered By: Partha Luna on 06-26-2024 Neutrophils/100 WBC (Bld) 67.5 % 47-70 [facility] Nucleated red blood cell per centageOrdered By: Partha Luna on 06-26-2024 Nucleated RBC/100 WBC (Bld) [Ratio] 0 % 0-5 [facility] Platelet countOrdered By: Kun ul Jeremy on 06-26-2024 Platelets (Bld) [#/Vol] 207 10*3/uL 150-450 [facility] Potassium measurement (mass/ volume)Ordered By: Partha Luna on 06-26-2024 Potassium (Unsp spec) [Mass/Vol] 4.2 mmol/L 3.3-5.1 [facility] RBC Auto (Bld) [#/Vol]Ordere d By: Partha Luna on 06-26-2024 RBC (Bld) [#/Vol] 4.01 10*6/uL Low 4.2-5.4 [facility] Serum creatinine measurement (mass/volume)Ordered By: Partha Luna on 06-26-2024 Creatinine [Mass/Vol] 1.04 mg/dL 0.70-1.20 [facility] Serum glucose measurement (m ass/volume)Ordered By: Partha Luna on 06-26-2024 Glucose [Mass/Vol] 170 mg/dL High 70-99 [facility] Serum or plasma calcium mario alberto urement (mass/volume)Ordered By: Partha Luna on 06-26-2024 Calcium [Mass/Vol] 9.4 mg/dL 7.6-11.0 [facility] Serum or plasma urea nitroge n measurement (mass/volume)Ordered By: Partha Luna on 06-26-2024 Urea nitrogen [Mass/Vol] 16 mg/dL 4-19 [facility] Sodium levelOrdered By: Partha Luna on 06-26-2024 Sodium [Moles/Vol] 138 mmol/L 133-145 [facility] TSH DL <= 0.005 mIU/L QnOrde red By: Partha Luna on 06-26-2024 TSH Qn 2.210 uIU/mL 0.300-4.200 [facility] Thyroid Stim Hormone (TSH)on 06-26-2024 TSH 2.210 uIU/mL Normal 0.300-4.200 [facility] Comment on above: Performed By: #### L 501.9510, L100.0100, L501.4021, L503.6995, L500.2500 ####[facility] [address] [place], [address] Troponin T.cardiac [Mass/vol ume] in Serum or Plasma by High sensitivity methodOrdered By: Partha Luna on 06-26-2024 Troponin T.cardiac High sensitivity method [Mass/Vol] 31 ng/L High <14 [facility] White blood cell (WBC) count Ordered By: Partha Luna on 06-26-2024 WBC (Bld) [#/Vol] 7.3 10*3/uL 4.4-11.0 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 Magalyale Souza is a 84 year old female who presents for problem visit uterine prolapse Accompanied by daughter HPI: Known uterine prolapse since at least 2019 and maybe even 10 years . Uterus is out of vagina quite far for several inches. She pushes it back out of the way but never attempts to push it back in the vagina. When it bleeds, she puts AANDD on the abrasions. She is supposed to put AANDD on it daily but does not. Denies any problems with emptying bladder or having a bowel movement. Daughter states while [place] [address] recently, she was evaluated at a provider's office but unsure where or what the recommendations were. Surgery was not recommended in the past due to health risks. 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 PMH - PAST MEDICAL HISTORY OF INTERNAL HEMORRHOIDS PAST SURGICAL HISTORY Procedure Laterality Date BMD WHOLE BODY 2003 COLONOSCOPY, GI 03/19/02 DANDC, DIAG AND/OR THERAPEUTIC HAD 2 EGD W/O OR W/BRUSH/WASH EGD LIGATE FALLOPIAN TUBE REMOVAL OF TONSILS,<12 Y/O FAMILY HISTORY Problem Relation Age of Onset Hypertension Mother Diabetes Mother Coronary Artery Disease Mother COPD Father Stroke Father Colon Cancer Sister Social History Tobacco Use Smoking status: Former Current packs/day: 0.00 Average packs/day: 2.0 packs/day for 20.0 years (40.0 ttl pk-yrs) Types: Cigarettes Start date: 03/03/1966 Quit date: 03/03/1986 Years since quittin.2 Smokeless tobacco: Never Substance Use Topics Alcohol use: No Drug use: No Current Outpatient Medications Medication Sig atorvastatin (LIPITOR) 40 mg tablet Take 40 mg by mouth once daily. levothyroxine (SYNTHROID) 75 mcg tablet Take 75 mcg by mouth once daily. lisinopril (ZESTRIL, PRINIVIL) 5 mg tablet Take 5 mg by mouth once daily. oxyCODONE-acetaminophe n (PERCOCET) 5-325 mg tablet Take 1 tablet by mouth every 4 hours as needed for Pain (low back pain). metFORMIN (GLUCOPHAGE) 500 mg tablet Take 1 tablet by mouth daily with breakfast. FERROUS SULFATE 325 MG (65 MG IRON) TAB takes two tabs once daily omeprazole(PRILOSEC 20 MG CAP) Take one(1) capsule twice daily. MECLIZINE 25 MG TAB Take one(1) tablet three times daily.prn dizzy tramadol hcl(ULTRAM 50 MG TAB) Take one(1) tablet every four(4) to six(6) hours as needed for pain. CITALOPRAM 40 MG TAB Take one(1) tablet daily. CHANTELLE-600 1,500 MG TAB TAKE 2 DAILY No current facility-administered medications for this visit. Allergies As of Date: 2024 (No Known Allergies) Fully Assessed 04/29/2016 REVIEW OF SYSTEMS Abdomen: No bloating, early satiety, indigestion, or increased flatulence. No abdominal pain, nausea, vomiting, diarrhea, or constipation. Bladder: No dysuria, gross hematuria, urinary frequency, urinary urgency, or incontinence. Allergies and current medication updated:Yes SENSITIVE EXAM: The sensitive examination was discussed with the Patient or Patient's Authorized Chain Builder. As applicable, any other physician, advance practice provider, medical student, or other health professional student that will be observing or involved in the sensitive examination for educational or training purposes was discussed with the Patient or Authorized Chain Builder. The Patient or Authorized Chain Builder has agreed to proceed with the sensitive examination. (Sensitive examination includes inspection and/or palpation of the breasts, pelvis, prostate and anorectal regions). EXAM: BP 154/72 Wt 166 lb (75.3kg) GENERAL: pleasant, female in no apparent distress CHEST: Normal inspiratory effort PELVIC: Complete uterine prolapse with uterus laying on the exam table. Abrasions noted from long-term rubbing to cervix. No active bleeding noted. Assessment AND Plan Complete uterovaginal prolapse -Dr. Tanner also examined the patient and spoke with patient and daughter. She discussed options of doing nothing as long as she is able to urinate and defecate, attempt to get with pessary, or perform surgical treatment with colp (more content not included)... Normal [facility] Program Project Manager Office Visit Reporton 05-10-2024 Program Project Manager Office Visit Report Normal [facility] Gastroenterology Visit Repor ton 05-03-2024 Gastroenterology Visit Report Normal [facility] Basic Metabolic Profile (BMP )on 05-02-2024 BUN Normal 7-18 [facility] Comment on above: Result Comment: Canc elled via OM: Order cancelled - Patient discharged Performed By: #### L 500.2500, L100.0100 ####[facility] [address] [place], [address] BUN/CRE Normal 10-20 [facility] Comment on above: Result Comment: Canc elled via OM: Order cancelled - Patient discharged Performed By: #### L 500.2500, L100.0100 ####[facility] [address] [place], [address] Calcium Normal 8.5-10.1 [facility] Comment on above: Result Comment: Canc elled via OM: Order cancelled - Patient discharged Performed By: #### L 500.2500, L100.0100 ####[facility] [address] [place], [address] CL Normal 98-107 [facility] Comment on above: Result Comment: Canc elled via OM: Order cancelled - Patient discharged Performed By: #### L 500.2500, L100.0100 ####[facility] [address] [place], [address] CO2 Normal 21.0-32.0 [facility] Comment on above: Result Comment: Canc elled via OM: Order cancelled - Patient discharged Performed By: #### L 500.2500, L100.0100 ####[facility] [address] [place], [address] CREAT,SERUM Normal 0.55-1.02 [facility] Comment on above: Result Comment: Canc elled via OM: Order cancelled - Patient discharged Performed By: #### L 500.2500, L100.0100 ####[facility] [address] [place], [address] eGFR Normal >60 [facility] Comment on above: Result Comment: Canc elled via OM: Order cancelled - Patient discharged Performed By: #### L 500.2500, L100.0100 ####[facility] [address] [place], [address] EST GFR - AA Normal >60 [facility] Comment on above: Result Comment: Canc elled via OM: Order cancelled - Patient discharged Performed By: #### L 500.2500, L100.0100 ####[facility] [address] [place], [address] GAP Normal 5-15 [facility] Comment on above: Result Comment: Canc elled via OM: Order cancelled - Patient discharged Performed By: #### L 500.2500, L100.0100 ####[facility] [address] [place], [address] GLU Normal 74-106 [facility] Comment on above: Result Comment: Canc elled via OM: Order cancelled - Patient discharged Performed By: #### L 500.2500, L100.0100 ####[facility] [address] [place], [address] Potassium Normal 3.5-5.1 [facility] Comment on above: Result Comment: Canc elled via OM: Order cancelled - Patient discharged Performed By: #### L 500.2500, L100.0100 ####[facility] [address] [place], [address] Basic Metabolic Profile (BMP) Normal 136-145 [facility] Comment on above: Result Comment: Canc elled via OM: Order cancelled - Patient discharged Performed By: #### L 500.2500, L100.0100 ####[facility] [address] [place], [address] CBC W/Diff, Automatedon 03-0 -2024 Absolute Neut Normal 2.0-7.7 [facility] Comment on above: Result Comment: Canc elled via OM: Order cancelled - Patient discharged Performed By: #### L 500.2500, L100.0100 ####[facility] [address] [place], [address] HCT Normal 37-47 [facility] Comment on above: Result Comment: Canc elled via OM: Order cancelled - Patient discharged Performed By: #### L 500.2500, L100.0100 ####[facility] [address] [place], [address] HGB Normal 12.0-15.0 [facility] Comment on above: Result Comment: Canc elled via OM: Order cancelled - Patient discharged Performed By: #### L 500.2500, L100.0100 ####[facility] [address] [place], [address] MCH Normal 27.0-32.0 [facility] Comment on above: Result Comment: Canc elled via OM: Order cancelled - Patient discharged Performed By: #### L 500.2500, L100.0100 ####[facility] [address] [place], [address] MCHC Normal 32-36 [facility] Comment on above: Result Comment: Canc elled via OM: Order cancelled - Patient discharged Performed By: #### L 500.2500, L100.0100 ####[facility] [address] [place], [address] MCV Normal 81-99 [facility] Comment on above: Result Comment: Canc elled via OM: Order cancelled - Patient discharged Performed By: #### L 500.2500, L100.0100 ####[facility] [address] [place], [address] NEUT% Normal 47-70 [facility] Comment on above: Result Comment: Canc elled via OM: Order cancelled - Patient discharged Performed By: #### L 500.2500, L100.0100 ####[facility] [address] [place], [address] PLT Normal 150-450 [facility] Comment on above: Result Comment: Canc elled via OM: Order cancelled - Patient discharged Performed By: #### L 500.2500, L100.0100 ####[facility] [address] [place], [address] RBC Normal 4.2-5.4 [facility] Comment on above: Result Comment: Canc elled via OM: Order cancelled - Patient discharged Performed By: #### L 500.2500, L100.0100 ####[facility] [address] [place], [address] RDW CV Normal 11.6-14.6 [facility] Comment on above: Result Comment: Canc elled via OM: Order cancelled - Patient discharged Performed By: #### L 500.2500, L100.0100 ####[facility] [address] [place], [address] RDW SD Normal 35.1-43.9 [facility] Comment on above: Result Comment: Canc elled via OM: Order cancelled - Patient discharged Performed By: #### L 500.2500, L100.0100 ####[facility] [address] [place], [address] WBC Normal 4.4-11.0 [facility] Comment on above: Result Comment: Canc elled via OM: Order cancelled - Patient discharged Performed By: #### L 500.2500, L100.0100 ####[facility] [address] [place], [address] Absolute lymphocyte countOrd ered By: Partha Luna on 05-01-2024 Lymphocytes Auto (Unsp spec) [#/Vol] 2.40 10*3/uL 0.83-4.51 [facility] Absolute neutrophil countOrd ered By: Partha Luna on 05-01-2024 Neutrophils (Bld) [#/Vol] 4.9 10*3/uL 2.0-7.7 [facility] Automated lymphocyte count a s percentage of total leukocytesOrdered By: Partha Luna on 05-01-2024 Lymphocytes/100 WBC Auto (Unsp spec) 30.3 % 19-41 [facility] BUN/creatinine ratioOrdered By: Partha Luna on 05-01-2024 Urea nitrogen/Creatinine [Mass ratio] 15.5 mg/mg 10-20 [facility] Basic Metabolic Profile (BMP )on 05-01-2024 Anion gap [Moles/Vol] 12 mmol/L Normal 5-15 [facility] Comment on above: Performed By: #### L 500.2500, L100.0100, L503.6005 ####[facility] [address] [place], [address] BUN/CRE 15.5 RATIO Normal 10-20 [facility] Comment on above: Performed By: #### L 500.2500, L100.0100, L503.6005 ####[facility] [address] [place], [address] Calcium [Mass/Vol] 9.0 mg/dL Normal 7.6-11.0 [facility] Comment on above: Performed By: #### L 500.2500, L100.0100, L503.6005 ####[facility] [address] [place], [address] Chloride [Moles/Vol] 106 mmol/L Normal 96-108 [facility] Comment on above: Performed By: #### L 500.2500, L100.0100, L503.6005 ####[facility] [address] [place], [address] CO2 [Moles/Vol] 21.2 mmol/L Low 22.0-29.0 [facility] Comment on above: Performed By: #### L 500.2500, L100.0100, L503.6005 ####[facility] [address] [place], [address] Creatinine [Mass/Vol] 0.98 mg/dL Normal 0.70-1.20 [facility] Comment on above: Performed By: #### L 500.2500, L100.0100, L503.6005 ####[facility] [address] [place], [address] GFR/1.73 sq M.predicted among non-blacks MDRD (S/P/Bld) [Vol rate/Area] 58 mL/min/{1.73_m2} Low >60 [facility] Comment on above: Result Comment: mL/m in/1.73m2 CKD-EPI Creatinine Equation (2020) Performed By: #### L 500.2500, L100.0100, L503.6005 ####[facility] [address] [place], [address] Glucose [Mass/Vol] 139 mg/dL High 70-99 [facility] Comment on above: Performed By: #### L 500.2500, L100.0100, L503.6005 ####[facility] [address] [place], [address] Potassium [Moles/Vol] 4.2 mmol/L Normal 3.3-5.1 [facility] Comment on above: Performed By: #### L 500.2500, L100.0100, L503.6005 ####[facility] [address] [place], [address] Sodium [Moles/Vol] 140 mmol/L Normal 133-145 [facility] Comment on above: Performed By: #### L 500.2500, L100.0100, L503.6005 ####[facility] [address] [place], [address] Urea nitrogen [Mass/Vol] 15 mg/dL Normal 4-19 [facility] Comment on above: Performed By: #### L 500.2500, L100.0100, L503.6005 ####[facility] [address] [place], [address] BUN Normal 7-18 [facility] Comment on above: Result Comment: Canc elled via OM: Order cancelled - Patient discharged Performed By: #### L 100.0100, L500.2500 ####[facility] [address] [place], [address] BUN/CRE Normal 10-20 [facility] Comment on above: Result Comment: Canc elled via OM: Order cancelled - Patient discharged Performed By: #### L 100.0100, L500.2500 ####[facility] [address] [place], [address] Calcium Normal 8.5-10.1 [facility] Comment on above: Result Comment: Canc elled via OM: Order cancelled - Patient discharged Performed By: #### L 100.0100, L500.2500 ####[facility] [address] [place], [address] CL Normal 98-107 [facility] Comment on above: Result Comment: Canc elled via OM: Order cancelled - Patient discharged Performed By: #### L 100.0100, L500.2500 ####[facility] [address] [place], [address] CO2 Normal 21.0-32.0 [facility] Comment on above: Result Comment: Canc elled via OM: Order cancelled - Patient discharged Performed By: #### L 100.0100, L500.2500 ####[facility] [address] [place], [address] CREAT,SERUM Normal 0.55-1.02 [facility] Comment on above: Result Comment: Canc elled via OM: Order cancelled - Patient discharged Performed By: #### L 100.0100, L500.2500 ####[facility] [address] [place], [address] eGFR Normal >60 [facility] Comment on above: Result Comment: Canc elled via OM: Order cancelled - Patient discharged Performed By: #### L 100.0100, L500.2500 ####[facility] [address] [place], [address] EST GFR - AA Normal >60 [facility] Comment on above: Result Comment: Canc elled via OM: Order cancelled - Patient discharged Performed By: #### L 100.0100, L500.2500 ####[facility] [address] [place], [address] GAP Normal 5-15 [facility] Comment on above: Result Comment: Canc elled via OM: Order cancelled - Patient discharged Performed By: #### L 100.0100, L500.2500 ####[facility] [address] [place], [address] GLU Normal 74-106 [facility] Comment on above: Result Comment: Canc elled via OM: Order cancelled - Patient discharged Performed By: #### L 100.0100, L500.2500 ####[facility] [address] [place], [address] Potassium Normal 3.5-5.1 [facility] Comment on above: Result Comment: Canc elled via OM: Order cancelled - Patient discharged Performed By: #### L 100.0100, L500.2500 ####[facility] [address] [place], [address] Basic Metabolic Profile (BMP) Normal 136-145 [facility] Comment on above: Result Comment: Canc elled via OM: Order cancelled - Patient discharged Performed By: #### L 100.0100, L500.2500 ####[facility] [address] [place], [address] Basophil percentageOrdered B y: Partha Melissaward on 05-01-2024 Basophils/100 WBC (Bld) 0.3 % 0-1 [facility] CBC W/Diff, Automatedon 03-0 Absolute Lymph 2.40 X10 3/uL Normal 0.83-4.51 [facility] Comment on above: Performed By: #### L 500.2500, L100.0100, L503.6005 ####[facility] [address] [place], [address] Absolute Neut 4.9 X10 3/uL Normal 2.0-7.7 [facility] Comment on above: Performed By: #### L 500.2500, L100.0100, L503.6005 ####[facility] [address] [place], [address] Basophils/100 WBC (Bld) 0.3 % Normal 0-1 [facility] Comment on above: Performed By: #### L 500.2500, L100.0100, L503.6005 ####[facility] [address] [place], [address] Eosinophils/100 WBC (Bld) 0.6 % Normal 0-5 [facility] Comment on above: Performed By: #### L 500.2500, L100.0100, L503.6005 ####[facility] [address] [place], [address] Erythrocyte distribution width (RBC) [Ratio] 14.6 % Normal 11.6-14.6 [facility] Comment on above: Performed By: #### L 500.2500, L100.0100, L503.6005 ####[facility] [address] [place], [address] Hematocrit (Bld) [Volume fraction] 36.4 % Low 37-47 [facility] Comment on above: Performed By: #### L 500.2500, L100.0100, L503.6005 ####[facility] [address] [place], [address] Hemoglobin (Bld) [Mass/Vol] 11.3 g/dL Low 12.0-15.0 [facility] Comment on above: Performed By: #### L 500.2500, L100.0100, L503.6005 ####[facility] [address] [place], [address] IG% 0.600 Normal 0.0-0.9 [facility] Comment on above: Result Comment: IG% - Immature Granulocytes (promyelocytes, myelocytes andmetamyelocytes) > 1% indicates that a LEFT SHIFT is Present. Performed By: #### L 500.2500, L100.0100, L503.6005 ####[facility] [address] [place], [address] Lymphocytes/100 WBC (Bld) 30.3 % Normal 19-41 [facility] Comment on above: Performed By: #### L 500.2500, L100.0100, L503.6005 ####[facility] [address] [place], [address] MCH (RBC) [Entitic mass] 29.0 pg Normal 27.0-32.0 [facility] Comment on above: Performed By: #### L 500.2500, L100.0100, L503.6005 ####[facility] [address] [place], [address] MCHC (RBC) [Mass/Vol] 31.0 g/dL Low 32-36 [facility] Comment on above: Performed By: #### L 500.2500, L100.0100, L503.6005 ####[facility] [address] [place], [address] MCV (RBC) [Entitic vol] 93.3 fL Normal 81-99 [facility] Comment on above: Performed By: #### L 500.2500, L100.0100, L503.6005 ####[facility] [address] [place], [address] Monocytes/100 WBC (Bld) 5.9 % Normal 0-10 [facility] Comment on above: Performed By: #### L 500.2500, L100.0100, L503.6005 ####[facility] [address] [place], [address] Neutrophils/100 WBC (Bld) 62.3 % Normal 47-70 [facility] Comment on above: Performed By: #### L 500.2500, L100.0100, L503.6005 ####[facility] [address] [place], [address] Nucleated RBC (Bld) [#/Vol] 0 10*3/uL Normal 0-5 [facility] Comment on above: Performed By: #### L 500.2500, L100.0100, L503.6005 ####[facility] [address] [place], [address] Platelet mean volume (Bld) [Entitic vol] 11.7 fL Normal 6.2-12.0 [facility] Comment on above: Performed By: #### L 500.2500, L100.0100, L503.6005 ####[facility] [address] [place], [address] Platelets (Bld) [#/Vol] 229 10*3/uL Normal 150-450 [facility] Comment on above: Performed By: #### L 500.2500, L100.0100, L503.6005 ####[facility] [address] [place], [address] RBC (Bld) [#/Vol] 3.90 10*6/uL Low 4.2-5.4 [facility] Comment on above: Performed By: #### L 500.2500, L100.0100, L503.6005 ####[facility] [address] [place], [address] RDW SD 49.3 fl High 35.1-43.9 [facility] Comment on above: Performed By: #### L 500.2500, L100.0100, L503.6005 ####[facility] [address] [place], [address] WBC (Bld) [#/Vol] 7.9 10*3/uL Normal 4.4-11.0 [facility] Comment on above: Performed By: #### L 500.2500, L100.0100, L503.6005 ####[facility] [address] [place], [address] Absolute Neut Normal 2.0-7.7 [facility] Comment on above: Result Comment: Canc elled via OM: Order cancelled - Patient discharged Performed By: #### L 100.0100, L500.2500 ####[facility] [address] [place], [address] HCT Normal 37-47 [facility] Comment on above: Result Comment: Canc elled via OM: Order cancelled - Patient discharged Performed By: #### L 100.0100, L500.2500 ####[facility] [address] [place], [address] HGB Normal 12.0-15.0 [facility] Comment on above: Result Comment: Canc elled via OM: Order cancelled - Patient discharged Performed By: #### L 100.0100, L500.2500 ####[facility] [address] [place], [address] MCH Normal 27.0-32.0 [facility] Comment on above: Result Comment: Canc elled via OM: Order cancelled - Patient discharged Performed By: #### L 100.0100, L500.2500 ####[facility] [address] [place], [address] MCHC Normal 32-36 [facility] Comment on above: Result Comment: Canc elled via OM: Order cancelled - Patient discharged Performed By: #### L 100.0100, L500.2500 ####[facility] [address] [place], [address] MCV Normal 81-99 [facility] Comment on above: Result Comment: Canc elled via OM: Order cancelled - Patient discharged Performed By: #### L 100.0100, L500.2500 ####[facility] [address] [place], [address] NEUT% Normal 47-70 [facility] Comment on above: Result Comment: Canc elled via OM: Order cancelled - Patient discharged Performed By: #### L 100.0100, L500.2500 ####[facility] [address] [place], [address] PLT Normal 150-450 [facility] Comment on above: Result Comment: Canc elled via OM: Order cancelled - Patient discharged Performed By: #### L 100.0100, L500.2500 ####[facility] [address] [place], [address] RBC Normal 4.2-5.4 [facility] Comment on above: Result Comment: Canc elled via OM: Order cancelled - Patient discharged Performed By: #### L 100.0100, L500.2500 ####[facility] [address] [place], [address] RDW CV Normal 11.6-14.6 [facility] Comment on above: Result Comment: Canc elled via OM: Order cancelled - Patient discharged Performed By: #### L 100.0100, L500.2500 ####[facility] [address] [place], [address] RDW SD Normal 35.1-43.9 [facility] Comment on above: Result Comment: Canc elled via OM: Order cancelled - Patient discharged Performed By: #### L 100.0100, L500.2500 ####[facility] [address] [place], [address] WBC Normal 4.4-11.0 [facility] Comment on above: Result Comment: Canc elled via OM: Order cancelled - Patient discharged Performed By: #### L 100.0100, L500.2500 ####[facility] [address] [place], [address] Carbon dioxide measurementOr dered By: Partha Luna on 05-01-2024 CO2 [Moles/Vol] 21.2 mmol/L Low 22.0-29.0 [facility] Chloride measurementOrdered By: Partha Luna on 05-01-2024 Chloride [Moles/Vol] 106 mmol/L 96-108 [facility] Emergency Department Summary on 05-01-2024 Emergency Department Summary Normal [facility] Eosinophil percentageOrdered By: Partha Luna on 05-01-2024 Eosinophils/100 WBC (Bld) 0.6 % 0-5 [facility] Erythrocyte distribution wid th ratioOrdered By: Partha Luna on 05-01-2024 Erythrocyte distribution width (RBC) [Ratio] 14.6 % 11.6-14.6 [facility] Erythrocyte distribution wid th standard deviationOrdered By: Partha Luna on 05-01-2024 Erythrocyte distribution width (RBC) [Ratio] 49.3 fl High 35.1-43.9 [facility] Glomerular filtration rate ( GFR) estimation/1.73 sq m using serum, plasma, or whole bOrdered By: Partha Luna on 05-01-2024 GFR/1.73 sq M.predicted among non-blacks MDRD (S/P/Bld) [Vol rate/Area] 58 mL/min/{1.73_m2} Low >60 [facility] Comment on above: mL/min/1.73m2 CKD-EP I Creatinine Equation (2020) Gram Stainon 05-01-2024 GS Gram Stain Rare White Blood Cells No Epithelial cells Rare Gram positive cocci Normal [facility] Comment on above: Performed By: #### M 100.3000, M100.2000 ####[facility] [address] [place], [place], [address] Hematocrit Auto (Bld) [Volum e fraction]Ordered By: Partha Luna on 05-01-2024 Hematocrit (Bld) [Volume fraction] 36.4 % Low 37-47 [facility] Hemoglobin measurementOrdere d By: Partha Luna on 05-01-2024 Hemoglobin (Bld) [Mass/Vol] 11.3 g/dL Low 12.0-15.0 [facility] Immature granulocytes/100 WB C Auto (Bld)Ordered By: Partha Luna on 05-01-2024 Immature granulocytes/100 WBC (Bld) 0.600 % 0.0-0.9 [facility] Comment on above: IG% - Immature Granu locytes (promyelocytes, myelocytes and metamyelocytes) > 1% indicates that a LEFT SHIFT is Present. Lactic Acidon 05-01-2024 Lactate [Moles/Vol] 1.9 mmol/L Normal 0.0-2.0 [facility] Comment on above: Order Comment: Y Performed By: #### L 500.2500, L100.0100, L503.6005 ####[facility] [address] [place], [address] Lactic acid measurementOrder ed By: Partha Luna on 05-01-2024 Lactate [Moles/Vol] 1.9 mmol/L 0.0-2.0 [facility] MCV (mean corpuscular volume ) determinationOrdered By: Partha Luna on 05-01-2024 MCV (RBC) [Entitic vol] 93.3 fL 81-99 [facility] Mean corpuscular hemoglobin (MCH) determinationOrdered By: Partha Luna on 05-01-2024 MCH (RBC) [Entitic mass] 29.0 pg 27.0-32.0 [facility] Mean corpuscular hemoglobin concentration (MCHC) determinationOrdered By: Partha Luna on 05-01-2024 MCHC (RBC) [Mass/Vol] 31.0 g/dL Low 32-36 [facility] Mean platelet volume determi nationOrdered By: Partha Luna on 05-01-2024 Platelet mean volume (Bld) [Entitic vol] 11.7 fL 6.2-12.0 [facility] Monocyte percentageOrdered B y: Partha Luna on 05-01-2024 Monocytes/100 WBC (Bld) 5.9 % 0-10 [facility] Neutrophil percentageOrdered By: Partha Luna on 05-01-2024 Neutrophils/100 WBC (Bld) 62.3 % 47-70 [facility] Nucleated red blood cell per centageOrdered By: Partha Luna on 05-01-2024 Nucleated RBC/100 WBC (Bld) [Ratio] 0 % 0-5 [facility] Platelet countOrdered By: Kun Luna on 05-01-2024 Platelets (Bld) [#/Vol] 229 10*3/uL 150-450 [facility] RBC Auto (Bld) [#/Vol]Ordere d By: Partha Luna on 05-01-2024 RBC (Bld) [#/Vol] 3.90 10*6/uL Low 4.2-5.4 [facility] Serum creatinine measurement (mass/volume)Ordered By: Partha Luna on 05-01-2024 Creatinine [Mass/Vol] 0.98 mg/dL 0.70-1.20 [facility] Serum glucose measurement (m ass/volume)Ordered By: Partha Luna on 05-01-2024 Glucose [Mass/Vol] 139 mg/dL High 70-99 [facility] Serum or plasma anion gap de termination (moles/volume)Ordered By: Partah Luna on 05-01-2024 Anion gap [Moles/Vol] 12 mmol/L 5-15 [facility] Serum or plasma calcium mario alberto urement (mass/volume)Ordered By: Partha Luna on 05-01-2024 Calcium [Mass/Vol] 9.0 mg/dL 7.6-11.0 [facility] Serum or plasma potassium me asurementOrdered By: Partha Luna on 05-01-2024 Potassium [Moles/Vol] 4.2 mmol/L 3.3-5.1 [facility] Serum or plasma sodium measu rement (moles/volume)Ordered By: Partha Luna on 05-01-2024 Sodium [Moles/Vol] 140 mmol/L 133-145 [facility] Serum or plasma urea nitroge n measurement (mass/volume)Ordered By: Partha Luna on 05-01-2024 Urea nitrogen [Mass/Vol] 15 mg/dL 4-19 [facility] White blood cell (WBC) count Ordered By: Partha Luna on 05-01-2024 WBC (Bld) [#/Vol] 7.9 10*3/uL 4.4-11.0 [facility] Wound Cultureon 03-01-2025 WC No growth aerobically. Normal [facility] Comment on above: Performed By: #### M 100.3000, M100.2000 ####[facility] [address] [place], [address] Basic Metabolic Profile (BMP )on 04-30-2024 BUN Normal 7-18 [facility] Comment on above: Result Comment: Canc elled via OM: Order cancelled - Patient discharged Performed By: #### L 500.2500, L100.0100 ####[facility] [address] [place], [address] BUN/CRE Normal 10-20 [facility] Comment on above: Result Comment: Canc elled via OM: Order cancelled - Patient discharged Performed By: #### L 500.2500, L100.0100 ####[facility] [address] [place], [address] Calcium Normal 8.5-10.1 [facility] Comment on above: Result Comment: Canc elled via OM: Order cancelled - Patient discharged Performed By: #### L 500.2500, L100.0100 ####[facility] [address] [place], [address] CL Normal 98-107 [facility] Comment on above: Result Comment: Canc elled via OM: Order cancelled - Patient discharged Performed By: #### L 500.2500, L100.0100 ####[facility] [address] [place], [address] CO2 Normal 21.0-32.0 [facility] Comment on above: Result Comment: Canc elled via OM: Order cancelled - Patient discharged Performed By: #### L 500.2500, L100.0100 ####[facility] [address] [place], [address] CREAT,SERUM Normal 0.55-1.02 [facility] Comment on above: Result Comment: Canc elled via OM: Order cancelled - Patient discharged Performed By: #### L 500.2500, L100.0100 ####[facility] [address] [place], [address] eGFR Normal >60 [facility] Comment on above: Result Comment: Canc elled via OM: Order cancelled - Patient discharged Performed By: #### L 500.2500, L100.0100 ####[facility] [address] [place], [address] EST GFR - AA Normal >60 [facility] Comment on above: Result Comment: Canc elled via OM: Order cancelled - Patient discharged Performed By: #### L 500.2500, L100.0100 ####[facility] [address] [place], [address] GAP Normal 5-15 [facility] Comment on above: Result Comment: Canc elled via OM: Order cancelled - Patient discharged Performed By: #### L 500.2500, L100.0100 ####[facility] [address] [place], [address] GLU Normal 74-106 [facility] Comment on above: Result Comment: Canc elled via OM: Order cancelled - Patient discharged Performed By: #### L 500.2500, L100.0100 ####[facility] [address] [place], [address] Potassium Normal 3.5-5.1 [facility] Comment on above: Result Comment: Canc elled via OM: Order cancelled - Patient discharged Performed By: #### L 500.2500, L100.0100 ####[facility] [address] [place], [address] Basic Metabolic Profile (BMP) Normal 136-145 [facility] Comment on above: Result Comment: Canc elled via OM: Order cancelled - Patient discharged Performed By: #### L 500.2500, L100.0100 ####[facility] [address] [place], [address] CBC W/Diff, Automatedon 04-04 Absolute Neut Normal 2.0-7.7 [facility] Comment on above: Result Comment: Canc elled via OM: Order cancelled - Patient discharged Performed By: #### L 500.2500, L100.0100 ####[facility] [address] [place], [address] HCT Normal 37-47 [facility] Comment on above: Result Comment: Canc elled via OM: Order cancelled - Patient discharged Performed By: #### L 500.2500, L100.0100 ####[facility] [address] [place], [address] HGB Normal 12.0-15.0 [facility] Comment on above: Result Comment: Canc elled via OM: Order cancelled - Patient discharged Performed By: #### L 500.2500, L100.0100 ####[facility] [address] [place], [address] MCH Normal 27.0-32.0 [facility] Comment on above: Result Comment: Canc elled via OM: Order cancelled - Patient discharged Performed By: #### L 500.2500, L100.0100 ####[facility] [address] [place], [address] MCHC Normal 32-36 [facility] Comment on above: Result Comment: Canc elled via OM: Order cancelled - Patient discharged Performed By: #### L 500.2500, L100.0100 ####[facility] [address] [place], [address] MCV Normal 81-99 [facility] Comment on above: Result Comment: Canc elled via OM: Order cancelled - Patient discharged Performed By: #### L 500.2500, L100.0100 ####[facility] [address] [place], [address] NEUT% Normal 47-70 [facility] Comment on above: Result Comment: Canc elled via OM: Order cancelled - Patient discharged Performed By: #### L 500.2500, L100.0100 ####[facility] [address] [place], [address] PLT Normal 150-450 [facility] Comment on above: Result Comment: Canc elled via OM: Order cancelled - Patient discharged Performed By: #### L 500.2500, L100.0100 ####[facility] [address] [place], [address] RBC Normal 4.2-5.4 [facility] Comment on above: Result Comment: Canc elled via OM: Order cancelled - Patient discharged Performed By: #### L 500.2500, L100.0100 ####[facility] [address] [place], [address] RDW CV Normal 11.6-14.6 [facility] Comment on above: Result Comment: Canc elled via OM: Order cancelled - Patient discharged Performed By: #### L 500.2500, L100.0100 ####[facility] [address] [place], [address] RDW SD Normal 35.1-43.9 [facility] Comment on above: Result Comment: Canc elled via OM: Order cancelled - Patient discharged Performed By: #### L 500.2500, L100.0100 ####[facility] [address] [place], [address] WBC Normal 4.4-11.0 [facility] Comment on above: Result Comment: Canc elled via OM: Order cancelled - Patient discharged Performed By: #### L 500.2500, L100.0100 ####[facility] [address] [place], [address] Culture, Blood (WB)on 2024 CUB No growth in 5 days. Normal [facility] Comment on above: Performed By: #### M 200.1000 ####[facility] [address] [place], [address] Emergency Department Summary on 04-30-2024 Emergency Department Summary Normal [facility] Gram stainOrdered By: Luiz Davila on 04-30-2024 Microscopic observation Gram stain Nom (Unsp spec) [facility] Basic Metabolic Profile (BMP )on 04-29-2024 BUN Normal 7-18 [facility] Comment on above: Result Comment: Canc elled via OM: Order cancelled - Patient discharged Performed By: #### L 500.2500, L100.0100 ####[facility] [address] [place], [address] BUN/CRE Normal 10-20 [facility] Comment on above: Result Comment: Canc elled via OM: Order cancelled - Patient discharged Performed By: #### L 500.2500, L100.0100 ####[facility] [address] [place], [address] Calcium Normal 8.5-10.1 [facility] Comment on above: Result Comment: Canc elled via OM: Order cancelled - Patient discharged Performed By: #### L 500.2500, L100.0100 ####[facility] [address] [place], [address] CL Normal 98-107 [facility] Comment on above: Result Comment: Canc elled via OM: Order cancelled - Patient discharged Performed By: #### L 500.2500, L100.0100 ####[facility] [address] [place], [address] CO2 Normal 21.0-32.0 [facility] Comment on above: Result Comment: Canc elled via OM: Order cancelled - Patient discharged Performed By: #### L 500.2500, L100.0100 ####[facility] [address] [place], [address] CREAT,SERUM Normal 0.55-1.02 [facility] Comment on above: Result Comment: Canc elled via OM: Order cancelled - Patient discharged Performed By: #### L 500.2500, L100.0100 ####[facility] [address] [place], [address] eGFR Normal >60 [facility] Comment on above: Result Comment: Canc elled via OM: Order cancelled - Patient discharged Performed By: #### L 500.2500, L100.0100 ####[facility] [address] [place], [address] EST GFR - AA Normal >60 [facility] Comment on above: Result Comment: Canc elled via OM: Order cancelled - Patient discharged Performed By: #### L 500.2500, L100.0100 ####[facility] [address] [place], [address] GAP Normal 5-15 [facility] Comment on above: Result Comment: Canc elled via OM: Order cancelled - Patient discharged Performed By: #### L 500.2500, L100.0100 ####[facility] [address] [place], [address] GLU Normal 74-106 [facility] Comment on above: Result Comment: Canc elled via OM: Order cancelled - Patient discharged Performed By: #### L 500.2500, L100.0100 ####[facility] [address] [place], [address] Potassium Normal 3.5-5.1 [facility] Comment on above: Result Comment: Canc elled via OM: Order cancelled - Patient discharged Performed By: #### L 500.2500, L100.0100 ####[facility] [address] [place], [address] Basic Metabolic Profile (BMP) Normal 136-145 [facility] Comment on above: Result Comment: Canc elled via OM: Order cancelled - Patient discharged Performed By: #### L 500.2500, L100.0100 ####[facility] [address] [place], [address] CBC W/Diff, Automatedon 02-2 Absolute Neut Normal 2.0-7.7 [facility] Comment on above: Result Comment: Canc elled via OM: Order cancelled - Patient discharged Performed By: #### L 500.2500, L100.0100 ####[facility] [address] [place], [address] HCT Normal 37-47 [facility] Comment on above: Result Comment: Canc elled via OM: Order cancelled - Patient discharged Performed By: #### L 500.2500, L100.0100 ####[facility] [address] [place], [address] HGB Normal 12.0-15.0 [facility] Comment on above: Result Comment: Canc elled via OM: Order cancelled - Patient discharged Performed By: #### L 500.2500, L100.0100 ####[facility] [address] [place], [address] MCH Normal 27.0-32.0 [facility] Comment on above: Result Comment: Canc elled via OM: Order cancelled - Patient discharged Performed By: #### L 500.2500, L100.0100 ####[facility] [address] [place], [address] MCHC Normal 32-36 [facility] Comment on above: Result Comment: Canc elled via OM: Order cancelled - Patient discharged Performed By: #### L 500.2500, L100.0100 ####[facility] [address] [place], [address] MCV Normal 81-99 [facility] Comment on above: Result Comment: Canc elled via OM: Order cancelled - Patient discharged Performed By: #### L 500.2500, L100.0100 ####[facility] [address] [place], [address] NEUT% Normal 47-70 [facility] Comment on above: Result Comment: Canc elled via OM: Order cancelled - Patient discharged Performed By: #### L 500.2500, L100.0100 ####[facility] [address] [place], [address] PLT Normal 150-450 [facility] Comment on above: Result Comment: Canc elled via OM: Order cancelled - Patient discharged Performed By: #### L 500.2500, L100.0100 ####[facility] [address] [place], [address] RBC Normal 4.2-5.4 [facility] Comment on above: Result Comment: Canc elled via OM: Order cancelled - Patient discharged Performed By: #### L 500.2500, L100.0100 ####[facility] [address] [place], [address] RDW CV Normal 11.6-14.6 [facility] Comment on above: Result Comment: Canc elled via OM: Order cancelled - Patient discharged Performed By: #### L 500.2500, L100.0100 ####[facility] [address] [place], [address] RDW SD Normal 35.1-43.9 [facility] Comment on above: Result Comment: Canc elled via OM: Order cancelled - Patient discharged Performed By: #### L 500.2500, L100.0100 ####[facility] [address] [place], [address] WBC Normal 4.4-11.0 [facility] Comment on above: Result Comment: Canc elled via OM: Order cancelled - Patient discharged Performed By: #### L 500.2500, L100.0100 ####[facility] [address] [place], [address] Basic Metabolic Profile (BMP )on 04-28-2024 BUN Normal 7-18 [facility] Comment on above: Result Comment: Canc elled via OM: Order cancelled - Patient discharged Performed By: #### L 500.2500, L100.0100 ####[facility] [address] [place], [address] BUN/CRE Normal 10-20 [facility] Comment on above: Result Comment: Canc elled via OM: Order cancelled - Patient discharged Performed By: #### L 500.2500, L100.0100 ####[facility] [address] [place], [address] Calcium Normal 8.5-10.1 [facility] Comment on above: Result Comment: Canc elled via OM: Order cancelled - Patient discharged Performed By: #### L 500.2500, L100.0100 ####[facility] [address] [place], [address] CL Normal 98-107 [facility] Comment on above: Result Comment: Canc elled via OM: Order cancelled - Patient discharged Performed By: #### L 500.2500, L100.0100 ####[facility] [address] [place], [address] CO2 Normal 21.0-32.0 [facility] Comment on above: Result Comment: Canc elled via OM: Order cancelled - Patient discharged Performed By: #### L 500.2500, L100.0100 ####[facility] [address] [place], [address] CREAT,SERUM Normal 0.55-1.02 [facility] Comment on above: Result Comment: Canc elled via OM: Order cancelled - Patient discharged Performed By: #### L 500.2500, L100.0100 ####[facility] [address] [place], [address] eGFR Normal >60 [facility] Comment on above: Result Comment: Canc elled via OM: Order cancelled - Patient discharged Performed By: #### L 500.2500, L100.0100 ####[facility] [address] [place], [address] EST GFR - AA Normal >60 [facility] Comment on above: Result Comment: Canc elled via OM: Order cancelled - Patient discharged Performed By: #### L 500.2500, L100.0100 ####[facility] [address] [place], [address] GAP Normal 5-15 [facility] Comment on above: Result Comment: Canc elled via OM: Order cancelled - Patient discharged Performed By: #### L 500.2500, L100.0100 ####[facility] [address] [place], [address] GLU Normal 74-106 [facility] Comment on above: Result Comment: Canc elled via OM: Order cancelled - Patient discharged Performed By: #### L 500.2500, L100.0100 ####[facility] [address] [place], [address] Potassium Normal 3.5-5.1 [facility] Comment on above: Result Comment: Canc elled via OM: Order cancelled - Patient discharged Performed By: #### L 500.2500, L100.0100 ####[facility] [address] [place], [address] Basic Metabolic Profile (BMP) Normal 136-145 [facility] Comment on above: Result Comment: Canc elled via OM: Order cancelled - Patient discharged Performed By: #### L 500.2500, L100.0100 ####[facility] [address] [place], [address] CBC W/Diff, Automatedon 02-2 Absolute Neut Normal 2.0-7.7 [facility] Comment on above: Result Comment: Canc elled via OM: Order cancelled - Patient discharged Performed By: #### L 500.2500, L100.0100 ####[facility] [address] [place], [address] HCT Normal 37-47 [facility] Comment on above: Result Comment: Canc elled via OM: Order cancelled - Patient discharged Performed By: #### L 500.2500, L100.0100 ####[facility] [address] [place], [address] HGB Normal 12.0-15.0 [facility] Comment on above: Result Comment: Canc elled via OM: Order cancelled - Patient discharged Performed By: #### L 500.2500, L100.0100 ####[facility] [address] [place], [address] MCH Normal 27.0-32.0 [facility] Comment on above: Result Comment: Canc elled via OM: Order cancelled - Patient discharged Performed By: #### L 500.2500, L100.0100 ####[facility] [address] [place], [address] MCHC Normal 32-36 [facility] Comment on above: Result Comment: Canc elled via OM: Order cancelled - Patient discharged Performed By: #### L 500.2500, L100.0100 ####[facility] [address] [place], [address] MCV Normal 81-99 [facility] Comment on above: Result Comment: Canc elled via OM: Order cancelled - Patient discharged Performed By: #### L 500.2500, L100.0100 ####[facility] [address] [place], [address] NEUT% Normal 47-70 [facility] Comment on above: Result Comment: Canc elled via OM: Order cancelled - Patient discharged Performed By: #### L 500.2500, L100.0100 ####[facility] [address] [place], [address] PLT Normal 150-450 [facility] Comment on above: Result Comment: Canc elled via OM: Order cancelled - Patient discharged Performed By: #### L 500.2500, L100.0100 ####[facility] [address] [place], [address] RBC Normal 4.2-5.4 [facility] Comment on above: Result Comment: Canc elled via OM: Order cancelled - Patient discharged Performed By: #### L 500.2500, L100.0100 ####[facility] [address] [place], [address] RDW CV Normal 11.6-14.6 [facility] Comment on above: Result Comment: Canc elled via OM: Order cancelled - Patient discharged Performed By: #### L 500.2500, L100.0100 ####[facility] [address] [place], [address] RDW SD Normal 35.1-43.9 [facility] Comment on above: Result Comment: Canc elled via OM: Order cancelled - Patient discharged Performed By: #### L 500.2500, L100.0100 ####[facility] [address] [place], [address] WBC Normal 4.4-11.0 [facility] Comment on above: Result Comment: Canc elled via OM: Order cancelled - Patient discharged Performed By: #### L 500.2500, L100.0100 ####[facility] [address] [place], [address] Absolute lymphocyte countOrd ered By: Diana Little on 04-27-2024 Lymphocytes Auto (Unsp spec) [#/Vol] 1.88 10*3/uL 0.83-4.51 [facility] Absolute neutrophil countOrd ered By: Diana Little on 04-27-2024 Neutrophils (Bld) [#/Vol] 2.6 10*3/uL 2.0-7.7 [facility] Automated lymphocyte count a s percentage of total leukocytesOrdered By: Diana Little on 04-27-2024 Lymphocytes/100 WBC Auto (Unsp spec) 38.7 % 19-41 [facility] Basic Metabolic Profile (BMP )on 04-27-2024 BUN/CRE 27.1 RATIO High 10-20 [facility] Comment on above: Performed By: #### L 100.0100, L500.2500 ####[facility] [address] [place], [address] CA,Total 8.9 mg/dL Normal 8.5-10.1 [facility] Comment on above: Performed By: #### L 100.0100, L500.2500 ####[facility] [address] [place], [address] Chloride [Moles/Vol] 108 mmol/L High 98-107 [facility] Comment on above: Performed By: #### L 100.0100, L500.2500 ####[facility] [address] [place], [address] CO2 [Moles/Vol] 24.0 mmol/L Normal 21.0-32.0 [facility] Comment on above: Performed By: #### L 100.0100, L500.2500 ####[facility] [address] [place], [address] Creatinine [Mass/Vol] 1.07 mg/dL High 0.55-1.02 [facility] Comment on above: Result Comment: The validity of the calculated GFR GFRAA in patients over70 years has not been determined. Clinical correlation isessential. Performed By: #### L 100.0100, L500.2500 ####[facility] [address] [place], [address] ECRCL 39.68 ml/min Normal [facility] Comment on above: Performed By: #### L 100.0100, L500.2500 ####[facility] [address] [place], [address] EST GFR - AA 63 mL/min Normal >60 [facility] Comment on above: Result Comment: Afri can [place] GFR Calc Performed By: #### L 100.0100, L500.2500 ####[facility] [address] [place], [address] GAP 6 Normal 5-15 [facility] Comment on above: Performed By: #### L 100.0100, L500.2500 ####[facility] [address] [place], [address] GFR/1.73 sq M.predicted among non-blacks MDRD (S/P/Bld) [Vol rate/Area] 52 mL/min/{1.73_m2} Low >60 [facility] Comment on above: Result Comment: Non- GFR Calc Performed By: #### L 100.0100, L500.2500 ####[facility] [address] [place], [address] Glucose [Mass/Vol] 138 mg/dL High 74-106 [facility] Comment on above: Result Comment: Fast ing Glucose result greater than or equal to 126 mg/dLsuggests DIABETES MELLITUS per A.D.A. criteria. Performed By: #### L 100.0100, L500.2500 ####[facility] [address] [place], [address] Potassium [Moles/Vol] 4.1 mmol/L Normal 3.5-5.1 [facility] Comment on above: Performed By: #### L 100.0100, L500.2500 ####[facility] [address] [place], [address] Sodium [Moles/Vol] 138 mmol/L Normal 136-145 [facility] Comment on above: Performed By: #### L 100.0100, L500.2500 ####[facility] [address] [place], [address] Urea nitrogen [Mass/Vol] 29 mg/dL High 7-18 [facility] Comment on above: Performed By: #### L 100.0100, L500.2500 ####[facility] [address] [place], [address] Basophil percentageOrdered B y: Diana Little on 04-27-2024 Basophils/100 WBC (Bld) 0.4 % 0-1 [facility] Blood urea nitrogen (BUN)/cr eatinine ratioOrdered By: Diana Sidney on 04-27-2024 Urea nitrogen/Creatinine [Mass ratio] 27.1 mg/mg High 10-20 [facility] CBC W/Diff, Automatedon 04-04 Absolute Lymph 1.88 X10 3/uL Normal 0.83-4.51 [facility] Comment on above: Performed By: #### L 100.0100, L500.2500 ####[facility] [address] [place], [address] Absolute Neut 2.6 X10 3/uL Normal 2.0-7.7 [facility] Comment on above: Performed By: #### L 100.0100, L500.2500 ####[facility] [address] [place], [address] Basophils/100 WBC (Bld) 0.4 % Normal 0-1 [facility] Comment on above: Performed By: #### L 100.0100, L500.2500 ####[facility] [address] [place], [address] Eosinophils/100 WBC (Bld) 0.6 % Normal 0-5 [facility] Comment on above: Performed By: #### L 100.0100, L500.2500 ####[facility] [address] [place], [address] Erythrocyte distribution width (RBC) [Ratio] 14.3 % Normal 11.6-14.6 [facility] Comment on above: Performed By: #### L 100.0100, L500.2500 ####[facility] [address] [place], [address] Hematocrit (Bld) [Volume fraction] 33.8 % Low 37-47 [facility] Comment on above: Performed By: #### L 100.0100, L500.2500 ####[facility] [address] [place], [address] Hemoglobin (Bld) [Mass/Vol] 10.3 g/dL Low 12.0-15.0 [facility] Comment on above: Performed By: #### L 100.0100, L500.2500 ####[facility] [address] [place], [address] IG% 0.200 Normal 0.0-0.9 [facility] Comment on above: Result Comment: IG% - Immature Granulocytes (promyelocytes, myelocytes andmetamyelocytes) > 1% indicates that a LEFT SHIFT is Present. Performed By: #### L 100.0100, L500.2500 ####[facility] [address] [place], [address] Lymphocytes/100 WBC (Bld) 38.7 % Normal 19-41 [facility] Comment on above: Performed By: #### L 100.0100, L500.2500 ####[facility] [address] [place], [address] MCH (RBC) [Entitic mass] 29.0 pg Normal 27.0-32.0 [facility] Comment on above: Performed By: #### L 100.0100, L500.2500 ####[facility] [address] [place], [address] MCHC (RBC) [Mass/Vol] 30.5 g/dL Low 32-36 [facility] Comment on above: Performed By: #### L 100.0100, L500.2500 ####[facility] [address] [place], [address] MCV (RBC) [Entitic vol] 95.2 fL Normal 81-99 [facility] Comment on above: Performed By: #### L 100.0100, L500.2500 ####[facility] [address] [place], [address] Monocytes/100 WBC (Bld) 6.4 % Normal 0-10 [facility] Comment on above: Performed By: #### L 100.0100, L500.2500 ####[facility] [address] [place], [address] Neutrophils/100 WBC (Bld) 53.7 % Normal 47-70 [facility] Comment on above: Performed By: #### L 100.0100, L500.2500 ####[facility] [address] [place], [address] Nucleated RBC (Bld) [#/Vol] 0 10*3/uL Normal 0-5 [facility] Comment on above: Performed By: #### L 100.0100, L500.2500 ####[facility] [address] [place], [address] Platelet mean volume (Bld) [Entitic vol] 10.7 fL Normal 6.2-12.0 [facility] Comment on above: Performed By: #### L 100.0100, L500.2500 ####[facility] [address] [place], [address] Platelets (Bld) [#/Vol] 167 10*3/uL Normal 150-450 [facility] Comment on above: Performed By: #### L 100.0100, L500.2500 ####[facility] [address] [place], [address] RBC (Bld) [#/Vol] 3.55 10*6/uL Low 4.2-5.4 [facility] Comment on above: Performed By: #### L 100.0100, L500.2500 ####[facility] [address] [place], [address] RDW SD 50.3 fl High 35.1-43.9 [facility] Comment on above: Performed By: #### L 100.0100, L500.2500 ####[facility] [address] [place], [address] WBC (Bld) [#/Vol] 4.9 10*3/uL Normal 4.4-11.0 [facility] Comment on above: Performed By: #### L 100.0100, L500.2500 ####[facility] [address] [place], [address] Carbon dioxide measurementOr dered By: Diana Little on 04-27-2024 CO2 [Moles/Vol] 24.0 mmol/L 21.0-32.0 [facility] Chloride measurementOrdered By: Diana Little on 04-27-2024 Chloride [Moles/Vol] 108 mmol/L High 98-107 [facility] Eosinophil percentageOrdered By: Diana Little on 04-27-2024 Eosinophils/100 WBC (Bld) 0.6 % 0-5 [facility] Erythrocyte distribution wid th ratioOrdered By: Diana Little on 04-27-2024 Erythrocyte distribution width (RBC) [Ratio] 14.3 % 11.6-14.6 [facility] Erythrocyte distribution wid th standard deviationOrdered By: Diana Little on 04-27-2024 Erythrocyte distribution width (RBC) [Ratio] 50.3 fl High 35.1-43.9 [facility] Glomerular filtration rate ( GFR) estimationOrdered By: Diana Little on 04-27-2024 GFR/1.73 sq M.predicted among non-blacks MDRD (S/P/Bld) [Vol rate/Area] 52 mL/min/{1.73_m2} Low >60 [facility] Comment on above: Non- GFR Calc Glucose measurementOrdered B y: Diana Little on 04-27-2024 Glucose [Mass/Vol] 138 mg/dL High 74-106 [facility] Comment on above: Fasting Glucose resu lt greater than or equal to 126 mg/dL suggests DIABETES MELLITUS per A.D.A. criteria. Hematocrit Auto (Bld) [Volum e fraction]Ordered By: Diana Little 04-27-2024 Hematocrit (Bld) [Volume fraction] 33.8 % Low 37-47 [facility] Hemoglobin measurementOrdere d By: Diana Little 04-27-2024 Hemoglobin (Bld) [Mass/Vol] 10.3 g/dL Low 12.0-15.0 [facility] Immature granulocytes/100 WB C Auto (Bld)Ordered By: Diana Little 04-27-2024 Immature granulocytes/100 WBC (Bld) 0.200 % 0.0-0.9 [facility] Comment on above: IG% - Immature Granu locytes (promyelocytes, myelocytes and metamyelocytes) > 1% indicates that a LEFT SHIFT is Present. MCV (mean corpuscular volume ) determinationOrdered By: Diana Little 04-27-2024 MCV (RBC) [Entitic vol] 95.2 fL 81-99 [facility] Mean corpuscular hemoglobin (MCH) determinationOrdered By: Diana Little 04-27-2024 MCH (RBC) [Entitic mass] 29.0 pg 27.0-32.0 [facility] Mean corpuscular hemoglobin concentration (MCHC) determinationOrdered By: Diana Little 04-27-2024 MCHC (RBC) [Mass/Vol] 30.5 g/dL Low 32-36 [facility] Mean platelet volume determi nationOrdered By: Diana Little on 04-27-2024 Platelet mean volume (Bld) [Entitic vol] 10.7 fL 6.2-12.0 [facility] Monocyte percentageOrdered B y: Diana Little on 04-27-2024 Monocytes/100 WBC (Bld) 6.4 % 0-10 [facility] Neutrophil percentageOrdered By: Diana Little on 04-27-2024 Neutrophils/100 WBC (Bld) 53.7 % 47-70 [facility] Nucleated red blood cell per centageOrdered By: Diana Little on 04-27-2024 Nucleated RBC/100 WBC (Bld) [Ratio] 0 % 0-5 [facility] Platelet countOrdered By: Na maximus Little on 04-27-2024 Platelets (Bld) [#/Vol] 167 10*3/uL 150-450 [facility] Potassium measurementOrdered By: Diana Little on 04-27-2024 Potassium [Moles/Vol] 4.1 mmol/L 3.5-5.1 [facility] RBC Auto (Bld) [#/Vol]Ordere d By: Diana Little on 04-27-2024 RBC (Bld) [#/Vol] 3.55 10*6/uL Low 4.2-5.4 [facility] Serum anion gap measurementO rdered By: Diana Little on 04-27-2024 Anion gap [Moles/Vol] 6 mmol/L 5-15 [facility] Serum or plasma calcium mario alberto urement (mass/volume)Ordered By: Diana Little on 04-27-2024 Calcium [Mass/Vol] 8.9 mg/dL 8.5-10.1 [facility] Serum or plasma creatinine m easurement (mass/volume)Ordered By: Diana Little on 04-27-2024 Creatinine [Mass/Vol] 1.07 mg/dL High 0.55-1.02 [facility] Comment on above: The validity of the calculated GFR & GFRAA in patients over 70 years has not been determined. Clinical correlation is essential. Serum or plasma urea nitroge n measurement (mass/volume)Ordered By: Diana Little on 04-27-2024 Urea nitrogen [Mass/Vol] 29 mg/dL High 7-18 [facility] Sodium levelOrdered By: Diana Little on 04-27-2024 Sodium [Moles/Vol] 138 mmol/L 136-145 [facility] White blood cell (WBC) count Ordered By: Diana Little on 04-27-2024 WBC (Bld) [#/Vol] 4.9 10*3/uL 4.4-11.0 [facility] Basic Metabolic Profile (BMP )on 04-26-2024 BUN/CRE 22.6 RATIO High 10-20 [facility] Comment on above: Performed By: #### L 500.2500, L100.0100 ####[facility] [address] [place], [address] CA,Total 8.9 mg/dL Normal 8.5-10.1 [facility] Comment on above: Performed By: #### L 500.2500, L100.0100 ####[facility] [address] [place], [address] Chloride [Moles/Vol] 105 mmol/L Normal 98-107 [facility] Comment on above: Performed By: #### L 500.2500, L100.0100 ####[facility] [address] [place], [address] CO2 [Moles/Vol] 26.0 mmol/L Normal 21.0-32.0 [facility] Comment on above: Performed By: #### L 500.2500, L100.0100 ####[facility] [address] [place], [address] Creatinine [Mass/Vol] 1.33 mg/dL High 0.55-1.02 [facility] Comment on above: Result Comment: The validity of the calculated GFR GFRAA in patients over70 years has not been determined. Clinical correlation isessential. Performed By: #### L 500.2500, L100.0100 ####[facility] [address] [place], [address] ECRCL 31.92 ml/min Normal [facility] Comment on above: Performed By: #### L 500.2500, L100.0100 ####[facility] [address] [place], [address] EST GFR - AA 49 mL/min Low >60 [facility] Comment on above: Result Comment: Afri can Malaysian GFR Calc Performed By: #### L 500.2500, L100.0100 ####[facility] [address] [place], [address] GAP 9 Normal 5-15 [facility] Comment on above: Performed By: #### L 500.2500, L100.0100 ####[facility] [address] [place], [address] GFR/1.73 sq M.predicted among non-blacks MDRD (S/P/Bld) [Vol rate/Area] 41 mL/min/{1.73_m2} Low >60 [facility] Comment on above: Result Comment: Non- GFR Calc Performed By: #### L 500.2500, L100.0100 ####[facility] [address] [place], [address] Glucose [Mass/Vol] 102 mg/dL Normal 74-106 [facility] Comment on above: Result Comment: Fast ing Glucose result from 100 to 125 mg/dLsuggests IMPAIRED HOMEOSTASIS per A.D.A. criteria. Performed By: #### L 500.2500, L100.0100 ####[facility] [address] [place], [address] Potassium [Moles/Vol] 4.0 mmol/L Normal 3.5-5.1 [facility] Comment on above: Performed By: #### L 500.2500, L100.0100 ####[facility] [address] [place], [address] Sodium [Moles/Vol] 139 mmol/L Normal 136-145 [facility] Comment on above: Performed By: #### L 500.2500, L100.0100 ####[facility] [address] [place], [address] Urea nitrogen [Mass/Vol] 30 mg/dL High 7-18 [facility] Comment on above: Performed By: #### L 500.2500, L100.0100 ####[facility] [address] [place], [address] CBC W/Diff, Automatedon 04-04-2024 Absolute Lymph 1.89 X10 3/uL Normal 0.83-4.51 [facility] Comment on above: Performed By: #### L 500.2500, L100.0100 ####[facility] [address] [place], [address] Absolute Neut 1.8 X10 3/uL Low 2.0-7.7 [facility] Comment on above: Performed By: #### L 500.2500, L100.0100 ####[facility] [address] [place], [address] Basophils/100 WBC (Bld) 0.7 % Normal 0-1 [facility] Comment on above: Performed By: #### L 500.2500, L100.0100 ####[facility] [address] [place], [address] Eosinophils/100 WBC (Bld) 0.2 % Normal 0-5 [facility] Comment on above: Performed By: #### L 500.2500, L100.0100 ####[facility] [address] [place], [address] Erythrocyte distribution width (RBC) [Ratio] 14.5 % Normal 11.6-14.6 [facility] Comment on above: Performed By: #### L 500.2500, L100.0100 ####[facility] [address] [place], [address] Hematocrit (Bld) [Volume fraction] 34.9 % Low 37-47 [facility] Comment on above: Performed By: #### L 500.2500, L100.0100 ####[facility] [address] [place], [address] Hemoglobin (Bld) [Mass/Vol] 10.6 g/dL Low 12.0-15.0 [facility] Comment on above: Performed By: #### L 500.2500, L100.0100 ####[facility] [address] [place], [address] IG% 0.200 Normal 0.0-0.9 [facility] Comment on above: Result Comment: IG% - Immature Granulocytes (promyelocytes, myelocytes andmetamyelocytes) > 1% indicates that a LEFT SHIFT is Present. Performed By: #### L 500.2500, L100.0100 ####[facility] [address] [place], [address] Lymphocytes/100 WBC (Bld) 46.1 % High 19-41 [facility] Comment on above: Performed By: #### L 500.2500, L100.0100 ####[facility] [address] [place], [address] MCH (RBC) [Entitic mass] 28.6 pg Normal 27.0-32.0 [facility] Comment on above: Performed By: #### L 500.2500, L100.0100 ####[facility] [address] [place], [address] MCHC (RBC) [Mass/Vol] 30.4 g/dL Low 32-36 [facility] Comment on above: Performed By: #### L 500.2500, L100.0100 ####[facility] [address] [place], [address] MCV (RBC) [Entitic vol] 94.3 fL Normal 81-99 [facility] Comment on above: Performed By: #### L 500.2500, L100.0100 ####[facility] [address] [place], [address] Monocytes/100 WBC (Bld) 7.8 % Normal 0-10 [facility] Comment on above: Performed By: #### L 500.2500, L100.0100 ####[facility] [address] [place], [address] Neutrophils/100 WBC (Bld) 45.0 % Low 47-70 [facility] Comment on above: Performed By: #### L 500.2500, L100.0100 ####[facility] [address] [place], [address] Nucleated RBC (Bld) [#/Vol] 0 10*3/uL Normal 0-5 [facility] Comment on above: Performed By: #### L 500.2500, L100.0100 ####[facility] [address] [place], [address] Platelet mean volume (Bld) [Entitic vol] 10.9 fL Normal 6.2-12.0 [facility] Comment on above: Performed By: #### L 500.2500, L100.0100 ####[facility] [address] [place], [address] Platelets (Bld) [#/Vol] 178 10*3/uL Normal 150-450 [facility] Comment on above: Performed By: #### L 500.2500, L100.0100 ####[facility] [address] [place], [address] RBC (Bld) [#/Vol] 3.70 10*6/uL Low 4.2-5.4 [facility] Comment on above: Performed By: #### L 500.2500, L100.0100 ####[facility] [address] [place], [address] RDW SD 50.2 fl High 35.1-43.9 [facility] Comment on above: Performed By: #### L 500.2500, L100.0100 ####[facility] [address] [place], [address] WBC (Bld) [#/Vol] 4.1 10*3/uL Low 4.4-11.0 [facility] Comment on above: Performed By: #### L 500.2500, L100.0100 ####[facility] [address] [place], [address] Basic Metabolic Profile (BMP )on 04-25-2024 BUN/CRE 15.0 RATIO Normal 10-20 [facility] Comment on above: Performed By: #### L 500.2500, L100.0100 ####[facility] [address] [place], [address] CA,Total 8.7 mg/dL Normal 8.5-10.1 [facility] Comment on above: Performed By: #### L 500.2500, L100.0100 ####[facility] [address] [place], [address] Chloride [Moles/Vol] 106 mmol/L Normal 98-107 [facility] Comment on above: Performed By: #### L 500.2500, L100.0100 ####[facility] [address] [place], [address] CO2 [Moles/Vol] 24.0 mmol/L Normal 21.0-32.0 [facility] Comment on above: Performed By: #### L 500.2500, L100.0100 ####[facility] [address] [place], [address] Creatinine [Mass/Vol] 1.13 mg/dL High 0.55-1.02 [facility] Comment on above: Result Comment: The validity of the calculated GFR GFRAA in patients over70 years has not been determined. Clinical correlation isessential. Performed By: #### L 500.2500, L100.0100 ####[facility] [address] [place], [address] ECRCL 37.57 ml/min Normal [facility] Comment on above: Performed By: #### L 500.2500, L100.0100 ####[facility] [address] [place], [address] EST GFR - AA 59 mL/min Low >60 [facility] Comment on above: Result Comment: Afri can Malaysian GFR Calc Performed By: #### L 500.2500, L100.0100 ####[facility] [address] [place], [address] GAP 8 Normal 5-15 [facility] Comment on above: Performed By: #### L 500.2500, L100.0100 ####[facility] [address] [place], [address] GFR/1.73 sq M.predicted among non-blacks MDRD (S/P/Bld) [Vol rate/Area] 49 mL/min/{1.73_m2} Low >60 [facility] Comment on above: Result Comment: Non- GFR Calc Performed By: #### L 500.2500, L100.0100 ####[facility] [address] [place], [address] Glucose [Mass/Vol] 92 mg/dL Normal 74-106 [facility] Comment on above: Performed By: #### L 500.2500, L100.0100 ####[facility] [address] [place], [address] Potassium [Moles/Vol] 4.0 mmol/L Normal 3.5-5.1 [facility] Comment on above: Performed By: #### L 500.2500, L100.0100 ####[facility] [address] [place], [address] Sodium [Moles/Vol] 138 mmol/L Normal 136-145 [facility] Comment on above: Performed By: #### L 500.2500, L100.0100 ####[facility] [address] [place], [address] Urea nitrogen [Mass/Vol] 17 mg/dL Normal 7-18 [facility] Comment on above: Performed By: #### L 500.2500, L100.0100 ####[facility] [address] [place], [address] Bilirubin Test strip Ql (U)O rdered By: Diana Little on 04-25-2024 Bilirubin Ql (U) Negative Negative [facility] CBC W/Diff, Automatedon - Absolute Lymph 1.38 X10 3/uL Normal 0.83-4.51 [facility] Comment on above: Performed By: #### L 500.2500, L100.0100 ####[facility] [address] [place], [address] Absolute Neut 2.8 X10 3/uL Normal 2.0-7.7 [facility] Comment on above: Performed By: #### L 500.2500, L100.0100 ####[facility] [address] [place], [address] Basophils/100 WBC (Bld) 0.4 % Normal 0-1 [facility] Comment on above: Performed By: #### L 500.2500, L100.0100 ####[facility] [address] [place], [address] Eosinophils/100 WBC (Bld) 0.0 % Normal 0-5 [facility] Comment on above: Performed By: #### L 500.2500, L100.0100 ####[facility] [address] [place], [address] Erythrocyte distribution width (RBC) [Ratio] 14.5 % Normal 11.6-14.6 [facility] Comment on above: Performed By: #### L 500.2500, L100.0100 ####[facility] [address] [place], [address] Hematocrit (Bld) [Volume fraction] 35.4 % Low 37-47 [facility] Comment on above: Performed By: #### L 500.2500, L100.0100 ####[facility] [address] [place], [address] Hemoglobin (Bld) [Mass/Vol] 10.9 g/dL Low 12.0-15.0 [facility] Comment on above: Performed By: #### L 500.2500, L100.0100 ####[facility] [address] [place], [address] IG% 0.400 Normal 0.0-0.9 [facility] Comment on above: Result Comment: IG% - Immature Granulocytes (promyelocytes, myelocytes andmetamyelocytes) > 1% indicates that a LEFT SHIFT is Present. Performed By: #### L 500.2500, L100.0100 ####[facility] [address] [place], [address] Lymphocytes/100 WBC (Bld) 29.9 % Normal 19-41 [facility] Comment on above: Performed By: #### L 500.2500, L100.0100 ####[facility] [address] [place], [address] MCH (RBC) [Entitic mass] 28.7 pg Normal 27.0-32.0 [facility] Comment on above: Performed By: #### L 500.2500, L100.0100 ####[facility] [address] [place], [address] MCHC (RBC) [Mass/Vol] 30.8 g/dL Low 32-36 [facility] Comment on above: Performed By: #### L 500.2500, L100.0100 ####[facility] [address] [place], [address] MCV (RBC) [Entitic vol] 93.2 fL Normal 81-99 [facility] Comment on above: Performed By: #### L 500.2500, L100.0100 ####[facility] [address] [place], [address] Monocytes/100 WBC (Bld) 9.1 % Normal 0-10 [facility] Comment on above: Performed By: #### L 500.2500, L100.0100 ####[facility] [address] [place], [address] Neutrophils/100 WBC (Bld) 60.2 % Normal 47-70 [facility] Comment on above: Performed By: #### L 500.2500, L100.0100 ####[facility] [address] [place], [address] Nucleated RBC (Bld) [#/Vol] 0 10*3/uL Normal 0-5 [facility] Comment on above: Performed By: #### L 500.2500, L100.0100 ####[facility] [address] [place], [address] Platelet mean volume (Bld) [Entitic vol] 10.5 fL Normal 6.2-12.0 [facility] Comment on above: Performed By: #### L 500.2500, L100.0100 ####[facility] [address] [place], [address] Platelets (Bld) [#/Vol] 194 10*3/uL Normal 150-450 [facility] Comment on above: Performed By: #### L 500.2500, L100.0100 ####[facility] [address] [place], [address] RBC (Bld) [#/Vol] 3.80 10*6/uL Low 4.2-5.4 [facility] Comment on above: Performed By: #### L 500.2500, L100.0100 ####[facility] [address] [place], [address] RDW SD 49.8 fl High 35.1-43.9 [facility] Comment on above: Performed By: #### L 500.2500, L100.0100 ####[facility] [address] [place], [address] WBC (Bld) [#/Vol] 4.6 10*3/uL Normal 4.4-11.0 [facility] Comment on above: Performed By: #### L 500.2500, L100.0100 ####[facility] [address] [place], [address] Hyaline casts LM.LPF (Urine sed) [#/Area]Ordered By: Diana Little on 04-25-2024 Hyaline casts (Urine sed) [#/Area] 0 /[LPF] 0-5 [facility] Ketones Test strip Ql (U)Ord ered By: Diana Little on 04-25-2024 Ketones Ql (U) Negative Negative [facility] Microscopic analysis of urin e for red blood cells (RBC)Ordered By: Diana Little on 04-25-2024 Microscopic analysis of urine for red blood cells (RBC) 5-10 SEEN /hpf 0-5 [facility] Mucus LM Ql (Urine sed)Order ed By: Diana Little on 04-25-2024 Mucus Ql (Urine sed) 0 SEEN /hpf [facility] Nitrite Test strip Ql (U)Ord ered By: Diana Little on 04-25-2024 Nitrite Ql (U) Negative Negative [facility] Protein Test strip Ql (U)Ord ered By: Diana Little on 04-25-2024 Protein Ql (U) 100 mg/dl High Negative [facility] Serum or plasma thyroid stim ulating hormone (TSH) measurement (units/volume)Ordered By: Diana Little on 04-25-2024 TSH Qn 0.788 uIU/mL 0.358-3.740 [facility] Squamous epithelial cells de tection in urine sediment by light microscopyOrdered By: Diana Little on 04-25-2024 Epithelial cells.squamous LM Ql (Urine sed) 0-5 SEEN /hpf 5-10 [facility] Stool Occult Blood iFOBon STOB Positive Normal [facility] Comment on above: Performed By: #### M 100.7900 ####[facility] [address] [place], [place], [id number] Stool gastrointestinal hemog lobin detection by immunologic methodOrdered By: Diana Bardalesradha on 04-25-2024 Lower GI hemoglobin IA Ql (Stl) Positive Abnormal [facility] Thyroid Stim Hormone (TSH)on 04-25-2024 TSH 0.788 uIU/mL Normal 0.358-3.740 [facility] Comment on above: Performed By: #### L 501.9520 ####[facility] [address] [place], [place], [id number] Urinalysis, Completeon 04-25 CAST,COARSE GR 0-5 SEEN Normal 0-5 /lpf [facility] Comment on above: Order Comment: ELDER TER SPECIMEN Performed By: #### L 400.0001 ####[facility] [address] [place], [place], [id number] CAST,FINE GRAN 0-5 SEEN Normal 0-5 [facility] Comment on above: Order Comment: ELDER TER SPECIMEN Performed By: #### L 400.0001 ####[facility] [address] [place], [address] CAST,HYALINE 0-5 SEEN Normal 0-5 [facility] Comment on above: Order Comment: ELDER TER SPECIMEN Performed By: #### L 400.0001 ####[facility] [address] [place], [address] BACTERIA RARE Normal None Seen [facility] Comment on above: Order Comment: ELDER TER SPECIMEN Performed By: #### L 400.0001 ####[facility] [address] [place], [address] EPI,SQUAMOUS 0-5 SEEN Normal 5-10 [facility] Comment on above: Order Comment: ELDER TER SPECIMEN Performed By: #### L 400.0001 ####[facility] [address] [place], [address] RBC 5-10 SEEN Normal 0-5 [facility] Comment on above: Order Comment: ELDER TER SPECIMEN Performed By: #### L 400.0001 ####[facility] [address] [place], [address] WBC 0-5 SEEN Normal 0-5 [facility] Comment on above: Order Comment: ELDER TER SPECIMEN Performed By: #### L 400.0001 ####[facility] [address] [place], [address] Mucus Ql (Urine sed) 0 SEEN Normal [facility] Comment on above: Order Comment: ELDER TER SPECIMEN Performed By: #### L 400.0001 ####[facility] [address] [place], [address] Urine clarityOrdered By: Nicolasa Little on 04-25-2024 Clarity (U) Clear Clear [facility] Urine coarse granular cast d etectionOrdered By: Diana Little on 04-25-2024 Coarse Granular Casts LM Ql (Urine sed) 0-5 SEEN /lpf 0-5 /lpf [facility] Urine color determinationOrd ered By: Diana Little on 04-25-2024 Color (U) Yellow Yellow [facility] Urine glucose detectionOrder ed By: Diana Little on 04-25-2024 Glucose Ql (U) Normal mg/dl Normal [facility] Urine leukocyte esterase det ection by dipstickOrdered By: Diana Little on 04-25-2024 Leukocyte esterase Test strip Ql (U) Negative Negative [facility] Urine pHOrdered By: Diana Bardales am on 04-25-2024 pH (U) 5.0 [pH] 5.0 - 8.0 [facility] Urine sediment bacteria coun t by microscopy (number/high power field)Ordered By: Diana Little on 04-25-2024 Bacteria LM.HPF (Urine sed) [#/Area] RARE /hpf None Seen [facility] Urine sediment fine granular cast count by microscopy (number/low power field)Ordered By: Diana Little on 04-25-2024 Fine Granular Casts LM.LPF (Urine sed) [#/Area] 0-5 SEEN /lpf 0-5 [facility] Urine specific gravity measu rementOrdered By: Diana Little on 04-25-2024 Specific gravity (U) [Rel density] 1.025 1.002-1.030 [facility] Urine urobilinogen measureme ntOrdered By: Diana Little on 04-25-2024 Urobilinogen Ql (U) Normal mg/dl Normal [facility] White blood cell countOrdere d By: Diana Little on 04-25-2024 White blood cell count 0-5 SEEN /hpf 0-5 [facility] 12 Lead EKGon 04-24-2024 12 Lead EKG Normal [facility] Basic Metabolic Profile (BMP )on 04-24-2024 BUN/CRE 12.0 RATIO Normal 10-20 [facility] Comment on above: Performed By: #### L 100.0100, L500.2500 ####[facility] [address] [place], [place], [address] CA,Total 8.8 mg/dL Normal 8.5-10.1 [facility] Comment on above: Performed By: #### L 100.0100, L500.2500 ####[facility] [address] [place], [address] Chloride [Moles/Vol] 103 mmol/L Normal 98-107 [facility] Comment on above: Performed By: #### L 100.0100, L500.2500 ####[facility] [address] [place], [address] CO2 [Moles/Vol] 24.0 mmol/L Normal 21.0-32.0 [facility] Comment on above: Performed By: #### L 100.0100, L500.2500 ####[facility] [address] [place], [address] Creatinine [Mass/Vol] 1.00 mg/dL Normal 0.55-1.02 [facility] Comment on above: Result Comment: The validity of the calculated GFR GFRAA in patients over70 years has not been determined. Clinical correlation isessential. Performed By: #### L 100.0100, L500.2500 ####[facility] [address] [place], [address] ECRCL 42.45 ml/min Normal [facility] Comment on above: Performed By: #### L 100.0100, L500.2500 ####[facility] [address] [place], [address] EST GFR - AA 68 mL/min Normal >60 [facility] Comment on above: Result Comment: Afri can Malaysian GFR Calc Performed By: #### L 100.0100, L500.2500 ####[facility] [address] [place], [address] GAP 8 Normal 5-15 [facility] Comment on above: Performed By: #### L 100.0100, L500.2500 ####[facility] [address] [place], [address] GFR/1.73 sq M.predicted among non-blacks MDRD (S/P/Bld) [Vol rate/Area] 57 mL/min/{1.73_m2} Low >60 [facility] Comment on above: Result Comment: Non- GFR Calc Performed By: #### L 100.0100, L500.2500 ####[facility] [address] [place], [address] Glucose [Mass/Vol] 129 mg/dL High 74-106 [facility] Comment on above: Result Comment: Fast ing Glucose result greater than or equal to 126 mg/dLsuggests DIABETES MELLITUS per A.D.A. criteria. Performed By: #### L 100.0100, L500.2500 ####[facility] [address] [place], [address] Potassium [Moles/Vol] 3.8 mmol/L Normal 3.5-5.1 [facility] Comment on above: Performed By: #### L 100.0100, L500.2500 ####[facility] [address] [place], [address] Sodium [Moles/Vol] 135 mmol/L Low 136-145 [facility] Comment on above: Performed By: #### L 100.0100, L500.2500 ####[facility] [address] [place], [address] Urea nitrogen [Mass/Vol] 12 mg/dL Normal 7-18 [facility] Comment on above: Performed By: #### L 100.0100, L500.2500 ####[facility] [address] [place], [address] Blood cultureOrdered By: Nicolasa Little on 04-24-2024 Bacteria identified Cx Nom (Bld) No growth in 5 days. [facility] Bacteria identified Cx Nom (Bld) No growth in 5 days. [facility] CBC W/Diff, Automatedon 04-04 Absolute Lymph 0.72 X10 3/uL Low 0.83-4.51 [facility] Comment on above: Performed By: #### L 100.0100, L500.2500 ####[facility] [address] [place], [address] Absolute Neut 4.8 X10 3/uL Normal 2.0-7.7 [facility] Comment on above: Performed By: #### L 100.0100, L500.2500 ####[facility] [address] [place], [address] Basophils/100 WBC (Bld) 0.7 % Normal 0-1 [facility] Comment on above: Performed By: #### L 100.0100, L500.2500 ####[facility] [address] [place], [address] Eosinophils/100 WBC (Bld) 0.2 % Normal 0-5 [facility] Comment on above: Performed By: #### L 100.0100, L500.2500 ####[facility] [address] [place], [address] Erythrocyte distribution width (RBC) [Ratio] 14.1 % Normal 11.6-14.6 [facility] Comment on above: Performed By: #### L 100.0100, L500.2500 ####[facility] [address] [place], [address] Hematocrit (Bld) [Volume fraction] 35.1 % Low 37-47 [facility] Comment on above: Performed By: #### L 100.0100, L500.2500 ####[facility] [address] [place], [address] Hemoglobin (Bld) [Mass/Vol] 11.3 g/dL Low 12.0-15.0 [facility] Comment on above: Performed By: #### L 100.0100, L500.2500 ####[facility] [address] [place], [address] IG% 0.500 Normal 0.0-0.9 [facility] Comment on above: Result Comment: IG% - Immature Granulocytes (promyelocytes, myelocytes andmetamyelocytes) > 1% indicates that a LEFT SHIFT is Present. Performed By: #### L 100.0100, L500.2500 ####[facility] [address] [place], [address] Lymphocytes/100 WBC (Bld) 11.9 % Low 19-41 [facility] Comment on above: Performed By: #### L 100.0100, L500.2500 ####[facility] [address] [place], [address] MCH (RBC) [Entitic mass] 29.2 pg Normal 27.0-32.0 [facility] Comment on above: Performed By: #### L 100.0100, L500.2500 ####[facility] [address] [place], [address] MCHC (RBC) [Mass/Vol] 32.2 g/dL Normal 32-36 [facility] Comment on above: Performed By: #### L 100.0100, L500.2500 ####[facility] [address] [place], [address] MCV (RBC) [Entitic vol] 90.7 fL Normal 81-99 [facility] Comment on above: Performed By: #### L 100.0100, L500.2500 ####[facility] [address] [place], [address] Monocytes/100 WBC (Bld) 7.5 % Normal 0-10 [facility] Comment on above: Performed By: #### L 100.0100, L500.2500 ####[facility] [address] [place], [address] Neutrophils/100 WBC (Bld) 79.2 % High 47-70 [facility] Comment on above: Performed By: #### L 100.0100, L500.2500 ####[facility] [address] [place], [address] Nucleated RBC (Bld) [#/Vol] 0 10*3/uL Normal 0-5 [facility] Comment on above: Performed By: #### L 100.0100, L500.2500 ####[facility] [address] [place], [address] Platelet mean volume (Bld) [Entitic vol] 10.3 fL Normal 6.2-12.0 [facility] Comment on above: Performed By: #### L 100.0100, L500.2500 ####[facility] [address] [place], [address] Platelets (Bld) [#/Vol] 200 10*3/uL Normal 150-450 [facility] Comment on above: Performed By: #### L 100.0100, L500.2500 ####[facility] [address] [place], [address] RBC (Bld) [#/Vol] 3.87 10*6/uL Low 4.2-5.4 [facility] Comment on above: Performed By: #### L 100.0100, L500.2500 ####[facility] [address] [place], [address] RDW SD 47.0 fl High 35.1-43.9 [facility] Comment on above: Performed By: #### L 100.0100, L500.2500 ####[facility] [address] [place], [address] WBC (Bld) [#/Vol] 6.0 10*3/uL Normal 4.4-11.0 [facility] Comment on above: Performed By: #### L 100.0100, L500.2500 ####[facility] [address] [place], [address] CTA Chest W/WO Contraston CTA Chest W/WO Contrast Normal [facility] RESPIRATORY PANEL MOLECULARo n 04-24-2024 RP PANEL Normal [facility] Comment on above: Performed By: #### M 100.638 ####[facility] [address] [place], [address] Respiratory pathogens detect ion panel by molecular detection methodOrdered By: Diana Little on 04-24-2024 Respiratory pathogens DNA and RNA panel JITENDRA+probe (Resp) Influenza A (Subtype H1) Abnormal [facility] Basic Metabolic Profile (BMP )on 04-23-2024 BUN/CRE 11.5 RATIO Normal 10-20 [facility] Comment on above: Performed By: #### L 100.0100, L500.2500 ####[facility] [address] [place], [address] CA,Total 9.0 mg/dL Normal 8.5-10.1 [facility] Comment on above: Performed By: #### L 100.0100, L500.2500 ####[facility] [address] [place], [address] Chloride [Moles/Vol] 107 mmol/L Normal 98-107 [facility] Comment on above: Performed By: #### L 100.0100, L500.2500 ####[facility] [address] [place], [address] CO2 [Moles/Vol] 27.0 mmol/L Normal 21.0-32.0 [facility] Comment on above: Performed By: #### L 100.0100, L500.2500 ####[facility] [address] [place], [address] Creatinine [Mass/Vol] 1.04 mg/dL High 0.55-1.02 [facility] Comment on above: Result Comment: The validity of the calculated GFR GFRAA in patients over70 years has not been determined. Clinical correlation isessential. Performed By: #### L 100.0100, L500.2500 ####[facility] [address] [place], [address] ECRCL 40.82 ml/min Normal [facility] Comment on above: Performed By: #### L 100.0100, L500.2500 ####[facility] [address] [place], [address] EST GFR - AA 65 mL/min Normal >60 [facility] Comment on above: Result Comment: Afri can Malaysian GFR Calc Performed By: #### L 100.0100, L500.2500 ####[facility] [address] [place], [address] GAP 5 Normal 5-15 [facility] Comment on above: Performed By: #### L 100.0100, L500.2500 ####[facility] [address] [place], [address] GFR/1.73 sq M.predicted among non-blacks MDRD (S/P/Bld) [Vol rate/Area] 54 mL/min/{1.73_m2} Low >60 [facility] Comment on above: Result Comment: Non- GFR Calc Performed By: #### L 100.0100, L500.2500 ####[facility] [address] [place], [address] Glucose [Mass/Vol] 135 mg/dL High 74-106 [facility] Comment on above: Result Comment: Fast ing Glucose result greater than or equal to 126 mg/dLsuggests DIABETES MELLITUS per A.D.A. criteria. Performed By: #### L 100.0100, L500.2500 ####[facility] [address] [place], [address] Potassium [Moles/Vol] 4.3 mmol/L Normal 3.5-5.1 [facility] Comment on above: Result Comment: Slig ht Hemolysis, Result may be falsely increased. Performed By: #### L 100.0100, L500.2500 ####[facility] [address] [place], [address] Sodium [Moles/Vol] 139 mmol/L Normal 136-145 [facility] Comment on above: Performed By: #### L 100.0100, L500.2500 ####[facility] [address] [place], [address] Urea nitrogen [Mass/Vol] 12 mg/dL Normal 7-18 [facility] Comment on above: Performed By: #### L 100.0100, L500.2500 ####[facility] [address] [place], [address] CBC W/Diff, Automatedon - Absolute Lymph 1.32 X10 3/uL Normal 0.83-4.51 [facility] Comment on above: Performed By: #### L 100.0100, L500.2500 ####[facility] [address] [place], [address] Absolute Neut 5.7 X10 3/uL Normal 2.0-7.7 [facility] Comment on above: Performed By: #### L 100.0100, L500.2500 ####[facility] [address] [place], [address] Basophils/100 WBC (Bld) 0.6 % Normal 0-1 [facility] Comment on above: Performed By: #### L 100.0100, L500.2500 ####[facility] [address] [place], [address] Eosinophils/100 WBC (Bld) 4.3 % Normal 0-5 [facility] Comment on above: Performed By: #### L 100.0100, L500.2500 ####[facility] [address] [place], [address] Erythrocyte distribution width (RBC) [Ratio] 13.8 % Normal 11.6-14.6 [facility] Comment on above: Performed By: #### L 100.0100, L500.2500 ####[facility] [address] [place], [address] Hematocrit (Bld) [Volume fraction] 37.4 % Normal 37-47 [facility] Comment on above: Performed By: #### L 100.0100, L500.2500 ####[facility] [address] [place], [address] Hemoglobin (Bld) [Mass/Vol] 11.6 g/dL Low 12.0-15.0 [facility] Comment on above: Performed By: #### L 100.0100, L500.2500 ####[facility] [address] [place], [address] IG% 0.400 Normal 0.0-0.9 [facility] Comment on above: Result Comment: IG% - Immature Granulocytes (promyelocytes, myelocytes andmetamyelocytes) > 1% indicates that a LEFT SHIFT is Present. Performed By: #### L 100.0100, L500.2500 ####[facility] [address] [place], [address] Lymphocytes/100 WBC (Bld) 16.8 % Low 19-41 [facility] Comment on above: Performed By: #### L 100.0100, L500.2500 ####[facility] [address] [place], [address] MCH (RBC) [Entitic mass] 28.9 pg Normal 27.0-32.0 [facility] Comment on above: Performed By: #### L 100.0100, L500.2500 ####[facility] [address] [place], [address] MCHC (RBC) [Mass/Vol] 31.0 g/dL Low 32-36 [facility] Comment on above: Performed By: #### L 100.0100, L500.2500 ####[facility] [address] [place], [address] MCV (RBC) [Entitic vol] 93.0 fL Normal 81-99 [facility] Comment on above: Performed By: #### L 100.0100, L500.2500 ####[facility] [address] [place], [address] Monocytes/100 WBC (Bld) 5.7 % Normal 0-10 [facility] Comment on above: Performed By: #### L 100.0100, L500.2500 ####[facility] [address] [place], [address] Neutrophils/100 WBC (Bld) 72.2 % High 47-70 [facility] Comment on above: Performed By: #### L 100.0100, L500.2500 ####[facility] [address] [place], [address] Nucleated RBC (Bld) [#/Vol] 0 10*3/uL Normal 0-5 [facility] Comment on above: Performed By: #### L 100.0100, L500.2500 ####[facility] [address] [place], [address] Platelet mean volume (Bld) [Entitic vol] 10.4 fL Normal 6.2-12.0 [facility] Comment on above: Performed By: #### L 100.0100, L500.2500 ####[facility] [address] [place], [address] Platelets (Bld) [#/Vol] 225 10*3/uL Normal 150-450 [facility] Comment on above: Performed By: #### L 100.0100, L500.2500 ####[facility] [address] [place], [address] RBC (Bld) [#/Vol] 4.02 10*6/uL Low 4.2-5.4 [facility] Comment on above: Performed By: #### L 100.0100, L500.2500 ####[facility] [address] [place], [address] RDW SD 47.4 fl High 35.1-43.9 [facility] Comment on above: Performed By: #### L 100.0100, L500.2500 ####[facility] [address] [place], [address] WBC (Bld) [#/Vol] 7.9 10*3/uL Normal 4.4-11.0 [facility] Comment on above: Performed By: #### L 100.0100, L500.2500 ####[facility] [address] [place], [address] Basic Metabolic Profile (BMP )on 04-22-2024 BUN/CRE 14.6 RATIO Normal - [facility] Comment on above: Performed By: #### L 501.9520, L500.2500, L100.0100 ####[facility] [address] [place], [address] CA,Total 8.8 mg/dL Normal 8.5-10.1 [facility] Comment on above: Performed By: #### L 501.9520, L500.2500, L100.0100 ####[facility] [address] [place], [address] Chloride [Moles/Vol] 109 mmol/L High 98-107 [facility] Comment on above: Performed By: #### L 501.9520, L500.2500, L100.0100 ####[facility] [address] [place], [address] CO2 [Moles/Vol] 25.0 mmol/L Normal 21.0-32.0 [facility] Comment on above: Performed By: #### L 501.9520, L500.2500, L100.0100 ####[facility] [address] [place], [address] Creatinine [Mass/Vol] 0.96 mg/dL Normal 0.55-1.02 [facility] Comment on above: Result Comment: The validity of the calculated GFR GFRAA in patients over70 years has not been determined. Clinical correlation isessential. Performed By: #### L 501.9520, L500.2500, L100.0100 ####[facility] [address] [place], [address] ECRCL 44.22 ml/min Normal [facility] Comment on above: Performed By: #### L 501.9520, L500.2500, L100.0100 ####[facility] [address] [place], [address] EST GFR - AA 72 mL/min Normal >60 [facility] Comment on above: Result Comment: Afri can Malaysian GFR Calc Performed By: #### L 501.9520, L500.2500, L100.0100 ####[facility] [address] [place], [address] GAP 6 Normal 5-15 [facility] Comment on above: Performed By: #### L 501.9520, L500.2500, L100.0100 ####[facility] [address] [place], [address] GFR/1.73 sq M.predicted among non-blacks MDRD (S/P/Bld) [Vol rate/Area] 59 mL/min/{1.73_m2} Low >60 [facility] Comment on above: Result Comment: Non- GFR Calc Performed By: #### L 501.9520, L500.2500, L100.0100 ####[facility] [address] [place], [address] Glucose [Mass/Vol] 149 mg/dL High 74-106 [facility] Comment on above: Result Comment: Fast ing Glucose result greater than or equal to 126 mg/dLsuggests DIABETES MELLITUS per A.D.A. criteria. Performed By: #### L 501.9520, L500.2500, L100.0100 ####[facility] [address] [place], [address] Potassium [Moles/Vol] 3.3 mmol/L Low 3.5-5.1 [facility] Comment on above: Performed By: #### L 501.9520, L500.2500, L100.0100 ####[facility] [address] [place], [address] Sodium [Moles/Vol] 139 mmol/L Normal 136-145 [facility] Comment on above: Performed By: #### L 501.9520, L500.2500, L100.0100 ####[facility] [address] [place], [address] Urea nitrogen [Mass/Vol] 14 mg/dL Normal 7-18 [facility] Comment on above: Performed By: #### L 501.9520, L500.2500, L100.0100 ####[facility] [address] [place], [address] CBC W/Diff, Automatedon 04-04 0 Absolute Lymph 0.98 X10 3/uL Normal 0.83-4.51 [facility] Comment on above: Performed By: #### L 501.9520, L500.2500, L100.0100 ####[facility] [address] [place], [address] Absolute Neut 5.6 X10 3/uL Normal 2.0-7.7 [facility] Comment on above: Performed By: #### L 501.9520, L500.2500, L100.0100 ####[facility] [address] [place], [address] Basophils/100 WBC (Bld) 0.5 % Normal 0-1 [facility] Comment on above: Performed By: #### L 501.9520, L500.2500, L100.0100 ####[facility] [address] [place], [address] Eosinophils/100 WBC (Bld) 2.1 % Normal 0-5 [facility] Comment on above: Performed By: #### L 501.9520, L500.2500, L100.0100 ####[facility] [address] [place], [address] Erythrocyte distribution width (RBC) [Ratio] 14.0 % Normal 11.6-14.6 [facility] Comment on above: Performed By: #### L 501.9520, L500.2500, L100.0100 ####[facility] [facility] [address] [place], [address] Hematocrit (Bld) [Volume fraction] 34.2 % Low 37-47 [facility] Comment on above: Performed By: #### L 501.9520, L500.2500, L100.0100 ####[facility] [address] [place], [address] Hemoglobin (Bld) [Mass/Vol] 10.9 g/dL Low 12.0-15.0 [facility] Comment on above: Performed By: #### L 501.9520, L500.2500, L100.0100 ####[facility] [address] [place], [address] IG% 0.300 Normal 0.0-0.9 [facility] Comment on above: Result Comment: IG% - Immature Granulocytes (promyelocytes, myelocytes andmetamyelocytes) > 1% indicates that a LEFT SHIFT is Present. Performed By: #### L 501.9520, L500.2500, L100.0100 ####[facility] [address] [place], [address] Lymphocytes/100 WBC (Bld) 13.4 % Low 19-41 [facility] Comment on above: Performed By: #### L 501.9520, L500.2500, L100.0100 ####[facility] [address] [place], [address] MCH (RBC) [Entitic mass] 29.3 pg Normal 27.0-32.0 [facility] Comment on above: Performed By: #### L 501.9520, L500.2500, L100.0100 ####[facility] [address] [place], [address] MCHC (RBC) [Mass/Vol] 31.9 g/dL Low 32-36 [facility] Comment on above: Performed By: #### L 501.9520, L500.2500, L100.0100 ####[facility] [address] [place], [address] MCV (RBC) [Entitic vol] 91.9 fL Normal 81-99 [facility] Comment on above: Performed By: #### L 501.9520, L500.2500, L100.0100 ####[facility] [address] [place], [address] Monocytes/100 WBC (Bld) 7.5 % Normal 0-10 [facility] Comment on above: Performed By: #### L 501.9520, L500.2500, L100.0100 ####[facility] [address] [place], [address] Neutrophils/100 WBC (Bld) 76.2 % High 47-70 [facility] Comment on above: Performed By: #### L 501.9520, L500.2500, L100.0100 ####[facility] [address] [place], [address] Nucleated RBC (Bld) [#/Vol] 0 10*3/uL Normal 0-5 [facility] Comment on above: Performed By: #### L 501.9520, L500.2500, L100.0100 ####[facility] [address] [place], [address] Platelet mean volume (Bld) [Entitic vol] 10.3 fL Normal 6.2-12.0 [facility] Comment on above: Performed By: #### L 501.9520, L500.2500, L100.0100 ####[facility] [address] [place], [address] Platelets (Bld) [#/Vol] 221 10*3/uL Normal 150-450 [facility] Comment on above: Performed By: #### L 501.9520, L500.2500, L100.0100 ####[facility] [address] [place], [address] RBC (Bld) [#/Vol] 3.72 10*6/uL Low 4.2-5.4 [facility] Comment on above: Performed By: #### L 501.9520, L500.2500, L100.0100 ####[facility] [address] [place], [address] RDW SD 47.2 fl High 35.1-43.9 [facility] Comment on above: Performed By: #### L 501.9520, L500.2500, L100.0100 ####[facility] [address] [place], [address] WBC (Bld) [#/Vol] 7.3 10*3/uL Normal 4.4-11.0 [facility] Comment on above: Performed By: #### L 501.9520, L500.2500, L100.0100 ####[facility] [address] [place], [address] Serum or plasma uric acid me asurement (mass/volume)Ordered By: Diana Little on 04-22-2024 Urate [Mass/Vol] 5.6 mg/dL 2.6-6.0 [facility] Comment on above: The drugs N-Acetylcy steine and Metamizole may falsely depress this assay. Thyroid Stim Hormone (TSH)on 04-22-2024 TSH 2.380 uIU/mL Normal 0.358-3.740 [facility] Comment on above: Performed By: #### L 501.9520, L500.2500, L100.0100 ####[facility] [address] [place], [address] Uric Acidon 04-22-2024 URIC 5.6 mg/dL Normal 2.6-6.0 [facility] Comment on above: Result Comment: The drugs N-Acetylcysteine and Metamizole may falselydepress this assay. Performed By: #### L 501.1400 ####[facility] [address] [place], [address] Albumin to globulin ratioOrd ered By: Stacey Arellano on 04-21-2024 Albumin/Globulin [Mass ratio] 0.5 {ratio} Low 0.9-2.4 [facility] Ankle min 3 Viewson 04-21-19 25 Ankle min 3 Views Normal [facility] Bilirubin, totalOrdered By: Stacey Arellano on 04-21-2024 Bilirubin [Mass/Vol] 0.60 mg/dL 0.20-1.00 [facility] Comment on above: For patients on eltr ombopag therapy, use of Dimension [place] TBIL is not recommended. CBC W/Diff, Automatedon 04-03 Absolute Lymph 1.34 X10 3/uL Normal 0.83-4.51 [facility] Comment on above: Performed By: #### L 100.0100, L503.6005, L500.4050 ####[facility] [address] [place], [address] Absolute Neut 8.3 X10 3/uL High 2.0-7.7 [facility] Comment on above: Performed By: #### L 100.0100, L503.6005, L500.4050 ####[facility] [address] [place], [address] Basophils/100 WBC (Bld) 0.4 % Normal 0-1 [facility] Comment on above: Performed By: #### L 100.0100, L503.6005, L500.4050 ####[facility] [address] [place], [address] Eosinophils/100 WBC (Bld) 0.5 % Normal 0-5 [facility] Comment on above: Performed By: #### L 100.0100, L503.6005, L500.4050 ####[facility] [address] [place], [address] Erythrocyte distribution width (RBC) [Ratio] 14.0 % Normal 11.6-14.6 [facility] Comment on above: Performed By: #### L 100.0100, L503.6005, L500.4050 ####[facility] [address] [place], [address] Hematocrit (Bld) [Volume fraction] 37.8 % Normal 37-47 [facility] Comment on above: Performed By: #### L 100.0100, L503.6005, L500.4050 ####[facility] [address] [place], [address] Hemoglobin (Bld) [Mass/Vol] 12.1 g/dL Normal 12.0-15.0 [facility] Comment on above: Performed By: #### L 100.0100, L503.6005, L500.4050 ####[facility] [address] [place], [address] IG% 0.400 Normal 0.0-0.9 [facility] Comment on above: Result Comment: IG% - Immature Granulocytes (promyelocytes, myelocytes andmetamyelocytes) > 1% indicates that a LEFT SHIFT is Present. Performed By: #### L 100.0100, L503.6005, L500.4050 ####[facility] [address] [place], [address] Lymphocytes/100 WBC (Bld) 12.9 % Low 19-41 [facility] Comment on above: Performed By: #### L 100.0100, L503.6005, L500.4050 ####[facility] [address] [place], [address] MCH (RBC) [Entitic mass] 29.4 pg Normal 27.0-32.0 [facility] Comment on above: Performed By: #### L 100.0100, L503.6005, L500.4050 ####[facility] [address] [place], [address] MCHC (RBC) [Mass/Vol] 32.0 g/dL Normal 32-36 [facility] Comment on above: Performed By: #### L 100.0100, L503.6005, L500.4050 ####[facility] [address] [place], [address] MCV (RBC) [Entitic vol] 92.0 fL Normal 81-99 [facility] Comment on above: Performed By: #### L 100.0100, L503.6005, L500.4050 ####[facility] [address] [place], [address] Monocytes/100 WBC (Bld) 6.4 % Normal 0-10 [facility] Comment on above: Performed By: #### L 100.0100, L503.6005, L500.4050 ####[facility] [address] [place], [address] Neutrophils/100 WBC (Bld) 79.4 % High 47-70 [facility] Comment on above: Performed By: #### L 100.0100, L503.6005, L500.4050 ####[facility] [address] [place], [address] Nucleated RBC (Bld) [#/Vol] 0 10*3/uL Normal 0-5 [facility] Comment on above: Performed By: #### L 100.0100, L503.6005, L500.4050 ####[facility] [address] [place], [address] Platelet mean volume (Bld) [Entitic vol] 10.5 fL Normal 6.2-12.0 [facility] Comment on above: Performed By: #### L 100.0100, L503.6005, L500.4050 ####[facility] [address] [place], [address] Platelets (Bld) [#/Vol] 258 10*3/uL Normal 150-450 [facility] Comment on above: Performed By: #### L 100.0100, L503.6005, L500.4050 ####[facility] [address] [place], [address] RBC (Bld) [#/Vol] 4.11 10*6/uL Low 4.2-5.4 [facility] Comment on above: Performed By: #### L 100.0100, L503.6005, L500.4050 ####[facility] [address] [place], [address] RDW SD 47.2 fl High 35.1-43.9 [facility] Comment on above: Performed By: #### L 100.0100, L503.6005, L500.4050 ####[facility] [address] [place], [address] WBC (Bld) [#/Vol] 10.4 10*3/uL Normal 4.4-11.0 [facility] Comment on above: Performed By: #### L 100.0100, L503.6005, L500.4050 ####[facility] [address] [place], [address] Comprehensive Metabolic Prof ilon 04-21-2024 Albumin [Mass/Vol] 2.8 g/dL Low 3.2-5.0 [facility] Comment on above: Performed By: #### L 100.0100, L503.6005, L500.4050 ####[facility] [address] [place], [address] Albumin/Globulin [Mass ratio] 0.5 {ratio} Low 0.9-2.4 [facility] Comment on above: Performed By: #### L 100.0100, L503.6005, L500.4050 ####[facility] [address] [place], [address] ALK P 96 U/L Normal 45-117 [facility] Comment on above: Performed By: #### L 100.0100, L503.6005, L500.4050 ####[facility] [address] [place], [address] ALT [Catalytic activity/Vol] 27 U/L Normal 13-56 [facility] Comment on above: Performed By: #### L 100.0100, L503.6005, L500.4050 ####[facility] [address] [place], [address] AST [Catalytic activity/Vol] 31 U/L Normal 15-37 [facility] Comment on above: Performed By: #### L 100.0100, L503.6005, L500.4050 ####[facility] [address] [place], [address] Bilirubin [Mass/Vol] 0.60 mg/dL Normal 0.20-1.00 [facility] Comment on above: Result Comment: For patients on eltrombopag therapy, use of Dimension [place] TBIL is not recommended. Performed By: #### L 100.0100, L503.6005, L500.4050 ####[facility] [address] [place], [address] BUN/CRE 15.6 RATIO Normal 10-20 [facility] Comment on above: Performed By: #### L 100.0100, L503.6005, L500.4050 ####[facility] [address] [place], [address] CA,Total 9.3 mg/dL Normal 8.5-10.1 [facility] Comment on above: Performed By: #### L 100.0100, L503.6005, L500.4050 ####[facility] [address] [place], [address] Chloride [Moles/Vol] 103 mmol/L Normal 98-107 [facility] Comment on above: Performed By: #### L 100.0100, L503.6005, L500.4050 ####[facility] [address] [place], [address] CO2 [Moles/Vol] 25.0 mmol/L Normal 21.0-32.0 [facility] Comment on above: Performed By: #### L 100.0100, L503.6005, L500.4050 ####[facility] [address] [place], [address] Creatinine [Mass/Vol] 1.09 mg/dL High 0.55-1.02 [facility] Comment on above: Result Comment: The validity of the calculated GFR GFRAA in patients over70 years has not been determined. Clinical correlation isessential. Performed By: #### L 100.0100, L503.6005, L500.4050 ####[facility] [address] [place], [address] ECRCL 39.85 ml/min Normal [facility] Comment on above: Performed By: #### L 100.0100, L503.6005, L500.4050 ####[facility] [address] [place], [address] EST GFR - AA 62 mL/min Normal >60 [facility] Comment on above: Result Comment: Afri can Malaysian GFR Calc Performed By: #### L 100.0100, L503.6005, L500.4050 ####[facility] [address] [place], [address] GAP 8 Normal 5-15 [facility] Comment on above: Performed By: #### L 100.0100, L503.6005, L500.4050 ####[facility] [address] [place], [address] GFR/1.73 sq M.predicted among non-blacks MDRD (S/P/Bld) [Vol rate/Area] 51 mL/min/{1.73_m2} Low >60 [facility] Comment on above: Result Comment: Non- GFR Calc Performed By: #### L 100.0100, L503.6005, L500.4050 ####[facility] [address] [place], [address] Globulin (S) [Mass/Vol] 5.3 g/dL High 2.2-4.2 [facility] Comment on above: Performed By: #### L 100.0100, L503.6005, L500.4050 ####[facility] [address] [place], [address] Glucose [Mass/Vol] 161 mg/dL High 74-106 [facility] Comment on above: Result Comment: Fast ing Glucose result greater than or equal to 126 mg/dLsuggests DIABETES MELLITUS per A.D.A. criteria. Performed By: #### L 100.0100, L503.6005, L500.4050 ####[facility] [address] [place], [address] Potassium [Moles/Vol] 3.4 mmol/L Low 3.5-5.1 [facility] Comment on above: Performed By: #### L 100.0100, L503.6005, L500.4050 ####[facility] [address] [place], [address] Sodium [Moles/Vol] 136 mmol/L Normal 136-145 [facility] Comment on above: Performed By: #### L 100.0100, L503.6005, L500.4050 ####[facility] [address] [place], [address] T PROT 8.1 g/dL Normal 6.4-8.2 [facility] Comment on above: Performed By: #### L 100.0100, L503.6005, L500.4050 ####[facility] [address] [place], [address] Urea nitrogen [Mass/Vol] 17 mg/dL Normal 7-18 [facility] Comment on above: Performed By: #### L 100.0100, L503.6005, L500.4050 ####[facility] [address] [place], [address] Emergency Department Summary on 04-21-2024 Emergency Department Summary Normal [facility] Foot min 3 Viewson 5 Foot min 3 Views Normal [facility] H AND P Exam - Hospitaliston 04-21-2024 H&P Exam - Hospitalist Normal [facility] Laboratory - Chemistry and C hemistry - challengeOrdered By: Stacey Arellano on 04-21-2024 AST [Catalytic activity/Vol] 31 U/L 15-37 [facility] Lactic Acidon 04-21-2024 Lactate [Moles/Vol] 1.2 mmol/L Normal 0.4-1.9 [facility] Comment on above: Order Comment: Y Performed By: #### L 100.0100, L503.6005, L500.4050 ####[facility] [address] [place], [address] Lactic acid measurementOrder ed By: Stacey Arellano on 04-21-2024 Lactate [Moles/Vol] 1.2 mmol/L 0.4-2.0 [facility] Magnesiumon 04-21-2024 Magnesium [Mass/Vol] 2.1 mg/dL Normal 1.6-2.6 [facility] Comment on above: Order Comment: Comme nts: Add onto previous labs if possible Performed By: #### L 501.5201 ####[facility] [address] [place], [place], [id number] Magnesium measurementOrdered By: Virgen Freitas on 04-21-2024 Magnesium [Mass/Vol] 2.1 mg/dL 1.6-2.6 [facility] Serum globulin measurementOr dered By: Stacey Arellano on 04-21-2024 Globulin (S) [Mass/Vol] 5.3 g/dL High 2.2-4.2 [facility] Serum or plasma alanine brewer otransferase (ALT) measurementOrdered By: Stacey Arellano on 04-21-2024 ALT [Catalytic activity/Vol] 27 U/L 13-56 [facility] Serum or plasma albumin mario alberto urement (mass/volume)Ordered By: Stacey Arellano on 04-21-2024 Albumin [Mass/Vol] 2.8 g/dL Low 3.2-5.0 [facility] Serum or plasma alkaline marizol sphatase measurementOrdered By: Stacey Arellano on 04-21-2024 ALP [Catalytic activity/Vol] 96 U/L 45-117 [facility] Tibia Fibula 2 Viewson 04-21 Tibia Fibula 2 Views Normal [facility] Total proteinOrdered By: Kate Arellano on 04-21-2024 Protein [Mass/Vol] 8.1 g/dL 6.4-8.2 [facility] Urinalysis, Completeon 04-21 EPI,SQUAMOUS 0-5 SEEN Normal 5-10 [facility] Comment on above: Order Comment: CLEAN CATCH Performed By: #### L 400.0001 ####[facility] [address] [place], [address] RBC 0-5 SEEN Normal 0-5 [facility] Comment on above: Order Comment: CLEAN CATCH Performed By: #### L 400.0001 ####[facility] [address] [place], [address] WBC 0-5 SEEN Normal 0-5 [facility] Comment on above: Order Comment: CLEAN CATCH Performed By: #### L 400.0001 ####[facility] [address] [place], [address] BACTERIA 0 SEEN Normal None Seen [facility] Comment on above: Order Comment: CLEAN CATCH Performed By: #### L 400.0001 ####[facility] [address] [place], [address] Mucus Ql (Urine sed) 0 SEEN Normal [facility] Comment on above: Order Comment: CLEAN CATCH Performed By: #### L 400.0001 ####[facility] [address] [place], [address] Venous Duplex US, Unilateral on 04-21-2024 Venous Duplex US, Unilateral Normal [facility] MR/BMS.IMBon 03-31-2024 MR/BMS.IMB Normal [facility] Ribs Uni Min 3V w/PA Cheston 03-31-2024 Ribs Uni Min 3V w/PA Chest Normal [facility] MR/BMS.IMBon 01-21-2024 MR/BMS.IMB Normal [facility] CBC W/Diff, Automatedon 11-03 05-2023 Absolute Lymph 2.62 X10 3/uL Normal 0.83-4.51 [facility] Comment on above: Performed By: #### L 100.0100, L503.0105, L501.5200, L501.14885, L506.1000, L501.9520, L506.0400, L500.4050 ####[facility] [address] [place], [address] Absolute Neut 4.7 X10 3/uL Normal 2.0-7.7 [facility] Comment on above: Performed By: #### L 100.0100, L503.0105, L501.5200, L501.51465, L506.1000, L501.9520, L506.0400, L500.4050 ####[facility] [address] [place], [address] Basophils/100 WBC (Bld) 0.6 % Normal 0-1 [facility] Comment on above: Performed By: #### L 100.0100, L503.0105, L501.5200, L501.66968, L506.1000, L501.9520, L506.0400, L500.4050 ####[facility] [address] [place], [address] Eosinophils/100 WBC (Bld) 1.7 % Normal 0-5 [facility] Comment on above: Performed By: #### L 100.0100, L503.0105, L501.5200, L501.82338, L506.1000, L501.9520, L506.0400, L500.4050 ####[facility] [address] [place], [address] Erythrocyte distribution width (RBC) [Ratio] 14.2 % Normal 11.6-14.6 [facility] Comment on above: Performed By: #### L 100.0100, L503.0105, L501.5200, L501.36757, L506.1000, L501.9520, L506.0400, L500.4050 ####[facility] [address] [place], [address] Hematocrit (Bld) [Volume fraction] 43.1 % Normal 37-47 [facility] Comment on above: Performed By: #### L 100.0100, L503.0105, L501.5200, L501.15925, L506.1000, L501.9520, L506.0400, L500.4050 ####[facility] [address] [place], [address] Hemoglobin (Bld) [Mass/Vol] 13.9 g/dL Normal 12.0-15.0 [facility] Comment on above: Performed By: #### L 100.0100, L503.0105, L501.5200, L501.64940, L506.1000, L501.9520, L506.0400, L500.4050 ####[facility] [address] [place], [address] IG% 0.200 Normal 0.0-0.9 [facility] Comment on above: Result Comment: IG% - Immature Granulocytes (promyelocytes, myelocytes andmetamyelocytes) > 1% indicates that a LEFT SHIFT is Present. Performed By: #### L 100.0100, L503.0105, L501.5200, L501.45351, L506.1000, L501.9520, L506.0400, L500.4050 ####[facility] [address] [place], [address] Lymphocytes/100 WBC (Bld) 32.2 % Normal 19-41 [facility] Comment on above: Performed By: #### L 100.0100, L503.0105, L501.5200, L501.53074, L506.1000, L501.9520, L506.0400, L500.4050 ####[facility] [address] [place], [address] MCH (RBC) [Entitic mass] 30.2 pg Normal 27.0-32.0 [facility] Comment on above: Performed By: #### L 100.0100, L503.0105, L501.5200, L501.16216, L506.1000, L501.9520, L506.0400, L500.4050 ####[facility] [address] [place], [address] MCHC (RBC) [Mass/Vol] 32.3 g/dL Normal 32-36 [facility] Comment on above: Performed By: #### L 100.0100, L503.0105, L501.5200, L501.96185, L506.1000, L501.9520, L506.0400, L500.4050 ####[facility] [address] [place], [address] MCV (RBC) [Entitic vol] 93.7 fL Normal 81-99 [facility] Comment on above: Performed By: #### L 100.0100, L503.0105, L501.5200, L501.43299, L506.1000, L501.9520, L506.0400, L500.4050 ####[facility] [address] [place], [address] Monocytes/100 WBC (Bld) 7.9 % Normal 0-10 [facility] Comment on above: Performed By: #### L 100.0100, L503.0105, L501.5200, L501.14356, L506.1000, L501.9520, L506.0400, L500.4050 ####[facility] [address] [place], [address] Neutrophils/100 WBC (Bld) 57.4 % Normal 47-70 [facility] Comment on above: Performed By: #### L 100.0100, L503.0105, L501.5200, L501.67177, L506.1000, L501.9520, L506.0400, L500.4050 ####[facility] [address] [place], [address] Nucleated RBC (Bld) [#/Vol] 0 10*3/uL Normal 0-5 [facility] Comment on above: Performed By: #### L 100.0100, L503.0105, L501.5200, L501.54477, L506.1000, L501.9520, L506.0400, L500.4050 ####[facility] [address] [place], [address] Platelet mean volume (Bld) [Entitic vol] 11.5 fL Normal 6.2-12.0 [facility] Comment on above: Performed By: #### L 100.0100, L503.0105, L501.5200, L501.41508, L506.1000, L501.9520, L506.0400, L500.4050 ####[facility] [address] [place], [address] Platelets (Bld) [#/Vol] 224 10*3/uL Normal 150-450 [facility] Comment on above: Performed By: #### L 100.0100, L503.0105, L501.5200, L501.72882, L506.1000, L501.9520, L506.0400, L500.4050 ####[facility] [address] [place], [place], [address] RBC (Bld) [#/Vol] 4.60 10*6/uL Normal 4.2-5.4 [facility] Comment on above: Performed By: #### L 100.0100, L503.0105, L501.5200, L501.27056, L506.1000, L501.9520, L506.0400, L500.4050 ####[facility] [address] [place], [address] RDW SD 48.4 fl High 35.1-43.9 [facility] Comment on above: Performed By: #### L 100.0100, L503.0105, L501.5200, L501.20399, L506.1000, L501.9520, L506.0400, L500.4050 ####[facility] [address] [place], [place], [id number] WBC (Bld) [#/Vol] 8.1 10*3/uL Normal 4.4-11.0 [facility] Comment on above: Performed By: #### L 100.0100, L503.0105, L501.5200, L501.46478, L506.1000, L501.9520, L506.0400, L500.4050 ####[facility] [address] [place], [place], [id number] Chest without Contraston Chest without Contrast Normal [facility] Comprehensive Metabolic Prof ilon 01-14-2024 Albumin [Mass/Vol] 3.2 g/dL Normal 3.2-5.0 [facility] Comment on above: Performed By: #### L 100.0100, L503.0105, L501.5200, L501.08254, L506.1000, L501.9520, L506.0400, L500.4050 ####[facility] [address] [place], [address] Albumin/Globulin [Mass ratio] 0.6 {ratio} Low 0.9-2.4 [facility] Comment on above: Performed By: #### L 100.0100, L503.0105, L501.5200, L501.08888, L506.1000, L501.9520, L506.0400, L500.4050 ####[facility] [address] [place], [address] ALK P 78 U/L Normal 45-117 [facility] Comment on above: Performed By: #### L 100.0100, L503.0105, L501.5200, L501.56477, L506.1000, L501.9520, L506.0400, L500.4050 ####[facility] [address] [place], [address] ALT [Catalytic activity/Vol] 35 U/L Normal 13-56 [facility] Comment on above: Performed By: #### L 100.0100, L503.0105, L501.5200, L501.61350, L506.1000, L501.9520, L506.0400, L500.4050 ####[facility] [address] [place], [address] AST [Catalytic activity/Vol] 34 U/L Normal 15-37 [facility] Comment on above: Performed By: #### L 100.0100, L503.0105, L501.5200, L501.31914, L506.1000, L501.9520, L506.0400, L500.4050 ####[facility] [address] [place], [address] Bilirubin [Mass/Vol] 0.30 mg/dL Normal 0.20-1.00 [facility] Comment on above: Result Comment: For patients on eltrombopag therapy, use of Dimension [place] TBIL is not recommended. Performed By: #### L 100.0100, L503.0105, L501.5200, L501.10131, L506.1000, L501.9520, L506.0400, L500.4050 ####[facility] [address] [place], [address] BUN/CRE 15.3 RATIO Normal 10-20 [facility] Comment on above: Performed By: #### L 100.0100, L503.0105, L501.5200, L501.67141, L506.1000, L501.9520, L506.0400, L500.4050 ####[facility] [address] [place], [address] CA,Total 9.4 mg/dL Normal 8.5-10.1 [facility] Comment on above: Performed By: #### L 100.0100, L503.0105, L501.5200, L501.47865, L506.1000, L501.9520, L506.0400, L500.4050 ####[facility] [address] [place], [address] Chloride [Moles/Vol] 105 mmol/L Normal 98-107 [facility] Comment on above: Performed By: #### L 100.0100, L503.0105, L501.5200, L501.91808, L506.1000, L501.9520, L506.0400, L500.4050 ####[facility] [address] [place], [address] CO2 [Moles/Vol] 28.0 mmol/L Normal 21.0-32.0 [facility] Comment on above: Performed By: #### L 100.0100, L503.0105, L501.5200, L501.72891, L506.1000, L501.9520, L506.0400, L500.4050 ####[facility] [address] [place], [address] Creatinine [Mass/Vol] 1.18 mg/dL High 0.55-1.02 [facility] Comment on above: Result Comment: The validity of the calculated GFR GFRAA in patients over70 years has not been determined. Clinical correlation isessential. Performed By: #### L 100.0100, L503.0105, L501.5200, L501.20047, L506.1000, L501.9520, L506.0400, L500.4050 ####[facility] [address] [place], [address] EST GFR - AA 56 mL/min Low >60 [facility] Comment on above: Result Comment: Afri can Malaysian GFR Calc Performed By: #### L 100.0100, L503.0105, L501.5200, L501.44022, L506.1000, L501.9520, L506.0400, L500.4050 ####[facility] [address] [place], [place], [id number] GAP 5 Normal 5-15 [facility] Comment on above: Performed By: #### L 100.0100, L503.0105, L501.5200, L501.36250, L506.1000, L501.9520, L506.0400, L500.4050 ####[facility] [address] [place], [place], [phone]) GFR/1.73 sq M.predicted among non-blacks MDRD (S/P/Bld) [Vol rate/Area] 47 mL/min/{1.73_m2} Low >60 [facility] Comment on above: Result Comment: Non- GFR Calc Performed By: #### L 100.0100, L503.0105, L501.5200, L501.70184, L506.1000, L501.9520, L506.0400, L500.4050 ####[facility] [address] [place], [place], [phone]) Globulin (S) [Mass/Vol] 5.1 g/dL High 2.2-4.2 [facility] Comment on above: Performed By: #### L 100.0100, L503.0105, L501.5200, L501.05600, L506.1000, L501.9520, L506.0400, L500.4050 ####[facility] [address] [place], [address] Glucose [Mass/Vol] 142 mg/dL High 74-106 [facility] Comment on above: Result Comment: Fast ing Glucose result greater than or equal to 126 mg/dLsuggests DIABETES MELLITUS per A.D.A. criteria. Performed By: #### L 100.0100, L503.0105, L501.5200, L501.28232, L506.1000, L501.9520, L506.0400, L500.4050 ####[facility] [address] [place], [address] Potassium [Moles/Vol] 3.5 mmol/L Normal 3.5-5.1 [facility] Comment on above: Performed By: #### L 100.0100, L503.0105, L501.5200, L501.92999, L506.1000, L501.9520, L506.0400, L500.4050 ####[facility] [address] [place], [address] Sodium [Moles/Vol] 139 mmol/L Normal 136-145 [facility] Comment on above: Performed By: #### L 100.0100, L503.0105, L501.5200, L501.36431, L506.1000, L501.9520, L506.0400, L500.4050 ####[facility] [address] [place], [address] T PROT 8.3 g/dL High 6.4-8.2 [facility] Comment on above: Performed By: #### L 100.0100, L503.0105, L501.5200, L501.33607, L506.1000, L501.9520, L506.0400, L500.4050 ####[facility] [address] [place], [address] Urea nitrogen [Mass/Vol] 18 mg/dL Normal 7-18 [facility] Comment on above: Performed By: #### L 100.0100, L503.0105, L501.5200, L501.39820, L506.1000, L501.9520, L506.0400, L500.4050 ####[facility] [address] [place], [address] Free T3on 01-14-2024 Free T3 [Mass/Vol] 1.9 pg/mL Low 2.18-3.98 [facility] Comment on above: Performed By: #### L 100.0100, L503.0105, L501.5200, L501.59696, L506.1000, L501.9520, L506.0400, L500.4050 ####[facility] [address] [place], [address] Magnesiumon 01-14-2024 Magnesium [Mass/Vol] 2.3 mg/dL Normal 1.6-2.6 [facility] Comment on above: Performed By: #### L 100.0100, L503.0105, L501.5200, L501.09511, L506.1000, L501.9520, L506.0400, L500.4050 ####[facility] [address] [place], [address] T4 Free Directon 01-14-2024 T4 FREE DIRECT 0.98 ng/dL Normal 0.76-1.46 [facility] Comment on above: Performed By: #### L 100.0100, L503.0105, L501.5200, L501.07088, L506.1000, L501.9520, L506.0400, L500.4050 ####[facility] [address] [place], [address] Thyroid Stim Hormone (TSH)on 01-14-2024 TSH 13.400 uIU/mL High 0.358-3.740 [facility] Comment on above: Performed By: #### L 100.0100, L503.0105, L501.5200, L501.39520, L506.1000, L501.9520, L506.0400, L500.4050 ####[facility] [address] [place], [place], [phone] Vitamin B12on 01-14-2024 Cobalamin (Vitamin B12) [Mass/Vol] 402 pg/mL Normal 1 [facility] Comment on above: Performed By: #### L 100.0100, L503.0105, L501.5200, L501.31538, L506.1000, L501.9520, L506.0400, L500.4050 ####[facility] [address] [place], [place], [phone] Vitamin D,25 Hydroxyon 01-13 Vitamin D 25-OH 38.9 ng/mL Normal [facility] Comment on above: Result Comment: Jamee min D 25(OH) Status Range Deficiency <20 ng/mL (50nmol/L) Insufficiency 20 - 30 ng/mL (50 - 75 nmol/L) Sufficiency 30 - 100 ng/mL (75 - 250 nmol/L) Toxicity >100 ng/mL (>250 nmol/L) Performed By: #### L 100.0100, L503.0105, L501.5200, L501.85580, L506.1000, L501.9520, L506.0400, L500.4050 ####[facility] [address] [place], [place], [id number] Urine Cultureon 12-23-2023 URC Mixed Gram Positive Organisms [place] Count 11,000-25,000 MIXC Mixed contaminants. Submit a new specimen if indicated. Normal [facility] Comment on above: Performed By: #### M 100.2200 ####[facility] [address] [place], [address] Basic Metabolic Profile (BMP )on 12-21-2023 BUN/CRE 14.4 RATIO Normal 12-20 [facility] Comment on above: Performed By: #### L 500.2500, L100.0100 ####[facility] [address] [place], [address] CA,Total 9.2 mg/dL Normal 8.5-10.1 [facility] Comment on above: Performed By: #### L 500.2500, L100.0100 ####[facility] [address] [place], [address] Chloride [Moles/Vol] 105 mmol/L Normal 98-107 [facility] Comment on above: Performed By: #### L 500.2500, L100.0100 ####[facility] [address] [place], [address] CO2 [Moles/Vol] 24.0 mmol/L Normal 21.0-32.0 [facility] Comment on above: Performed By: #### L 500.2500, L100.0100 ####[facility] [address] [place], [address] Creatinine [Mass/Vol] 1.11 mg/dL High 0.55-1.02 [facility] Comment on above: Result Comment: The validity of the calculated GFR GFRAA in patients over70 years has not been determined. Clinical correlation isessential. Performed By: #### L 500.2500, L100.0100 ####[facility] [address] [place], [address] ECRCL 39.36 ml/min Normal [facility] Comment on above: Performed By: #### L 500.2500, L100.0100 ####[facility] [address] [place], [address] EST GFR - AA 60 mL/min Normal >60 [facility] Comment on above: Result Comment: Afri can Malaysian GFR Calc Performed By: #### L 500.2500, L100.0100 ####[facility] [address] [place], [address] GAP 7 Normal 5-15 [facility] Comment on above: Performed By: #### L 500.2500, L100.0100 ####[facility] [address] [place], [address] GFR/1.73 sq M.predicted among non-blacks MDRD (S/P/Bld) [Vol rate/Area] 50 mL/min/{1.73_m2} Low >60 [facility] Comment on above: Result Comment: Non- GFR Calc Performed By: #### L 500.2500, L100.0100 ####[facility] [address] [place], [address] Glucose [Mass/Vol] 138 mg/dL High 74-106 [facility] Comment on above: Result Comment: Fast ing Glucose result greater than or equal to 126 mg/dLsuggests DIABETES MELLITUS per A.D.A. criteria. Performed By: #### L 500.2500, L100.0100 ####[facility] [address] [place], [address] Potassium [Moles/Vol] 3.7 mmol/L Normal 3.5-5.1 [facility] Comment on above: Performed By: #### L 500.2500, L100.0100 ####[facility] [address] [place], [address] Sodium [Moles/Vol] 136 mmol/L Normal 136-145 [facility] Comment on above: Performed By: #### L 500.2500, L100.0100 ####[facility] [address] [place], [address] Urea nitrogen [Mass/Vol] 16 mg/dL Normal 7-18 [facility] Comment on above: Performed By: #### L 500.2500, L100.0100 ####[facility] [address] [place], [address] Bedside Glucoseon 12-21-2023 FINGERSTICK GLU 127 mg/dL High 74-106 [facility] Comment on above: Result Comment: VALENTINA MCCAULEY OF PATIENT CARE PER NURSING PROTOCOL Performed By: #### L 501.080 ####[facility] [address] [place], [address] Brain/Head without Contrasto n 12-21-2023 Brain/Head without Contrast Normal [facility] CBC W/Diff, Automatedon 10- 0-2023 Absolute Lymph 2.71 X10 3/uL Normal 0.83-4.51 [facility] Comment on above: Performed By: #### L 500.2500, L100.0100 ####[facility] [address] [place], [address] Absolute Neut 11.1 X10 3/uL High 2.0-7.7 [facility] Comment on above: Performed By: #### L 500.2500, L100.0100 ####[facility] [address] [place], [address] Basophils/100 WBC (Bld) 0.2 % Normal 0-1 [facility] Comment on above: Performed By: #### L 500.2500, L100.0100 ####[facility] [address] [place], [address] Eosinophils/100 WBC (Bld) 0.1 % Normal 0-5 [facility] Comment on above: Performed By: #### L 500.2500, L100.0100 ####[facility] [address] [place], [address] Erythrocyte distribution width (RBC) [Ratio] 13.9 % Normal 11.6-14.6 [facility] Comment on above: Performed By: #### L 500.2500, L100.0100 ####[facility] [address] [place], [address] Hematocrit (Bld) [Volume fraction] 42.5 % Normal 37-47 [facility] Comment on above: Performed By: #### L 500.2500, L100.0100 ####[facility] [address] [place], [address] Hemoglobin (Bld) [Mass/Vol] 14.4 g/dL Normal 12.0-15.0 [facility] Comment on above: Performed By: #### L 500.2500, L100.0100 ####[facility] [address] [place], [address] IG% 0.600 Normal 0.0-0.9 [facility] Comment on above: Result Comment: IG% - Immature Granulocytes (promyelocytes, myelocytes andmetamyelocytes) > 1% indicates that a LEFT SHIFT is Present. Performed By: #### L 500.2500, L100.0100 ####[facility] [address] [place], [address] Lymphocytes/100 WBC (Bld) 18.4 % Low 19-41 [facility] Comment on above: Performed By: #### L 500.2500, L100.0100 ####[facility] [address] [place], [address] MCH (RBC) [Entitic mass] 30.4 pg Normal 27.0-32.0 [facility] Comment on above: Performed By: #### L 500.2500, L100.0100 ####[facility] [address] [place], [address] MCHC (RBC) [Mass/Vol] 33.9 g/dL Normal 32-36 [facility] Comment on above: Performed By: #### L 500.2500, L100.0100 ####[facility] [address] [place], [address] MCV (RBC) [Entitic vol] 89.7 fL Normal 81-99 [facility] Comment on above: Performed By: #### L 500.2500, L100.0100 ####[facility] [address] [place], [address] Monocytes/100 WBC (Bld) 5.4 % Normal 0-10 [facility] Comment on above: Performed By: #### L 500.2500, L100.0100 ####[facility] [address] [place], [address] Neutrophils/100 WBC (Bld) 75.3 % High 47-70 [facility] Comment on above: Performed By: #### L 500.2500, L100.0100 ####[facility] [address] [place], [address] Nucleated RBC (Bld) [#/Vol] 0 10*3/uL Normal 0-5 [facility] Comment on above: Performed By: #### L 500.2500, L100.0100 ####[facility] [address] [place], [address] Platelet mean volume (Bld) [Entitic vol] 11.5 fL Normal 6.2-12.0 [facility] Comment on above: Performed By: #### L 500.2500, L100.0100 ####[facility] [address] [place], [address] Platelets (Bld) [#/Vol] 239 10*3/uL Normal 150-450 [facility] Comment on above: Performed By: #### L 500.2500, L100.0100 ####[facility] [address] [place], [address] RBC (Bld) [#/Vol] 4.74 10*6/uL Normal 4.2-5.4 [facility] Comment on above: Performed By: #### L 500.2500, L100.0100 ####[facility] [address] [place], [address] RDW SD 45.5 fl High 35.1-43.9 [facility] Comment on above: Performed By: #### L 500.2500, L100.0100 ####[facility] [address] [place], [address] WBC (Bld) [#/Vol] 14.7 10*3/uL High 4.4-11.0 [facility] Comment on above: Performed By: #### L 500.2500, L100.0100 ####[facility] [address] [place], [address] Chest 1 View (Portable)on Chest 1 View (Portable) Normal [facility] Emergency Department Summary on 12-21-2023 Emergency Department Summary Normal [facility] Urinalysis, Completeon 12-20 BACTERIA RARE Normal None Seen [facility] Comment on above: Order Comment: CLEAN CATCH Performed By: #### L 400.0001 ####[facility] [address] [place], [address] RBC 0-5 SEEN Normal 0-5 [facility] Comment on above: Order Comment: CLEAN CATCH Performed By: #### L 400.0001 ####[facility] [address] [place], [address] WBC 5-10 SEEN Normal 0-5 [facility] Comment on above: Order Comment: CLEAN CATCH Performed By: #### L 400.0001 ####[facility] [address] [place], [address] EPI,SQUAMOUS 0-5 SEEN Normal 5-10 [facility] Comment on above: Order Comment: CLEAN CATCH Performed By: #### L 400.0001 ####[facility] [address] [place], [address] Mucus Ql (Urine sed) 0 SEEN Normal [facility] Comment on above: Order Comment: CLEAN CATCH Performed By: #### L 400.0001 ####[facility] [address] [place], [address] MR/BMS.IMBon 12-15-2023 MR/BMS.IMB Normal [facility] Basophil percentageOrdered B y: Teo Medley on 05-10-2023 Chloride [Moles/Vol] 105 mmol/L 98-107 [facility] Glucose [Mass/Vol] 162 mg/dL 74-106 [facility] Comment on above: Fasting Glucose resu lt greater than or equal to 126 mg/dL suggests DIABETES MELLITUS per A.D.A. criteria. Potassium [Moles/Vol] 3.4 mmol/L 3.5-5.1 [facility] Sodium [Moles/Vol] 137 mmol/L 136-145 [facility] Laboratory - Chemistry and C hemistry - challengeOrdered By: Teo Medley on 05-10-2023 CO2 [Moles/Vol] 25.0 mmol/L 21.0-32.0 [facility] Magnesium [Mass/Vol] 2.0 mg/dL 1.6-2.6 [facility] Urea nitrogen/Creatinine [Mass ratio] 20.9 mg/mg 10-20 [facility] No Panel InformationOrdered By: Teo Medley on 05-10-2023 Estimated GFR (MDRD) Amer 49 mL/min >60 [facility] Comment on above: GFR Calc Estimated GFR (MDRD) Non-Af Amer 40 mL/min >60 [facility] Comment on above: Non- GFR Calc Serum or plasma calcium mario alberto urement (mass/volume)Ordered By: Teo Medley on 05-10-2023 Calcium [Mass/Vol] 9.1 mg/dL 8.5-10.1 [facility] Serum or plasma creatinine m easurement (mass/volume)Ordered By: Teo Medley on 05-10-2023 Creatinine [Mass/Vol] 1.34 mg/dL 0.55-1.02 [facility] Comment on above: The validity of the calculated GFR & GFRAA in patients over 70 years has not been determined. Clinical correlation is essential. Serum or plasma urea nitroge n measurement (mass/volume)Ordered By: Teo Medley on 05-10-2023 Urea nitrogen [Mass/Vol] 28 mg/dL 7-18 [facility] Thin prep Papanicolaou smear with manual screeningOrdered By: Teo Medley on 05-10-2023 Thin prep Papanicolaou smear with manual screening 7 5-15 [facility] Basophil percentageOrdered B y: Teo Medley on 02-15-2023 Chloride [Moles/Vol] 107 mmol/L 98-107 [facility] Glucose [Mass/Vol] 252 mg/dL 74-106 [facility] Comment on above: Glucose result great er than or equal to 200 mg/dLsuggests DIABETES MELLITUS per A.D.A. criteria. Potassium [Moles/Vol] 3.7 mmol/L 3.5-5.1 [facility] Sodium [Moles/Vol] 139 mmol/L 136-145 [facility] - Chemistry and C hemistry - challengeOrdered By: Teo Medley on 02-15-2023 CO2 [Moles/Vol] 24.0 mmol/L 21.0-32.0 [facility] Urea nitrogen/Creatinine [Mass ratio] 16.0 mg/mg 10-20 [facility] No Panel InformationOrdered By: Teo Medley on 02-15-2023 Estimated GFR (MDRD) Amer 53 mL/min >60 [facility] Comment on above: GFR Calc Estimated GFR (MDRD) Non-Af Amer 44 mL/min >60 [facility] Comment on above: Non- GFR Calc Serum or plasma calcium mario alberto urement (mass/volume)Ordered By: Teo Medley on 02-15-2023 Calcium [Mass/Vol] 8.7 mg/dL 8.5-10.1 [facility] Serum or plasma creatinine m easurement (mass/volume)Ordered By: Teo Medley on 02-15-2023 Creatinine [Mass/Vol] 1.25 mg/dL 0.55-1.02 [facility] Comment on above: The validity of the calculated GFR & GFRAA in patients over 70 years has not been determined. Clinical correlation is essential. Serum or plasma urea nitroge n measurement (mass/volume)Ordered By: Teo Medley on 02-15-2023 Urea nitrogen [Mass/Vol] 20 mg/dL 7-18 [facility] Thin prep Papanicolaou smear with manual screeningOrdered By: Teo Medley on 02-15-2023 Thin prep Papanicolaou smear with manual screening 8 5-15 [facility] Basophil percentageOrdered B y: Teo Medley on 01-18-2023 Chloride [Moles/Vol] 105 mmol/L 98-107 [facility] Glucose [Mass/Vol] 223 mg/dL 74-106 [facility] Comment on above: Glucose result great er than or equal to 200 mg/dLsuggests DIABETES MELLITUS per A.D.A. criteria. Potassium [Moles/Vol] 4.1 mmol/L 3.5-5.1 [facility] Sodium [Moles/Vol] 137 mmol/L 136-145 [facility] - Chemistry and C hemistry - challengeOrdered By: Teo Medley on 01-18-2023 CO2 [Moles/Vol] 27.0 mmol/L 21.0-32.0 [facility] Magnesium [Mass/Vol] 2.1 mg/dL 1.6-2.6 [facility] Urea nitrogen/Creatinine [Mass ratio] 16.3 mg/mg 10-20 [facility] No Panel InformationOrdered By: Teo Medley on 01-18-2023 Estimated GFR (MDRD) Amer 42 mL/min >60 [facility] Comment on above: GFR Calc Estimated GFR (MDRD) Non-Af Amer 35 mL/min >60 [facility] Comment on above: Non- GFR Calc Serum or plasma calcium mario alberto urement (mass/volume)Ordered By: Teo Medley on 01-18-2023 Calcium [Mass/Vol] 9.1 mg/dL 8.5-10.1 [facility] Serum or plasma creatinine m easurement (mass/volume)Ordered By: Teo Medley on 01-18-2023 Creatinine [Mass/Vol] 1.53 mg/dL 0.55-1.02 [facility] Comment on above: The validity of the calculated GFR & GFRAA in patients over 70 years has not been determined. Clinical correlation is essential. Serum or plasma urea nitroge n measurement (mass/volume)Ordered By: Teo Medley on 01-18-2023 Urea nitrogen [Mass/Vol] 25 mg/dL - [facility] Thin prep Papanicolaou smear with manual screeningOrdered By: Teo Medley on 01-18-2023 Thin prep Papanicolaou smear with manual screening 5 5-15 [facility] Absolute lymphocyte countOrd ered By: Teo Medley on 12-07-2022 Lymphocytes Auto (Unsp spec) [#/Vol] 2.03 10*3/uL 0.83-4.51 [facility] Basophil percentageOrdered B y: Teo Medley on 12-07-2022 Basophils/100 WBC (Bld) 0.6 % 0-1 [facility] Bilirubin [Mass/Vol] 0.40 mg/dL 0.20-1.00 [facility] Comment on above: For patients on eltr ombopag therapy, use of [place] TBIL is not recommended. Chloride [Moles/Vol] 104 mmol/L 98-107 [facility] Cholesterol [Mass/Vol] 203 mg/dL <200 [facility] Comment on above: <200 mg/dL Desirable 200-240 mg/dL Borderline >240 mg/dL High Risk Eosinophils/100 WBC (Bld) 4.0 % 0-5 [facility] Glucose [Mass/Vol] 176 mg/dL 74-106 [facility] Comment on above: Fasting Glucose resu lt greater than or equal to 126 mg/dL suggests DIABETES MELLITUS per A.D.A. criteria. Neutrophils (Bld) [#/Vol] 5.9 10*3/uL 2.0-7.7 [facility] Neutrophils/100 WBC (Bld) 66.1 % 47-70 [facility] Potassium [Moles/Vol] 4.0 mmol/L 3.5-5.1 [facility] Protein [Mass/Vol] 8.5 g/dL 6.4-8.2 [facility] Sodium [Moles/Vol] 137 mmol/L 136-145 [facility] Triglyceride [Mass/Vol] 140 mg/dL <199 [facility] Comment on above: The drugs N-Acetylcy steine and Metamizole may falsely depress this assay.Serum Triglycerides Reference Interval Normal <150 mg/dL Borderline high 150 - 199 mg/dL High 200 - 499 mg/dL Very High > or = 500 mg/dL WBC (Bld) [#/Vol] 8.9 10*3/uL 4.4-11.0 [facility] Blood erythrocytes count (nu mber/volume)Ordered By: Teo Medley on 12-07-2022 RBC (Bld) [#/Vol] 4.52 10*6/uL 4.2-5.4 [facility] Blood hemoglobin measurement (mass/volume)Ordered By: Teo Medley on 12-07-2022 Hemoglobin (Bld) [Mass/Vol] 13.1 g/dL 12.0-15.0 [facility] Blood lymphocytes/100 leukoc ytesOrdered By: Teo Medley on 12-07-2022 Lymphocytes/100 WBC (Bld) 22.8 % 19-41 [facility] Blood monocytes/100 leukocyt esOrdered By: Teo Medley on 12-07-2022 Monocytes/100 WBC (Bld) 6.1 % 0-10 [facility] Blood platelet mean volumeOr dered By: Teo Medley on 12-07-2022 Platelet mean volume (Bld) [Entitic vol] 10.6 fL 6.2-12.0 [facility] Determination of erythrocyte mean corpuscular volume (MCV)Ordered By: Teo Medley on 12-07-2022 MCV (RBC) [Entitic vol] 91.6 fL 81-99 [facility] Hematocrit Auto (Bld) [Volum e fraction]Ordered By: Teo Medley on 12-07-2022 Hematocrit (Bld) [Volume fraction] 41.4 % 37-47 [facility] Laboratory - Chemistry and C hemistry - challengeOrdered By: Teo Medley on 12-07-2022 ALP [Catalytic activity/Vol] 78 U/L 45-117 [facility] ALT [Catalytic activity/Vol] 38 U/L 13-56 [facility] CO2 [Moles/Vol] 27.0 mmol/L 21.0-32.0 [facility] Free T4 [Mass/Vol] 1.23 ng/dL 0.76-1.46 [facility] Globulin (S) [Mass/Vol] 5.2 g/dL 2.2-4.2 [facility] Magnesium [Mass/Vol] 2.0 mg/dL 1.6-2.6 [facility] Urea nitrogen/Creatinine [Mass ratio] 15.9 mg/mg 10-20 [facility] Laboratory - Hematology and Cell countsOrdered By: Teo Medley on 12-07-2022 Erythrocyte distribution width (RBC) [Entitic vol] 47.7 fL 35.1-43.9 [facility] Erythrocyte distribution width (RBC) [Ratio] 14.0 % 11.6-14.6 [facility] Immature granulocytes/100 WBC (Bld) 0.400 % 0.0-0.9 [facility] Comment on above: IG% - Immature Granu locytes (promyelocytes, myelocytes and metamyelocytes) > 1% indicates that a LEFT SHIFT is Present. MCH (RBC) [Entitic mass] 29.0 pg 27.0-32.0 [facility] Nucleated RBC/100 WBC (Bld) [Ratio] 0 % 0-5 [facility] MCHC Auto (RBC) [Mass/Vol]Or dered By: Teo Medley on 12-07-2022 MCHC (RBC) [Mass/Vol] 31.6 g/dL 32-36 [facility] No Panel InformationOrdered By: Teo Medley on 12-07-2022 Estimated GFR (MDRD) Amer 47 mL/min >60 [facility] Comment on above: GFR Calc Estimated GFR (MDRD) Non-Af Amer 39 mL/min >60 [facility] Comment on above: Non- GFR Calc Free Triiodothyronine (T3) pg/dL 2.2 pg/mL 2.18-3.98 [facility] Thyroid Stimulating Hormone (TSH) 0.91 uIU/mL 0.358-3.74 [facility] Vitamin D 25-Hydroxy 59.3 ng/mL [facility] Comment on above: Vitamin D 25(OH) Sta tus Range Deficiency <20 ng/mL (50nmol/L) Insufficiency 20 - 30 ng/mL (50 - 75 nmol/L) Sufficiency 30 - 100 ng/mL (75 - 250 nmol/L) Toxicity >100 ng/mL (>250 nmol/L) Platelets bldOrdered By: Jannette Medley on 12-07-2022 Platelets (Bld) [#/Vol] 251 10*3/uL 150-450 [facility] Serum or plasma albumin mario alberto urement (mass/volume)Ordered By: Teo Medley on 12-07-2022 Albumin [Mass/Vol] 3.3 g/dL 3.2-5.0 [facility] Serum or plasma albumin/glob ulin mass ratioOrdered By: Teo Medley on 12-07-2022 Albumin/Globulin [Mass ratio] 0.6 {ratio} 0.9-2.4 [facility] Serum or plasma calcium mario alberto urement (mass/volume)Ordered By: Teo Medley on 12-07-2022 Calcium [Mass/Vol] 9.3 mg/dL 8.5-10.1 [facility] Serum or plasma cholesterol in HDL measurement (mass/volume)Ordered By: Teo Medley on 12-07-2022 Cholesterol in HDL [Mass/Vol] 33 mg/dL >40 [facility] Comment on above: The drugs N-Acetylcy steine and Metamizole may falsely depress this assay. Reference Range HDL <40 mg/dL Low HDL Cholesterol HDL >or= 60 mg/dL High HDL Cholesterol Serum or plasma cholesterol in VLDL measurement (mass/volume)Ordered By: Teo Medely on 12-07-2022 Cholesterol in VLDL [Mass/Vol] 28 mg/dL 5-40 [facility] Serum or plasma creatinine m easurement (mass/volume)Ordered By: Teo Medley on 12-07-2022 Creatinine [Mass/Vol] 1.38 mg/dL 0.55-1.02 [facility] Comment on above: The validity of the calculated GFR & GFRAA in patients over 70 years has not been determined. Clinical correlation is essential. Serum or plasma low density lipoprotein (LDL) cholesterol measurement (mass/volume)Ordered By: Teo Medley on 12-07-2022 Cholesterol in LDL [Mass/Vol] 142 mg/dL 0-130 [facility] Serum or plasma urea nitroge n measurement (mass/volume)Ordered By: Teo Medley on 12-07-2022 Urea nitrogen [Mass/Vol] 22 mg/dL 7-18 [facility] Thin prep Papanicolaou smear with manual screeningOrdered By: Teo Medley on 12-07-2022 Thin prep Papanicolaou smear with manual screening 23 U/L 15-37 [facility] Thin prep Papanicolaou smear with manual screening 6 5-15 [facility] Culture, urineOrdered By: Deandra Medley on 12-04-2022 Bacteria identified Cx Nom (U) Culture exhibits no growth. [facility] Bacteria identified Cx Nom (U) Culture exhibits no growth. [facility] Laboratory - Chemistry and C hemistry - challengeon 12-04-2022 Bilirubin Ql (U) Negative [facility] Glucose Ql (U) Negative [facility] Ketones Ql (U) Trace (5) [facility] pH (U) 6.0 [pH] [facility] Specific gravity (U) [Rel density] 1.015 [facility] Urobilinogen (U) [Mass/Vol] 1 mg/dL [facility] Laboratory - Hematology and Cell countson 12-04-2022 Hemoglobin Ql (U) Moderate [facility] Laboratory - Specimen inform ationon 12-04-2022 Clarity (U) Clear [facility] Color (U) DARK YELLOW [facility] Laboratory - Urinalysison Nitrite Ql (U) Negative [facility] Protein Ql (U) Negative [facility] No Panel Informationon 12-04 Urine Leukocytes Positive [facility] Urine Non-Hemolyzed Blood [facility] Absolute lymphocyte counton 11-28-2021 Lymphocytes Auto (Unsp spec) [#/Vol] 2.16 10*3/uL 0.83-4.51 [facility] Work Phone: Basophil percentageon 2021 Basophils/100 WBC (Bld) 0.4 % 0-1 [facility] Work Phone: Bilirubin [Mass/Vol] 0.20 mg/dL 0.20-1.00 [facility] Work Phone: Comment on above: For patients on eltr ombopag therapy, use of [place] TBIL is not recommended. Chloride [Moles/Vol] 105 mmol/L 98-107 [facility] Work Phone: [phone] Cholesterol [Mass/Vol] 194 mg/dL <200 [facility] Work Phone: Comment on above: <200 mg/dL Desirable 200-240 mg/dL Borderline >240 mg/dL High Risk Eosinophils/100 WBC (Bld) 1.4 % 0-5 [facility] Work Phone: Glucose [Mass/Vol] 138 mg/dL 74-106 [facility] Work Phone: Comment on above: Fasting Glucose resu lt greater than or equal to 126 mg/dL suggests DIABETES MELLITUS per A.D.A. criteria. Neutrophils (Bld) [#/Vol] 6.3 10*3/uL 2.0-7.7 [facility] Work Phone: Neutrophils/100 WBC (Bld) 68.4 % 47-70 [facility] Work Phone: Potassium [Moles/Vol] 4.0 mmol/L 3.5-5.1 [facility] Work Phone: Protein [Mass/Vol] 8.6 g/dL 6.4-8.2 [facility] Work Phone: Sodium [Moles/Vol] 139 mmol/L 136-145 [facility] Work Phone: Triglyceride [Mass/Vol] 145 mg/dL <199 [facility] Work Phone: Comment on above: The drugs N-Acetylcy steine and Metamizole may falsely depress this assay.Serum Triglycerides Reference Interval Normal <150 mg/dL Borderline high 150 - 199 mg/dL High 200 - 499 mg/dL Very High > or = 500 mg/dL WBC (Bld) [#/Vol] 9.2 10*3/uL 4.4-11.0 [facility] Work Phone: Blood erythrocytes count (nu mber/volume)on 11-28-2021 RBC (Bld) [#/Vol] 4.33 10*6/uL 4.2-5.4 [facility] Work Phone: Blood hemoglobin measurement (mass/volume)on 11-28-2021 Hemoglobin (Bld) [Mass/Vol] 12.7 g/dL 12.0-15.0 [facility] Work Phone: Blood lymphocytes/100 leukoc yteson 11-28-2021 Lymphocytes/100 WBC (Bld) 23.5 % 19-41 [facility] Work Phone: Blood monocytes/100 leukocyt eson 11-28-2021 Monocytes/100 WBC (Bld) 6.0 % 0-10 [facility] Work Phone: Blood platelet mean volumeon 11-28-2021 Platelet mean volume (Bld) [Entitic vol] 10.2 fL 6.2-12.0 [facility] Work Phone: Determination of erythrocyte mean corpuscular volume (MCV)on 11-28-2021 MCV (RBC) [Entitic vol] 91.2 fL 81-99 [facility] Work Phone: Hematocrit Auto (Bld) [Volum e fraction]on 11-28-2021 Hematocrit (Bld) [Volume fraction] 39.5 % 37-47 [facility] Work Phone: Laboratory - Chemistry and C hemistry - challengeon 11-28-2021 ALP [Catalytic activity/Vol] 77 U/L 45-117 [facility] Work Phone: ALT [Catalytic activity/Vol] 28 U/L 13-56 [facility] Work Phone: CO2 [Moles/Vol] 29.0 mmol/L 21.0-32.0 [facility] Work Phone: Free T4 [Mass/Vol] 1.31 ng/dL 0.76-1.46 [facility] Work Phone: Globulin (S) [Mass/Vol] 5.1 g/dL 2.2-4.2 [facility] Work Phone: Urea nitrogen/Creatinine [Mass ratio] 16.1 mg/mg 10-20 [facility] Work Phone: Laboratory - Hematology and Cell countson 11-28-2021 Erythrocyte distribution width (RBC) [Entitic vol] 49.2 fL 35.1-43.9 [facility] Work Phone: Erythrocyte distribution width (RBC) [Ratio] 14.6 % 11.6-14.6 [facility] Work Phone: Immature granulocytes/100 WBC (Bld) 0.300 % 0.0-0.9 [facility] Work Phone: Comment on above: IG% - Immature Granu locytes (promyelocytes, myelocytes and metamyelocytes) > 1% indicates that a LEFT SHIFT is Present. MCH (RBC) [Entitic mass] 29.3 pg 27.0-32.0 [facility] Work Phone: Nucleated RBC/100 WBC (Bld) [Ratio] 0 % 0-5 [facility] Work Phone: MCHC Auto (RBC) [Mass/Vol]on 11-28-2021 MCHC (RBC) [Mass/Vol] 32.2 g/dL 32-36 [facility] Work Phone: No Panel Informationon 11-28 Estimated GFR (MDRD) Amer 57 mL/min >60 [facility] Work Phone: Comment on above: GFR Calc Estimated GFR (MDRD) Non-Af Amer 47 mL/min >60 [facility] Work Phone: Comment on above: Non- GFR Calc Free Triiodothyronine (T3) pg/dL 2.0 pg/mL 2.18-3.98 [facility] Work Phone: Thyroid Stimulating Hormone (TSH) 2.32 uIU/mL 0.358-3.74 [facility] Work Phone: Platelets bldon 11-28-2021 Platelets (Bld) [#/Vol] 239 10*3/uL 150-450 [facility] Work Phone: Serum or plasma albumin mario alberto urement (mass/volume)on 11-28-2021 Albumin [Mass/Vol] 3.5 g/dL 3.2-5.0 [facility] Work Phone: Serum or plasma albumin/glob ulin mass ratioon 11-28-2021 Albumin/Globulin [Mass ratio] 0.7 {ratio} 0.9-2.4 [facility] Work Phone: Serum or plasma calcium mario alberto urement (mass/volume)on 11-28-2021 Calcium [Mass/Vol] 9.1 mg/dL 8.5-10.1 [facility] Work Phone: Serum or plasma cholesterol in HDL measurement (mass/volume)on 11-28-2021 Cholesterol in HDL [Mass/Vol] 37 mg/dL >40 [facility] Work Phone: Comment on above: The drugs N-Acetylcy steine and Metamizole may falsely depress this assay. Reference Range HDL <40 mg/dL Low HDL Cholesterol HDL >or= 60 mg/dL High HDL Cholesterol Serum or plasma cholesterol in VLDL measurement (mass/volume)on 11-28-2021 Cholesterol in VLDL [Mass/Vol] 29 mg/dL 5-40 [facility] Work Phone: Serum or plasma creatinine m easurement (mass/volume)on 11-28-2021 Creatinine [Mass/Vol] 1.18 mg/dL 0.55-1.02 [facility] Work Phone: Comment on above: The validity of the calculated GFR & GFRAA in patients over 70 years has not been determined. Clinical correlation is essential. Serum or plasma low density lipoprotein (LDL) cholesterol measurement (mass/volume)on 11-28-2021 Cholesterol in LDL [Mass/Vol] 128 mg/dL 0-130 [facility] Work Phone: Serum or plasma urea nitroge n measurement (mass/volume)on 11-28-2021 Urea nitrogen [Mass/Vol] 19 mg/dL 7-18 [facility] Work Phone: [phone] Thin prep Papanicolaou smear with manual screeningon 11-28-2021 Thin prep Papanicolaou smear with manual screening 20 U/L 15-37 [facility] Work Phone: Thin prep Papanicolaou smear with manual screening 5 5-15 [facility] Work Phone: Absolute lymphocyte counton 05-23-2021 Lymphocytes Auto (Unsp spec) [#/Vol] 2.34 10*3/uL 0.83-4.51 [facility] Work Phone: Basophil percentageon 2021 Basophils/100 WBC (Bld) 0.5 % 0-1 [facility] Work Phone: Bilirubin [Mass/Vol] 0.20 mg/dL 0.20-1.00 [facility] Work Phone: Comment on above: For patients on eltr ombopag therapy, use of [place] TBIL is not recommended. Chloride [Moles/Vol] 102 mmol/L 98-107 [facility] Work Phone: Eosinophils/100 WBC (Bld) 2.4 % 0-5 [facility] Work Phone: [phone] Glucose [Mass/Vol] 144 mg/dL 74-106 [facility] Work Phone: Comment on above: Fasting Glucose resu lt greater than or equal to 126 mg/dL suggests DIABETES MELLITUS per A.D.A. criteria. Neutrophils (Bld) [#/Vol] 4.4 10*3/uL 2.0-7.7 [facility] Work Phone: Neutrophils/100 WBC (Bld) 58.0 % 47-70 [facility] Work Phone: Potassium [Moles/Vol] 4.5 mmol/L 3.5-5.1 [facility] Work Phone: Protein [Mass/Vol] 8.3 g/dL 6.4-8.2 [facility] Work Phone: Sodium [Moles/Vol] 136 mmol/L 136-145 [facility] Work Phone: WBC (Bld) [#/Vol] 7.5 10*3/uL 4.4-11.0 [facility] Work Phone: Blood erythrocytes count (nu mber/volume)on 05-23-2021 RBC (Bld) [#/Vol] 4.37 10*6/uL 4.2-5.4 [facility] Work Phone: Blood hemoglobin measurement (mass/volume)on 05-23-2021 Hemoglobin (Bld) [Mass/Vol] 12.7 g/dL 12.0-15.0 [facility] Work Phone: Blood lymphocytes/100 leukoc yteson 05-23-2021 Lymphocytes/100 WBC (Bld) 31.2 % 19-41 [facility] Work Phone: [phone] Blood monocytes/100 leukocyt eson 05-23-2021 Monocytes/100 WBC (Bld) 7.5 % 0-10 [facility] Work Phone: Blood platelet mean volumeon 05-23-2021 Platelet mean volume (Bld) [Entitic vol] 10.3 fL 6.2-12.0 [facility] Work Phone: Determination of erythrocyte mean corpuscular volume (MCV)on 05-23-2021 MCV (RBC) [Entitic vol] 90.6 fL 81-99 [facility] Work Phone: Hematocrit Auto (Bld) [Volum e fraction]on 05-23-2021 Hematocrit (Bld) [Volume fraction] 39.6 % 37-47 [facility] Work Phone: Laboratory - Chemistry and C hemistry - challengeon 05-23-2021 ALP [Catalytic activity/Vol] 77 U/L 45-117 [facility] Work Phone: ALT [Catalytic activity/Vol] 37 U/L 13-56 [facility] Work Phone: CO2 [Moles/Vol] 27.0 mmol/L 21.0-32.0 [facility] Work Phone: Free T4 [Mass/Vol] 1.31 ng/dL 0.76-1.46 [facility] Work Phone: Globulin (S) [Mass/Vol] 5.1 g/dL 2.2-4.2 [facility] Work Phone: Urea nitrogen/Creatinine [Mass ratio] 18.9 mg/mg 10-20 [facility] Work Phone: Laboratory - Hematology and Cell countson 05-23-2021 Erythrocyte distribution width (RBC) [Entitic vol] 47.4 fL 35.1-43.9 [facility] Work Phone: Erythrocyte distribution width (RBC) [Ratio] 14.2 % 11.6-14.6 [facility] Work Phone: Immature granulocytes/100 WBC (Bld) 0.400 % 0.0-0.9 [facility] Work Phone: Comment on above: IG% - Immature Granu locytes (promyelocytes, myelocytes and metamyelocytes) > 1% indicates that a LEFT SHIFT is Present. MCH (RBC) [Entitic mass] 29.1 pg 27.0-32.0 [facility] Work Phone: Nucleated RBC/100 WBC (Bld) [Ratio] 0 % 0-5 [facility] Work Phone: MCHC Auto (RBC) [Mass/Vol]on 05-23-2021 MCHC (RBC) [Mass/Vol] 32.1 g/dL 32-36 [facility] Work [facility]: No Panel Informationon 05-23 Estimated GFR (MDRD) Amer 61 mL/min >60 [facility] Work Phone: Comment on above: GFR Calc Estimated GFR (MDRD) Non-Af Amer 50 mL/min >60 [facility] Work Phone: Comment on above: Non- GFR Calc Free Triiodothyronine (T3) pg/dL 2.3 pg/mL 2.18-3.98 [facility] Work Phone: Thyroid Stimulating Hormone (TSH) 4.49 uIU/mL 0.358-3.74 [facility] Work Phone: Platelets bldon 05-23-2021 Platelets (Bld) [#/Vol] 239 10*3/uL 150-450 [facility] Work Phone: Serum or plasma albumin mario alberto urement (mass/volume)on 05-23-2021 Albumin [Mass/Vol] 3.2 g/dL 3.2-5.0 [facility] Work Phone: Serum or plasma albumin/glob ulin mass ratioon 05-23-2021 Albumin/Globulin [Mass ratio] 0.6 {ratio} 0.9-2.4 [facility] Work Phone: Serum or plasma calcium mario alberto urement (mass/volume)on 05-23-2021 Calcium [Mass/Vol] 9.3 mg/dL 8.5-10.1 [facility] Work Phone: Serum or plasma creatinine m easurement (mass/volume)on 05-23-2021 Creatinine [Mass/Vol] 1.11 mg/dL 0.55-1.02 [facility] Work Phone: Comment on above: The validity of the calculated GFR & GFRAA in patients over 70 years has not been determined. Clinical correlation is essential. Serum or plasma urea nitroge n measurement (mass/volume)on 05-23-2021 Urea nitrogen [Mass/Vol] 21 mg/dL 7-18 [facility] Work Phone: Thin prep Papanicolaou smear with manual screeningon 05-23-2021 Thin prep Papanicolaou smear with manual screening 26 U/L 15-37 [facility] Work Phone: Thin prep Papanicolaou smear with manual screening 7 5-15 [facility] Work Phone: Absolute lymphocyte counton 02-15-2021 Lymphocytes Auto (Unsp spec) [#/Vol] 2.86 10*3/uL 0.83-4.51 [facility] Work Phone: Basophil percentageon 2020 Bilirubin [Mass/Vol] 0.20 mg/dL 0.20-1.00 [facility] Work Phone: Comment on above: For patients on eltr ombopag therapy, use of [place] TBIL is not recommended. Chloride [Moles/Vol] 110 mmol/L 98-107 [facility] Work Phone: Cholesterol [Mass/Vol] 163 mg/dL <200 [facility] Work Phone: Comment on above: <200 mg/dL Desirable 200-240 mg/dL Borderline >240 mg/dL High Risk Eosinophils/100 WBC (Bld) 2.0 % 0-5 [facility] Work Phone: Glucose [Mass/Vol] 125 mg/dL 74-106 [facility] Work Phone: Comment on above: Fasting Glucose resu lt from 100 to 125 mg/dL suggests IMPAIRED HOMEOSTASIS per A.D.A. criteria.Please note revised GLUCOSE reference range effective 2017. Neutrophils (Bld) [#/Vol] 4.3 10*3/uL 2.0-7.7 [facility] Work Phone: Potassium [Moles/Vol] 3.8 mmol/L 3.5-5.1 [facility] Work Phone: Protein [Mass/Vol] 8.0 g/dL 6.4-8.2 [facility] Work Phone: Sodium [Moles/Vol] 139 mmol/L 136-145 [facility] Work Phone: Triglyceride [Mass/Vol] 153 mg/dL [facility] Work Phone: Comment on above: The drugs N-Acetylcy steine and Metamizole may falsely depress this assay.Serum Triglycerides Reference Interval Normal <150 mg/dL Borderline high 150 - 199 mg/dL High 200 - 499 mg/dL Very High > or = 500 mg/dL WBC (Bld) [#/Vol] 8.1 10*3/uL 4.4-11.0 [facility] Work Phone: Blood erythrocytes count (nu mber/volume)on 02-15-2021 RBC (Bld) [#/Vol] 3.70 10*6/uL 4.2-5.4 [facility] Work Phone: Blood hemoglobin measurement (mass/volume)on 02-15-2021 Hemoglobin (Bld) [Mass/Vol] 10.8 g/dL 12.0-15.0 [facility] Work Phone: Blood lymphocytes/100 leukoc yteson 02-15-2021 Lymphocytes/100 WBC (Bld) 35.5 % 19-41 [facility] Work Phone: Blood monocytes/100 leukocyt eson 02-15-2021 Monocytes/100 WBC (Bld) 9.1 % 0-10 [facility] Work Phone: Blood platelet mean volumeon 02-15-2021 Platelet mean volume (Bld) [Entitic vol] 9.8 fL 6.2-12.0 [facility] Work Phone: Determination of erythrocyte mean corpuscular volume (MCV)on 02-15-2021 MCV (RBC) [Entitic vol] 90.3 fL 81-99 [facility] Work Phone: Hematocrit Auto (Bld) [Volum e fraction]on 02-15-2021 Hematocrit (Bld) [Volume fraction] 33.4 % 37-47 [facility] Work Phone: Laboratory - Chemistry and C hemistry - challengeon 02-15-2021 ALP [Catalytic activity/Vol] 67 U/L 45-117 [facility] Work Phone: ALT [Catalytic activity/Vol] 32 U/L 13-56 [facility] Work Phone: CO2 [Moles/Vol] 23.0 mmol/L 21.0-32.0 [facility] Work Phone: Free T4 [Mass/Vol] 1.20 ng/dL 0.76-1.46 [facility] Work Phone: [phone] Globulin (S) [Mass/Vol] 5.3 g/dL 2.2-4.2 [facility] Work Phone: Urea nitrogen/Creatinine [Mass ratio] 28.8 mg/mg 10-20 [facility] Work Phone: Laboratory - Hematology and Cell countson 02-15-2021 Basophils/100 WBC (Unsp spec) 0.4 % 0-1 [facility] Work Phone: Erythrocyte distribution width (RBC) [Entitic vol] 49.2 fL 35.1-43.9 [facility] Work Phone: Erythrocyte distribution width (RBC) [Ratio] 14.9 % 11.6-14.6 [facility] Work Phone: Immature granulocytes/100 WBC (Bld) 0.200 % 0.0-0.9 [facility] Work Phone: Comment on above: IG% - Immature Granu locytes (promyelocytes, myelocytes and metamyelocytes) > 1% indicates that a LEFT SHIFT is Present. MCH (RBC) [Entitic mass] 29.2 pg 27.0-32.0 [facility] Work Phone: Neutrophils/100 WBC (Bld) 52.8 % 47-70 [facility] Work Phone: Nucleated RBC/100 WBC (Bld) [Ratio] 0 % 0-5 [facility] Work Phone: MCHC Auto (RBC) [Mass/Vol]on 02-15-2021 MCHC (RBC) [Mass/Vol] 32.3 g/dL 32-36 [facility] Work Phone: No Panel Informationon 02-15 Estimated GFR (MDRD) Amer 77 mL/min >60 [facility] Work Phone: Comment on above: GFR Calc Estimated GFR (MDRD) Non-Af Amer 64 mL/min >60 [facility] Work Phone: Comment on above: Non- GFR Calc Thyroid Stimulating Hormone (TSH) 0.72 uIU/mL 0.358-3.74 [facility] Work Phone: Vitamin D 25-Hydroxy 55.7 ng/mL [facility] Work Phone: Comment on above: Vitamin D 25(OH) Sta tus Range Deficiency <20 ng/mL (50nmol/L) Insufficiency 20 - 30 ng/mL (50 - 75 nmol/L) Sufficiency 30 - 100 ng/mL (75 - 250 nmol/L) Toxicity >100 ng/mL (>250 nmol/L) Platelets bldon 02-15-2021 Platelets (Bld) [#/Vol] 276 10*3/uL 150-450 [facility] Work Phone: Serum or plasma albumin mario alberto urement (mass/volume)on 02-15-2021 Albumin [Mass/Vol] 2.7 g/dL 3.2-5.0 [facility] Work Phone: Serum or plasma albumin/glob ulin mass ratioon 02-15-2021 Albumin/Globulin [Mass ratio] 0.5 {ratio} 0.9-2.4 [facility] Work Phone: Serum or plasma calcium mario alberto urement (mass/volume)on 02-15-2021 Calcium [Mass/Vol] 9.3 mg/dL 8.5-10.1 [facility] Work Phone: Serum or plasma cholesterol in HDL measurement (mass/volume)on 02-15-2021 Cholesterol in HDL [Mass/Vol] 29 mg/dL [facility] Work Phone: Comment on above: The drugs N-Acetylcy steine and Metamizole may falsely depress this assay. Reference Range HDL <40 mg/dL Low HDL Cholesterol HDL >or= 60 mg/dL High HDL Cholesterol Serum or plasma cholesterol in VLDL measurement (mass/volume)on 02-15-2021 Cholesterol in VLDL [Mass/Vol] 31 mg/dL 5-40 [facility] Work Phone: Serum or plasma creatinine m easurement (mass/volume)on 02-15-2021 Creatinine [Mass/Vol] 0.90 mg/dL 0.55-1.02 [facility] Work Phone: Comment on above: The validity of the calculated GFR & GFRAA in patients over 70 years has not been determined. Clinical correlation is essential. Serum or plasma low density lipoprotein (LDL) cholesterol measurement (mass/volume)on 02-15-2021 Cholesterol in LDL [Mass/Vol] 103 mg/dL 0-130 [facility] Work Phone: Serum or plasma urea nitroge n measurement (mass/volume)on 02-15-2021 Urea nitrogen [Mass/Vol] 26 mg/dL 7-18 [facility] Work Phone: Thin prep Papanicolaou smear with manual screeningon 02-15-2021 Thin prep Papanicolaou smear with manual screening 20 U/L 15-37 [facility] Work Phone: Thin prep Papanicolaou smear with manual screening 6 5-15 [facility] Work Phone: Vital Signs Date Time Vital Sign Value Performing Clinician Kevini karen 07-07-2024 09:31-0400 Body height 160.[address] Teo Medley MD Work Phone: [facility] 07-07-2024 09:31-0400 Body mass index (BMI) [Ratio] 27.5 kg/m2 Dr. Teo Medley MD Work Phone: [facility] 07-07-2024 09:31-0400 Body temperature 98.2 [degF] Dr. Teo Medley MD Work Phone: [facility] 07-07-2024 09:31-0400 Body weight 70.[address] Teo Medley MD Work Phone: [facility] 07-07-2024 09:31-0400 Diastolic blood pressure 68 mm[Hg] Dr. Teo Medley MD Work Phone: [facility] 07-07-2024 09:31-0400 Heart rate 69 /min Dr. Teo Medley MD Work Phone: [facility] 07-07-2024 09:31-0400 Respiratory rate 16 /min Dr. Teo Medley MD Work Phone: [facility] 07-07-2024 09:31-0400 SaO2% (BldA) [Mass fraction] 95 % Dr. Teo Medley MD Work Phone: [facility] 07-07-2024 09:31-0400 Systolic blood pressure 129 mm[Hg] Dr. Teo Medley MD Work Phone: [facility] 06-26-2024 14:47-0400 Body temperature 97.2 [degF] Dr. Teo Medley MD Work Phone: [facility] 06-26-2024 14:47-0400 Diastolic blood pressure 78 mm[Hg] Dr. Teo Medley MD Work Phone: [facility] 06-26-2024 14:47-0400 Heart rate 110 /min Dr. Teo Medley MD Work Phone: [facility] 06-26-2024 14:47-0400 Respiratory rate 24 /min Dr. Teo Medley MD Work Phone: [facility] 06-26-2024 14:47-0400 SaO2% (BldA) [Mass fraction] 94 % Dr. Teo Medley MD Work Phone: [facility] 06-26-2024 14:47-0400 Systolic blood pressure 164 mm[Hg] Dr. Teo Medley MD Work Phone: [facility] 06-26-2024 11:38-0400 Body mass index (BMI) [Ratio] 29.7 kg/m2 Dr. Teo Medley MD Work Phone: [facility] 06-26-2024 11:38-0400 Body weight 76.[address] Teo Medley MD Work Phone: [facility] 2024 15:33-0400 Body weight 75.[address] APRN.[employer] Work Phone: [facility] 2024 15:33-0400 Diastolic blood pressure 72 mm[Hg] Jocelyn Street FLEXIBLE NANNY.[employer] Work Phone: [facility] 2024 15:33-0400 Systolic blood pressure 154 mm[Hg] Jocelyn Street APRN.[employer] Work Phone: [facility] 05-10-2024 11:00-0400 Diastolic blood pressure 72 mm[Hg] Dr. Teo Medley MD Work Phone: [facility] 05-10-2024 11:00-0400 Systolic blood pressure 134 mm[Hg] Dr. Teo Medley MD Work Phone: [facility] 05-01-2024 20:55-0500 Body temperature 98.6 [degF] Dr. Teo Medley MD Work Phone: [facility] 05-01-2024 20:55-0500 Diastolic blood pressure 72 mm[Hg] Dr. Teo Medley MD Work Phone: [facility] 05-01-2024 20:55-0500 Heart rate 74 /min Dr. Teo Medley MD Work Phone: [facility] 05-01-2024 20:55-0500 Respiratory rate 18 /min Dr. Teo Medley MD Work Phone: [facility] 05-01-2024 20:55-0500 SaO2% (BldA) [Mass fraction] 97 % Dr. Teo Medley MD Work Phone: [facility] 05-01-2024 20:55-0500 Systolic blood pressure 167 mm[Hg] Dr. Teo Medley MD Work Phone: [facility] 04-30-2024 20:36-0500 Body temperature 97.9 [degF] Dr. Teo Medley MD Work Phone: [facility] 04-30-2024 20:36-0500 Diastolic blood pressure 73 mm[Hg] Dr. Teo Medley MD Work Phone: [facility] 04-30-2024 20:36-0500 Heart rate 78 /min Dr. Teo Medley MD Work Phone: [facility] 04-30-2024 20:36-0500 Respiratory rate 18 /min Dr. Teo Medley MD Work Phone: [facility] 04-30-2024 20:36-0500 SaO2% (BldA) [Mass fraction] 96 % Dr. Teo Medley MD Work Phone: [facility] 04-30-2024 20:36-0500 Systolic blood pressure 151 mm[Hg] Dr. Teo Medley MD Work Phone: [facility] 04-30-2024 20:33-0500 Body mass index (BMI) [Ratio] 30.2 kg/m2 Dr. Teo Medley MD Work Phone: [facility] 04-30-2024 20:33-0500 Body weight 77.[address] Teo Medley MD Work Phone: [facility] 04-27-2024 10:38-0500 Heart rate 68 /min Dr. Teo Medley MD Work Phone: [facility] 04-27-2024 10:35-0500 Body weight 76.[address] Teo Medley MD Work Phone: [facility] 04-27-2024 07:32-0500 Body temperature 97.7 [degF] Dr. Teo Medley MD Work Phone: [facility] 04-27-2024 07:32-0500 Diastolic blood pressure 57 mm[Hg] Dr. Teo Medley MD Work Phone: [facility] 04-27-2024 07:32-0500 Respiratory rate 16 /min Dr. Teo Medley MD Work Phone: [facility] 04-27-2024 07:32-0500 SaO2% (BldA) [Mass fraction] 92 % Dr. Teo Medley MD Work Phone: [facility] 04-27-2024 07:32-0500 Systolic blood pressure 129 mm[Hg] Dr. Teo Medley MD Work Phone: [facility] 04-27-2024 03:10-0500 Inhaled oxygen flow rate 2 L/min Dr. Teo Medley MD Work Phone: [facility] 04-21-2024 19:29-0500 Body mass index (BMI) [Ratio] 29.8 kg/m2 Dr. Teo Medley MD Work Phone: [facility] 03-31-2024 13:44-0500 Body mass index (BMI) [Ratio] 30.4 kg/m2 Dr. Teo Medley MD Work Phone: [facility] 03-31-2024 13:44-0500 Body temperature 98.2 [degF] Dr. Teo Medley MD Work Phone: [facility] 03-31-2024 13:44-0500 Body weight 78.[address] Teo Medley MD Work Phone: [facility] 03-31-2024 13:44-0500 Diastolic blood pressure 81 mm[Hg] Dr. Teo Medley MD Work Phone: [facility] 03-31-2024 13:44-0500 Heart rate 103 /min Dr. Teo Medley MD Work Phone: [facility] 03-31-2024 13:44-0500 Respiratory rate 16 /min Dr. Teo Medley MD Work Phone: [facility] 03-31-2024 13:44-0500 SaO2% (BldA) [Mass fraction] 94 % Dr. Teo Medley MD Work Phone: [facility] 03-31-2024 13:44-0500 Systolic blood pressure 176 mm[Hg] Dr. Teo Medley MD Work Phone: [facility] 12-04-2022 14:02-0400 Body height 160.[address] Teo Medley Work Phone: [facility] 12-04-2022 14:02-0400 Body mass index (BMI) [Ratio] 29.9 kg/m2 Dr. Teo Medley Work Phone: [facility] 12-04-2022 14:02-0400 Body temperature 98.2 [degF] Dr. Teo Medley Work Phone: [facility] 12-04-2022 14:02-0400 Body weight 76.[address] Teo Medley Work Phone: [facility] 12-04-2022 14:02-0400 Diastolic blood pressure 60 mm[Hg] Dr. Teo Medley Work Phone: [facility] 12-04-2022 14:02-0400 Heart rate 98 /min Dr. Teo Medley Work Phone: [facility] 12-04-2022 14:02-0400 Respiratory rate 18 /min Dr. Teo Medley Work Phone: [facility] 12-04-2022 14:02-0400 SaO2% (BldA) [Mass fraction] 93 % Dr. Teo Medley Work Phone: [facility] 12-04-2022 14:02-0400 Systolic blood pressure 164 mm[Hg] Dr. Teo Medley Work Phone: [facility] 09-06-2022 10:58-0400 Body temperature 97.9 [degF] Dr. Teo Medley Work Phone: [facility] 09-06-2022 10:58-0400 Diastolic blood pressure 66 mm[Hg] Dr. Teo Medley Work Phone: [facility] 09-06-2022 10:58-0400 Heart rate 72 /min Dr. Teo Medley Work Phone: [facility] 09-06-2022 10:58-0400 Respiratory rate 16 /min Dr. Teo Medley Work Phone: [facility] 09-06-2022 10:58-0400 SaO2% (BldA) [Mass fraction] 94 % Dr. Teo Medley Work Phone: [facility] 09-06-2022 10:58-0400 Systolic blood pressure 132 mm[Hg] Dr. Teo Medley Work Phone: [facility] 09-06-2022 09:31-0400 Body height 160.[address] Teo Medley Work Phone: [facility] 09-06-2022 09:31-0400 Body mass index (BMI) [Ratio] 29.1 kg/m2 Dr. Teo Medley Work Phone: [facility] 09-06-2022 09:31-0400 Body weight 74.[address] Teo Medley Work Phone: [facility] 07-16-2022 15:15-0400 Body mass index (BMI) [Ratio] 30.3 kg/m2 Dr. Teo Medley Work Phone: [facility] 07-16-2022 15:15-0400 Body temperature 97.6 [degF] Dr. Teo Medley Work Phone: [facility] 07-16-2022 15:15-0400 Body weight 75.[address] Teo Medley Work Phone: [facility] 07-16-2022 15:15-0400 Diastolic blood pressure 75 mm[Hg] Dr. Teo Medley Work Phone: [facility] 07-16-2022 15:15-0400 Heart rate 109 /min Dr. Teo Medley Work Phone: [facility] 07-16-2022 15:15-0400 Respiratory rate 18 /min Dr. Teo Medley Work Phone: [facility] 07-16-2022 15:15-0400 Systolic blood pressure 173 mm[Hg] Dr. Teo Medley Work Phone: [facility] 2022 13:58-0400 Body temperature 98.4 [degF] Dr. Teo Medley Work Phone: [facility] 2022 13:58-0400 Body weight 76.[address] Teo Medley Work Phone: [facility] 2022 13:58-0400 Diastolic blood pressure 74 mm[Hg] Dr. Teo Medley Work Phone: [facility] 2022 13:58-0400 Heart rate 110 /min Dr. Teo Medley Work Phone: [facility] 2022 13:58-0400 Respiratory rate 18 /min Dr. Teo Medley Work Phone: [facility] 2022 13:58-0400 SaO2% (BldA) [Mass fraction] 94 % Dr. Teo Medley Work Phone: [facility] 2022 13:58-0400 Systolic blood pressure 162 mm[Hg] Dr. Teo Medley Work Phone: [facility] 11-28-2021 14:40-0400 Body temperature 98.1 [degF] Dr. Teo Medley Work Phone: [facility] Work Phone: 11-28-2021 14:40-0400 Body weight 74.[address] Teo Medley Work Phone: [facility] Work Phone: 11-28-2021 14:40-0400 Diastolic blood pressure 84 mm[Hg] Dr. Teo Medley Work Phone: [facility] Work Phone: 11-28-2021 14:40-0400 Heart rate 92 /min Dr. Teo Medley Work Phone: [facility] Work Phone: 11-28-2021 14:40-0400 Respiratory rate 16 /min Dr. Teo Medley Work Phone: [facility] Work Phone: 11-28-2021 14:40-0400 Systolic blood pressure 170 mm[Hg] Dr. Teo Medley Work Phone: [facility] Work Phone: 05-23-2021 12:56-0400 Body temperature 96.5 [degF] Dr. Teo Medley Work Phone: [facility] Work Phone: 05-23-2021 12:56-0400 Body weight 72.[address] Teo Medley Work Phone: [facility] Work Phone: 05-23-2021 12:56-0400 Diastolic blood pressure 82 mm[Hg] Dr. Teo Medley Work Phone: [facility] Work Phone: 05-23-2021 12:56-0400 Heart rate 92 /min Dr. Teo Medley Work Phone: [facility] Work Phone: 05-23-2021 12:56-0400 Respiratory rate 16 /min Dr. Teo Medley Work Phone: [facility] Work Phone: 05-23-2021 12:56-0400 SaO2% (BldA) [Mass fraction] 98 % Dr. Teo Medley Work Phone: [facility] Work Phone: 05-23-2021 12:56-0400 Systolic blood pressure 162 mm[Hg] Dr. Teo Medley Work Phone: [facility] Work Phone: 05-10-2021 14:14-0500 Body height 157.[address] Teo Medley Work Phone: [facility] Work Phone: 05-10-2021 14:14-0500 Body mass index (BMI) [Ratio] 29.1 kg/m2 Dr. Teo Medley Work Phone: [facility] Work Phone: 05-10-2021 14:14-0500 Body weight 72.[address] Teo Medley Work Phone: [facility] Work Phone: 05-10-2021 14:14-0500 Diastolic blood pressure 68 mm[Hg] Dr. Teo Medley Work Phone: [facility] Work Phone: 05-10-2021 14:14-0500 Systolic blood pressure 130 mm[Hg] Dr. Teo Medley Work Phone: [facility] Work Phone: 05-02-2021 09:18-0500 Body mass index (BMI) [Ratio] 28.8 kg/m2 Dr. Teo Medley Work Phone: [facility] Work Phone: 05-02-2021 09:18-0500 Body weight 71.[address] Teo Medley Work Phone: [facility] Work Phone: 05-02-2021 09:18-0500 Diastolic blood pressure 80 mm[Hg] Dr. Teo Medley Work Phone: [facility] Work Phone: 05-02-2021 09:18-0500 Systolic blood pressure 160 mm[Hg] Dr. Teo Medley Work Phone: [facility] Work Phone: 04-17-2021 09:19-0500 Body mass index (BMI) [Ratio] 28.8 kg/m2 Dr. Teo Medley Work Phone: [facility] Work Phone: 04-17-2021 09:19-0500 Body weight 71.[address] Teo Medley Work Phone: [facility] Work Phone: 04-17-2021 09:19-0500 Diastolic blood pressure 82 mm[Hg] Dr. Teo Medley Work Phone: [facility] Work Phone: 04-17-2021 09:19-0500 Systolic blood pressure 146 mm[Hg] Dr. Teo Medley Work Phone: [facility] Work Phone: 02-15-2021 12:24-0500 Body mass index (BMI) [Ratio] 28.2 kg/m2 Dr. Teo Medley Work Phone: [facility] Work Phone: 02-15-2021 12:24-0500 Body temperature 96.2 [degF] Dr. Teo Medley Work Phone: [facility] Work Phone: 02-15-2021 12:24-0500 Body weight 70.[address] Teo Medley Work Phone: [facility] Work Phone: 02-15-2021 12:24-0500 Diastolic blood pressure 70 mm[Hg] Dr. Teo Medley Work Phone: [facility] Work Phone: 02-15-2021 12:24-0500 Heart rate 109 /min Dr. Teo Medley Work Phone: [facility] Work Phone: 02-15-2021 12:24-0500 Respiratory rate 18 /min Dr. Teo Medley Work Phone: [facility] Work Phone: 02-15-2021 12:24-0500 SaO2% (BldA) [Mass fraction] 94 % Dr. Teo Medley Work Phone: [facility] Work Phone: 02-15-2021 12:24-0500 Systolic blood pressure 158 mm[Hg] Dr. Teo Medley Work Phone: [facility] Work Phone: Encounters Encounter Date Encounter Type Care Provider Facility Start: 09-01-2024 End: 09-01-[address] Teo Medley MD -Cardiovascular Services Work Phone: Start: 09-01-2024 End: 09-01-2024 ambulatory Teo Medley Facility:[facility] Start: 09-01-2024 ambulatory Rolo Miller Facility:[facility] Start: 09-01-2024 Non-patient / Non-visit Dr. Rolo Miller MD -[facility] Start: 08-04-2024 ambulatory Teo Medley Facility :[facility] Start: 07-12-2024 End: 07-12-[address] Teo Medley MD Work Phone: [facility] Work Phone: Start: 07-12-2024 End: 07-12-[address] Teo Medley MD -Laboratory Specimen Work Phone: Start: 07-12-2024 End: 07-12-2024 ambulatory [facility] Facility:[facility] Start: 07-07-2024 End: 07-07-[address] Teo Medley MD Work Phone: [facility] Work Phone: Start: 07-07-2024 End: 07-07-[address] Teo Medley MD -Laboratory Work Phone: Start: 07-07-2024 End: 07-07-[address] Teo Med[facility] -[facility] Work Phone: Start: 07-07-2024 End: 07-07-2024 ambulatory Teo Medley Facility:[facility] Start: 07-07-2024 End: 07-07-2024 ambulatory Teoliberty DamonLucrecia Facility:[facility] Start: 07-02-2024 ambulatory Teoliberty Medley Facility :[facility] Start: 06-26-2024 ambulatory Sid Esposito Facilit y:[facility] Start: 06-26-2024 Non-patient / Non-visit Dr. Sid Esposito DO -[facility] Work Phone: Start: 06-26-2024 End: 06-26-2024 Emergency department patient visit Dr. Ankit Fraire DO -Emergency Department Work Phone: Start: 06-14-2024 ambulatory Teo Medley Facility :[facility] Start: 2024 End: 2024 ambulatory TEO LUCRECIA Facility:[facility] Start: 2024 End: 2024 Patient encounter procedure Jocelyn Street APRN.[employer] Work Phone: OB/Gynecology Comment on above: Complete uterovagina l prolapse (Primary Dx) Start: 05-10-2024 End: 05-10-2024 Patient encounter procedure Shanti Winkler NP-[facility] -[facility] Work Phone: Start: 05-10-2024 End: 05-10-2024 ambulatory [facility] [place] Start: 05-03-2024 End: 05-03-2024 Patient encounter procedure Elma RODRIGUEZ -[facility] Work Phone: Start: 05-03-2024 End: 05-03-2024 ambulatory [facility] [place] Start: 05-01-2024 End: 05-01-2024 Emergency department patient visit Dr. Francis Dill DO -Emergency Department Work Phone: Start: 04-30-2024 End: 04-30-2024 Emergency department patient visit Dr. Luiz Davila DO -Emergency Department Work Phone: Start: 04-27-2024 Non-patient / Non-visit Dr. Virgen Freitas MD [facility] Work Phone: Start: 04-26-2024 Non-patient / Non-visit Dr. Virgen Freitas MD [facility] Work Phone: Start: 04-25-2024 Non-patient / Non-visit Dr. Diana Little MD [facility] Work Phone: Start: 04-24-2024 Non-patient / Non-visit Dr. Kamala Barrera MD [facility] Work Phone: Start: 04-23-2024 Non-patient / Non-visit [facility] Work Phone: Start: 04-22-2024 Non-patient / Non-[facility] Work [facility]: Start: 04-21-2024 ambulatory Virgen Freitas Facility:[facility] Start: 04-21-2024 End: 04-27-2024 Evaluation and management of inpatient Dr. Virgen Freitas MD -[facility] 3 Work Phone: Start: 04-21-2024 ambulatory Francis Franco Facility:[facility] Start: 04-21-2024 Non-patient / Non-visit Dr. Francis Franco MD -[facility] Start: 03-31-2024 End: 03-31-[address] [facility] Start: 03-31-2024 End: 03-31-[address] Teo Medley MD -[facility] Work Phone: Start: 03-31-2024 End: 03-31-2024 ambulatory Teo Lucrecia Facility:[facility] Start: 03-31-2024 End: 03-31-2024 ambulatory Teoliberty Medley Facility:[facility] Start: 01-21-2024 End: 01-21-2024 ambulatory [facility] Facility:[facility] Start: 01-14-2024 End: 01-14-2024 ambulatory [facility] Facility:[facility] Start: 12-21-2023 End: 12-21-2023 Emergency department patient visit Rolan Glenna Facility:[facility] Start: 12-15-2023 End: 12-15-2023 ambulatory [facility] Facility:[facility] Start: 12-03-2023 [facility] Start: 05-10-2023 End: 05-10-2023 ambulatory [facility] Work Phone: Start: 05-10-2023 End: 05-10-2023 Patient encounter procedure [facility]-Laboratory Work Phone: Start: 02-15-2023 End: 02-15-[address] Teo Medley Work Phone: [facility] Work Phone: Start: 02-15-2023 End: 02-15-[address] [facility] Start: 01-18-2023 End: 01-18-[address] Teo Medley Work Phone: [facility] Work Phone: Start: 01-18-2023 End: 01-18-[address] Teo Medley Work Phone: [facility] Work Phone: Start: 12-07-2022 End: 12-07-[address] Teo Medley Work Phone: [facility] Work Phone: Start: 12-07-2022 End: 12-07-2022 Patient encounter procedure Dr[facility] Te[facility] Medley [facility]: Start: 12-04-2022 End: 12-04-[address] Te[facility] Medley [facility] Work Phone: Start: 12-04-2022 End: 12-04-[address] Teo Medley Work Phone: [facility] Work Phone: Start: 09-06-2022 Non-patient / Non-visit Dr. Teo Medley Work Phone: [facility] Start: 09-06-2022 End: 09-06-2022 Admission to same day surgery center Dr. Teo Medley Work Phone: [facility] Work Phone: Start: 09-06-2022 End: 09-06-[address] Teo Medley Work Phone: [facility] Work Phone: Start: 07-16-2022 End: 07-16-[address] Teo Medley Work Phone: [facility] Work Phone: Start: 2022 End: [address] Teo Medley Work Phone: [facility] [place] Work Phone: Start: 11-28-2021 End: 11-28-[address] Teo Medley Work Phone: [facility] Work Phone: Start: 11-28-2021 End: 11-28-[address] Teo Medley Work Phone: [facility] Start: 11-28-[address] Teo Medley Work Phone: [facility] Start: 11-28-2021 End: 11-28-2021 Emergency department patient visit Dr. Teo Medley Work Phone: [facility] Start: 11-28-2021 End: 11-28-[address] Teo Medley Work Phone: [facility] Start: 05-23-2021 End: 05-23-[address] Te[facility] Medley [facility] [place] Start: 05-10-2021 End: 05-10-[address] Teo Medley Work Phone: [facility] Start: 05-02-2021 End: 05-02-[address] Teo Medley Work Phone: [facility] Start: 04-17-2021 End: 04-17-[address] Teo Medley Work Phone: [facility] Start: 02-15-[address] Teo Medley Work Phone: [facility] [place] Start: 02-15-2021 End: 02-15-[address] Teo Medley Work Phone: [facility] Procedures Date Procedure Procedure Detail Performing Clinician Start: 07-12-2024 Urnls dip stick/tablet reagent auto microscopy Dr. Teo Medley MD Work Phone: Start: 07-12-[address] Teo Medley MD Work Phone: Start: 07-07-2024 Urnls dip stick/tablet reagent auto microscopy Dr. Teo Medley MD Work Phone: Start: 07-07-[address] Teo Medley MD Work Phone: Start: 06-26-2024 SARS-CoV-2, Influenza & RSV (PCR) Dr. Deandra Medley MD Work Phone: Start: 06-26-2024 CT angiography of chest with contrast Dr. Teo Medley MD Work Phone: Start: 06-26-2024 X-ray of chest, PA and lateral views Dr. Teo Medley MD Work Phone: Start: 06-26-2024 D-dimer assay, quantitative Dr. Teo cornelius MD Work Phone: Comment on above: D-Dimer ELEVATED (>0.49): Additional belinda dies and clinicalassessments are indicated to conclude diagnosis of:Deep Vein Thrombosis (DVT) or Pulmonary Embolism (PE)CRITICAL VALUE CALLED TO Nate VASQUEZ06/26/24 Roberto Kingston.RESULTS READ BACK BY SAME. Start: 06-26-[address] Teo Medley MD Work Phone: Start: 04-30-[address] Teo Medley MD Work Phone: Start: 04-30-2024 End: 04-30-2024 Microbial culture, routine Dr. Teo borrero MD Work Phone: Start: 04-27-[address] Teo Medley MD Work Phone: Start: 04-27-2024 Measurement of renal function Dr. Teo Medley MD Work Phone: Comment on above: GFR Calc Start: 04-25-2024 Measurement of occult blood in stool specimen using immunoassay Dr. Teo Medley MD Work Phone: Start: 04-25-2024 Urnls dip stick/tablet reagent auto microscopy Dr. Teo Medley MD Work Phone: Start: 04-24-[address] Teo Medley MD Work Phone: Start: 04-24-[address] Teo Medley MD Work Phone: Start: 04-24-2024 CT angiography of chest with contrast Dr. Teo Medley MD Work Phone: Start: 04-21-2024 Plain X-ray of tibia and fibula Dr. Marivel Medley MD Work Phone: Start: 04-21-2024 X-ray of foot, three or more views Dr. Heather Medley MD Work Phone: Start: 04-21-2024 X-ray of ankle, three or more views Dr. Teo Medley MD Work Phone: Start: 03-31-2024 X-ray of chest posteroanterior view Dr. Teo Medley MD Work Phone: Start: 12-04-[address] Teo Medley Work Phone: Start: 09-06-[address] Teo borrero Work Phone: Plan of Treatment Date Care Activity Detail Author Start: 06-26-2024 [facility] Start: 06-26-2024 [facility] Start: 06-26-2024 [facility] Start: 05-01-2024 [facility] Start: 04-30-2024 [facility] Start: 04-27-2024 Patient discharge [facility] Start: 04-24-2024 Respiratory secretion precautions [facility] Start: 04-24-2024 Care planning and problem solving actions [facility] Start: 04-23-2024 Application of intermittent pneumatic compression device [facility] Start: 04-21-2024 Following clinical pathway protocol [facility] Start: 04-21-2024 Assessment of risk of venous thromboembolism [facility] Start: 04-21-2024 Elevation of affected extremity [facility] Start: 04-21-2024 Incentive spirometry [facility] Start: 04-21-2024 Inhalation therapy procedure [facility] Start: 04-21-2024 Insertion of catheter into peripheral vein [facility] Start: 04-21-2024 Providing care according to standard [facility] Start: 04-21-2024 Provision of activity privileges [facility] Start: 04-21-2024 Referral to occupational therapist [facility] Start: 04-21-2024 Referral to service [facility] Start: 04-21-2024 [facility] Start: 04-21-2024 Admission procedure [facility] Start: 04-21-2024 Consultation [facility] Start: 04-21-2024 Patient referral to dietitian [facility] Start: 03-03-2024 Advance Directive Discussion Advance Directive Discussion [facility] Start: 11-02-2023 Covid-19 Vaccine ( season) Covid-19 Vaccine ( season) [facility] Start: 11-02-2023 Influenza vaccination Influenza Vaccine (#1) [facility] Start: 09-06-2022 Egd transoral biopsy single/multiple EGD BIOPSY SINGLE/MULTIPLE [facility] Start: 09-06-2022 Patient discharge [facility] Start: 2022 Patient referral [facility] Work Phone: Start: 11-28-2021 Evaluation of diagnostic study results [facility] Work Phone: Start: 2016 RSV Vaccine (1 - 1-dose 75+ series) RSV Vaccine (1 - 1-dose 75+ series) [facility] Start: 2006 Screening for osteoporosis Bone Density Screening [facility] Start: 06-04-1991 Pneumococcal Vaccine: 50+ (1 of 1 - PCV) Pneumococcal Vaccine: 50+ (1 of 1 - PCV) [facility] Start: 06-04-1991 Shingrix Vaccine (1 of 2) Shingrix Vaccine (1 of 2) [facility] Start: 1986 Diabetes Screening Diabetes Screening [facility] Start: 1960 Urine microalbumin profile DTaP,Tdap,Td Vaccine (1 - Tdap) [facility] Start: 06-04-1959 Anxiety Screening Anxiety Screening [facility] Start: 06-04-1959 Depression Screening Depression Screening [facility] Ankle brachial press ure index [facility] CBC W Auto Different ial panel - Blood [facility] Evaluation of diagno stic study results [facility] Work Phone: Patient Education [facility] Work Phone: Patient referral [facility] Work Phone: T4 free measurement [facility] Thyroid stimulating hormone measurement [facility] Triiodothyronine, fr ee measurement [facility] Payers Date Payer Category Payer Self-pay [id number] 2016 [facility] DICARE SUPPLEMENT [id number] 2016 Unknown [id number] 2006 Medicare MEDICARE Member Subscriber Plan / Payer (Effective 2006-Present) Name: Magaly Souza Member ID: [id number] Relation to Subscriber: Self Name: Magaly Souza Subscriber ID: [id number] Payer ID: Not on file Group ID: Not on file Type: Medicare Address: [place] [id number] 2006 Medicare [id number] Unknown [id number] [id number]. 2.462 Unknown [id number] 2.16840.1.948719.3.579. 2.462 Unknown [id number] 2.16840.1.731988.3.579. 2.462 Unknown [id number] 2.16840.1.433412.3.579. 2.462 Unknown [id number] 2.16840.1.576781.3.579. 2.462 Unknown [id number] 2.16840.1.897093.3.579. 2.462 Unknown [id number] 2.16840.1.303789.3.579. 2.462 Unknown [id number] 2.16840.1.220876.3.579. 2.462 Unknown [id number] 2.16840.1.149454.3.579. 2.462 Unknown [id number] 2.16840.1.867081.3.579. 2.462 Unknown [id number] 2.16.840.1.486910.3.579. 2.462 Unknown [id number] 2.16.840.1.445331.3.579. 2.462 Unknown [id number] 2.16.840.1.033942.3.579. 2.462 Unknown [id number] 2.16.840.1.964861.3.579. 2.462 Unknown [id number] 2.16.840.1.791078.3.579. 2.462 Unknown [id number] 2.16.840.1.924595.3.579. 2.462 Unknown [id number] 2.16.840.1.726911.3.579. 2.462 Unknown [id number] 2.16.840.1.470060.3.579. 2.462 Unknown [id number] 2.16840.1.499777.3.579. 2.462 Unknown [id number] 2.16.840.1.950750.3.579. 2.462 Unknown [id number] 2.16.840.1.711784.3.579. 2.462 Unknown [id number] 2.16.840.1.017401.3.579. 2.462 Unknown [id number] 2.16.840.1.443298.3.579. 2.462 Unknown [id number] 2.16.840.1.165405.3.579. 2.462 Unknown [id number] 2.16.840.1.963601.3.579. 2.462 Unknown [id number] 2.16.840.1.626668.3.579. 2.462 Unknown [id number] 2.16.840.1.785687.3.579. 2.462 Unknown [id number] 2.16.840.1.891060.3.579. 2.462 Unknown [id number] 2.16.840.1.517256.3.579. 2.462 Unknown [id number] 2.16.840.1.156174.3.579. 2.462 Social History Date Type Detail Facility Start: 05-23-2021 End: 12-04-2022 Tobacco smoking status KSIS Unknown if ever smoked [facility] Start: 05-25-2019 None [facility] Start: 05-25-2019 Alone [facility] Start: 05-20-2017 Non-smoker [facility] Start: 1940 Sex Assigned At Female [facility] Start: 04-29-2016 End: 09-06-2024 Tobacco smoking status NHIS Ex-smoker [facility] Start: 03-03-1966 End: 03-03-1986 History of tobacco use Current smoker [facility] Start: 03-03-1966 End: 03-03-1986 History of tobacco use Cigarette Smoker [facility] Start: 04-29-2016 End: 2024 Cigarettes smoked current (pack per day) - Reported 2 [facility] Start: 04-29-2016 Tobacco use and exposure Smokeless tobacco non-user [facility] Start: 2024 Alcoholic beverage intake Current non-drinker of alcohol (finding) [facility] Start: 2024 Tobacco use panel [facility] National Score (1-10 0), lower number is lower risk 99 [facility] Start: 1940 Sex assigned at Not on file [facility] Goals Date Patient Goal Desired Activity /State Functional Status Date Assessment Result Facility 04-27-2024 Functional status Bedside Commode [facility] Work Phone: 12-02-2013 Are you deaf, or do you have serious difficulty hearing No 12/02/2013 10:31 AM Mirian Chirinos MA No [facility] 12-02-2013 Are you blind, or do you have serious difficulty seeing, even when wearing glasses No 12/02/2013 10:31 AM Mirian Chirinos MA No [facility] 12-02-2013 Do you have serious difficulty walking or climbing stairs No 12/02/2013 10:31 AM Mirian Chirinos MA No [facility] 12-02-2013 Do you have difficul ty dressing or bathing No 12/02/2013 10:31 AM EDT Mirian Trinh MA No [facility] 12-02-2013 Because of a physica l, mental, or emotional condition, do you have difficulty doing errands alone such as visiting a physician's office or shopping No 12/02/2013 10:31 AM EDT Mirian Trinh MA No [facility] Mental Status Date Assessment Result Facility 04-27-2024 Cognitive function Voice/Name [facility] Work Phone: 04-26-2024 Cognitive function Appropriate;C ooperativ e [facility] Work Phone: 09-06-2022 Cognitive function Voice/Name [facility] Work Phone: 12-02-2013 Because of a physica l, mental, or emotional condition, do you have serious difficulty concentrating, remembering, or making decisions No 12/02/2013 10:31 AM EDT Mirian Trinh MA No [facility] Clinical Notes 09-06-2022 to [address] APRN.CNP - 2024 3:32 PM EDT Note Date & Type Note Facility [address] APRN.CNP - 2024 4:04 PM EDT Colpocleisis to permanently close the vagina to treat the prolapse. Can call and make appointment with Dr. Tanner if you want to discuss further. Aquaphor documented in this encounter [facility] 2024 Note HNO ID: [id number] Author: JOCELYN STREET APRN.CNP Service: ? Author Type: Nurse Practitioner Type: Progress Notes Filed: 2024 19:32 Note Text: Jig Hand offered: Patient declines. Magaly Souza is a 84 year old female who presents for problem visit uterine prolapse Accompanied by daughter HPI: Known uterine prolapse since at least 2019 and maybe even 10 years . Uterus is out of vagina quite far for several inches. She pushes it back out of the way but never attempts to push it back in the vagina. When it bleeds, she puts AANDD on the abrasions. She is supposed to put AANDD on it daily but does not. Denies any problems with emptying bladder or having a bowel movement. [place], she was evaluated at a provider's office but unsure where or what the recommendations were. Surgery was not recommended in the past due to health risks. 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 PMH - PAST MEDICAL HISTORY OF INTERNAL HEMORRHOIDS PAST SURGICAL HISTORY Procedure Laterality Date BMD WHOLE BODY 2003 COLONOSCOPY, GI 03/19/02 DANDC, DIAG AND/OR THERAPEUTIC HAD 2 EGD W/O OR W/BRUSH/WASH EGD LIGATE FALLOPIAN TUBE REMOVAL OF TONSILS,<12 Y/O FAMILY HISTORY Problem Relation Age of Onset Hypertension Mother Diabetes Mother Coronary Artery Disease Mother COPD Father Stroke Father Colon Cancer Sister Social History Tobacco Use Smoking status: Former Current packs/day: 0.00 Average packs/day: 2.0 packs/day for 20.0 years (40.0 ttl pk-yrs) Types: Cigarettes Start date: 03/03/1966 Quit date: 03/03/1986 Years since quittin.2 Smokeless tobacco: Never Substance Use Topics Alcohol use: No Drug use: No Current Outpatient Medications Medication Sig atorvastatin (LIPITOR) 40 mg tablet Take 40 mg by mouth once daily. levothyroxine (SYNTHROID) 75 mcg tablet Take 75 mcg by mouth once daily. lisinopril (ZESTRIL, PRINIVIL) 5 mg tablet Take 5 mg by mouth once daily. oxyCODONE-acetaminophen (PERCOCET) 5-325 mg tablet Take 1 tablet by mouth every 4 hours as needed for Pain (low back pain). metFORMIN (GLUCOPHAGE) 500 mg tablet Take 1 tablet by mouth daily with breakfast. FERROUS SULFATE 325 MG (65 MG IRON) TAB takes two tabs once daily omeprazole(PRILOSEC 20 MG CAP) Take one(1) capsule twice daily. MECLIZINE 25 MG TAB Take one(1) tablet three times daily.prn dizzy tramadol hcl(ULTRAM 50 MG TAB) Take one(1) tablet every four(4) to six(6) hours as needed for pain. CITALOPRAM 40 MG TAB Take one(1) tablet daily. CHANTELLE-600 1,500 MG TAB TAKE 2 DAILY No current facility-administered medications for this visit. Allergies As of Date: 2024 (No Known Allergies) Fully Assessed 04/29/2016 REVIEW OF SYSTEMS Abdomen: No bloating, early satiety, indigestion, or increased flatulence. No abdominal pain, nausea, vomiting, diarrhea, or constipation. Bladder: No dysuria, gross hematuria, urinary frequency, urinary urgency, or incontinence. Allergies and current medication updated:Yes SENSITIVE EXAM: The sensitive examination was discussed with the Patient or Patient's Authorized Chain Builder. As applicable, any other physician, advance practice provider, medical student, or other health professional student that will be observing or involved in the sensitive examination for educational or training purposes was discussed with the Patient or Authorized Chain Builder. The Patient or Authorized Chain Builder has agreed to proceed with the sensitive examination. (Sensitive examination includes inspection and/or palpation of the breasts, pelvis, prostate and anorectal regions). EXAM: BP 154/72 Wt 166 lb (75.3kg) GENERAL: pleasant, female in no apparent distress CHEST: Normal inspiratory effort PELVIC: Complete uterine prolapse with uterus laying on the exam table. Abrasions noted from long-term rubbing to cervix. No active bleeding noted. Assessment AND Plan Complete uterovaginal prolapse -Dr. Tanner also examined the patient and spoke with patient and daughter. She discussed options of doing nothing as long as she is able to urinate and defecate, attempt to get with pessary, or perform surgical treatment with colpocleisis to close the vagina to treat the prolapse. Daughter would like to discuss with her sister and also with the patient and will make an appointment with Dr. Tanner if she would like to discuss further. -Aquaphor (more content not included)... [facility] 2024 History of Presen t illness Narrative Jig Hand offered: Patient declines. Magaly Souza is a 84 year old female who presents for problem visit uterine prolapse Accompanied by daughter HPI: Known uterine prolapse since at least 2019 and maybe even 10 years . Uterus is out of vagina quite far for several inches. She pushes it back out of the way but never attempts to push it back in the vagina. When it bleeds, she puts A&D on the abrasions. She is supposed to put A&D on it daily but does not. Denies any problems with emptying bladder or having a bowel movement. Daughter states [place] recently, she was evaluated at a provider's office but unsure where or what the recommendations were. Surgery was not recommended in the past due to health risks. 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 PMH - PAST MEDICAL HISTORY OF INTERNAL HEMORRHOIDS PAST SURGICAL HISTORY Procedure Laterality Date BMD WHOLE BODY 2003 COLONOSCOPY, GI 03/19/02 D&C, DIAG AND/OR THERAPEUTIC HAD 2 EGD W/O OR W/BRUSH/WASH EGD LIGATE FALLOPIAN TUBE REMOVAL OF TONSILS,<12 Y/O FAMILY HISTORY Problem Relation Age of Onset Hypertension Mother Diabetes Mother Coronary Artery Disease Mother COPD Father Stroke Father Colon Cancer Sister Social History Tobacco Use Smoking status: Former Current packs/day: 0.00 Average packs/day: 2.0 packs/day for 20.0 years (40.0 ttl pk-yrs) Types: Cigarettes Start date: 03/03/1966 Quit date: 03/03/1986 Years since quittin.2 Smokeless tobacco: Never Substance Use Topics Alcohol use: No Drug use: No Current Outpatient Medications Medication Sig atorvastatin (LIPITOR) 40 mg tablet Take 40 mg by mouth once daily. levothyroxine (SYNTHROID) 75 mcg tablet Take 75 mcg by mouth once daily. lisinopril (ZESTRIL, PRINIVIL) 5 mg tablet Take 5 mg by mouth once daily. oxyCODONE-acetaminophen (PERCOCET) 5-325 mg tablet Take 1 tablet by mouth every 4 hours as needed for Pain (low back pain). metFORMIN (GLUCOPHAGE) 500 mg tablet Take 1 tablet by mouth daily with breakfast. FERROUS SULFATE 325 MG (65 MG IRON) TAB takes two tabs once daily omeprazole(PRILOSEC 20 MG CAP) Take one(1) capsule twice daily. MECLIZINE 25 MG TAB Take one(1) tablet three times daily.prn dizzy tramadol hcl(ULTRAM 50 MG TAB) Take one(1) tablet every four(4) to six(6) hours as needed for pain. CITALOPRAM 40 MG TAB Take one(1) tablet daily. CHANTELLE-600 1,500 MG TAB TAKE 2 DAILY No current facility-administered medications for this visit. Allergies As of Date: 2024 (No Known Allergies) Fully Assessed 04/29/2016 REVIEW OF SYSTEMS Abdomen: No bloating, early satiety, indigestion, or increased flatulence. No abdominal pain, nausea, vomiting, diarrhea, or constipation. Bladder: No dysuria, gross hematuria, urinary frequency, urinary urgency, or incontinence. Allergies and current medication updated:Yes SENSITIVE EXAM: The sensitive examination was discussed with the Patient or Patient's Authorized Chain Builder. As applicable, any other physician, advance practice provider, medical student, or other health professional student that will be observing or involved in the sensitive examination for educational or training purposes was discussed with the Patient or Authorized Chain Builder. The Patient or Authorized Chain Builder has agreed to proceed with the sensitive examination. (Sensitive examination includes inspection and/or palpation of the breasts, pelvis, prostate and anorectal regions). EXAM: BP 154/72 Wt 166 lb (75.3kg) GENERAL: pleasant, female in no apparent distress CHEST: Normal inspiratory effort PELVIC: Complete uterine prolapse with uterus laying on the exam table. Abrasions noted from long-term rubbing to cervix. No active bleeding noted. Assessment & Plan Complete uterovaginal prolapse -Dr. Tanner also examined the patient and spoke with patient and daughter. She discussed options of doing nothing as long as she is able to urinate and defecate, attempt to get with pessary, or perform surgical treatment with colpocleisis to close the vagina to treat the prolapse. Daughter would like to discuss with her sister and also with the patient and will make an appointment with Dr. Tanner if she would like to discuss further. -Aquaphor or A&E to abrasions regularly. Follow-up appointment with Dr. Tanner if she would like to discuss further or if any problems. Jocelyn Street APRN.CNC LATHE PROGRAMMER I spent a total of 45 minutes on the date of the service which included preparing to see the patient, [id number] patient care, completing clinical documentation, obtaining and/or reviewing separately obtained history, performing a medically appropriate examination, counseling and educating the patient/family/caregiver, communicating results to the patient/family/caregiver, and care coordination (not separately reported). Medical Decision Making: Problems: Moderate: 1+ chronic illnesses with change Data: Unique source(s) for external note(s) reviewed: 1 Assessment requiring an independent historian(s) Discussed management or test w/ external physician/QHCP/source Medical Decision Making Level: 4 - Moderate documented in this encounter [facility] 05-10-2024 Evaluation note Diagnosis Onset Date Resolution Uterovaginal prolapse, complete acute May 10, 2024 10:47am Alzheimer disease acute July 9:23am Atrial fibrillation acute July 072024 9:23am CHF (congestive heart failure) acute July 07, 2024 9: 23am Left upper lobe pulmonary nodule acute July 07, 2024 9 :23am Occult blood positive stool acute July 07, 2024 9: 23am PVD (peripheral vascular disease) acute July 07, 2024 9: 23am Hypothyroidism chronic July 07, 025 9:23am [facility] Work Phone: 1(193) 177-202502-25-2025 [facility]01-29-2025 Evaluation note* Diagnosis Onset Date Resolution Status Admit Date Alzheimer disease acute March 31, 2024 1:33pm Contusion of left chest wall acute March 31, 2024 1:33pm Essential hypertension acute Ja nuary 2024 1:33pm Status post fall acute March 31, 2024 1:33pm Debility acute April 21, 2024 2:26pm Cellulitis of right lower extremity resolved April 21, 2 025 2:26pm Acid reflux acute May 03 9:01am Occult blood positive stool acute May 03, 2024 9:01am Uterovaginal prolapse, complete acute May 10, 2024 10:47am Alzheimer disease acute July 9:23am Atrial fibrillation acute July 072024 9:23am CHF (congestive heart failure) acute July 07, 2024 9:23am Left upper lobe pulmonary nodule acute July 07, 2024 9: 23am Occult blood positive stool acute July 07, 2024 9:23am PVD (peripheral vascular disease) acute July 07, 2024 9: 23am Hypothyroidism chronic July 07, 025 9:23am [facility] Work Phone: 1(243) 537-754407-07-2023 History and physical note Author Chau Ibarra [facility] September 06, 2022 9:45am Note Date/Time September 06, 2022 9:45a m [facility] Medical Records Department [address] [place] [address] History & Physical Exam 09/06/22 0945 MR#: [id number] Acct: [id number] Name: MAGALY SOUZA Rep #:[id number] : 1940 82 From: Chau Ibarra MD PCP: Dr. Teo Medley MD Status:[facility] Location: [place] [address] History and Physical Date of Admission: 09/06/22 Visit Reasons: GERD, DYSPHAGIA Chief Complaint: GERD, dysphagia consult Yard Attendant Required: No Is patient in pain?: No Allergies Influenza Virus Vaccines Allergy (Verified 07/16/22 15:17) Othermorphine Allergy (Verified 07/16/22 15:17) Other Medications aspirin 81 mg chewable tablet 81 mg PO DAILY heart health 05/28/14 [History Confirmed 07/16/22] calcium carbonate 500 mg calcium (1,250 mg) tablet (Calcium 500) 500 mg PO DAILY07/19/20 [History Confirmed 07/16/22] cholecalciferol (vitamin D3) 10 mcg (400 unit) capsule 10 mcg PO DAILY 07/19/20 [History Confirmed 07/16/22] ascorbic acid (vitamin C) 500 mg capsule mg PO 02/15/21 [History Confirmed 07/16/22] zinc 50 mg tablet 50 mg PO DAILY 02/15/21 [History Confirmed 07/16/22] paroxetine HCl 40 mg tablet 40 mg PO QHS DEPRESSION #90 tabs 09/19/21 [Rx Confirmed 07/16/22] lisinopril 10 mg-hydrochlorothiazide 12.5 mg tablet 1 tab PO DAILY #90 tabs 04/17/22 [Rx Confirmed 07/16/22] levothyroxine 88 mcg tablet 88 mcg PO DAILY thyroid #90 tabs 07/01/22 [Rx Confirmed 07/16/22] PFSH Medical History Alzheimer disease Cataract COVID-19 Headache, chronic migraine without aura History of gallstones History of shingles Urinary incontinence concurrent with and due to female genital prolapse Vision problem Surgical History History of cataract removal with insertion of prosthetic lens Family History Daughter Anxiety Depression LupusSister Colon cancer Social History Smoking Status: Former smoker alcohol intake: never substance use type: does not use what type of physical activity do you participate in: none HPI HPI HPI: 82-year-old female with Alzheimer's disease and ongoing memory impairment. She has been having some difficulties with swallowing. This has been present in thepast as well. By report she had a swallow study done in 2019 which apparently was okay. She describes food sticking in her throat and her needing to wash it down. This mostly occurs with drier feeder foods. Is not painful. Consideration has been made for visualization with a esophagogastroduodenoscopy. 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 The patient presents with her son Jayme today. She claims that she has intermittent troubles feeling something is getting stuck in the back of her throat and that she has to wash it down with fluid. She has not lost any weightin fact she is gaining some weight. She used to be a cigarette smoker for 20 years but she claims she quit 25 years ago. Denies any abdominal pain. No bright red blood per rectum or melena. 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 She is able to eat those on a daily basis. ROS General General: No weight change, appetite, fatigue, colon cancer, breast cancer or weakness HEENT HEENT: Yes difficulty swallowing; No eye injury, eye surgery, swollen glands or hoarseness Endo Endocrine: Yes thyroid disease; No diabetes mellitus, thyroid cancer, Hair loss, heat intolerance or cold intolerance Skin Skin: No rash or changing moles Breast Breast: No left breast lump, right breast lump, nipple discharge, breast pain, abnormal mammogram, abnormal US or breast enlargement Musc Musculoskeletal: No back problems, arthritis, rheumatoid arthritis, gout or joint pain Cardio Cardiovascular: Yes high blood pressure; No murmur, pacemaker, heart disease, atrial fibrillation, heart attack, heart stent, palpitations, shortness of breat with exertion or chest pain Psych Psychiatric: Yes depression; No anxiety or hearing voices Resp Respiratory: No shortness of breath, No sleep apnea, No cough, No COPD, No asthma, No emphysema and No wheezing Gastro Gastrointestinal: No abdominal pain, No nausea or vomiting, No diarrhea, No constipation, No blood in stool, Yes acid reflux, No hemorrhoids, No ulcers, No gallbladder problem and No black,tarry stools Samuel Hematologic: Yes blood thinners, No blood disorders, No bleeding, No anemia and No blood clots Neuro Neurologic: No system reviewed and no additional complaints, except as documented, No as per HPI, No abnormal gait, No abnormal hearing, No abnormal movements, No abnormal speech, No behavioral changes, No burning sensations, No confusion, No convulsions, No disequilibrium, No dizziness, No localized weakness, No frequent falls, No headache(s), No lack of coordination, No loss ofvision, No memory loss, No numbness, No other visual disturbances, No radicular pain, No restless legs, No sensory deficit, No syncope, No tingling, No tremor(s), No weakness and No other Exam Const General: cooperative, comfortable and no acute distress Nutritional Appearance: overweight HENMT Head: normal to inspection Neck Neck: normal visual inspection Resp Effort & Inspection: normal respiratory effort Auscultation: clear to auscultation bilaterally Cardio Rate: regular rate Rhythm: regular rhythm GI Palpation: soft and no hepatosplenomegaly Musc Cervical Spine: normal cervical lordosis Skin General: no rashes or lesions noted Neuro General: patient alert Extrem General: no calf tenderness Psych Appearance: grossly normal Assessment and Plan Assessment and Plan (1) Dysphagia: Status: Acute Plan: I recommend to the patient esophagogastroduodenoscopy with possible biopsy or polypectomy or dilatation if indicated and I have described this technique, benefit, risk, alternatives. Careful inspection for possible esophageal diverticulum or areas of inflammation or stricturing will be pursued. Based upon the patient's discussion in particular because she is able to eat potato chips I am estimating at this point that I will not be finding a tight strictured area. She and her son Jayme have had an opportunity ask questions answered. We will schedule and proceed at her discretion. I appreciate the opportunity of assisting with her surgical care. Copy: Dr. Teo Ibarra M.D., F.A.C.S. I have examined the patient and the H&P has been reviewed. There are no clinicalchanges since date of exam. Chau Ibarra M.D., F.A.C.S. 09/06/22 0945 <Electronically signed by Chau Ibarra MD> Cosigner Signature (if applicable): CC: Dr. Teo Medley MD; Dr. Chau Ibarra MD~ Signed [facility] Work Phone: 1(138) 443-346707-07-2023 Procedure [facility] 09[facility]06-2022 [facility] Diagnosis Onset Date Resolution Status COVID-19 acute Essential hypertension acute Guillain Reynolds syndrome chron ic Hyperlipidemia chronic Hypothyroidism chronic Urinary incontinence concurr ent with and due to female genital prolapse acute Uterovaginal prolapse, complete acute Essential hypertension acute Urinary incontinence concurr ent with and due to female genital prolapse acute Uterovaginal prolapse, complete acute Guillain Reynolds syndrome chron ic Hyperlipidemia chronic Hypothyroidism chronic Essential hypertension acute Uterovaginal prolapse, complete acute Hyperlipidemia chronic Hypothyroidism [facility] Work Phone: Evaluation note* Diagnosis Onset Date Resolution Status Essential hypertension acute Preop exam for internal medicine acute Urinary incontinence concurr ent with and due to female genital prolapse acute Hyperlipidemia chronic Hypothyroidism chronic [facility] Work Phone: Evaluation note* Diagnosis Onset Date Resolution Status Dysphagia acute Essential hypertension acute Memory impairment of gradual onset acute Urinary incontinence concurr ent with and due to female genital prolapse acute Hyperlipidemia chronic Hypothyroidism chronic Dysphagia acute [facility] Work Phone: Evaluation note* Diagnosis Onset Date Resolution Status Dyspnea on exertion acute Essential hypertension acute Hyperlipidemia chronic Hypothyroidism chronic [facility] Work Phone: Evaluation noteNo assessment information available [facility] Work Phone: Evaluation note* Diagnosis Complete uterovaginal prolapse- Primary Uterovaginal prolapse, complete documented in this encounter [facility] for referral (narrative)No reason for referral information availableC[facility] Work Phone: Chief Complaint and Reason for Visit Chief Complaint 6 wk FU PROLAPSE ? Hysterectomy consult per 1 week pessary check FOLLOW UP Reason for Visit COVID-19 Essential hypertension Guillain Reynolds syndrome Hyperlipidemia Hypothyroidism Urinary incontinence concurrent with and due to female genital prolapse Uterovaginal prolapse, complete Essential hypertension Urinary incontinence concurrent with and due to female genital prolapse Uterovaginal prolapse, complete Guillain Reynolds syndrome Hyperlipidemia Hypothyroidism Essential hypertension Uterovaginal prolapse, complete Hyperlipidemia Hypothyroidism Chief Complaint 6 M FU E ORDER Reason for Visit Essential hypertensi on Preop exam for internal medicine Urinary incontinence concurrent with and due to female genital prolapse Hyperlipidemia Hypothyroidism Chief Complaint 1 Y FU GERD, DYSPHAGIA EGD MAC POSS DILITATION EGD MAC POSS DILITATION Reason for Visit Dysphagia Essential hypertension Memory impairment of gradual onset Urinary incontinence concurrent with and due to female genital prolapse Hyperlipidemia Hypothyroidism Dysphagia Chief Complaint EGD MAC POSS DILITAT ION EGD MAC POSS DILITATION 6 M FU E ORDER Reason for Visit Dyspnea on exertion Essential hypertension Hyperlipidemia Hypothyroidism Chief Complaint 6 M FU E ORDER E-ORDER Reason for Visit Dyspnea on exertion Essential hypertension Hyperlipidemia Hypothyroidism Chief Complaint E-ORDER E-ORDER Chief Complaint Admit Date Shoulder Pain March 31, 2024 1 :33pm post fall left post rib pain March 2:54pm R FOOT pain April 21, 2024 2:26pm R FOOT CELLULITIS April 22, 2024 3:11pm R FOOT CELLULITIS April 23, 2024 1:05pm R FOOT CELLULITIS April 24, 2024 3:51am R FOOT CELLULITIS April 25, 2024 11:09am R FOOT CELLULITIS April 26, 2024 9:33am R FOOT CELLULITIS April 27, 2024 12:34pm Left foot blister April 30, 2024 8:32pm wound May 01, 2024 8:51 pm ED follow up May 03, 2024 9:01 am PMB, Possible prolapse [address] May 10, 2024 10:47am sob June 26, 2024 11: 37am sob June 26, 2024 2:3 4pm [facility] Discharge July 07, 2024 9:23am E-ORDER July 07, 2024 10:54a m Reason for Visit Admit Date Alzheimer disease March 31, 2024 1 :33pm Contusion of left chest wall March 1:33pm Essential hypertension March 31 1:33pm Status post fall March 31, 2024 1 :33pm Debility April 21, 2024 2:26pm Cellulitis of right lower extremity Febr uary 2024 2:26pm Acid reflux May 03, 2024 9:01 am Occult blood positive stool May 03, 9:01am Uterovaginal prolapse, complete May 102024 10:47am Alzheimer disease July 07, 2024 9:23am Atrial fibrillation July 07, 2024 9:23am CHF (congestive heart failure) July 07, 2024 9:23am Left upper lobe pulmonary nodule July 9:23am Occult blood positive stool July 07 9:23am PVD (peripheral vascular disease) July 9:23am Hypothyroidism July 07, 2024 9:23am Chief Complaint Admit Date PMB, Possible prolapse [address] May 10, 2024 10:47am sob June 26, 2024 11: 37am sob June 26, 2024 2:3 4pm [facility] Discharge FU July 07, 2024 9:23am E-ORDER July 07, 2024 10:54a m CHF September 01, 2024 1:44p m Reason for Visit Admit Date Uterovaginal prolapse, complete May 102024 10:47am Alzheimer disease July 07, 2024 9:23am Atrial fibrillation July 07, 2024 9:23am CHF (congestive heart failure) July 07, 2024 9:23am Left upper lobe pulmonary nodule July 9:23am Occult blood positive stool July 07 9:23am PVD (peripheral vascular disease) July 9:23am Hypothyroidism July 07, 2024 9:23am Family History Relationship Condition Age at Onset Recorded Date/T bg daughter Anxiety Unknown Depression Unknown Lupus Unknown sister Malignant neoplasm of colon Unknown Advance Directives Advance Directive Response Recorded Date/ Time Advance Directives No April 04, 2021 3:14pm Living Will No April 04 3:14pm Power of [employer] Docent No April 04, 2021 3:14pm Advance Directive Response Recorded Date/ Time Name of Medical Power of [employer] SON August 08, 2022 10:40am Advance Directives No April 04, 2021 3:14pm Living Will Yes August 08, 2022 1 0:40am Power of [employer] Yes August 08, 2022 10:40am Advance Directive Response Recorded Date/ Time Advance Directives No April 04, 2021 2:14pm Living Will Yes August 08, 2022 9 :40am Power of [employer] Yes August 08, 2022 9:40am Advance Directive Response Recorded Date/ Time Advance Directives No April 04, 2021 3:14pm Living Will Yes August 08, 2022 1 0:40am Power of [employer] Yes August 08, 2022 10:40am Advance Directive Response Recorded Date/ Time Do you have a Healthcare Power of [employer]ent? No June 26, 2024 11:41am Living Will No April 21 8:38pm Do you have a Healthcare Power of [employer] Docent? Yes April 21, 2024 8:38pm Name of Medical Power of [employer] son Jayme April 21, 2024 8:38pm Living Will Yes April 30 9:37pm Do you have a Healthcare Power of [employer]ent? Yes April 30, 2024 9:37pm Name of Medical Power of [employer] daughter April 30, 2024 9:37pm Living Will No May 01, 2024 9:52pm Do you have a Healthcare Power of [employer] Docent? No March 1st, 2025 9:52pm Advance Directives No April 04, 2021 3:14pm Advance Directive Response Recorded Date/ Time Do you have a Healthcare Power of [employer] Docent? No June 26, 2024 11:41am Advance Directives No September 06 10:19am Summary Purpose Additional Source Comments Goals (unrecognized section and content) Goals may be documented in a n alternate sectionGoals may be documented in an alternate sectionGoals may be documented in an alternate sectionGoals may be documented in an alternate sectionGoals may be documented in an alternate sectionGoals may be documented in an alternate section Care Teams (unrecognized sec tion and content) Team Status: Active Member Role Status Dates Dr. Robert New MD Family Provider Active Dr. Teo Medley MD Primary Care Provider Active Team Status: Inactive Member Role Status Dates Dr. Teo Medley MD Primary Care Provider, Attendi ng Provider Active Team Status: Inactive Member Role Status Dates Dr. Teo Medley MD Primary Care Provider, Referri ng Provider Active Dr. Chau Ibarra MD Attending Provider Active Team Status: Active Member Role Status Dates Dr. Teo Medley MD Primary Care Provider, Referri ng Provider Active Dr. Chau Ibarra MD Attending Provider, Other Prov ider Active Team Status: Inactive Member Role Status Dates Dr. Teo Medley MD Primary Care Pro vider, Attending Provider, Referring Provider Active Allied Health Professional Relationship Specialty Start Date End Date Teo Medley MD [address] [place] [address] PCP - General Internal Medicine 08/28/20 Team Status: Active Member Role Status Dates Dr. Teo Medley MD Primary Care Provider Active Team Status: Inactive Member Role Status Dates Dr. Teo Medlye MD Primary Care Provider Active Start: March 31, 2024 End: March 31, 2024 Dr. Teo Medley MD Attending Provider Active Start: March 31, 2024 End: March 31, 2024 Team Status: Inactive Member Role Status Dates Dr. Teo Medley MD Primary Care Provider Active Start: March 31, 2024 End: March 31, 2024 Dr. Teo Medley MD Attending Provider Active Start: March 31, 2024 End: March 31, 2024 Dr. Teo Medley MD Referring Provider Active Start: March 31, 2024 End: March 31, 2024 Team Status: Active Member Role Status Dates Dr. Teo Medley MD Primary Care Provider Active Start: April 21, 2024 Dr. Francis Franco MD Attending Provider Active S tart: April 21, 2024 Dr. Stacey Arellano DO Referring Provider Active Start: April 21, 2024 Team Status: Inactive Member Role Status Dates Dr. Teo Medley MD Primary Care Provider Active Start: April 21, 2024 End: April 27, 2024 Dr. Stacey Arellano DO Emergency Provider Active Start: April 21, 2024 End: April 27, 2024 Dr. Virgen Freitas MD Admit Provider Active Star t: April 21, 2024 End: April 27, 2024 Dr. Virgen Freitas MD Attending Provider Active Start: April 21, 2024 End: April 27, 2024 Dr. Virgen Freitas MD Other Provider Active Star t: April 21, 2024 End: April 27, 2024 Dr. Diana Little MD Other Provider Active St art: April 21, 2024 End: April 27, 2024 Team Status: Active Member Role Status Dates Dr. Teo Medley MD Primary Care Provider Active Start: April 22, 2024 Dr. Stacey Arellano DO Emergency Provider Active Start: April 22, 2024 Dr. Virgen Freitas MD Admit Provider Active Star t: April 22, 2024 Dr. Virgen Freitas MD Other Provider Active Star t: April 22, 2024 Dr. Diana Little MD Attending Provider Active Start: April 22, 2024 Dr. Diana Little MD Other Provider Active St art: April 22, 2024 Team Status: Active Member Role Status Dates Dr. Teo Medley MD Primary Care Provider Active Start: April 23, 2024 Dr. Stacey rAellano DO Emergency Provider Active Start: April 23, 2024 Dr. Virgen Freitas MD Admit Provider Active Star t: April 23, 2024 Dr. Virgen Freitas MD Other Provider Active Star t: April 23, 2024 Dr. Diana Little MD Attending Provider Active Start: April 23, 2024 Dr. Diana Little MD Other Provider Active St art: April 23, 2024 Team Status: Active Member Role Status Dates Dr. Teo Medley MD Primary Care Provider Active Start: April 24, 2024 Dr. Stacey Arellano DO Emergency Provider Active Start: April 24, 2024 Dr. Virgen Freitas MD Admit Provider Active Star t: April 24, 2024 Dr. Virgen Freitas MD Other Provider Active Star t: April 24, 2024 Dr. Diana Little MD Other Provider Active St art: April 24, 2024 Dr. Kamala Barrera MD Attending Provider Active Start: April 24, 2024 Team Status: Active Member Role Status Dates Dr. Teo Medley MD Primary Care Provider Active Start: April 25, 2024 Dr. Stacey Arellano DO Emergency Provider Active Start: April 25, 2024 Dr. Virgen Freitas MD Admit Provider Active Star t: April 25, 2024 Dr. Virgen Freitas MD Other Provider Active Star t: April 25, 2024 Dr. Diana Little MD Attending Provider Active Start: April 25, 2024 Dr. Diana Little MD Other Provider Active St art: April 25, 2024 Team Status: Active Member Role Status Dates Dr. Teo Medley MD Primary Care Provider Active Start: April 26, 2024 Dr. Stacey Arellano DO Emergency Provider Active Start: April 26, 2024 Dr. Virgen Freitas MD Admit Provider Active Star t: April 26, 2024 Dr. Virgen Freitas MD Attending Provider Active Start: April 26, 2024 Dr. Virgen Freitas MD Other Provider Active Star t: April 26, 2024 Dr. Diana Little MD Other Provider Active St art: April 26, 2024 Team Status: Active Member Role Status Dates Dr. Teo Medley MD Primary Care Provider Active Start: April 27, 2024 Dr. Stacey Arellano DO Emergency Provider Active Start: April 27, 2024 Dr. Virgen Freitas MD Admit Provider Active Star t: April 27, 2024 Dr. Virgen Freitas MD Attending Provider Active Start: April 27, 2024 Dr. Virgen Freitas MD Other Provider Active Star t: April 27, 2024 Dr. Diana Little MD Other Provider Active St art: April 27, 2024 Team Status: Inactive Member Role Status Dates Dr. Teo Medley MD Primary Care Provider Active Start: April 30, 2024 End: April 30, 2024 Dr. Luiz Davila DO Attending Provider Active Start: April 30, 2024 End: April 30, 2024 Dr. Luiz Davila DO Emergency Provider Active Start: April 30, 2024 End: April 30, 2024 Dr. Partha Coulter MD Other Provider Active Star t: April 30, 2024 End: April 30, 2024 Team Status: Inactive Member Role Status Dates Dr. Francis Dill DO Attending Provider Active Start: May 01, 2024 End: May 01, 2024 Dr. Francis Dill DO Emergency Provider Active Start: May 01, 2024 End: May 01, 2024 Dr. Partha Coulter MD Primary Care Provider Active Start: May 01, 2024 End: May 01, 2024 Team Status: Inactive Member Role Status Dates Dr. Teo Medley MD Referring Provider Active Start: May 03, 2024 End: May 03, 2024 PETTY KiddC Attending Provider Active S tart: May 03, 2024 End: May 03, 2024 Dr. Partha Coulter MD Primary Care Provider Active Start: May 03, 2024 End: May 03, 2024 Team Status: Inactive Member Role Status Dates Dr. Teo Medley MD Referring Provider Active Start: May 10, 2024 End: May 10, 2024 Shanti Winkler NP, PHYSICAL SECURITY ENGINEER-C Attending Provider Active Start: May 10, 2024 End: May 10, 2024 Dr. Partha Coulter MD Primary Care Provider Active Start: May 10, 2024 End: May 10, 2024 Team Status: Inactive Member Role Status Dates Dr. Partha Coulter MD Primary Care Provider Active Start: June 26, 2024 End: June 26, 2024 Dr. Ankit Fraire DO Attending Provider Active Start: June 26, 2024 End: June 26, 2024 Dr. Ankit Fraire DO Emergency Provider Active Start: June 26, 2024 End: June 26, 2024 Team Status: Active Member Role Status Dates Dr. Partha Coulter MD Primary Care Provider Active Start: June 26, 2024 Dr. Ankit Fraire DO Emergency Provider Active Start: June 26, 2024 Dr. Sid Esposito DO Attending Provider Active Start: June 26, 2024 Team Status: Inactive Member Role Status Dates Dr. Teo Medley MD Primary Care Provider Active Start: July 07, 2024 End: July 07, 2024 Dr. Teo Medley MD Attending Provider Active Start: July 07, 2024 End: July 07, 2024 Team Status: Inactive Member Role Status Dates Dr. Teo Medley MD Primary Care Provider Active Start: July 07, 2024 End: July 07, 2024 Dr. Teo Medley MD Attending Provider Active Start: July 07, 2024 End: July 07, 2024 Dr. Teo Medley MD Referring Provider Active Start: July 07, 2024 End: July 07, 2024 Team Status: Inactive Member Role Status Dates Dr. Teo Medley MD Primary Care Provider Active Start: July 12, 2024 End: July 12, 2024 Dr. Teo Medley MD Attending Provider Active Start: July 12, 2024 End: July 12, 2024 Dr. Teo Medley MD Referring Provider Active Start: July 12, 2024 End: July 12, 2024 Team Status: Active Member Role/Relationship Status Dates Dr. Teo Medley MD Primary Care Provider Active Team Status: Inactive Member Role/Relationship Status Dates Dr. Teo Medley MD Referring Provider Active Start: May 10, 2024 End: May 10, 2024 Shanti Winkler PHYSICAL SECURITY ENGINEER, PHYSICAL SECURITY ENGINEER-C Attending Provider Active Start: May 10, 2024 End: May 10, 2024 Dr. Partha Coulter MD Primary Care Provider Active Start: May 10, 2024 End: May 10, 2024 Team Status: Inactive Member Role/Relationship Status Dates Dr. Partha Coulter MD Primary Care Provider Active Start: June 26, 2024 End: June 26, 2024 Dr. Ankit Fraire DO Attending Provider Active Start: June 26, 2024 End: June 26, 2024 Dr. Ankit Fraire DO Emergency Provider Active Start: June 26, 2024 End: June 26, 2024 Team Status: Active Member Role/Relationship Status Dates Dr. Partha Coulter MD Primary Care Provider Active Start: June 26, 2024 Dr. Ankit Fraire DO Emergency Provider Active Start: June 26, 2024 Dr. Sid Esposito DO Attending Provider Active Start: June 26, 2024 Team Status: Inactive Member Role/Relationship Status Dates Dr. Teo Medley MD Primary Care Provider Active Start: July 07, 2024 End: July 07, 2024 Dr. Teo Medley MD Attending Provider Active Start: July 07, 2024 End: July 07, 2024 Team Status: Inactive Member Role/Relationship Status Dates Dr. Teo Medley MD Primary Care Provider Active Start: July 07, 2024 End: July 07, 2024 Dr. Teo Medley MD Attending Provider Active Start: July 07, 2024 End: July 07, 2024 Dr. Teo Medley MD Referring Provider Active Start: July 07, 2024 End: July 07, 2024 Team Status: Inactive Member Role/Relationship Status Dates Dr. Teo Medley MD Primary Care Provider Active Start: July 12, 2024 End: July 12, 2024 Dr. Teo Medley MD Attending Provider Active Start: July 12, 2024 End: July 12, 2024 Dr. Teo Medley MD Referring Provider Active Start: July 12, 2024 End: July 12, 2024 Team Status: Active Member Role/Relationship Status Dates Dr. Teo Medley MD Primary Care Provider Active Start: September 01, 2024 Dr. Rolo Miller MD Attending Provider Active S tart: September 01, 2024 Team Status: Inactive Member Role/Relationship Status Dates Dr. Teo Medley MD Primary Care Provider Active Start: September 01, 2024 End: September 01, 2024 Dr. Teo Medley MD Attending Provider Active Start: September 01, 2024 End: September 01, 2024 Dr. Teo Medley MD Referring Provider Active Start: September 01, 2024 End: September 01, 2024 Source Comments (unrecognize d section and content) In the event this informatio n is protected by the Federal Confidentiality of Alcohol and Drug Abuse Patient Records regulations: The Federal rules restrict any use of the information to criminally investigate or prosecute any alcohol or drug abuse patient.[facility] Reason for Visit (unrecogniz ed section and content) Reason Comments [employer] INFORMATION SOURCE (unrecogn ized section and content) DATE CREATED AUTHOR 06/07/2024 [facility] DATE CREATED AUTHOR AUTHOR'S ORGANROSLYN ATION 09/03/2024 [facility] FOR RECORDS PERTAINING TO PATIENTS WHO ARE [...] BE BASED ON THE PRIMARY CLINICAL RECORDS. [employer] [facility]. provides no warranty or guarantee of the accuracy or completeness of information in this document.
== END | disposition home or self-care (01) ==
LOC: LAB 11:02
PROVIDERS: PCP Internal Medicine; Referring Provider Internal Medicine; Visit Provider Internal Medicine
DX: I11.0 Hypertensive heart disease with heart failure (principal); I50.9 Heart failure, unspecified
CPT/HCPCS: 36415; 71046; 80053; 83735; 83880; 85025

== ENCOUNTER → 2024-12-15 | Outpatient (CLI) | payer MEDICARE, BC, SELFPAY ==
[2024-12-15 16:33] LABS: Anion Gap 10 (5-15); BUN 19 mg/dL (4-19); BUN/Creat Ratio 14.3 RATIO (10-20); Calcium,Total 9.2 mg/dL (7.6-11.0); Carbon Dioxide 24.9 mmol/L (21.0-32.0); Chloride 103 mmol/L (98-108); Free T3 2.5 pg/mL (2.18-3.98); Glucose 199 mg/dL (70-99); Magnesium 2.3 mg/dL (1.5-2.2); Potassium 4.2 mmol/L (3.3-5.1); Pro- Brain NATRIURETIC PEPTIDE 888 pg/mL (<=1800)
== END | disposition home or self-care (01) ==
LOC: LAB 14:55
PROVIDERS: PCP Internal Medicine; Referring Provider Internal Medicine; Visit Provider Internal Medicine
DX: I11.0 Hypertensive heart disease with heart failure (principal); I50.9 Heart failure, unspecified; G30.9 Alzheimer's disease, unspecified; F02.80 Dementia in other diseases classified elsewhere, unspecified severity, without behavioral disturbance, psychotic disturbance, mood disturbance, and anxiety; R06.09 Other forms of dyspnea; E03.9 Hypothyroidism, unspecified
CPT/HCPCS: 36415; 80048; 83735; 83880; 84439; 84443; 84481